=== PATIENT | female | born 1980 | race Caucasian/White ===

== ENCOUNTER 2021-12-31 15:16 | Observation (INO) | payer OTHER ==
[2021-12-31 16:07] LABS: ALT 13 U/L (4-34); AST 32 U/L (14-36); African American GFR (CKD) >90 (>60 ml/min/1.73 sqM); Albumin 4.5 g/dL (3.5-5.0); Alkaline Phosphatase 85 U/L (38-126); Anion Gap 13 mmol/L; Blood Urea Nitrogen 12 mg/dL (7-17); Calcium 9.2 mg/dL (8.4-10.2); Carbon Dioxide 20 mmol/L (22-30); Chloride 101 mmol/L (98-107); Glucose 105 mg/dL (74-99); Lipase 131 U/L (23-300); Magnesium 1.8 mg/dL (1.6-2.3); Non-African American GFR(CKD) >90 (>60 ml/min/1.73 sqM); Potassium 3.7 mmol/L (3.5-5.1); Sodium 134 mmol/L (137-145); Total Bilirubin 0.6 mg/dL (0.2-1.3); Total Protein 8.7 g/dL (6.3-8.2)
[2021-12-31 16:22] LABS: INR 0.9 (<1.2); Prothrombin Time 10.4 sec (9.0-12.0)
[2021-12-31 16:25] LABS: Anisocytosis Moderate; Basophils # (A) 0.1 k/uL (0-0.2); Basophils % (A) 1 %; Eosinophils # (A) 0.7 k/uL (0-0.7); Eosinophils % (A) 4 %; HCT 25.8 % (34.0-46.0); HGB 7.1 gm/dL (11.4-16.0); Hypochromasia Marked; Lymphocytes # (A) 1.8 k/uL (1.0-4.8); Lymphocytes % (A) 10 %; MCH 19.2 pg (25.0-35.0); MCHC 27.6 g/dL (31.0-37.0); MCV 69.7 fL (80.0-100.0); Mean Platelet Volume 8.4; Microcytosis Marked; Monocytes % (A) 5 %; Neutrophils # (A) 15.2 k/uL (1.3-7.7); Neutrophils % (A) 79 %; Platelet Count 214 k/uL (150-450); Poikilocytosis Slight; RDW 23.8 % (11.5-15.5); WBC 19.3 k/uL (3.8-10.6)
--- NOTE | 2021-12-31 17:39 | XR ---
EXAMINATION TYPE: XR chest 2V DATE OF EXAM: 12/31/2021 COMPARISON: NONE HISTORY: Chest pain and weakness TECHNIQUE: Frontal and lateral views of the chest are obtained. FINDINGS: There is no focal air space opacity, pleural effusion, or pneumothorax seen. The cardiac silhouette size is within normal limits. The osseous structures are intact. Mild degenerative sanchez es of the thoracic spine. Surgical clips overlie the left upper abdomen. IMPRESSION: No acute cardiopulmonary process.
[2021-12-31 17:42] LABS: Appearance,Urine Cloudy (Clear); Bilirubin,Urine Negative (Negative); Blood,Urine Negative (Negative); Color,Urine Yellow; Glucose,Urine (UA) Negative (Negative); Ketones,Urine Negative (Negative); Leukocyte Esterase,Urine Moderate (Negative); Mucus,Urine Few /hpf; Nitrite,Urine Negative (Negative); PH, Urine 6.5 (5.0-8.0); Protein,Urine Negative (Negative); RBC,Urine <1 /hpf (0-5); Specific Gravity,Urine 1.025 (1.001-1.035); Squamous Epithelial Cell,Urine 8 /hpf (0-4); Urobilinogen,Urine <2.0 mg/dL (<2.0); WBC,Urine 4 /hpf (0-5)
[2021-12-31] MEDS ORDERED: SODIUM CHLORIDE 0.9% 1,000 ML IV ONE (19:43)
[2021-12-31] MEDS ORDERED: NALOXONE 0.4 MG/ML 1 ML VIAL IV PRN (19:44)
--- NOTE | 2021-12-31 19:44 | ED ---
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 She was out shopping with her daughter when she had sudden onset of right-sided chest wall pain. We are short of breath and nauseated. The pain lasted approximately 10 minutes before spontaneously resolving. She denies history of cardiac disease. States that she has been more short of breath over the past week and has been extremely fatigued. Sleeps up to 20 hours per day. She admits to a history of anemia due to her gastric bypass. Previous to Covid she was receiving iron infusions. States that she has not received one in several years. She denies any black or bloody stools. No other alleviating, precipitating or modifying factors - Related Data Home Medications Medication Instructions Recorded Confirmed Albuterol Inhaler [Ventolin Hfa 2 puff INHALATION RT-QID PRN 12/31/21 12/31/21 Inhaler] Escitalopram [Lexapro] 10 mg PO HS 12/31/21 12/31/21 Famotidine [Pepcid] 20 mg PO BID 12/31/21 12/31/21 busPIRone HCL 15 mg PO DAILY PRN 12/31/21 12/31/21 busPIRone HCL 30 mg PO HS 12/31/21 12/31/21 Allergies Allergy/AdvReac Type Severity Reaction Status Date / Time amoxicillin Allergy Anaphylaxis Verified 12/31/21 19:13 Review of Systems ROS Statement: Those systems with pertinent positive or pertinent negative responses have been documented in the HPI. ROS Other: All systems not noted in ROS Statement are negative. Past Medical History Past Medical History: Blood Disorder, GERD/Reflux Additional Past Medical History / Comment(s): Anemia History of Any Multi-Drug Resistant Organisms: None Reported Past Surgical History: Bariatric Surgery Additional Past Surgical History / Comment(s): gastric bypass 2013 Past Psychological History: Anxiety, Depression Smoking Status: Current every day smoker Past Alcohol Use History: Occasional Past Drug Use History: Marijuana - Past Family History Mother Family Medical History: Unable to Obtain General Exam Limitations: no limitations General appearance: alert, in no apparent distress Head exam: Present: atraumatic, normocephalic, normal inspection Eye exam: Present: normal appearance, PERRL, EOMI. Absent: scleral icterus, conjunctival injection, periorbital swelling ENT exam: Present: normal exam, mucous membranes moist Neck exam: Present: normal inspection. Absent: tenderness, meningismus, lymphadenopathy Respiratory exam: Present: normal lung sounds bilaterally. Absent: respiratory distress, wheezes, rales, rhonchi, stridor Cardiovascular Exam: Present: regular rate, normal rhythm, normal heart sounds. Absent: systolic murmur, diastolic murmur, rubs, gallop, clicks GI/Abdominal exam: Present: soft, normal bowel sounds. Absent: distended, tenderness, guarding, rebound, rigid Extremities exam: Present: normal inspection, full ROM, normal capillary refill. Absent: tenderness, pedal edema, joint swelling, calf tenderness Back exam: Present: normal inspection Neurological exam: Present: alert, oriented X3, CN II-XII intact Psychiatric exam: Present: normal affect, normal mood Skin exam: Present: warm, dry, intact, normal color. 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 [place] interval 122. QRS 95. QTC of 409. No acute ST segment elevations or depressions Medical Decision Making - Medical Decision Making Upon arrival patient is placed into room 7. A thorough history and physical exam was performed. 12-lead EKG is obtained. Laboratory studies are conducted. Patient's hemoglobin is 7.1. White count 19.3. Troponin is negative. Chest x-ray demonstrates no acute process. Recommended admission in order to trend her troponins. Recommended hematology consult for her anemia and leukocytosis. Patient denies any source of infection at this time. Patient was on 2 recent courses of antibiotics for a urinary tract infection however denies any symptoms at this time. No fevers, chills or cough. No abdominal pain. Patient agreed to admission. Called and spoke with Bren from [facility]. Will hold off on the patient's blood transfusion at this time until she is able to be evaluated by hematology. Patient agreed to this and was transferred to floor in stable condition - Lab Data Result diagrams: 01/02/22 17:50 01/01/22 07:39 Lab Results 12/31/21 12/31/21 12/31/21 Range/Units 15:46 15:46 15:46 WBC 19.3 H (3.8-10.6) k/uL RBC 3.70 L (3.80-5.40) m/uL Hgb 7.1 L (11.4-16.0) gm/dL Hct 25.8 L (34.0-46.0) % MCV 69.7 L (80.0-100.0) fL MCH 19.2 L (25.0-35.0) pg MCHC 27.6 L (31.0-37.0) g/dL RDW 23.8 H (11.5-15.5) % Plt Count 214 (150-450) k/uL Plt Count Comment MPV 8.4 Immature Gran % (Auto) % Absolute Nucleated RBC (0.00-0.00) X 10*3/uL Neutrophils % 79 % Lymphocytes % 10 % Monocytes % 5 % Eosinophils % 4 % Basophils % 1 % Immature Gran # (0.00-0.04) X 10*3/uL Neutrophils # 15.2 H (1.3-7.7) k/uL Lymphocytes # 1.8 (1.0-4.8) k/uL Monocytes # 1.0 (0-1.0) k/uL Eosinophils # 0.7 (0-0.7) k/uL Basophils # 0.1 (0-0.2) k/uL NRBC/100 WBC Diff (0.0-0.0) /100 WBCS Pathologist Review Hypochromasia Marked Hypochromasia (manual) Poikilocytosis Slight Anisocytosis Moderate Microcytosis Marked Microcytosis (manual) PT 10.4 (9.0-12.0) sec INR 0.9 (<1.2) APTT 20.0 L (22.0-30.0) sec Sodium 134 L (137-145) mmol/L Potassium 3.7 (3.5-5.1) mmol/L Chloride 101 (98-107) mmol/L Carbon Dioxide 20 L (22-30) mmol/L Anion Gap 13 mmol/L BUN 12 (7-17) mg/dL Creatinine 0.65 (0.52-1.04) mg/dL Est GFR (CKD-EPI)AfAm >90 (>60 ml/min/1.73 sqM) Est GFR (CKD-EPI)NonAf >90 (>60 ml/min/1.73 sqM) BUN/Creatinine Ratio (12.00-20.00) Ratio Glucose 105 H (74-99) mg/dL Calcium 9.2 (8.4-10.2) mg/dL Magnesium 1.8 (1.6-2.3) mg/dL Iron (50-170) ug/dL TIBC (228-460) ug/dL % Saturation (12.00-45.00) Transferrin (204.0-354.0) mg/dL Total Bilirubin 0.6 (0.2-1.3) mg/dL AST 32 (14-36) U/L ALT 13 (4-34) U/L Alkaline Phosphatase 85 (38-126) U/L Troponin I (0.000-0.034) ng/mL NT-Pro-B Natriuret Pep pg/mL Total Protein 8.7 H (6.3-8.2) g/dL Albumin 4.5 (3.5-5.0) g/dL Lipase 131 (23-300) U/L Urine Color Urine Appearance (Clear) Urine pH (5.0-8.0) Ur Specific [place] (1.001-1.035) Urine Protein (Negative) Urine Glucose (UA) (Negative) Urine Ketones (Negative) Urine Blood (Negative) Urine Nitrite (Negative) Urine Bilirubin (Negative) Urine Urobilinogen (<2.0) mg/dL Ur Leukocyte Esterase (Negative) Urine RBC (0-5) /hpf Urine WBC (0-5) /hpf Ur Squamous Epith Cells (0-4) /hpf Urine Mucus (None) /hpf Blood Type Confirm 12/31/21 12/31/21 12/31/21 Range/Units 15:46 15:46 15:46 WBC (3.8-10.6) k/uL RBC (3.80-5.40) m/uL Hgb (11.4-16.0) gm/dL Hct (34.0-46.0) % MCV (80.0-100.0) fL MCH (25.0-35.0) pg MCHC (31.0-37.0) g/dL RDW (11.5-15.5) % Plt Count (150-450) k/uL Plt Count Comment MPV Immature Gran % (Auto) % Absolute Nucleated RBC (0.00-0.00) X 10*3/uL Neutrophils % % Lymphocytes % % Monocytes % % Eosinophils % % Basophils % % Immature Gran # (0.00-0.04) X 10*3/uL Neutrophils # (1.3-7.7) k/uL Lymphocytes # (1.0-4.8) k/uL Monocytes # (0-1.0) k/uL Eosinophils # (0-0.7) k/uL Basophils # (0-0.2) k/uL NRBC/100 WBC Diff (0.0-0.0) /100 WBCS Pathologist Review Hypochromasia Hypochromasia (manual) Poikilocytosis Anisocytosis Microcytosis Microcytosis (manual) PT (9.0-12.0) sec INR (<1.2) APTT (22.0-30.0) sec Sodium (137-145) mmol/L Potassium (3.5-5.1) mmol/L Chloride (98-107) mmol/L Carbon Dioxide (22-30) mmol/L Anion Gap mmol/L BUN (7-17) mg/dL Creatinine (0.52-1.04) mg/dL Est GFR (CKD-EPI)AfAm (>60 ml/min/1.73 sqM) Est GFR (CKD-EPI)NonAf (>60 ml/min/1.73 sqM) BUN/Creatinine Ratio (12.00-20.00) Ratio Glucose (74-99) mg/dL Calcium (8.4-10.2) mg/dL Magnesium (1.6-2.3) mg/dL Iron 12 L (50-170) ug/dL TIBC 680 H (228-460) ug/dL % Saturation 1.69 L (12.00-45.00) Transferrin 486.0 H (204.0-354.0) mg/dL Total Bilirubin (0.2-1.3) mg/dL AST (14-36) U/L ALT (4-34) U/L Alkaline Phosphatase (38-126) U/L Troponin I <0.012 (0.000-0.034) ng/mL NT-Pro-B Natriuret Pep 81 pg/mL Total Protein (6.3-8.2) g/dL Albumin (3.5-5.0) g/dL Lipase (23-300) U/L Urine Color Urine Appearance (Clear) Urine pH (5.0-8.0) Ur Specific [place] (1.001-1.035) Urine Protein (Negative) Urine Glucose (UA) (Negative) Urine Ketones (Negative) Urine Blood (Negative) Urine Nitrite (Negative) Urine Bilirubin (Negative) Urine Urobilinogen (<2.0) mg/dL Ur Leukocyte Esterase (Negative) Urine RBC (0-5) /hpf Urine WBC (0-5) /hpf Ur Squamous Epith Cells (0-4) /hpf Urine Mucus (None) /hpf Blood Type Confirm 12/31/21 12/31/21 12/31/21 Range/Units 15:46 17:30 21:28 WBC (3.8-10.6) k/uL RBC (3.80-5.40) m/uL Hgb (11.4-16.0) gm/dL Hct (34.0-46.0) % MCV (80.0-100.0) fL MCH (25.0-35.0) pg MCHC (31.0-37.0) g/dL RDW (11.5-15.5) % Plt Count (150-450) k/uL Plt Count Comment MPV Immature Gran % (Auto) % Absolute Nucleated RBC (0.00-0.00) X 10*3/uL Neutrophils % % Lymphocytes % % Monocytes % % Eosinophils % % Basophils % % Immature Gran # (0.00-0.04) X 10*3/uL Neutrophils # (1.3-7.7) k/uL Lymphocytes # (1.0-4.8) k/uL Monocytes # (0-1.0) k/uL Eosinophils # (0-0.7) k/uL Basophils # (0-0.2) k/uL NRBC/100 WBC Diff (0.0-0.0) /100 WBCS Pathologist Review Hypochromasia Hypochromasia (manual) Poikilocytosis Anisocytosis Microcytosis Microcytosis (manual) PT (9.0-12.0) sec INR (<1.2) APTT (22.0-30.0) sec Sodium (137-145) mmol/L Potassium (3.5-5.1) mmol/L Chloride (98-107) mmol/L Carbon Dioxide (22-30) mmol/L Anion Gap mmol/L BUN (7-17) mg/dL Creatinine (0.52-1.04) mg/dL Est GFR (CKD-EPI)AfAm (>60 ml/min/1.73 sqM) Est GFR (CKD-EPI)NonAf (>60 ml/min/1.73 sqM) BUN/Creatinine Ratio (12.00-20.00) Ratio Glucose (74-99) mg/dL Calcium (8.4-10.2) mg/dL Magnesium (1.6-2.3) mg/dL Iron (50-170) ug/dL TIBC (228-460) ug/dL % Saturation (12.00-45.00) Transferrin (204.0-354.0) mg/dL Total Bilirubin (0.2-1.3) mg/dL AST (14-36) U/L ALT (4-34) U/L Alkaline Phosphatase (38-126) U/L Troponin I <0.012 (0.000-0.034) ng/mL NT-Pro-B Natriuret Pep pg/mL Total Protein (6.3-8.2) g/dL Albumin (3.5-5.0) g/dL Lipase (23-300) U/L Urine Color Yellow Urine Appearance Cloudy H (Clear) Urine pH 6.5 (5.0-8.0) Ur Specific [place] 1.025 (1.001-1.035) Urine Protein Negative (Negative) Urine Glucose (UA) Negative (Negative) Urine Ketones Negative (Negative) Urine Blood Negative (Negative) Urine Nitrite Negative (Negative) Urine Bilirubin Negative (Negative) Urine Urobilinogen <2.0 (<2.0) mg/dL Ur Leukocyte Esterase Moderate H (Negative) Urine RBC <1 (0-5) /hpf Urine WBC 4 (0-5) /hpf Ur Squamous Epith Cells 8 H (0-4) /hpf Urine Mucus Few H (None) /hpf Blood Type Confirm A Positive 01/01/22 01/01/22 01/01/22 Range/Units 00:52 07:39 07:39 WBC 12.44 H (3.8-10.6) k/uL RBC 3.20 L (3.80-5.40) m/uL Hgb 5.9 L* (11.4-16.0) gm/dL Hct 22.6 L (34.0-46.0) % MCV 70.6 L (80.0-100.0) fL MCH 18.4 L (25.0-35.0) pg MCHC 26.1 L (31.0-37.0) g/dL RDW 25.7 H (11.5-15.5) % Plt Count 227 (150-450) k/uL Plt Count Comment Adequate MPV Immature Gran % (Auto) 0.6 % Absolute Nucleated RBC 0.03 H (0.00-0.00) X 10*3/uL Neutrophils % 66.8 % Lymphocytes % 13.3 % Monocytes % 10.5 % Eosinophils % 8.0 % Basophils % 0.8 % Immature Gran # 0.07 H (0.00-0.04) X 10*3/uL Neutrophils # 8.31 H (1.3-7.7) k/uL Lymphocytes # 1.66 (1.0-4.8) k/uL Monocytes # 1.30 H (0-1.0) k/uL Eosinophils # 1.00 H (0-0.7) k/uL Basophils # 0.10 (0-0.2) k/uL NRBC/100 WBC Diff 0.2 H (0.0-0.0) /100 WBCS Pathologist Review Hypochromasia Hypochromasia (manual) 2+ Poikilocytosis Anisocytosis Microcytosis Microcytosis (manual) 2+ PT (9.0-12.0) sec INR (<1.2) APTT (22.0-30.0) sec Sodium 138 (137-145) mmol/L Potassium 3.9 (3.5-5.1) mmol/L Chloride 107 (98-107) mmol/L Carbon Dioxide 21.9 (22-30) mmol/L Anion Gap 9.10 L mmol/L BUN 6.9 L (7-17) mg/dL Creatinine 0.6 (0.52-1.04) mg/dL Est GFR (CKD-EPI)AfAm 132.1 (>60 ml/min/1.73 sqM) Est GFR (CKD-EPI)NonAf 114.0 (>60 ml/min/1.73 sqM) BUN/Creatinine Ratio 11.50 L (12.00-20.00) Ratio Glucose 95 (74-99) mg/dL Calcium 8.3 L (8.4-10.2) mg/dL Magnesium (1.6-2.3) mg/dL Iron (50-170) ug/dL TIBC (228-460) ug/dL % Saturation (12.00-45.00) Transferrin (204.0-354.0) mg/dL Total Bilirubin (0.2-1.3) mg/dL AST (14-36) U/L ALT (4-34) U/L Alkaline Phosphatase (38-126) U/L Troponin I <0.012 (0.000-0.034) ng/mL NT-Pro-B Natriuret Pep pg/mL Total Protein (6.3-8.2) g/dL Albumin (3.5-5.0) g/dL Lipase (23-300) U/L Urine Color Urine Appearance (Clear) Urine pH (5.0-8.0) Ur Specific [place] (1.001-1.035) Urine Protein (Negative) Urine Glucose (UA) (Negative) Urine Ketones (Negative) Urine Blood (Negative) Urine Nitrite (Negative) Urine Bilirubin (Negative) Urine Urobilinogen (<2.0) mg/dL Ur Leukocyte Esterase (Negative) Urine RBC (0-5) /hpf Urine WBC (0-5) /hpf Ur Squamous Epith Cells (0-4) /hpf Urine Mucus (None) /hpf Blood Type Confirm 01/01/22 Range/Units 07:39 WBC (3.8-10.6) k/uL RBC (3.80-5.40) m/uL Hgb (11.4-16.0) gm/dL Hct (34.0-46.0) % MCV (80.0-100.0) fL MCH (25.0-35.0) pg MCHC (31.0-37.0) g/dL RDW (11.5-15.5) % Plt Count (150-450) k/uL Plt Count Comment MPV Immature Gran % (Auto) % Absolute Nucleated RBC (0.00-0.00) X 10*3/uL Neutrophils % % Lymphocytes % % Monocytes % % Eosinophils % % Basophils % % Immature Gran # (0.00-0.04) X 10*3/uL Neutrophils # (1.3-7.7) k/uL Lymphocytes # (1.0-4.8) k/uL Monocytes # (0-1.0) k/uL Eosinophils # (0-0.7) k/uL Basophils # (0-0.2) k/uL NRBC/100 WBC Diff (0.0-0.0) /100 WBCS Pathologist Review See comment Hypochromasia Hypochromasia (manual) Poikilocytosis Anisocytosis Microcytosis Microcytosis (manual) PT (9.0-12.0) sec INR (<1.2) APTT (22.0-30.0) sec Sodium (137-145) mmol/L Potassium (3.5-5.1) mmol/L Chloride (98-107) mmol/L Carbon Dioxide (22-30) mmol/L Anion Gap mmol/L BUN (7-17) mg/dL Creatinine (0.52-1.04) mg/dL Est GFR (CKD-EPI)AfAm (>60 ml/min/1.73 sqM) Est GFR (CKD-EPI)NonAf (>60 ml/min/1.73 sqM) BUN/Creatinine Ratio (12.00-20.00) Ratio Glucose (74-99) mg/dL Calcium (8.4-10.2) mg/dL Magnesium (1.6-2.3) mg/dL Iron (50-170) ug/dL TIBC (228-460) ug/dL % Saturation (12.00-45.00) Transferrin (204.0-354.0) mg/dL Total Bilirubin (0.2-1.3) mg/dL AST (14-36) U/L ALT (4-34) U/L Alkaline Phosphatase (38-126) U/L Troponin I (0.000-0.034) ng/mL NT-Pro-B Natriuret Pep pg/mL Total Protein (6.3-8.2) g/dL Albumin (3.5-5.0) g/dL Lipase (23-300) U/L Urine Color Urine Appearance (Clear) Urine pH (5.0-8.0) Ur Specific [place] (1.001-1.035) Urine Protein (Negative) Urine Glucose (UA) (Negative) Urine Ketones (Negative) Urine Blood (Negative) Urine Nitrite (Negative) Urine Bilirubin (Negative) Urine Urobilinogen (<2.0) mg/dL Ur Leukocyte Esterase (Negative) Urine RBC (0-5) /hpf Urine WBC (0-5) /hpf Ur Squamous Epith Cells (0-4) /hpf Urine Mucus (None) /hpf Blood Type Confirm Disposition Clinical Impression: Chest pain, Anemia, Exertional dyspnea, Leukocytosis Disposition: ADMITTED IP TO THIS [facility] Condition: Stable Is patient prescribed a controlled substance at d/c from ED?: No Time of Disposition: 19:44 Decision to Admit Reason: Admit from EC Decision Date: 12/31/21 Decision Time: 19:44
[2021-12-31] MEDS ORDERED: ALBUTEROL NEBULIZED 2.5 MG/3 ML INHALATION PRN (21:14)
[2021-12-31] MEDS: FAMOTIDINE 20 MG TAB PO SCH (21:52)
[2021-12-31] MEDS: ESCITALOPRAM 10 MG TAB PO SCH (21:52)
[2021-12-31] MEDS: busPIRone HCl 10 MG TAB PO SCH (21:52)
[2021-12-31] MEDS: ACETAMINOPHEN TAB 325 MG TAB PO PRN (21:52)
[2021-12-31] MEDS ORDERED: busPIRone HCl 5 MG TAB PO PRN (22:00)
[2021-12-31] MEDS: SODIUM CHLORIDE 0.9% 1,000 ML IV SCH (22:00)
[2021-12-31 22:54] LABS: % Iron Saturation 1.69 (12.00-45.00)
[2022-01-01] MEDS: SODIUM CHLORIDE 0.9% 1,000 ML IV SCH ×3 (03:50→19:57)
[2022-01-01] MEDS: FAMOTIDINE 20 MG TAB PO SCH ×2 (08:17→19:56)
[2022-01-01] MEDS: ACETAMINOPHEN TAB 325 MG TAB PO PRN ×2 (08:18→19:55)
--- NOTE | 2022-01-01 08:26 | P.HPIM ---
History of Present Illness H&P Date: 01/01/22 Chief Complaint: Chest pain. 41-year-old white female who is adopted and does not know her biologic family history who complained of significant chest pressure. Workup shows significant new anemia which I suspect his iron deficiency. The patient is a symptomatically morning. No overt chest pressure stated. No nausea or vomiting. Cardiac enzymes are nominal. Substernal pain was noted with no radiation. No diaphoresis was stated. Review of Systems Constitutional: Denies chills, Denies fever Eyes: denies blurred vision, denies pain Ears, nose, mouth and throat: Denies headache, Denies sore throat Cardiovascular: Reports chest pain, Denies shortness of breath Respiratory: Denies cough Gastrointestinal: Denies abdominal pain, Denies diarrhea, Denies nausea, Denies vomiting Genitourinary: Denies dysuria, Denies hematuria Past Medical History Past Medical History: Blood Disorder, GERD/Reflux Additional Past Medical History / Comment(s): Anemia History of Any Multi-Drug Resistant Organisms: None Reported Past Surgical History: Bariatric Surgery Additional Past Surgical History / Comment(s): gastric bypass 2014 Past Anesthesia/Blood Transfusion Reactions: No Reported Reaction Past Psychological History: Anxiety, Depression Smoking Status: Current every day smoker Past Alcohol Use History: Occasional Past Drug Use History: Marijuana Medications and Allergies Home Medications Medication Instructions Recorded Confirmed Type Albuterol Inhaler [Ventolin Hfa 2 puff INHALATION RT-QID PRN 12/31/21 12/31/21 History Inhaler] Escitalopram [Lexapro] 10 mg PO HS 12/31/21 12/31/21 History Famotidine [Pepcid] 20 mg PO BID 12/31/21 12/31/21 History busPIRone HCL 15 mg PO DAILY PRN 12/31/21 12/31/21 History busPIRone HCL 30 mg PO HS 12/31/21 12/31/21 History Allergies Allergy/AdvReac Type Severity Reaction Status Date / Time amoxicillin Allergy Anaphylaxis Verified 12/31/21 19:13 Physical Exam Vitals: Vital Signs Temp Pulse Pulse Pulse Resp BP BP 01/01/22 07:15 98.4 F 77 15 126/68 01/01/22 00:37 98.3 F 81 16 121/63 12/31/21 20:52 98.6 F 82 16 150/69 12/31/21 20:44 98.0 F 82 18 115/70 12/31/21 18:30 84 20 147/87 12/31/21 17:36 80 20 126/61 12/31/21 15:40 84 20 12/31/21 15:23 98.8 F 100 18 121/77 Pulse Ox 01/01/22 07:15 98 01/01/22 00:37 97 12/31/21 20:52 100 12/31/21 20:44 98 12/31/21 18:30 98 12/31/21 17:36 100 12/31/21 15:40 12/31/21 15:23 100 Intake and Output 12/31/21 01/01/22 01/01/22 22:59 06:59 14:59 Other: # Voids 1 1 Weight 68.039 kg - Constitutional General appearance: no acute distress - EENT Eyes: EOMI - Neck Neck: no lymphadenopathy - Respiratory Respiratory: bilateral: CTA - Cardiovascular Rhythm: regular Heart sounds: normal: S1, S2 Abnormal Heart Sounds: no S3 Gallop - Gastrointestinal General gastrointestinal: soft, no tenderness - Integumentary Integumentary: no cyanotic - Neurologic Neurologic: CNII-XII intact Results CBC & Chem 7: 12/31/21 15:46 12/31/21 15:46 Labs: Abnormal Lab Results - Last 24 Hours (Table) 12/31/21 12/31/21 12/31/21 Range/Units 15:46 15:46 15:46 WBC 19.3 H (3.8-10.6) k/uL RBC 3.70 L (3.80-5.40) m/uL Hgb 7.1 L (11.4-16.0) gm/dL Hct 25.8 L (34.0-46.0) % MCV 69.7 L (80.0-100.0) fL MCH 19.2 L (25.0-35.0) pg MCHC 27.6 L (31.0-37.0) g/dL RDW 23.8 H (11.5-15.5) % Neutrophils # 15.2 H (1.3-7.7) k/uL APTT 20.0 L (22.0-30.0) sec Sodium 134 L (137-145) mmol/L Carbon Dioxide 20 L (22-30) mmol/L Glucose 105 H (74-99) mg/dL Iron (50-170) ug/dL TIBC (228-460) ug/dL % Saturation (12.00-45.00) Transferrin (204.0-354.0) mg/dL Total Protein 8.7 H (6.3-8.2) g/dL Urine Appearance (Clear) Ur Leukocyte Esterase (Negative) Ur Squamous Epith Cells (0-4) /hpf Urine Mucus (None) /hpf 12/31/21 12/31/21 Range/Units 15:46 17:30 WBC (3.8-10.6) k/uL RBC (3.80-5.40) m/uL Hgb (11.4-16.0) gm/dL Hct (34.0-46.0) % MCV (80.0-100.0) fL MCH (25.0-35.0) pg MCHC (31.0-37.0) g/dL RDW (11.5-15.5) % Neutrophils # (1.3-7.7) k/uL APTT (22.0-30.0) sec Sodium (137-145) mmol/L Carbon Dioxide (22-30) mmol/L Glucose (74-99) mg/dL Iron 12 L (50-170) ug/dL TIBC 680 H (228-460) ug/dL % Saturation 1.69 L (12.00-45.00) Transferrin 486.0 H (204.0-354.0) mg/dL Total Protein (6.3-8.2) g/dL Urine Appearance Cloudy H (Clear) Ur Leukocyte Esterase Moderate H (Negative) Ur Squamous Epith Cells 8 H (0-4) /hpf Urine Mucus Few H (None) /hpf Assessment and Plan (1) Anemia Current Visit: Yes Status: Acute Code(s): D64.9 - ANEMIA, UNSPECIFIED SNOMED Code(s): 458361917 (2) Chest pain Current Visit: Yes Status: Acute Code(s): R07.9 - CHEST PAIN, UNSPECIFIED SNOMED Code(s): 69382710 (3) Exertional dyspnea Current Visit: Yes Status: Acute Code(s): R06.00 - DYSPNEA, UNSPECIFIED SNOMED Code(s): 32923781 Plan: Question need for pelvic ultrasound. Rule out myocardial infarction element. Appreciate hematology consult. IC signs of iron deficiency. She might benefit from infusion versus oral placement. Await consultations.
[2022-01-01] MEDS ORDERED: busPIRone HCl 5 MG TAB PO PRN (09:00)
[2022-01-01 10:52] LABS: African American GFR (CKD) 132.1 (60.0-200.0); Anion Gap 9.1 mmol/L (10.00-18.00); BUN/Creat Ratio 11.5 Ratio (12.00-20.00); Blood Urea Nitrogen 6.9 mg/dL (9.0-27.0); Calcium 8.3 mg/dL (8.7-10.3); Carbon Dioxide 21.9 mmol/L (20.0-27.5); Potassium 3.9 mmol/L (3.5-5.5)
--- NOTE | 2022-01-01 11:09 | P.CONS ---
History of Present Illness - Reason for Consult Consult date: 01/01/22 Acute on chronic anemia Requesting physician: Farnaz Arce - Chief Complaint Chest pain - History of Present Illness Mrs. Nelson is a pleasant 41-year-old female admitted with sudden onset chest pain, associated with nausea and shortness of breath, spontaneously res olved. No history of heart or lung disease. She has a history of iron deficiency, treated with parenteral iron, history of gastric bypass in 2013, treated for gastric ulcers. She has rare menstrual periods, about 3 times a year, qualifies them as light. She denies any other bleeding, no unintentional weight loss, sweats, acute changes in bowel or bladder habits. She is tired today, denies any current chest pain, shortness of breath, or nausea. Review of Systems 14 point review of systems is negative except as stated in HPI Past Medical History Past Medical History: Blood Disorder, GERD/Reflux Additional Past Medical History / Comment(s): Anemia History of Any Multi-Drug Resistant Organisms: None Reported Past Surgical History: Bariatric Surgery Additional Past Surgical History / Comment(s): gastric bypass 2013 Past Anesthesia/Blood Transfusion Reactions: No Reported Reaction Past Psychological History: Anxiety, Depression Smoking Status: Current every day smoker Past Alcohol Use History: Occasional Past Drug Use History: Marijuana - Past Family History Mother Family Medical History: Unable to Obtain Medications and Allergies Home Medications Medication Instructions Recorded Confirmed Type Albuterol Inhaler [Ventolin Hfa 2 puff INHALATION RT-QID PRN 12/31/21 12/31/21 History Inhaler] Escitalopram [Lexapro] 10 mg PO HS 12/31/21 12/31/21 History Famotidine [Pepcid] 20 mg PO BID 12/31/21 12/31/21 History busPIRone HCL 15 mg PO DAILY PRN 12/31/21 12/31/21 History busPIRone HCL 30 mg PO HS 12/31/21 12/31/21 History Allergies Allergy/AdvReac Type Severity Reaction Status Date / Time amoxicillin Allergy Anaphylaxis Verified 12/31/21 19:13 Physical Exam Vitals: Vital Signs Temp Pulse Pulse Pulse Resp BP BP 01/01/22 07:15 98.4 F 77 15 126/68 01/01/22 00:37 98.3 F 81 16 121/63 12/31/21 20:52 98.6 F 82 16 150/69 12/31/21 20:44 98.0 F 82 18 115/70 12/31/21 18:30 84 20 147/87 12/31/21 17:36 80 20 126/61 12/31/21 15:40 84 20 12/31/21 15:23 98.8 F 100 18 121/77 Pulse Ox 01/01/22 07:15 98 01/01/22 00:37 97 12/31/21 20:52 100 12/31/21 20:44 98 12/31/21 18:30 98 12/31/21 17:36 100 12/31/21 15:40 12/31/21 15:23 100 Intake and Output 12/31/21 01/01/22 01/01/22 22:59 06:59 14:59 Other: # Voids 1 1 Weight 68.039 kg - Constitutional General appearance: average body habitus, cooperative, no acute distress - EENT Eyes: anicteric sclerae, EOMI ENT: hearing grossly normal, normal oropharynx - Neck Neck: no lymphadenopathy, normal ROM - Respiratory Respiratory: bilateral: CTA - Cardiovascular Rhythm: regular Heart sounds: normal: S1, S2 Abnormal Heart Sounds: no systolic murmur, no diastolic murmur, no rub, no S3 Gallop, no S4 Gallop, no click, no other leg Peripheral Edema: bilateral: None - Gastrointestinal General gastrointestinal: no absent bowel sounds, no decreased bowel sounds, no distended, no hepatomegaly, no hyperactive bowel sounds, normal bowel sounds, no organomegaly, no rigid, no scaphoid, soft, no splenomegaly, no tenderness, no umbilical hernia, no ventral hernia - Integumentary Integumentary: normal turgor - Neurologic Neurologic: CNII-XII intact - Musculoskeletal Musculoskeletal: strength equal bilaterally - Psychiatric Psychiatric: A&O x's 3, appropriate affect, intact judgment & insight Results CBC & Chem 7: 12/31/21 15:46 01/01/22 07:39 Labs: Abnormal Lab Results - Last 24 Hours (Table) 12/31/21 12/31/21 12/31/21 Range/Units 15:46 15:46 15:46 WBC 19.3 H (3.8-10.6) k/uL RBC 3.70 L (3.80-5.40) m/uL Hgb 7.1 L (11.4-16.0) gm/dL Hct 25.8 L (34.0-46.0) % MCV 69.7 L (80.0-100.0) fL MCH 19.2 L (25.0-35.0) pg MCHC 27.6 L (31.0-37.0) g/dL RDW 23.8 H (11.5-15.5) % Neutrophils # 15.2 H (1.3-7.7) k/uL APTT 20.0 L (22.0-30.0) sec Sodium 134 L (137-145) mmol/L Carbon Dioxide 20 L (22-30) mmol/L Anion Gap (10.00-18.00) mmol/L BUN (9.0-27.0) mg/dL BUN/Creatinine Ratio (12.00-20.00) Ratio Glucose 105 H (74-99) mg/dL Calcium (8.7-10.3) mg/dL Iron (50-170) ug/dL TIBC (228-460) ug/dL % Saturation (12.00-45.00) Transferrin (204.0-354.0) mg/dL Total Protein 8.7 H (6.3-8.2) g/dL Urine Appearance (Clear) Ur Leukocyte Esterase (Negative) Ur Squamous Epith Cells (0-4) /hpf Urine Mucus (None) /hpf 12/31/21 12/31/21 01/01/22 Range/Units 15:46 17:30 07:39 WBC (3.8-10.6) k/uL RBC (3.80-5.40) m/uL Hgb (11.4-16.0) gm/dL Hct (34.0-46.0) % MCV (80.0-100.0) fL MCH (25.0-35.0) pg MCHC (31.0-37.0) g/dL RDW (11.5-15.5) % Neutrophils # (1.3-7.7) k/uL APTT (22.0-30.0) sec Sodium (137-145) mmol/L Carbon Dioxide (22-30) mmol/L Anion Gap 9.10 L (10.00-18.00) mmol/L BUN 6.9 L (9.0-27.0) mg/dL BUN/Creatinine Ratio 11.50 L (12.00-20.00) Ratio Glucose (74-99) mg/dL Calcium 8.3 L (8.7-10.3) mg/dL Iron 12 L (50-170) ug/dL TIBC 680 H (228-460) ug/dL % Saturation 1.69 L (12.00-45.00) Transferrin 486.0 H (204.0-354.0) mg/dL Total Protein (6.3-8.2) g/dL Urine Appearance Cloudy H (Clear) Ur Leukocyte Esterase Moderate H (Negative) Ur Squamous Epith Cells 8 H (0-4) /hpf Urine Mucus Few H (None) /hpf Chest x-ray: report reviewed Assessment and Plan (1) Microcytic hypochromic anemia Narrative/Plan: Additional labs have been ordered for complete evaluation of microcytic, hypochromic anemia. Patient states a history of iron deficiency about 5 years ago, treated with parenteral iron by her primary care. Patient denies ever seeing a Financial Analysis Manager. History of gastric bypass. This can certainly contribute to malabsorption, vitamin labs ordered. Patient also reports a history of gastric ulcers. There could be recurrence of the same. Pending ferritin. May need referral back to Investigative Analyst who performed her previous colonoscopy and EGD Current Visit: Yes Status: Acute Priority: High Code(s): D50.9 - IRON DEFICIENCY ANEMIA, UNSPECIFIED SNOMED Code(s): 55242777 (2) Leukocytosis Narrative/Plan: Patient has an elevated white count, elevated ANC. We'll have to request CBC from PCP to see if this is chronic-therefore possibly associated with smoking-or if this is of new or onset. Patient is currently under stress, experiencing severe chest pain recently which can also contribute. Additional workup will be ordered if persistent or progressive. Plan is to monitor for now. Current Visit: Yes Status: Chronic Priority: Medium Code(s): D72.829 - ELEVATED WHITE BLOOD CELL COUNT, UNSPECIFIED SNOMED Code(s): 525085856 Plan: Doctor attests: I performed a history and physical examination of this patient, developed impression and plan of care. Discussed with dictator. I agree with dictators note, documented as a scribe.
[2022-01-01 11:19] LABS: HCT 22.6 % (37.2-46.3); HGB 5.9 g/dL (12.0-15.0); MCH 18.4 pg (27.0-32.0); MCHC 26.1 g/dL (32.0-37.0); MCV 70.6 fL (80.0-97.0); NRBC Per 100 WBC 0.2 /100 WBCS (0.0-0.0); Platelet Count 227 X 10*3/uL (140-440); RDW 25.7 % (11.5-14.5); WBC 12.44 X 10*3/uL (4.50-10.00)
[2022-01-01 11:53] LABS: Basophils % (A) 0.8 %; Immature Grans, Automated 0.6 %; Lymphocytes # (A) 1.66 X 10*3/uL (0.90-5.00); Lymphocytes % (A) 13.3 %; Monocytes % (A) 10.5 %; Neutrophils # (A) 8.31 X 10*3/uL (1.80-7.70); Neutrophils % (A) 66.8 %
[2022-01-01 11:54] LABS: Hypochromasia (M) 2+; Microcytosis (M) 2+
--- NOTE | 2022-01-01 18:12 | P.GSCN ---
History of Present Illness Consult date: 01/01/22 Reason for Consult: Anemia History of present illness: Is a 41-year-old female who has complaints of weakness and fatigue. Patient was worked up emergency room. He will was 5.9. The patient denies any evidence of GI bleed. She has some minimal epigastric pain. She states she has a "acid stomach" Past Medical History Past Medical History: Blood Disorder, GERD/Reflux Additional Past Medical History / Comment(s): Anemia History of Any Multi-Drug Resistant Organisms: None Reported Past Surgical History: Bariatric Surgery Additional Past Surgical History / Comment(s): gastric bypass 2014 Past Anesthesia/Blood Transfusion Reactions: No Reported Reaction Past Psychological History: Anxiety, Depression Smoking Status: Current every day smoker Past Alcohol Use History: Occasional Past Drug Use History: Marijuana - Past Family History Mother Family Medical History: Unable to Obtain Medications and Allergies Home Medications Medication Instructions Recorded Confirmed Type Albuterol Inhaler [Ventolin Hfa 2 puff INHALATION RT-QID PRN 12/31/21 12/31/21 History Inhaler] Escitalopram [Lexapro] 10 mg PO HS 12/31/21 12/31/21 History Famotidine [Pepcid] 20 mg PO BID 12/31/21 12/31/21 History busPIRone HCL 15 mg PO DAILY PRN 12/31/21 12/31/21 History busPIRone HCL 30 mg PO HS 12/31/21 12/31/21 History Allergies Allergy/AdvReac Type Severity Reaction Status Date / Time amoxicillin Allergy Anaphylaxis Verified 12/31/21 19:13 Surgical - Exam Vital Signs Temp Pulse Resp BP Pulse Ox 98.8 F 100 18 121/77 100 12/31/21 15:23 12/31/21 15:23 12/31/21 15:23 12/31/21 15:23 12/31/21 15:23 - General well developed, well nourished, no distress - Eyes PERRL - ENT normal pinna - Neck no masses - Respiratory normal expansion - Cardiovascular Rhythm: regular - Abdomen Abdomen: soft, non tender Results - Labs 01/01/22 07:39 01/01/22 07:39 Abnormal Lab Results - Last 24 Hours (Table) 12/31/21 01/01/22 01/01/22 Range/Units 15:46 07:39 07:39 WBC 12.44 H (4.50-10.00) X 10*3/uL RBC 3.20 L (4.10-5.20) X 10*6/uL Hgb 5.9 L* (12.0-15.0) g/dL Hct 22.6 L (37.2-46.3) % MCV 70.6 L (80.0-97.0) fL MCH 18.4 L (27.0-32.0) pg MCHC 26.1 L (32.0-37.0) g/dL RDW 25.7 H (11.5-14.5) % Absolute Nucleated RBC 0.03 H (0.00-0.00) X 10*3/uL Immature Gran # 0.07 H (0.00-0.04) X 10*3/uL Neutrophils # 8.31 H (1.80-7.70) X 10*3/uL Monocytes # 1.30 H (0.20-1.00) X 10*3/uL Eosinophils # 1.00 H (0.04-0.35) X 10*3/uL NRBC/100 WBC Diff 0.2 H (0.0-0.0) /100 WBCS Anion Gap 9.10 L (10.00-18.00) mmol/L BUN 6.9 L (9.0-27.0) mg/dL BUN/Creatinine Ratio 11.50 L (12.00-20.00) Ratio Calcium 8.3 L (8.7-10.3) mg/dL Iron 12 L (50-170) ug/dL TIBC 680 H (228-460) ug/dL % Saturation 1.69 L (12.00-45.00) Transferrin 486.0 H (204.0-354.0) mg/dL Crossmatch 01/01/22 Range/Units 12:52 WBC (4.50-10.00) X 10*3/uL RBC (4.10-5.20) X 10*6/uL Hgb (12.0-15.0) g/dL Hct (37.2-46.3) % MCV (80.0-97.0) fL MCH (27.0-32.0) pg MCHC (32.0-37.0) g/dL RDW (11.5-14.5) % Absolute Nucleated RBC (0.00-0.00) X 10*3/uL Immature Gran # (0.00-0.04) X 10*3/uL Neutrophils # (1.80-7.70) X 10*3/uL Monocytes # (0.20-1.00) X 10*3/uL Eosinophils # (0.04-0.35) X 10*3/uL NRBC/100 WBC Diff (0.0-0.0) /100 WBCS Anion Gap (10.00-18.00) mmol/L BUN (9.0-27.0) mg/dL BUN/Creatinine Ratio (12.00-20.00) Ratio Calcium (8.7-10.3) mg/dL Iron (50-170) ug/dL TIBC (228-460) ug/dL % Saturation (12.00-45.00) Transferrin (204.0-354.0) mg/dL Crossmatch See Detail Diabetes panel 01/01/22 Range/Units 07:39 Sodium 138 (135-145) mmol/L Potassium 3.9 (3.5-5.5) mmol/L Chloride 107 (96-109) mmol/L Carbon Dioxide 21.9 (20.0-27.5) mmol/L BUN 6.9 L (9.0-27.0) mg/dL Creatinine 0.6 (0.6-1.5) mg/dL Glucose 95 (70-110) mg/dL Calcium 8.3 L (8.7-10.3) mg/dL Calcium panel 01/01/22 Range/Units 07:39 Calcium 8.3 L (8.7-10.3) mg/dL Pituitary panel 01/01/22 Range/Units 07:39 Sodium 138 (135-145) mmol/L Potassium 3.9 (3.5-5.5) mmol/L Chloride 107 (96-109) mmol/L Carbon Dioxide 21.9 (20.0-27.5) mmol/L BUN 6.9 L (9.0-27.0) mg/dL Creatinine 0.6 (0.6-1.5) mg/dL Glucose 95 (70-110) mg/dL Calcium 8.3 L (8.7-10.3) mg/dL Adrenal panel 01/01/22 Range/Units 07:39 Sodium 138 (135-145) mmol/L Potassium 3.9 (3.5-5.5) mmol/L Chloride 107 (96-109) mmol/L Carbon Dioxide 21.9 (20.0-27.5) mmol/L BUN 6.9 L (9.0-27.0) mg/dL Creatinine 0.6 (0.6-1.5) mg/dL Glucose 95 (70-110) mg/dL Calcium 8.3 L (8.7-10.3) mg/dL Assessment and Plan Assessment: Female. Patient will undergo upper and lower endoscopy on Saturday for workup.
[2022-01-01 18:43] LABS: Ferritin 5.1 ng/mL (10.0-291.0)
[2022-01-01] MEDS: busPIRone HCl 10 MG TAB PO SCH (19:56)
[2022-01-01] MEDS: ESCITALOPRAM 10 MG TAB PO SCH (19:56)
[2022-01-02] MEDS: SODIUM CHLORIDE 0.9% 1,000 ML IV SCH ×3 (04:39→17:27)
[2022-01-02] MEDS: FAMOTIDINE 20 MG TAB PO SCH ×2 (08:01→20:40)
--- NOTE | 2022-01-02 08:04 | P.PN ---
Subjective Progress Note Date: 01/02/22 Principal diagnosis: Anemia The patient is 5-year-old white female who is status post gastric bypass in 2014 who has significant anemia. No chest pain. EGD and colonoscopy are scheduled for the a.m. A.m. blood work is pending. Having some difficulty with type and cross Objective - Vital Signs Vital signs: Vital Signs Temp 98.6 F 01/02/22 06:55 Pulse 75 01/02/22 06:55 Resp 16 01/02/22 06:55 BP 112/67 01/02/22 06:55 Pulse Ox 100 01/02/22 06:55 Intake & Output 01/01/22 01/02/22 01/02/22 18:59 06:59 18:59 Other: # Voids 2 1 - Constitutional General appearance: Present: average body habitus - EENT Eyes: Absent: abnormal pupil - Neck Neck: Absent: lymphadenopathy - Respiratory Respiratory: bilateral: CTA - Cardiovascular Rhythm: regular Heart sounds: normal: S1, S2 Abnormal Heart Sounds: Absent: S3 Gallop - Gastrointestinal General gastrointestinal: Present: soft. Absent: tenderness - Integumentary Integumentary: Absent: cellulitis - Labs CBC & Chem 7: 01/01/22 07:39 01/01/22 07:39 Labs: Abnormal Lab Results - Last 24 Hours (Table) 01/01/22 01/01/22 01/01/22 Range/Units 07:39 07:39 12:52 WBC 12.44 H (4.50-10.00) X 10*3/uL RBC 3.20 L (4.10-5.20) X 10*6/uL Hgb 5.9 L* (12.0-15.0) g/dL Hct 22.6 L (37.2-46.3) % MCV 70.6 L (80.0-97.0) fL MCH 18.4 L (27.0-32.0) pg MCHC 26.1 L (32.0-37.0) g/dL RDW 25.7 H (11.5-14.5) % Absolute Nucleated RBC 0.03 H (0.00-0.00) X 10*3/uL Immature Gran # 0.07 H (0.00-0.04) X 10*3/uL Neutrophils # 8.31 H (1.80-7.70) X 10*3/uL Monocytes # 1.30 H (0.20-1.00) X 10*3/uL Eosinophils # 1.00 H (0.04-0.35) X 10*3/uL NRBC/100 WBC Diff 0.2 H (0.0-0.0) /100 WBCS Anion Gap 9.10 L (10.00-18.00) mmol/L BUN 6.9 L (9.0-27.0) mg/dL BUN/Creatinine Ratio 11.50 L (12.00-20.00) Ratio Calcium 8.3 L (8.7-10.3) mg/dL Ferritin 5.1 L (10.0-291.0) ng/mL Crossmatch 01/01/22 01/01/22 Range/Units 12:52 15:04 WBC (4.50-10.00) X 10*3/uL RBC (4.10-5.20) X 10*6/uL Hgb (12.0-15.0) g/dL Hct (37.2-46.3) % MCV (80.0-97.0) fL MCH (27.0-32.0) pg MCHC (32.0-37.0) g/dL RDW (11.5-14.5) % Absolute Nucleated RBC (0.00-0.00) X 10*3/uL Immature Gran # (0.00-0.04) X 10*3/uL Neutrophils # (1.80-7.70) X 10*3/uL Monocytes # (0.20-1.00) X 10*3/uL Eosinophils # (0.04-0.35) X 10*3/uL NRBC/100 WBC Diff (0.0-0.0) /100 WBCS Anion Gap (10.00-18.00) mmol/L BUN (9.0-27.0) mg/dL BUN/Creatinine Ratio (12.00-20.00) Ratio Calcium (8.7-10.3) mg/dL Ferritin (10.0-291.0) ng/mL Crossmatch See Detail See Detail Assessment and Plan (1) Anemia Current Visit: Yes Status: Acute Code(s): D64.9 - ANEMIA, UNSPECIFIED SNOMED Code(s): 152682391 (2) Chest pain Current Visit: Yes Status: Acute Code(s): R07.9 - CHEST PAIN, UNSPECIFIED SNOMED Code(s): 41247063 (3) Exertional dyspnea Current Visit: Yes Status: Acute Code(s): R06.00 - DYSPNEA, UNSPECIFIED SNOMED Code(s): 83624102 Plan: Question need for pelvic ultrasound. Rule out myocardial infarction element. Appreciate hematology consult. I see signs of iron deficiency. She might benefit from infusion versus oral placement. Appreciate multiple consultants. EGD and colonoscopy scheduled for a.m.
[2022-01-02 10:07] LABS: Anisocytosis Moderate; Basophils % (A) 0 %; Eosinophils # (A) 0.6 k/uL (0-0.7); Eosinophils % (A) 5 %; HCT 22.5 % (34.0-46.0); Hypochromasia Marked; Lymphocytes % (A) 16 %; MCH 19.2 pg (25.0-35.0); MCHC 26.5 g/dL (31.0-37.0); MCV 72.5 fL (80.0-100.0); Mean Platelet Volume 10.3; Microcytosis Marked; Monocytes # (A) 0.7 k/uL (0-1.0); Monocytes % (A) 6 %; Neutrophils # (A) 8.7 k/uL (1.3-7.7); Neutrophils % (A) 70 %; Platelet Count 280 k/uL (150-450); Poikilocytosis Slight; RDW 23.3 % (11.5-15.5); WBC 12.5 k/uL (3.8-10.6)
[2022-01-02] MEDS ORDERED: PEG 3350-NA SULF,BICARB,CL/KCL 4,000 ML BOTTLE PO ONE (12:00)
[2022-01-02] MEDS: ACETAMINOPHEN TAB 325 MG TAB PO PRN ×2 (12:15→20:40)
--- NOTE | 2022-01-02 12:49 | P.PN ---
Progress Note - Text Progress Note Date: 01/02/22 Patient is receiving blood transfusion today. She denies any abdominal pain. On exam vital signs are stable. Abdomen soft. Patient scheduled for upper and lower endoscopy tomorrow. She should have her vitamin levels checked for possible anemia due to malabsorption.
[2022-01-02] MEDS: SODIUM FERRIC GLUCONAT-SUCROSE 125 MG in SODIUM CHLORIDE 0.9% 100 ML IVPB SCH (15:39)
[2022-01-02 18:20] LABS: Anisocytosis Moderate; Basophils # (A) 0.1 k/uL (0-0.2); Basophils % (A) 0 %; Eosinophils # (A) 0.7 k/uL (0-0.7); Eosinophils % (A) 5 %; HCT 28.4 % (34.0-46.0); Hypochromasia Marked; Lymphocytes # (A) 2.6 k/uL (1.0-4.8); Lymphocytes % (A) 18 %; MCH 20.6 pg (25.0-35.0); MCHC 27.5 g/dL (31.0-37.0); MCV 74.8 fL (80.0-100.0); Mean Platelet Volume 10.3; Microcytosis Marked; Monocytes # (A) 0.9 k/uL (0-1.0); Monocytes % (A) 6 %; Neutrophils # (A) 9.9 k/uL (1.3-7.7); Neutrophils % (A) 68 %; Platelet Count 372 k/uL (150-450); Poikilocytosis Marked; RDW 23.4 % (11.5-15.5); WBC 14.7 k/uL (3.8-10.6)
[2022-01-02 18:53] LABS: HGB 7.8 gm/dL (11.4-16.0)
[2022-01-02] MEDS: busPIRone HCl 10 MG TAB PO SCH (20:41)
[2022-01-02] MEDS: ESCITALOPRAM 10 MG TAB PO SCH (20:41)
[2022-01-03] MEDS: SODIUM CHLORIDE 0.9% 1,000 ML IV SCH ×3 (00:45→17:02)
[2022-01-03] MEDS: ACETAMINOPHEN TAB 325 MG TAB PO PRN (03:33)
[2022-01-03 08:12] LABS: Methylmalonic Acid <0.10 umol/L (<0.40)
--- NOTE | 2022-01-03 08:49 | P.PN ---
Subjective Essentially awaiting endoscopy today. Blood counts have been relatively stable when I checked her chart in the office last year her hemoglobin when she for skin office was 7.9 Objective - Vital Signs Vital signs: Vital Signs Temp 97.3 F L 01/03/22 06:55 Pulse 73 01/03/22 06:55 Resp 16 01/03/22 06:55 BP 113/68 01/03/22 06:55 Pulse Ox 100 01/03/22 06:55 Intake & Output 01/02/22 01/03/22 01/03/22 18:59 06:59 18:59 Intake Total 532 Balance 532 Intake: Oral 222 Blood Product 310 Rc As-1 Unit 310 [id number] Other: # Voids 2 1 # Bowel Movements 2 - Labs CBC & Chem 7: 01/02/22 17:50 01/01/22 07:39 Labs: Abnormal Lab Results - Last 24 Hours (Table) 01/01/22 01/01/22 01/02/22 Range/Units 12:52 15:04 09:31 WBC 12.5 H (3.8-10.6) k/uL RBC 3.10 L (3.80-5.40) m/uL Hgb 6.0 L* (11.4-16.0) gm/dL Hct 22.5 L (34.0-46.0) % MCV 72.5 L (80.0-100.0) fL MCH 19.2 L (25.0-35.0) pg MCHC 26.5 L (31.0-37.0) g/dL RDW 23.3 H (11.5-15.5) % Neutrophils # 8.7 H (1.3-7.7) k/uL RBC Folate 1,780 H (280 - 791) ng/mL Crossmatch See Detail 01/02/22 Range/Units 17:50 WBC 14.7 H (3.8-10.6) k/uL RBC (3.80-5.40) m/uL Hgb 7.8 L D (11.4-16.0) gm/dL Hct 28.4 L (34.0-46.0) % MCV 74.8 L (80.0-100.0) fL MCH 20.6 L (25.0-35.0) pg MCHC 27.5 L (31.0-37.0) g/dL RDW 23.4 H (11.5-15.5) % Neutrophils # 9.9 H (1.3-7.7) k/uL RBC Folate (280 - 791) ng/mL Crossmatch Assessment and Plan (1) Anemia Current Visit: Yes Status: Acute Code(s): D64.9 - ANEMIA, UNSPECIFIED SNOMED Code(s): 441788580 (2) Chest pain Current Visit: Yes Status: Acute Code(s): R07.9 - CHEST PAIN, UNSPECIFIED SNOMED Code(s): 73352273 (3) Exertional dyspnea Current Visit: Yes Status: Acute Code(s): R06.00 - DYSPNEA, UNSPECIFIED SNOMED Code(s): 91004512 Plan: Await endoscopy. Anticipate discharge in next 24 hours
[2022-01-03] MEDS: SODIUM FERRIC GLUCONAT-SUCROSE 125 MG in SODIUM CHLORIDE 0.9% 100 ML IVPB SCH (08:58)
[2022-01-03] MEDS: FAMOTIDINE 20 MG TAB PO SCH ×2 (09:43→19:51)
[2022-01-03 11:57] LABS: Basophils # (A) 0.09 X 10*3/uL (0.00-0.10); Basophils % (A) 0.7 %; Eosinophils # (A) 0.84 X 10*3/uL (0.04-0.35); HCT 25.8 % (37.2-46.3); HGB 6.9 g/dL (12.0-15.0); Immature Grans, Automated 0.7 %; Lymphocytes # (A) 1.79 X 10*3/uL (0.90-5.00); Lymphocytes % (A) 14.8 %; MCH 19.7 pg (27.0-32.0); MCHC 26.7 g/dL (32.0-37.0); MCV 73.5 fL (80.0-97.0); Mean Platelet Volume 11.1 fL (9.5-12.2); Monocytes # (A) 1.33 X 10*3/uL (0.20-1.00); NRBC Per 100 WBC 0.2 /100 WBCS (0.0-0.0); Neutrophils # (A) 7.93 X 10*3/uL (1.80-7.70); Neutrophils % (A) 65.8 %; Platelet Count 365 X 10*3/uL (140-440); RBC 3.51 X 10*6/uL (4.10-5.20); WBC 12.06 X 10*3/uL (4.50-10.00)
--- NOTE | 2022-01-03 15:41 | P.PN ---
Subjective Progress Note Date: 01/03/22 Principal diagnosis: Chest pain, severe anemia In f/u today pt denies any physical c/o, she is being prepped for endoscopy. Denies any active bleeding Objective - Vital Signs Vital signs: Vital Signs Temp 99.0 F 01/03/22 13:20 Pulse 89 01/03/22 13:20 Resp 17 01/03/22 13:20 BP 126/74 01/03/22 13:20 Pulse Ox 94 L 01/03/22 13:20 Intake & Output 01/02/22 01/03/22 01/03/22 18:59 06:59 18:59 Intake Total 532 120 Balance 532 120 Intake: Oral 222 120 Blood Product 310 Rc As-1 Unit 310 [id number] Other: # Voids 2 1 # Bowel Movements 2 - Exam Pt has good color despite severe anemia - Constitutional General appearance: Present: average body habitus, cooperative, no acute distress - EENT Eyes: Present: anicteric sclerae, EOMI ENT: Present: hearing grossly normal - Respiratory Details: resp even and unlabored - Neurologic Neurologic: Present: CNII-XII intact (grossly) - Musculoskeletal Musculoskeletal: Present: strength equal bilaterally - Psychiatric Psychiatric: Present: A&O x's 3, appropriate affect, intact judgment & insight - Labs CBC & Chem 7: 01/03/22 06:28 01/01/22 07:39 Labs: Abnormal Lab Results - Last 24 Hours (Table) 01/02/22 01/03/22 Range/Units 17:50 06:28 WBC 14.7 H 12.06 H (3.8-10.6) k/uL RBC 3.51 L (4.10-5.20) X 10*6/uL Hgb 7.8 L D 6.9 L* (11.4-16.0) gm/dL Hct 28.4 L 25.8 L (34.0-46.0) % MCV 74.8 L 73.5 L (80.0-100.0) fL MCH 20.6 L 19.7 L (25.0-35.0) pg MCHC 27.5 L 26.7 L (31.0-37.0) g/dL RDW 23.4 H 26.0 H (11.5-15.5) % Absolute Nucleated RBC 0.03 H (0.00-0.00) X 10*3/uL Immature Gran # 0.08 H (0.00-0.04) X 10*3/uL Neutrophils # 9.9 H 7.93 H (1.3-7.7) k/uL Monocytes # 1.33 H (0.20-1.00) X 10*3/uL Eosinophils # 0.84 H (0.04-0.35) X 10*3/uL NRBC/100 WBC Diff 0.2 H (0.0-0.0) /100 WBCS Assessment and Plan (1) Microcytic hypochromic anemia Narrative/Plan: Additional labs have been ordered for complete evaluation of microcytic, hypochromic anemia. Pt is iron deficient, 3 doses of parenteral iron ordered. Endoscopy planned History of gastric bypass. This can certainly contribute to malabsorption, vitamin labs ordered, nothing abnormal. Patient also reports a history of gastric ulcers. There could be recurrence of the same. Endoscopy today. Current Visit: Yes Status: Acute Priority: High Code(s): D50.9 - IRON DEFICIENCY ANEMIA, UNSPECIFIED SNOMED Code(s): 06181750 (2) Leukocytosis Narrative/Plan: Patient has an elevated white count, elevated ANC. This is staying in the same range (12-14). May be related to smoking, stress and/or experiencing severe chest pain recently which can also contribute. Additional workup will be ordered if persistent or progressive. Plan is to monitor for now. Current Visit: Yes Status: Chronic Priority: Medium Code(s): D72.829 - ELEVATED WHITE BLOOD CELL COUNT, UNSPECIFIED SNOMED Code(s): 211476394
--- NOTE | 2022-01-03 17:13 | P.PN ---
Progress Note - Text Progress Note Date: 01/03/22 Patient is stable. Her abdomen soft nontender. Patient was scheduled for endoscopy today. However due to staffing issues in the endoscopy suite her procedure has been rescheduled for tomorrow.
[2022-01-03] MEDS ORDERED: LACTATED RINGERS 1,000 ML IV SCH (18:08)
[2022-01-03] MEDS ORDERED: LIDOCAINE 1% (10MG/ML) FOR IV START INTRADERMA PRN (18:08)
[2022-01-03] MEDS: ESCITALOPRAM 10 MG TAB PO SCH (19:50)
[2022-01-03] MEDS: busPIRone HCl 10 MG TAB PO SCH (19:50)
[2022-01-04] MEDS: ACETAMINOPHEN TAB 325 MG TAB PO PRN ×2 (02:15→14:15)
[2022-01-04] MEDS: SODIUM CHLORIDE 0.9% 1,000 ML IV SCH ×2 (02:21→07:49)
[2022-01-04 06:36] LABS: Anisocytosis Marked; HGB 8.2 gm/dL (11.4-16.0); Hypochromasia Marked; MCH 21.5 pg (25.0-35.0); MCHC 28.2 g/dL (31.0-37.0); MCV 76.1 fL (80.0-100.0); Mean Platelet Volume 10.1; Microcytosis Marked; Platelet Count 437 k/uL (150-450); Poikilocytosis Marked; RBC 3.81 m/uL (3.80-5.40); RDW 24.1 % (11.5-15.5); WBC 15.6 k/uL (3.8-10.6)
[2022-01-04 07:10] LABS: Eosinophils # (M) 0.16 k/uL (0-0.7); Monocytes # (M) 0.94 k/uL (0-1.0); Neutrophils # (M) 12.01 k/uL (1.3-7.7); Neutrophils % (M) 77 %; Nucleated Red Blood Cells 0 /100 WBC (0-0); Total Cells Counted 100
[2022-01-04 07:11] LABS: Anisocytosis (M) Present; Ovalocytes Present; Poikilocytosis (M) Present; Polychromasia Present; Target Cells Present
[2022-01-04] MEDS: FAMOTIDINE 20 MG TAB PO SCH (08:08)
[2022-01-04] MEDS ORDERED: PROPOFOL 10 MG/ML 20 ML VIAL IV ONE (09:35)
[2022-01-04] MEDS ORDERED: LIDOCAINE 1% INJ 10MG/ML (20 ML MDV) ONE (09:35)
[2022-01-04] MEDS ORDERED: IV FLUID CONTINUATION 500 ML IV ONE (09:47)
--- NOTE | 2022-01-04 10:06 | P.OP ---
Date of Procedure: 01/04/22 Preoperative Diagnosis: Anemia Postoperative Diagnosis: Normal EGD status post Emelyn-en-Y gastric bypass Normal colonoscopy Procedure(s) Performed: Colonoscopy, EGD Anesthesia: MAC Surgeon: Bert Chopra Pathology: none sent Condition: stable Disposition: PACU Description of Procedure: Patient's placed on the endoscopy table in the lateral position. She received IV sedation. The gastroscope placed oropharynx passed in the esophagus and stomach. Patient had a previous gastric bypass. The gastrojejunostomy was visualized. There is known to any marginal ulcer bleeding. The jejunum appeared patent. Scope was brought back. The gastric bypass pouch was slightly enlarged. The GE junction was at 40 cm the distal esophagus appeared normal. The proximal esophagus appeared normal. Scope was withdrawn. There is no evidence of GI bleed. Thereafter next digital rectal exam was performed. This revealed no abnormalities. The colonoscope was then placed patient anus and passed throughout the the colon. The ileocecal valve was not visualized secondary to tortuosity valve. There is a large amount of liquid stool in the right colon which limited view of the mucosa. There was no abnormalities seen in the right colon. Scope withdrawn remainder the transverse colon, descending colon and sigmoid colon appeared normal. Scope back the rectum and this appeared normal. Scope withdrawn for patient. There is no evidence of any GI bleed. His presumed patient may have had anemia due to malabsorption related to her gastric bypass.
[2022-01-04] MEDS: SODIUM FERRIC GLUCONAT-SUCROSE 125 MG in SODIUM CHLORIDE 0.9% 100 ML IVPB SCH (10:24)
[2022-01-04 14:03] VITALS: BP 122/71; PULSE 96; RESP 16
--- NOTE | 2022-01-04 14:05 | P.DS ---
Providers Date of admission: 01/01/22 12:12 Attending physician: Alexys Adams Consults: 12/31/21 19:46 Consult Physician Urgent Consulting Provider: Russell Srivastava Consult Reason/Comments: acute/chronic anemia Do you want consulting provider notified?: Yes 01/01/22 08:27 Consult Physician Routine Consulting Provider: Bert Chopra Consult Reason/Comments: anemia Do you want consulting provider notified?: Yes Primary care physician: Alexys Adams - Discharge Diagnosis(es) (1) Anemia Current Visit: Yes Status: Acute (2) Chest pain Current Visit: Yes Status: Acute (3) Exertional dyspnea Current Visit: Yes Status: Acute Hospital Course: This is discharge summary on a 41-year-old white female with history of gastric bypass with was originally admitted for significant chest pain. The patient ruled out for myocardial infarction was found to have significant anemia. After having 2 units of PRBC she had appropriate evaluation by oncology/hematology with surgery generative having EGD with colonoscopy which is benign. We do suspect that this is related to her previous gastric bypass with iron deficiency elements. I suspect she might need infusion. We will go ahead and start the process for this once she is discharged in stable condition. Patient Condition at Discharge: Stable Plan - Discharge Summary New Discharge Prescriptions: Continue Albuterol Inhaler [Ventolin Hfa Inhaler] 2 puff INHALATION RT-QID PRN PRN Reason: Shortness Of Breath busPIRone HCL 30 mg PO HS busPIRone HCL 15 mg PO DAILY PRN PRN Reason: Anxiety Escitalopram [Lexapro] 10 mg PO HS Famotidine [Pepcid] 20 mg PO BID Discharge Medication List Albuterol Inhaler [Ventolin Hfa Inhaler] 2 puff INHALATION RT-QID PRN 12/31/21 [History] Escitalopram [Lexapro] 10 mg PO HS 12/31/21 [History] Famotidine [Pepcid] 20 mg PO BID 12/31/21 [History] busPIRone HCL 15 mg PO DAILY PRN 12/31/21 [History] busPIRone HCL 30 mg PO HS 12/31/21 [History] Follow up Appointment(s)/Referral(s): Alexys Adams MD [Primary Care Provider] - 3 Days Discharge Disposition: HOME SELF-CARE
[2022-01-04 15:41] LABS: Appearance,Urine Clear (Clear); Bilirubin,Urine Negative (Negative); Blood,Urine Large (Negative); Color,Urine Light Yellow; Glucose,Urine (UA) Negative (Negative); Ketones,Urine Negative (Negative); Leukocyte Esterase,Urine Moderate (Negative); Mucus,Urine Rare /hpf; Nitrite,Urine Negative (Negative); PH, Urine 6.5 (5.0-8.0); Protein,Urine Negative (Negative); RBC,Urine 2 /hpf (0-5); Specific Gravity,Urine 1.005 (1.001-1.035); Squamous Epithelial Cell,Urine 3 /hpf (0-4); Urobilinogen,Urine <2.0 mg/dL (<2.0); WBC,Urine 31 /hpf (0-5)
--- NOTE | 2022-01-04 16:26 | P.PN ---
Subjective Progress Note Date: 01/04/22 Principal diagnosis: Iron def anemia Status post GI evaluation Objective - Vital Signs Vital signs: Vital Signs Temp 97.9 F 01/04/22 07:47 Pulse 74 01/04/22 08:00 Resp 18 01/04/22 08:00 BP 124/78 01/04/22 07:47 Pulse Ox 97 01/04/22 07:47 Intake & Output 01/03/22 01/04/22 01/04/22 18:59 06:59 18:59 Intake Total 240 0 Balance 240 0 Intake: Oral 240 Blood Product 0 0 Rc As-1 Unit 0 0 [id number] Other: Voiding Method Toilet # Voids 1 3 - Exam - Exam Pt has good color despite severe anemia - Constitutional General appearance: Present: average body habitus, cooperative, no acute distress - EENT Eyes: Present: anicteric sclerae, EOMI ENT: Present: hearing grossly normal - Respiratory Details: resp even and unlabored - Neurologic Neurologic: Present: CNII-XII intact (grossly) - Musculoskeletal Musculoskeletal: Present: strength equal bilaterally - Psychiatric Psychiatric: Present: A&O x's 3, appropriate affect, intact judgment & insigh - Labs CBC & Chem 7: 01/04/22 04:57 01/01/22 07:39 Labs: Abnormal Lab Results - Last 24 Hours (Table) 01/01/22 01/03/22 01/04/22 Range/Units 15:04 06:28 04:57 WBC 12.06 H 15.6 H (4.50-10.00) X 10*3/uL RBC 3.51 L (4.10-5.20) X 10*6/uL Hgb 6.9 L* 8.2 L (12.0-15.0) g/dL Hct 25.8 L 29.0 L (37.2-46.3) % MCV 73.5 L 76.1 L (80.0-97.0) fL MCH 19.7 L 21.5 L (27.0-32.0) pg MCHC 26.7 L 28.2 L (32.0-37.0) g/dL RDW 26.0 H 24.1 H (11.5-14.5) % Absolute Nucleated RBC 0.03 H (0.00-0.00) X 10*3/uL Immature Gran # 0.08 H (0.00-0.04) X 10*3/uL Neutrophils # 7.93 H (1.80-7.70) X 10*3/uL Neutrophils # (Manual) 12.01 H (1.3-7.7) k/uL Monocytes # 1.33 H (0.20-1.00) X 10*3/uL Eosinophils # 0.84 H (0.04-0.35) X 10*3/uL NRBC/100 WBC Diff 0.2 H (0.0-0.0) /100 WBCS Crossmatch See Detail Assessment and Plan Plan: Assessment and Plan (1) Microcytic hypochromic anemia Narrative/Plan: Additional labs have been ordered for complete evaluation of microcytic, hypochromic anemia. Pt is iron deficient, 3 doses of parenteral iron ordered. Endoscopy planned History of gastric bypass. This can certainly contribute to malabsorption, vitamin labs ordered, nothing abnormal. Patient also reports a history of gastric ulcers. There could be recurrence of the same. Endoscopy today. Will follow-up in office with Dr. Srivastava in 4 weeks Current Visit: Yes Status: Acute Priority: High Code(s): D50.9 - IRON DEFICIENCY ANEMIA, UNSPECIFIED SNOMED Code(s): 05211774 (2) Leukocytosis Narrative/Plan: Current Visit: Yes Status: Chronic Priority: Medium Code(s): D72.829 - ELEVATED WHITE BLOOD CELL COUNT, UNSPECIFIED SNOMED Code(s): 775539428
[2022-01-04 16:28] VITALS: TEMP 97.7
== END 2022-01-04 16:55 | disposition home or self-care (01) ==
LOC: EC 15:16 → 6NMEDSUR 19:44 → INTOOBSV 01-01 12:12 → OBSVTOIN 01-01 12:12 → UNDODISIN 01-04 16:55
PROVIDERS: ADMIT Family Medicine; ATTEND Family Medicine
DX: D50.9 Iron deficiency anemia, unspecified (principal); K90.9 Intestinal malabsorption, unspecified; D72.829 Elevated white blood cell count, unspecified; F17.210 Nicotine dependence, cigarettes, uncomplicated; R07.2 Precordial pain; R06.09 Other forms of dyspnea; K21.9 Gastro-esophageal reflux disease without esophagitis; F32.A Depression, unspecified; F41.9 Anxiety disorder, unspecified; Z79.899 Other long term (current) drug therapy; Z88.0 Allergy status to penicillin; Z98.84 Bariatric surgery status; Z71.6 Tobacco abuse counseling; Z87.11 Personal history of peptic ulcer disease; Z87.440 Personal history of urinary (tract) infections
CPT/HCPCS: 43235; 45378; 99285; 96361 ×5; 96365; 96366 ×2; 36415; 93005; 86900; 86901; 83921; 82747; 86902; 83880; 80053; 80048; 82607; 82728; 83540; 83550; 83690; 83735; 84484 ×2; 85025 ×5; 85610; 85730; 86850; 86920; 86870; 86880; 81001 ×2; 81025; 84702; 87086; 71046; G0378 ×5; P9016 ×2; J2001; J2916 ×3; J2704

== ENCOUNTER 2023-02-07 08:06 | Day surgery (SDC) | payer OTHER ==
[~2023-02-07 08:06] MED LIST: LACTATED RINGERS 1,000 ML IV SCH
[2023-02-07 08:38] VITALS: TEMP 97.2
[2023-02-07] MEDS ORDERED: PROPOFOL 10 MG/ML 20 ML VIAL IV ONE (09:10)
--- NOTE | 2023-02-07 09:13 | P.GSHP ---
History of Present Illness H&P Date: 02/07/23 Chief Complaint: GI bleed This a 42-year-old female with history of GI bleed. Patient presents today for colonoscopy. Patient's had a melanotic stool. Past Medical History Past Medical History: Blood Disorder, GERD/Reflux, Thyroid Disorder Additional Past Medical History / Comment(s): Anemia elevated tsh being monitored History of Any Multi-Drug Resistant Organisms: None Reported Past Surgical History: Bariatric Surgery, Breast Surgery, Cholecystectomy, Tonsillectomy Additional Past Surgical History / Comment(s): gastric bypass 2014 panniculectomy, breast reduction Past Anesthesia/Blood Transfusion Reactions: No Reported Reaction Additional Past Anesthesia/Blood Transfusion Reaction / Comment(s): no reaction to blood trasfusions x2 Smoking Status: Current every day smoker - Past Family History Mother Family Medical History: Unable to Obtain Medications and Allergies Home Medications Medication Instructions Recorded Confirmed Type Escitalopram [Lexapro] 20 mg PO HS 12/31/21 02/07/23 History busPIRone HCL 15 mg PO DAILY PRN 12/31/21 02/07/23 History busPIRone HCL 30 mg PO HS 12/31/21 02/07/23 History Ondansetron Odt [Zofran Odt] 4 mg PO Q8HR PRN #10 tab 01/28/23 02/07/23 Rx Omeprazole [PriLOSEC] 20 mg PO DAILY 02/05/23 02/07/23 History Allergies Allergy/AdvReac Type Severity Reaction Status Date / Time amoxicillin Allergy Anaphylaxis Verified 02/07/23 08:38 Surgical - Exam Vital Signs Temp Pulse Resp BP Pulse Ox 97.2 F L 84 16 118/55 99 02/07/23 08:37 02/07/23 08:37 02/07/23 08:37 02/07/23 08:37 02/07/23 08:37 - General well developed, well nourished, no distress - Eyes PERRL - ENT normal pinna - Neck no masses - Respiratory normal expansion - Cardiovascular Rhythm: regular - Abdomen Abdomen: soft, non tender Assessment and Plan Assessment: History of mental axilla GI bleed. We'll perform colonoscopy.
[2023-02-07 09:35] VITALS: RESP 18
[2023-02-07 10:04] VITALS: BP 112/67; PULSE 70
--- NOTE | 2023-02-07 10:54 | P.OP ---
Date of Procedure: 02/07/23 Description of Procedure: Date of Procedure: 02/07/23 Preoperative Diagnosis: GI bleed Postoperative Diagnosis: Mild diverticulosis Procedure(s) Performed: Colonoscopy Anesthesia: MAC Surgeon: Bert Chopra Pathology: none sent Condition: stable Disposition: PACU Description of Procedure: The patient's placed on the endoscopy table in the lateral position. She received IV sedation. Digital rectal exam was performed. This revealed no abnormalities. The flexible colonoscope was then placed patient anus and passed throughout the entire colon. The ileocecal valve was visualized. The colonoscope was then withdrawn. The ascending colon, transverse colon and descending colon were examined. There is mild diverticular changes in the descending colon. The; a few scattered diverticula. The scope was brought back the rectum and this appeared normal. Scope withdrawn for patient. There was no evidence of GI bleed. His presumed patient may have had bleeding from diverticular disease. Additional CC's: Alexys Adams
== END 2023-02-07 10:13 | disposition home or self-care (01) ==
LOC: ORWHC2ENDO 08:06
PROVIDERS: ATTEND Surgery
DX: K57.30 Diverticulosis of large intestine without perforation or abscess without bleeding (principal); E07.9 Disorder of thyroid, unspecified; K21.9 Gastro-esophageal reflux disease without esophagitis; Z98.84 Bariatric surgery status; Z90.49 Acquired absence of other specified parts of digestive tract; F17.200 Nicotine dependence, unspecified, uncomplicated; Z79.899 Other long term (current) drug therapy; Z79.890 Hormone replacement therapy
CPT/HCPCS: 81025; 45378; J2704

== ENCOUNTER 2023-08-16 06:47 | Day surgery (SDC) | payer BC, OTHER ==
[2023-08-13 11:54] VITALS: BMI 20.7
[~2023-08-16 06:47] MED LIST changes: +ACETAMINOPHEN TAB 500 MG TAB PO PRN; +DEXAMETHASONE SOD PHOSPHATE 4 MG/ML 1 ML VIAL IV ONE; +HEPARIN SODIUM,PORCINE/PF 5,000 UNIT/0.5 ML SYRINGE SQ PRN; +HYDROmorphone 0.5 MG/0.5 ML SYRINGE IVP PRN; +LIDOCAINE 1% (10MG/ML) FOR IV START INTRADERMA PRN; +MIDAZOLAM 2 MG/2 ML VIAL IV PRN; +ONDANSETRON 4 MG/2 ML VIAL IVP ONE; +Pre Op ABX Message 1 EACH MISC MISCELLANE ONE
[2023-08-16 07:25] VITALS: TEMP 97.8
[2023-08-16] MEDS ORDERED: ACETAMINOPHEN TAB 500 MG TAB ONE (07:25)
[2023-08-16] MEDS ORDERED: fentaNYL (PF) 50 MCG/ML 2 ML AMP ONE (07:49)
[2023-08-16] MEDS ORDERED: PROPOFOL 10 MG/ML 20 ML VIAL IV ONE (07:49)
[2023-08-16] MEDS ORDERED: MIDAZOLAM 2 MG/2 ML VIAL ONE (07:49)
[2023-08-16] MEDS ORDERED: KETAMINE HCL IN 0.9 % NACL 50 MG/5 ML SYRINGE ONE (07:49)
[2023-08-16] MEDS ORDERED: SODIUM CHLORIDE 0.9% 50 ML with ceFAZolin 1,000 MG IV ONE ×2 (08:03)
[2023-08-16] MEDS ORDERED: LIDOCAINE 2%-EPI 1:100,000 20 ML VIAL SQ ONE (08:03)
[2023-08-16 09:10] VITALS: BP 98/49; PULSE 77; RESP 18
--- NOTE | 2023-08-16 11:41 | P.OP ---
Date of Procedure: 08/16/23 Preoperative Diagnosis: Sebaceous cyst right posterior scalp Postoperative Diagnosis: Patient's cyst right posterior scalp Procedure(s) Performed: Excision of sebaceous cyst right posterior scalp 5 cm Anesthesia: MAC Surgeon: Bert Chopra Estimated Blood Loss (ml): 3 Pathology: other (Sebaceous cyst) Condition: stable Disposition: PACU Description of Procedure: The patient's placed on the operative table in the prone position her she received IV sedation. Her posterior scalp was prepped and draped in sterile fashion. Patient's hair been shaved in the preoperative hold area. The areas and a size 1% local Xylocaine. Using a 15 blade the skin was incised. Then using blunt dissection with cautery the sebaceous cyst was dissected free. His pathology. The skin was then closed interrupted 3-0 Monocryl suture. Dermabond was applied. Patient top she will she was sent to recovery room in stable condition.
== END 2023-08-16 09:11 | disposition home or self-care (01) ==
LOC: OR 06:47
PROVIDERS: ATTEND Surgery
DX: L72.11 Pilar cyst (principal); L72.3 Sebaceous cyst; E78.5 Hyperlipidemia, unspecified; J45.909 Unspecified asthma, uncomplicated; F12.90 Cannabis use, unspecified, uncomplicated; F17.210 Nicotine dependence, cigarettes, uncomplicated; K21.9 Gastro-esophageal reflux disease without esophagitis; K25.9 Gastric ulcer, unspecified as acute or chronic, without hemorrhage or perforation; Z98.890 Other specified postprocedural states; Z88.0 Allergy status to penicillin
CPT/HCPCS: 11426; 88304; J2250; J1100; J2405; J0690; J3010; J2704; J1644

== ENCOUNTER 2023-09-06 17:59 | Observation (INO) | payer BC ==
[2023-09-06] MEDS ORDERED: MORPHINE SULFATE 4 MG/ML SYRINGE IVP STA (18:52)
[2023-09-06] MEDS ORDERED: SODIUM CHLORIDE 0.9% 1,000 ML IV STA (18:52)
[2023-09-06] MEDS ORDERED: ONDANSETRON 4 MG/2 ML VIAL IVP STA (18:52)
--- NOTE | 2023-09-06 18:53 | ED ---
Abdominal Pain HPI - General Chief Complaint: Abdominal Pain Stated Complaint: abd pain Time Seen by Provider: 09/06/23 18:05 Source: patient Mode of arrival: ambulatory Limitations: no limitations - History of Present Illness Initial Comments: 43-year-old female with past mental history of Emelyn-en-Y presents to the emergency department reporting to epigastric and left upper abdominal pain with associated nausea and vomiting. States it's been going on for the past couple of days and she has not been able to hold down any food or drink. She has had episodes like this happen to her before in the past. States that she did have a hiatal hernia which was repaired. Also states that she has been treated for an ulcer. She denies hematemesis. No black or bloody stools. Denies any fevers. No urinary complaints. Denies any bowel or bladder function. No concern for . Patient is status post cholecystectomy. No other alleviating, prec ipitating or modifying factors - Related Data Home Medications Medication Instructions Recorded Confirmed busPIRone HCL 15 mg PO TID PRN 12/31/21 09/06/23 Varenicline [Chantix Continuing 1 mg PO BID 08/13/23 09/06/23 Pack] Acetaminophen Tab [Tylenol Tab] 1,000 mg PO Q6H PRN 09/06/23 09/06/23 Escitalopram [Lexapro] 20 mg PO HS 09/06/23 09/06/23 Famotidine [Pepcid] 20 mg PO DAILY PRN 09/06/23 09/06/23 diphenhydrAMINE HCL [Benadryl] 50 mg PO ONCE PRN 09/06/23 09/06/23 Allergies Allergy/AdvReac Type Severity Reaction Status Date / Time amoxicillin Allergy Anaphylaxis Verified 08/16/23 07:05 Review of Systems ROS Statement: Those systems with pertinent positive or pertinent negative responses have been documented in the HPI. ROS Other: All systems not noted in ROS Statement are negative. Past Medical History Past Medical History: Blood Disorder, GERD/Reflux Additional Past Medical History / Comment(s): Anemia History of Any Multi-Drug Resistant Organisms: None Reported Past Surgical History: Bariatric Surgery, Hernia Repair Additional Past Surgical History / Comment(s): gastric bypass 2014 Past Anesthesia/Blood Transfusion Reactions: No Reported Reaction Past Psychological History: Anxiety, Depression Smoking Status: Current every day smoker Past Alcohol Use History: None Reported Past Drug Use History: Marijuana - Past Family History Mother Family Medical History: Unable to Obtain General Exam Limitations: no limitations General appearance: alert, in no apparent distress Head exam: Present: atraumatic, normocephalic, normal inspection Eye exam: Present: normal appearance, PERRL, EOMI. Absent: scleral icterus, conjunctival injection, periorbital swelling ENT exam: Present: normal exam, mucous membranes moist Neck exam: Present: normal inspection. Absent: tenderness, meningismus, lymphadenopathy Respiratory exam: Present: normal lung sounds bilaterally. Absent: respiratory distress, wheezes, rales, rhonchi, stridor Cardiovascular Exam: Present: regular rate, normal rhythm, normal heart sounds. Absent: systolic murmur, diastolic murmur, rubs, gallop, clicks GI/Abdominal exam: Present: soft, tenderness (epigastric), normal bowel sounds. Absent: distended, guarding, rebound, rigid Extremities exam: Present: normal inspection, full ROM, normal capillary refill. Absent: tenderness, pedal edema, joint swelling, calf tenderness Back exam: Present: normal inspection Neurological exam: Present: alert, oriented X3, CN II-XII intact Psychiatric exam: Present: normal affect, normal mood Skin exam: Present: warm, dry, intact, normal color. Absent: rash Course Vital Signs 09/06/23 09/06/23 18:00 22:42 Temperature 97.7 F Pulse Rate 60 75 Respiratory 16 19 Rate Blood Pressure 132/71 111/67 O2 Sat by Pulse 99 98 Oximetry Medical Decision Making - Medical Decision Making Was pt. sent in by a medical professional or institution (Dr. PA, STORE ASSOCIATE, urgent care, hospital, or assisted...) When possible be specific @ -No Did you speak to anyone other than the patient for history (EMS, parent, family, police, friend...)? What history was obtained from this source @ -No Did you review nursing and triage notes (agree or disagree)? Why? @ -I reviewed and agree with nursing and triage notes Were old charts reviewed (outside hosp., previous admission, EMS record, old EKG, old radiological studies, urgent care reports/EKG's, assisted records)? Report findings @ -No old charts were reviewed Differential Diagnosis (chest pain, altered mental status, abdominal pain women, abdominal pain men, vaginal bleeding, weakness, fever, dyspnea, syncope, headache, dizziness, GI bleed, back pain, seizure, CVA, palpatations, mental health, musculoskeletal)? @ -Differential Abdominal Pain Women: Appendicitis, Cholecystitis, diverticulosis, ischemic bowel, pancreatitis, hepatitis, UTI, gastroenteritis, AAA, incarcerated hernia, bowel obstruction, constipation, inflammatory bowel, hepatitis, peptic ulcer disease, splenic infar ction, perforated viscus, vulvitis, ovarian torsion, PID, kidney stone, placenta abruption, this is not meant to be an all-inclusive list EKG interpreted by me (3pts min.). @ -Not done X-rays interpreted by me (1pt min.). @ -None done CT interpreted by me (1pt min.). @ -Yes and demonstrates ileus U/S interpreted by me (1pt. min.). @ -None done What testing was considered but not performed or refused? (CT, X-rays, U/S, labs)? Why? @ -None What meds were considered but not given or refused? Why? @ -None Did you discuss the management of the patient with other professionals (professionals i.e. , PA, STORE ASSOCIATE, lab, RT, psych nurse, social media marketing specialist, family lawyer, teacher, correctional officer captain, caseworker protective services)? Give summary @ -dr stack who accepts patient for admission Was smoking cessation discussed for >3mins.? @ -No Was critical care preformed (if so, how long)? @ -No Were there social determinants of health that impacted care today? How? (Homele ssness, low income, unemployed, alcoholism, drug addiction, transportation, low edu. Level, literacy, decrease access to med. care, usp, rehab)? @ -No Was there de-escalation of care discussed even if they declined (Discuss DNR or withdrawal of care, Hospice)? DNR status @ -No What co-morbidities impacted this encounter? (DM, HTN, Smoking, COPD, CAD, Cancer, CVA, ARF, Chemo, Hep., AIDS, mental health diagnosis, sleep apnea, morbid obesity)? @ -History of Emelyn-en-Y Was patient admitted / discharged? Hospital course, mention meds given and route, prescriptions, significant lab abnormalities, going to OR and other pertinent info. @ -Upon arrival patient was placed in room 18. Thorough history and physical exam was performed. IV was established. Patient administered IV fluids, nausea medications and pain control. Laboratory studies are conducted. Patient markedly dehydrated. CT is obtained which demonstrates ileus. Patient reevaluated and states she feels improved. Discussed the diagnosis, differential and treatment options. Patient will be admitted to the Dr. Stack for continued hydration and antiemetics. Surgery will be placed on consult. Patient agreeable to the plan and is awaiting a bed on the floor in stable condition Undiagnosed new problem with uncertain prognosis? @ -No Drug Therapy requiring intensive monitoring for toxicity (Heparin, Nitro, Insulin, Cardizem)? @ -No Were any procedures done? @ -No Diagnosis/symptom? @ -Acute nausea and vomiting, acute dehydration, acute hypokalemia, ketonuria, acute ileus, history of Emelyn-en-Y Acute, or Chronic, or Acute on Chronic? @ -Acute Uncomplicated (without systemic symptoms) or Complicated (systemic symptoms)? @ -Complicated Side effects of treatment? @ -No Exacerbation, Progression, or Severe Exacerbation? @ -No Poses a threat to life or bodily function? How? (Chest pain, [place], [place], pneumonia, PE, COPD, DKA, ARF, appy, cholecystitis, CVA, Diverticulitis, Homicidal, Suicidal, threat to staff... and all critical care pts) @ -No - Lab Data Result diagrams: 09/06/23 18:54 09/06/23 18:54 Lab Results 09/06/23 09/06/23 09/06/23 Range/Units 18:54 18:54 18:54 WBC 19.0 H (3.8-10.6) k/uL RBC 4.24 (3.80-5.40) m/uL Hgb 13.3 (11.4-16.0) gm/dL Hct 39.1 (34.0-46.0) % MCV 92.3 (80.0-100.0) fL MCH 31.3 (25.0-35.0) pg MCHC 33.9 (31.0-37.0) g/dL RDW 14.0 (11.5-15.5) % Plt Count 295 (150-450) k/uL MPV 9.5 Neutrophils % 84 % Lymphocytes % 9 % Monocytes % 6 % Eosinophils % 0 % Basophils % 1 % Neutrophils # 15.9 H (1.3-7.7) k/uL Lymphocytes # 1.6 (1.0-4.8) k/uL Monocytes # 1.1 H (0-1.0) k/uL Eosinophils # 0.0 (0-0.7) k/uL Basophils # 0.1 (0-0.2) k/uL Sodium (137-145) mmol/L Potassium (3.5-5.1) mmol/L Chloride (98-107) mmol/L Carbon Dioxide (22-30) mmol/L Anion Gap mmol/L BUN (7-17) mg/dL Creatinine (0.52-1.04) mg/dL Est GFR (CKD-EPI)AfAm (>60 ml/min/1.73 sqM) Est GFR (CKD-EPI)NonAf (>60 ml/min/1.73 sqM) Glucose (74-99) mg/dL Plasma Lactic Acid Chme[place] (0.7-2.0) mmol/L Calcium (8.4-10.2) mg/dL Total Bilirubin (0.2-1.3) mg/dL AST (14-36) U/L ALT (4-34) U/L Alkaline Phosphatase (38-126) U/L Total Protein (6.3-8.2) g/dL Albumin (3.5-5.0) g/dL Lipase (23-300) U/L Urine Color Yellow Urine Appearance Clear (Clear) Urine pH 6.0 (5.0-8.0) Ur Specific [place] 1.030 (1.001-1.035) Urine Protein Trace H (Negative) Urine Glucose (UA) Negative (Negative) Urine Ketones 3+ (Negative) Urine Blood Negative (Negative) Urine Nitrite Negative (Negative) Urine Bilirubin Negative (Negative) Urine Urobilinogen <2.0 (<2.0) mg/dL Ur Leukocyte Esterase Negative (Negative) Urine HCG, Qual Not Detected (Not Detectd) 09/06/23 09/06/23 Range/Units 18:54 18:54 WBC (3.8-10.6) k/uL RBC (3.80-5.40) m/uL Hgb (11.4-16.0) gm/dL Hct (34.0-46.0) % MCV (80.0-100.0) fL MCH (25.0-35.0) pg MCHC (31.0-37.0) g/dL RDW (11.5-15.5) % Plt Count (150-450) k/uL MPV Neutrophils % % Lymphocytes % % Monocytes % % Eosinophils % % Basophils % % Neutrophils # (1.3-7.7) k/uL Lymphocytes # (1.0-4.8) k/uL Monocytes # (0-1.0) k/uL Eosinophils # (0-0.7) k/uL Basophils # (0-0.2) k/uL Sodium 135 L (137-145) mmol/L Potassium 3.2 L (3.5-5.1) mmol/L Chloride 103 (98-107) mmol/L Carbon Dioxide 20 L (22-30) mmol/L Anion Gap 12 mmol/L BUN 7 (7-17) mg/dL Creatinine 0.40 L (0.52-1.04) mg/dL Est GFR (CKD-EPI)AfAm >90 (>60 ml/min/1.73 sqM) Est GFR (CKD-EPI)NonAf >90 (>60 ml/min/1.73 sqM) Glucose 115 H (74-99) mg/dL Plasma Lactic Acid [place] 1.4 (0.7-2.0) mmol/L Calcium 9.7 (8.4-10.2) mg/dL Total Bilirubin 0.5 (0.2-1.3) mg/dL AST 34 (14-36) U/L ALT 20 (4-34) U/L Alkaline Phosphatase 102 (38-126) U/L Total Protein 7.5 (6.3-8.2) g/dL Albumin 4.3 (3.5-5.0) g/dL Lipase 49 (23-300) U/L Urine Color Urine Appearance (Clear) Urine pH (5.0-8.0) Ur Specific [place] (1.001-1.035) Urine Protein (Negative) Urine Glucose (UA) (Negative) Urine Ketones (Negative) Urine Blood (Negative) Urine Nitrite (Negative) Urine Bilirubin (Negative) Urine Urobilinogen (<2.0) mg/dL Ur Leukocyte Esterase (Negative) Urine HCG, Qual (Not Detectd) Disposition Clinical Impression: Gastric bypass status for obesity, Ileus, Nausea and vomiting, Ketonuria, Leukocytosis Disposition: ADMITTED IP TO THIS HOSP Condition: Stable Is patient prescribed a controlled substance at d/c from ED?: No Time of Disposition: 22:11 Decision to Admit Reason: Admit from EC Decision Date: 09/06/23 Decision Time: 22:11
[2023-09-06 19:14] LABS: Basophils # (A) 0.1 k/uL (0-0.2); Basophils % (A) 1 %; Eosinophils % (A) 0 %; HCT 39.1 % (34.0-46.0); HGB 13.3 gm/dL (11.4-16.0); Lymphocytes # (A) 1.6 k/uL (1.0-4.8); Lymphocytes % (A) 9 %; MCH 31.3 pg (25.0-35.0); MCHC 33.9 g/dL (31.0-37.0); MCV 92.3 fL (80.0-100.0); Mean Platelet Volume 9.5; Monocytes # (A) 1.1 k/uL (0-1.0); Monocytes % (A) 6 %; Neutrophils # (A) 15.9 k/uL (1.3-7.7); Neutrophils % (A) 84 %; Platelet Count 295 k/uL (150-450); RBC 4.24 m/uL (3.80-5.40)
[2023-09-06 19:27] LABS: ALT 20 U/L (4-34); AST 34 U/L (14-36); African American GFR (CKD) >90 (>60 ml/min/1.73 sqM); Albumin 4.3 g/dL (3.5-5.0); Alkaline Phosphatase 102 U/L (38-126); Anion Gap 12 mmol/L; Blood Urea Nitrogen 7 mg/dL (7-17); Calcium 9.7 mg/dL (8.4-10.2); Carbon Dioxide 20 mmol/L (22-30); Chloride 103 mmol/L (98-107); Glucose 115 mg/dL (74-99); Lipase 49 U/L (23-300); Non-African American GFR(CKD) >90 (>60 ml/min/1.73 sqM); Potassium 3.2 mmol/L (3.5-5.1); Sodium 135 mmol/L (137-145); Total Bilirubin 0.5 mg/dL (0.2-1.3); Total Protein 7.5 g/dL (6.3-8.2)
[2023-09-06 19:37] LABS: Appearance,Urine Clear (Clear); Bilirubin,Urine Negative (Negative); Color,Urine Yellow; Glucose,Urine (UA) Negative (Negative); Ketones,Urine 3+ (Negative); Protein,Urine Trace (Negative)
[2023-09-06 19:38] LABS: Blood,Urine Negative (Negative); Leukocyte Esterase,Urine Negative (Negative); Nitrite,Urine Negative (Negative); Urobilinogen,Urine <2.0 mg/dL (<2.0)
--- NOTE | 2023-09-06 20:01 | CT ---
EXAMINATION TYPE: CT abdomen pelvis w con CT DLP: 556.3 mGycm, Automated exposure control for dose reduction was used. DATE OF EXAM: 09/06/2023 7:35 PM COMPARISON: None. CLINICAL INDICATION:Female, 43 years old with history of epigastric pain, hx gastric bypass; Epigastr ic and LUQ pain. Hx of ulcer with surgical removal in February. Hx of gastric bypass. TECHNIQUE: Axial CT of the abdomen and pelvis. Sagittal and coronal reformats were created on a [employer] workstation. Contrast used:100 ml mL of Isovue 300 with IV Contrast, (none if empty) Oral contrast used: without Oral Contrast (none if empty) FINDINGS: LOWER CHEST: Unremarkable ABDOMEN LIVER: Vaguely marginated hypodensity in the posterior right hepatic lobe measures approximately 3.9 x 3.4 cm, shows peripheral puddling of contrast on early images and the lesion fills in on delays; fe atures strongly suggest an hemangioma. Portal veins are enhancing. GALLBLADDER AND BILE DUCTS: Status post cholecystectomy. Mild prominence of the intrahepatic and extr a hepatic biliary tree with tapering of the CBD towards the ampulla. PANCREAS: Unremarkable. SPLEEN: Unremarkable. ADRENAL GLANDS: Unremarkable. KIDNEYS AND URETERS: Kidneys enhance symmetrically. There is no evidence of hydronephrosis. PELVIS BLADDER: Incompletely distended but grossly unremarkable. REPRODUCTIVE: Not well assessed by CT. Uterus is present with mild central uterine hypoattenuation li jenny related to phase of menstruation. Probable follicular changes of the ovaries. Surgical clip on t he left suggestive of tubal ligation clip. Similar structure on the right lies posterior adjacent to the colon, most likely dislodged. ABDOMEN & PELVIS STOMACH AND BOWEL: Postoperative changes in the stomach and small bowel consistent with gastric bypas s. No obstruction identified. Multiple bowel segments are gaseous and mildly distended. Appendix is n ot readily identified. Scattered radiodensities throughout the bowel likely result of some sort of in gested material. PERITONEUM/RETROPERITONEUM: No evidence of pneumoperitoneum or free fluid. VASCULATURE: Mild atherosclerotic calcifications are present throughout the abdominal aorta and its b ranches. No evidence of aortic aneurysm. MUSCULOSKELETAL: Mild diffuse degenerative changes. No acute bony abnormality. LYMPH NODES: No gross evidence for lymphadenopathy. SOFT TISSUE/ABDOMINAL WALL: Unremarkable IMPRESSION: 1. Nonspecific bowel pattern, most compatible with ileus. 2. Status post gastric bypass. 3. Status post cholecystectomy. Mild prominence of the biliary tree may be incident to this, however if concern for occult obstructive process correlation with LFTs and possible MRCP may be considered. 4. Right hepatic lobe lesion with features strongly suggestive of benign hemangioma. If clinically w arranted, further evaluation/confirmation may be obtained with nonemergent outpatient liver protocol MRI. 5. Likely dislodged tubal ligation clip on the right.
[2023-09-06] MEDS ORDERED: NALOXONE 0.4 MG/ML 1 ML VIAL IV PRN (22:11)
[2023-09-06] MEDS: SODIUM CHLORIDE 0.9% 1,000 ML IV SCH (22:40)
[2023-09-06] MEDS: MORPHINE SULFATE 4 MG/ML SYRINGE IV PRN (22:41)
[2023-09-07] MEDS ORDERED: FAMOTIDINE 20 MG TAB PO PRN (00:09)
[2023-09-07] MEDS ORDERED: busPIRone HCl 5 MG TAB PO PRN (00:09)
[2023-09-07] MEDS: SODIUM CHLORIDE 0.9% 1,000 ML IV SCH ×4 (05:16→21:04)
[2023-09-07 05:41] LABS: Basophils % (A) 0 %; Eosinophils # (A) 0.1 k/uL (0-0.7); Eosinophils % (A) 1 %; HCT 37.7 % (34.0-46.0); HGB 12.3 gm/dL (11.4-16.0); Lymphocytes # (A) 3.1 k/uL (1.0-4.8); Lymphocytes % (A) 30 %; MCH 30.9 pg (25.0-35.0); MCHC 32.6 g/dL (31.0-37.0); MCV 94.7 fL (80.0-100.0); Mean Platelet Volume 9.7; Monocytes # (A) 0.7 k/uL (0-1.0); Monocytes % (A) 7 %; Neutrophils % (A) 58 %; Platelet Count 243 k/uL (150-450); RBC 3.98 m/uL (3.80-5.40); RDW 14.2 % (11.5-15.5); WBC 10.2 k/uL (3.8-10.6)
[2023-09-07 05:44] LABS: African American GFR (CKD) >90 (>60 ml/min/1.73 sqM); Anion Gap 10 mmol/L; Blood Urea Nitrogen 6 mg/dL (7-17); Calcium 8.7 mg/dL (8.4-10.2); Carbon Dioxide 22 mmol/L (22-30); Chloride 107 mmol/L (98-107); Glucose 89 mg/dL (74-99); Non-African American GFR(CKD) >90 (>60 ml/min/1.73 sqM); Potassium 3.3 mmol/L (3.5-5.1); Sodium 139 mmol/L (137-145)
[2023-09-07] MEDS: ONDANSETRON 4 MG/2 ML VIAL IVP PRN ×2 (06:18→14:24)
--- NOTE | 2023-09-07 11:40 | P.GSCN ---
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 No F/C. No SOB or CP. Admits to flatus and diarrhea. No melena or hematochezia. No hematemesis. No prior episodes such as this. No recent travel or sick contacts. Upon presentation to [facility] as CT A/p was obtained showing evidence of i ntestinal ileus. Review of Systems ROS negative except for as stated in HPI Past Medical History Past Medical History: Blood Disorder, GERD/Reflux Additional Past Medical History / Comment(s): Anemia History of Any Multi-Drug Resistant Organisms: None Reported Past Surgical History: Bariatric Surgery, Hernia Repair Additional Past Surgical History / Comment(s): gastric bypass 2014 Past Anesthesia/Blood Transfusion Reactions: No Reported Reaction Past Psychological History: Anxiety, Depression Smoking Status: Current every day smoker Past Alcohol Use History: None Reported Past Drug Use History: Marijuana - Past Family History Mother Family Medical History: Unable to Obtain Medications and Allergies Home Medications Medication Instructions Recorded Confirmed Type busPIRone HCL 15 mg PO TID PRN 12/31/21 09/06/23 History Varenicline [Chantix Continuing 1 mg PO BID 08/13/23 09/06/23 History Pack] Acetaminophen Tab [Tylenol Tab] 1,000 mg PO Q6H PRN 09/06/23 09/06/23 History Escitalopram [Lexapro] 20 mg PO HS 09/06/23 09/06/23 History Famotidine [Pepcid] 20 mg PO DAILY PRN 09/06/23 09/06/23 History diphenhydrAMINE HCL [Benadryl] 50 mg PO ONCE PRN 09/06/23 09/06/23 History Allergies Allergy/AdvReac Type Severity Reaction Status Date / Time amoxicillin Allergy Anaphylaxis Verified 08/16/23 07:05 Surgical - Exam Vital Signs Temp Pulse Resp BP Pulse Ox 97.7 F 60 16 132/71 99 09/06/23 18:00 09/06/23 18:00 09/06/23 18:00 09/06/23 18:00 09/06/23 18:00 Gen: AxO, NAD Pulm: non-labored respirations Abd: soft, non-tender, minimally distended, no guarding/rebound/rigidity Extrem: no edema seen Results - Labs 09/07/23 05:00 09/07/23 05:00 Abnormal Lab Results - Last 24 Hours (Table) 09/06/23 09/06/23 09/06/23 Range/Units 18:54 18:54 18:54 WBC 19.0 H (3.8-10.6) k/uL Neutrophils # 15.9 H (1.3-7.7) k/uL Monocytes # 1.1 H (0-1.0) k/uL Sodium 135 L (137-145) mmol/L Potassium 3.2 L (3.5-5.1) mmol/L Carbon Dioxide 20 L (22-30) mmol/L BUN (7-17) mg/dL Creatinine 0.40 L (0.52-1.04) mg/dL Glucose 115 H (74-99) mg/dL Urine Protein Trace H (Negative) 09/07/23 Range/Units 05:00 WBC (3.8-10.6) k/uL Neutrophils # (1.3-7.7) k/uL Monocytes # (0-1.0) k/uL Sodium (137-145) mmol/L Potassium 3.3 L (3.5-5.1) mmol/L Carbon Dioxide (22-30) mmol/L BUN 6 L (7-17) mg/dL Creatinine 0.45 L (0.52-1.04) mg/dL Glucose (74-99) mg/dL Urine Protein (Negative) Diabetes panel 09/06/23 09/07/23 Range/Units 18:54 05:00 Sodium 135 L 139 (137-145) mmol/L Potassium 3.2 L 3.3 L (3.5-5.1) mmol/L Chloride 103 107 (98-107) mmol/L Carbon Dioxide 20 L 22 (22-30) mmol/L BUN 7 6 L (7-17) mg/dL Creatinine 0.40 L 0.45 L (0.52-1.04) mg/dL Glucose 115 H 89 (74-99) mg/dL Calcium 9.7 8.7 (8.4-10.2) mg/dL AST 34 (14-36) U/L ALT 20 (4-34) U/L Alkaline Phosphatase 102 (38-126) U/L Total Protein 7.5 (6.3-8.2) g/dL Albumin 4.3 (3.5-5.0) g/dL Calcium panel 09/06/23 09/07/23 Range/Units 18:54 05:00 Calcium 9.7 8.7 (8.4-10.2) mg/dL Albumin 4.3 (3.5-5.0) g/dL Pituitary panel 09/06/23 09/07/23 Range/Units 18:54 05:00 Sodium 135 L 139 (137-145) mmol/L Potassium 3.2 L 3.3 L (3.5-5.1) mmol/L Chloride 103 107 (98-107) mmol/L Carbon Dioxide 20 L 22 (22-30) mmol/L BUN 7 6 L (7-17) mg/dL Creatinine 0.40 L 0.45 L (0.52-1.04) mg/dL Glucose 115 H 89 (74-99) mg/dL Calcium 9.7 8.7 (8.4-10.2) mg/dL Adrenal panel 09/06/23 09/07/23 Range/Units 18:54 05:00 Sodium 135 L 139 (137-145) mmol/L Potassium 3.2 L 3.3 L (3.5-5.1) mmol/L Chloride 103 107 (98-107) mmol/L Carbon Dioxide 20 L 22 (22-30) mmol/L BUN 7 6 L (7-17) mg/dL Creatinine 0.40 L 0.45 L (0.52-1.04) mg/dL Glucose 115 H 89 (74-99) mg/dL Calcium 9.7 8.7 (8.4-10.2) mg/dL Total Bilirubin 0.5 (0.2-1.3) mg/dL AST 34 (14-36) U/L ALT 20 (4-34) U/L Alkaline Phosphatase 102 (38-126) U/L Total Protein 7.5 (6.3-8.2) g/dL Albumin 4.3 (3.5-5.0) g/dL Assessment and Plan Assessment: Patient is a 43 year old female with a PMH of RYGB who presents with N/V and abdominal pain and CT evidence of ileus. Now passing gas. Plan: -NPO -IVF hydration -PRN pain and nasuea control -Replete Lytes PRN -DVT/GI PPx -No acute surgical intervention; will continue to follow Niall De Leon MD General Surgery
[2023-09-07] MEDS: MORPHINE SULFATE 4 MG/ML SYRINGE IV PRN (17:20)
--- NOTE | 2023-09-07 20:35 | P.HPIM ---
History of Present Illness H&P Date: 09/07/23 Chief Complaint: Abdominal pain 43-year-old female with past mental history of Emelyn-en-Y presents to the emergency department reporting to epigastric and left upper abdominal pain with associated nausea and vomiting. States it's been going on for the past couple of days and she has not been able to hold down any food or drink. She has had episodes like this happen to her before in the past. States that she did have a hiatal hernia which was repaired. Also states that she has been treated for an ulcer. She denies hematemesis. No black or bloody stools. Denies any fevers. No urinary complaints. Denies any bowel or bladder function. No concern for . Patient is status post cholecystectomy. No other alleviating, precipitating or modifying factors Blood work completed in ED reveals a WBC of 19, hemoglobin of 13.3 and platelet count of 295, sodium 135, potassium 3.2, BUN/creatinine of 7/0.4, blood glucose of 115, lactic acid level of 1.4 CT of the abdomen completed in ED to feels abdominal ileus Patient is being admitted for dehydration, electrolyte imbalance and acute ileus Review of Systems REVIEW OF SYSTEMS: CONSTITUTIONAL: No fever, no malaise, no fatigue. HEENT: No recent visual problems or hearing problems. Denied any sore throat. CARDIOVASCULAR: No chest pain, orthopnea, PND, no palpitations, no syncope. PULMONARY: No shortness of breath, no cough, no hemoptysis. GASTROINTESTINAL: No diarrhea, no nausea, no vomiting, no abdominal pain. NEUROLOGICAL: No headaches, no weakness, no numbness. HEMATOLOGICAL: Denies any bleeding or petechiae. GENITOURINARY: Denies any burning micturition, frequency, or urgency. MUSCULOSKELETAL/RHEUMATOLOGICAL: Denies any joint pain, swelling, or any muscle pain. ENDOCRINE: Denies any polyuria or polydipsia. The rest of the 14-point review of systems is negative. Past Medical History Past Medical History: Blood Disorder, GERD/Reflux Additional Past Medical History / Comment(s): Anemia History of Any Multi-Drug Resistant Organisms: None Reported Past Surgical History: Bariatric Surgery, Hernia Repair Additional Past Surgical History / Comment(s): gastric bypass 2013 Past Anesthesia/Blood Transfusion Reactions: No Reported Reaction Past Psychological History: Anxiety, Depression Smoking Status: Current every day smoker Past Alcohol Use History: None Reported Past Drug Use History: Marijuana - Past Family History Mother Family Medical History: Unable to Obtain Medications and Allergies Home Medications Medication Instructions Recorded Confirmed Type busPIRone HCL 15 mg PO TID PRN 12/31/21 09/06/23 History Varenicline [Chantix Continuing 1 mg PO BID 08/13/23 09/06/23 History Pack] Acetaminophen Tab [Tylenol Tab] 1,000 mg PO Q6H PRN 09/06/23 09/06/23 History Escitalopram [Lexapro] 20 mg PO HS 09/06/23 09/06/23 History Famotidine [Pepcid] 20 mg PO DAILY PRN 09/06/23 09/06/23 History diphenhydrAMINE HCL [Benadryl] 50 mg PO ONCE PRN 09/06/23 09/06/23 History Allergies Allergy/AdvReac Type Severity Reaction Status Date / Time amoxicillin Allergy Anaphylaxis Verified 08/16/23 07:05 Physical Exam Vitals: Vital Signs Temp Pulse Pulse Resp BP BP Pulse Ox 09/07/23 18:26 98.3 F 65 15 105/56 98 09/07/23 17:18 73 18 118/71 98 09/07/23 14:11 97.9 F 67 18 113/70 100 09/07/23 09:00 67 18 109/67 97 09/07/23 07:00 67 18 109/67 97 09/07/23 06:15 56 L 17 123/82 96 09/07/23 05:15 65 18 97 09/07/23 03:26 74 09/07/23 01:47 75 17 121/64 97 09/07/23 00:56 73 19 118/73 97 09/06/23 22:42 75 19 111/67 98 Intake and Output 09/07/23 09/07/23 09/07/23 06:59 14:59 22:59 Other: Weight 56.699 kg General appearance: alert, in no apparent distress Head exam: Present: atraumatic, normocephalic, normal inspection Eye exam: Present: normal appearance, PERRL, EOMI. Absent: scleral icterus, conjunctival injection, periorbital swelling ENT exam: Present: normal exam, mucous membranes moist Neck exam: Present: normal inspection. Absent: tenderness, meningismus, lymphadenopathy Respiratory exam: Present: normal lung sounds bilaterally. Absent: respiratory distress, wheezes, rales, rhonchi, stridor Cardiovascular Exam: Present: regular rate, normal rhythm, normal heart sounds. Absent: systolic murmur, diastolic murmur, rubs, gallop, clicks GI/Abdominal exam: Present: soft, tenderness (epigastric), normal bowel sounds. Absent: distended, guarding, rebound, rigid Extremities exam: Present: normal inspection, full ROM, normal capillary refill. Absent: tenderness, pedal edema, joint swelling, calf tenderness Neurological exam: Present: alert, oriented X3, CN II-XII intact Skin exam: Present: warm, dry, intact, normal color. Absent: rash Results CBC & Chem 7: 09/07/23 05:00 09/07/23 05:00 Labs: Abnormal Lab Results - Last 24 Hours (Table) 09/07/23 Range/Units 05:00 Potassium 3.3 L (3.5-5.1) mmol/L BUN 6 L (7-17) mg/dL Creatinine 0.45 L (0.52-1.04) mg/dL Thrombosis Risk Factor Assmnt - Choose All That Apply Each Factor Represents 1 point: Age 41-60 years Thrombosis Risk Factor Assessment Total Risk Factor Score: 1 Thrombosis Risk Factor Assessment Level: Low Risk Assessment and Plan Assessment: 1. Intractable nausea/vomiting/abdominal pain -- Patient has history of gastric bypass surgery for obesity - CT of the abdomen reveals ileus -We will make patient nothing by mouth; IV fluid hydration with normal saline; IV Zofran 4 nausea and vomiting - Consult surgery for further recommendations 2. Leukocytosis; WBC of 19.0; possibly reactive; no clear source of infection - We will monitor CBC, CRP and pro-calcitonin; consult ID if white blood count remains elevated 3. Anxiety/depression; patient takes BuSpar 50 mg 3 times a day; Lexapro 20 mg daily 4. GERD/gastritis; Pepcid 20 mg daily DVT prophylaxis; SCDs CODE STATUS; full code
[2023-09-07] MEDS ORDERED: ESCITALOPRAM 20 MG TAB PO SCH (21:00)
[2023-09-08] MEDS: SODIUM CHLORIDE 0.9% 1,000 ML IV SCH (04:41)
[2023-09-08 09:00] VITALS: BP 119/72; PULSE 67; RESP 14; TEMP 98.1
[2023-09-08 09:30] LABS: Blood Urea Nitrogen 6.6 mg/dL (9.0-27.0); C Reactive Protein <0.30 mg/dL (0.00-0.80); Calcium 8.7 mg/dL (8.7-10.3); Carbon Dioxide 23.5 mmol/L (21.6-31.8); Chloride 108 mmol/L (96-109); Glucose 90 mg/dL (70-110); Potassium 3.8 mmol/L (3.5-5.5); Sodium 140 mmol/L (135-145)
[2023-09-08 09:36] LABS: Basophils # (A) 0.07 X 10*3/uL (0.00-0.10); Basophils % (A) 0.9 %; Eosinophils # (A) 0.22 X 10*3/uL (0.04-0.35); Eosinophils % (A) 2.9 %; HCT 36.9 % (37.2-46.3); HGB 11.8 g/dL (12.0-15.0); Lymphocytes # (A) 2.55 X 10*3/uL (0.90-5.00); Lymphocytes % (A) 33.3 %; MCH 30.6 pg (27.0-32.0); MCV 95.8 FL (80.0-97.0); Monocytes # (A) 0.71 X 10*3/uL (0.20-1.00); Monocytes % (A) 9.3 %; NRBC Per 100 WBC 0 X 10*3/uL (0.00-0.01); Neutrophils # (A) 4.07 X 10*3/uL (1.80-7.70); Neutrophils % (A) 53.2 %; Platelet Count 236 X 10*3/uL (140-440); RBC 3.85 X 10*6/uL (4.10-5.20); RDW 14.6 % (11.5-14.5); WBC 7.65 X 10*3/uL (4.50-10.00)
--- NOTE | 2023-09-08 12:15 | P.PN ---
Progress Note - Text Progress Note Date: 09/08/23 Patient feels better today. She states her abdominal pain is improved. On exam vital signs appear stable. Abdomen soft. Resolving gastroenteritis/ileus. Patient is stable for discharge from surgical standpoint she can follow-up in the office next week.
== END 2023-09-08 13:25 | disposition home or self-care (01) ==
LOC: EC 17:59 → 6NMEDSUR 22:11
PROVIDERS: ADMIT Internal Medicine; ATTEND Internal Medicine
DX: K56.7 Ileus, unspecified (principal); E86.0 Dehydration; E87.6 Hypokalemia; D72.829 Elevated white blood cell count, unspecified; K52.9 Noninfective gastroenteritis and colitis, unspecified; E87.8 Other disorders of electrolyte and fluid balance, not elsewhere classified; K21.9 Gastro-esophageal reflux disease without esophagitis; D64.9 Anemia, unspecified; F32.A Depression, unspecified; F17.200 Nicotine dependence, unspecified, uncomplicated; F41.9 Anxiety disorder, unspecified; Z79.899 Other long term (current) drug therapy; Z88.0 Allergy status to penicillin; Z98.84 Bariatric surgery status; Z98.890 Other specified postprocedural states; Z87.19 Personal history of other diseases of the digestive system; Z87.11 Personal history of peptic ulcer disease; Z90.49 Acquired absence of other specified parts of digestive tract
CPT/HCPCS: 96361; 96376 ×2; 96374; 96375; 99285; 36415; 80053; 80048 ×2; 83605; 83690; 85025 ×3; 86140; 81003; 81025; 84145; 74177; G0378 ×3; J2270 ×2; J2405 ×2; Q9967

== ENCOUNTER → 2023-09-25 | Outpatient (CLI) | payer BC | END | disposition home or self-care (01) | LOC: LABWHC1 13:19 | PROVIDERS: ATTEND Surgery | DX: K52.9 Noninfective gastroenteritis and colitis, unspecified (principal) | CPT/HCPCS: 87324 ==

== ENCOUNTER 2023-10-03 07:42 | Day surgery (SDC) | payer BC ==
[2023-09-26 11:02] VITALS: BMI 20.2
[2023-10-03] MEDS ORDERED: LACTATED RINGERS 1,000 ML IV SCH (07:45)
[2023-10-03 08:40] VITALS: TEMP 98.2
[2023-10-03] MEDS ORDERED: PROPOFOL 10 MG/ML 20 ML VIAL IV ONE (08:58)
--- NOTE | 2023-10-03 09:15 | P.OP ---
Date of Procedure: 10/03/23 Preoperative Diagnosis: Diarrhea Postoperative Diagnosis: Normal colonoscopy Procedure(s) Performed: colonoscopy Description of Procedure: The patient's placed on the endoscopy table in the lateral position. She received IV sedation. Digital rectal exam was performed. This revealed no abnormalities. The flexible colonoscope was then placed patient anus passed throughout the entire colon. The ileocecal valve was visually is. The cecum, ascending and transverse colon appeared normal. The descending and sigmoid colon appeared normal. Scope was brought back the rectum and this appeared normal. Due to the patient's symptoms of diarrhea a random rectal biopsies performed. Scope was withdrawn for patient.
[2023-10-03 09:28] VITALS: PULSE 65; RESP 16
[2023-10-03 09:51] VITALS: BP 90/54
== END 2023-10-03 09:52 | disposition home or self-care (01) ==
LOC: ORWHC2ENDO 07:42
PROVIDERS: ATTEND Surgery
DX: R19.7 Diarrhea, unspecified (principal); F41.9 Anxiety disorder, unspecified; F32.A Depression, unspecified; F17.210 Nicotine dependence, cigarettes, uncomplicated; F42.9 Obsessive-compulsive disorder, unspecified; F12.90 Cannabis use, unspecified, uncomplicated; M19.90 Unspecified osteoarthritis, unspecified site; J45.909 Unspecified asthma, uncomplicated; Z79.899 Other long term (current) drug therapy; Z88.0 Allergy status to penicillin; Z98.84 Bariatric surgery status; Z98.890 Other specified postprocedural states
CPT/HCPCS: 81025; 88305; 45380; J2704

== ENCOUNTER → 2023-10-14 | Outpatient (CLI) | payer BC ==
[2023-10-14 19:51] LABS: Basophils % (A) 0.8 %; Eosinophils % (A) 4.2 %; HCT 40.1 % (37.2-46.3); HGB 12.7 g/dL (12.0-15.0); Lymphocytes # (A) 2.57 X 10*3/uL (0.90-5.00); Lymphocytes % (A) 21.5 %; MCHC 31.7 g/dL (32.0-37.0); MCV 94.6 FL (80.0-97.0); Mean Platelet Volume 11.6 FL (9.5-12.2); Monocytes % (A) 9.2 %; NRBC Per 100 WBC 0 X 10*3/uL (0.00-0.01); Neutrophils # (A) 7.63 X 10*3/uL (1.80-7.70); Neutrophils % (A) 63.9 %; Platelet Count 251 X 10*3/uL (140-440); RBC 4.24 X 10*6/uL (4.10-5.20); RDW 15.2 % (11.5-14.5); WBC 11.95 X 10*3/uL (4.50-10.00)
== END | disposition home or self-care (01) ==
LOC: LABPRL 15:43
PROVIDERS: ATTEND Surgery
DX: K95.89 Other complications of other bariatric procedure (principal); R10.84 Generalized abdominal pain; R13.10 Dysphagia, unspecified; R11.2 Nausea with vomiting, unspecified; Z98.84 Bariatric surgery status
CPT/HCPCS: 80051; 83735; 85025

== ENCOUNTER 2023-11-26 02:22 | Emergency (ER) | payer BC ==
[2023-11-26 02:33] VITALS: TEMP 98.2
[2023-11-26 03:10] LABS: Basophils % (A) 0 %; Eosinophils # (A) 0.1 k/uL (0-0.7); Eosinophils % (A) 0 %; HCT 40.4 % (34.0-46.0); HGB 13.2 gm/dL (11.4-16.0); Lymphocytes # (A) 2.2 k/uL (1.0-4.8); Lymphocytes % (A) 17 %; MCH 29.8 pg (25.0-35.0); MCHC 32.6 g/dL (31.0-37.0); MCV 91.6 fL (80.0-100.0); Mean Platelet Volume 8.9; Monocytes # (A) 0.8 k/uL (0-1.0); Monocytes % (A) 7 %; Neutrophils # (A) 9.1 k/uL (1.3-7.7); Neutrophils % (A) 73 %; Platelet Count 302 k/uL (150-450); RBC 4.41 m/uL (3.80-5.40); RDW 15.1 % (11.5-15.5); WBC 12.5 k/uL (3.8-10.6)
[2023-11-26] MEDS: ONDANSETRON 4 MG/2 ML VIAL IVP STA (03:16)
[2023-11-26] MEDS: SODIUM CHLORIDE 0.9% 1,000 ML IV ONE (03:16)
[2023-11-26] MEDS: KETOROLAC 15 MG/ML 1 ML VIAL IVP STA (03:16)
[2023-11-26 03:20] LABS: ALT 17 U/L (4-34); AST 27 U/L (14-36); African American GFR (CKD) >90 (>60 ml/min/1.73 sqM); Albumin 4.2 g/dL (3.5-5.0); Alkaline Phosphatase 109 U/L (38-126); Anion Gap 9 mmol/L; Blood Urea Nitrogen 9 mg/dL (7-17); Calcium 9.5 mg/dL (8.4-10.2); Carbon Dioxide 23 mmol/L (22-30); Chloride 103 mmol/L (98-107); Glucose 112 mg/dL (74-99); Lipase 86 U/L (23-300); Non-African American GFR(CKD) >90 (>60 ml/min/1.73 sqM); Potassium 3.8 mmol/L (3.5-5.1); Sodium 135 mmol/L (137-145); Total Bilirubin 0.5 mg/dL (0.2-1.3); Total Protein 7.6 g/dL (6.3-8.2)
--- NOTE | 2023-11-26 03:36 | ED ---
General Adult HPI - General Chief complaint: Abdominal Pain Stated complaint: Nausea, vomiting, pain Time Seen by Provider: 11/26/23 03:07 Source: patient, RN notes reviewed, old records reviewed Mode of arrival: ambulatory Limitations: no limitations - History of Present Illness Initial comments: 43-year-old female history of gastric bypass presenting for evaluation of abdominal pain nausea vomiting. Patient states she did additionally have left-sided flank pain but this pain has no become more periumbilical. She said multiple episodes of vomiting. She has previous history of cholecystectomy. - Related Data Home Medications Medication Instructions Recorded Confirmed busPIRone HCL 15 mg PO TID PRN 12/31/21 10/03/23 Varenicline [Chantix Continuing 1 mg PO BID 08/13/23 10/03/23 Pack] Acetaminophen Tab [Tylenol] 1,000 mg PO Q6H PRN 09/06/23 10/03/23 Escitalopram [Lexapro] 20 mg PO HS 09/06/23 10/03/23 Famotidine [Pepcid] 20 mg PO DAILY PRN 09/06/23 10/03/23 diphenhydrAMINE HCL [Benadryl] 50 mg PO ONCE PRN 09/06/23 10/03/23 Ondansetron [Zofran] 4 mg PO Q8HR PRN 09/26/23 10/03/23 hydrOXYzine HCL 25 mg PO Q6HR PRN 10/03/23 10/03/23 Allergies Allergy/AdvReac Type Severity Reaction Status Date / Time amoxicillin Allergy Anaphylaxis Verified 11/26/23 02:28 Review of Systems ROS Statement: Those systems with pertinent positive or pertinent negative responses have been documented in the HPI. ROS Other: All systems not noted in ROS Statement are negative. Past Medical History Past Medical History: Blood Disorder, GERD/Reflux Additional Past Medical History / Comment(s): Anemia History of Any Multi-Drug Resistant Organisms: None Reported Past Surgical History: Bariatric Surgery, Hernia Repair Additional Past Surgical History / Comment(s): gastric bypass 2013. ulcer repair 09/2023 Past Anesthesia/Blood Transfusion Reactions: No Reported Reaction Past Psychological History: Anxiety, Depression Smoking Status: Current some day smoker, Light tobacco smoker - Past Family History Mother Family Medical History: Unable to Obtain General Exam Limitations: no limitations General appearance: alert, in no apparent distress Head exam: Present: atraumatic, normocephalic Eye exam: Present: normal appearance, PERRL ENT exam: Present: mucous membranes dry Neck exam: Present: normal inspection. Absent: tenderness, meningismus Respiratory exam: Absent: respiratory distress Cardiovascular Exam: Present: regular rate, normal rhythm GI/Abdominal exam: Present: soft, tenderness. Absent: distended Extremities exam: Present: normal inspection, normal capillary refill. Absent: pedal edema Neurological exam: Present: alert, oriented X3, CN II-XII intact. Absent: motor sensory deficit Psychiatric exam: Present: anxious Skin exam: Present: warm, dry, intact. Absent: cyanosis, diaphoretic Course Vital Signs 11/26/23 02:24 Temperature 98.2 F Pulse Rate 64 Respiratory 20 Rate Blood Pressure 127/70 O2 Sat by Pulse 100 Oximetry Medical Decision Making - Medical Decision Making Was pt. sent in by a medical professional or institution (, PA, PHOTO GRAPHICS LIBRARIAN, urgent care, hospital, or long-term...) When possible be specific @ -No Did you speak to anyone other than the patient for history (EMS, parent, family, police, friend...)? What history was obtained from this source @ -No Did you review nursing and triage notes (agree or disagree)? Why? @ -I reviewed and agree with nursing and triage notes Were old charts reviewed (outside hosp., previous admission, EMS record, old EKG, old radiological studies, urgent care reports/EKG's, long-term records)? Report findings @ -No old charts were reviewed Differential Diagnosis (chest pain, altered mental status, abdominal pain women, abdominal pain men, vaginal bleeding, weakness, fever, dyspnea, syncope, headache, dizziness, GI bleed, back pain, seizure, CVA, palpatations, mental health, musculoskeletal)? @ -Differential Abdominal Pain Women: Appendicitis, Cholecystitis, diverticulosis, ischemic bowel, pancreatitis, hepatitis, UTI, gastroenteritis, AAA, incarcerated hernia, bowel obstruction, constipation, inflammatory bowel, hepatitis, peptic ulcer disease, splenic infarction, perforated viscus, vulvitis, ovarian torsion, PID, kidney stone, placenta abruption, this is not meant to be an all-inclusive list EKG interpreted by me (3pts min.). @ -As above X-rays interpreted by me (1pt min.). @ -None done CT interpreted by me (1pt min.). @CT negative for acute cardiopulmonary finding U/S interpreted by me (1pt. min.). @ -None done What testing was considered but not performed or refused? (CT, X-rays, U/S, labs)? Why? @ -None What meds were considered but not given or refused? Why? @ -None Did you discuss the management of the patient with other professionals (professionals i.e. DrDell, PA, PHOTO GRAPHICS LIBRARIAN, lab, RT, psych nurse, social work program coordinator, tube buffer, teacher, youth liaison officer, onsite case manager)? Give summary @ -No Was smoking cessation discussed for >3mins.? @ -No Was critical care preformed (if so, how long)? @ -No Were there social determinants of health that impacted care today? How? (Homelessness, low income, unemployed, alcoholism, drug addiction, transportation, low edu. Level, literacy, decrease access to med. care, fci, rehab)? @ -No Was there de-escalation of care discussed even if they declined (Discuss DNR or withdrawal of care, Hospice)? DNR status @ -No What co-morbidities impacted this encounter? (DM, HTN, Smoking, COPD, CAD, Cancer, CVA, ARF, Chemo, Hep., AIDS, mental health diagnosis, sleep apnea, morbid obesity)? @ -[History of Emelyn-en-Y bypass, cholecystectomy Was patient admitted / discharged? Hospital course, mention meds given and route, prescriptions, significant lab abnormalities, going to OR and other pertinent info. @ -43-year-old female with abdominal pain, nausea vomiting. Patient has normal CBC, normal CMP, normal urinalysis, negative urine test. CT is negative for acute process. After symptomatic treatment the patient is feeling much better, no further vomiting. Stable for discharge with outpatient referral. Undiagnosed new problem with uncertain prognosis? @ -[No Drug Therapy requiring intensive monitoring for toxicity (Heparin, Nitro, Insulin, Cardizem)? @ -No Were any procedures done? @ -No Diagnosis/symptom? @ -Abdominal pain Acute, or Chronic, or Acute on Chronic? @ -[Acute on chronic Uncomplicated (without systemic symptoms) or Complicated (systemic symptoms)? @ -Default Side effects of treatment? @ -No Exacerbation, Progression, or Severe Exacerbation? @ -No Poses a threat to life or bodily function? How? (Chest pain, [place], [place], pneumonia, PE, COPD, DKA, ARF, appy, cholecystitis, CVA, Diverticulitis, Homicidal, Suicidal, threat to staff... and all critical care pts) @ -[Low risk at this time - Lab Data Result diagrams: 11/26/23 02:54 11/26/23 02:54 Lab Results 11/26/23 11/26/23 11/26/23 Range/Units 02:54 02:54 03:19 WBC 12.5 H (3.8-10.6) k/uL RBC 4.41 (3.80-5.40) m/uL Hgb 13.2 (11.4-16.0) gm/dL Hct 40.4 (34.0-46.0) % MCV 91.6 (80.0-100.0) fL MCH 29.8 (25.0-35.0) pg MCHC 32.6 (31.0-37.0) g/dL RDW 15.1 (11.5-15.5) % Plt Count 302 (150-450) k/uL MPV 8.9 Neutrophils % 73 % Lymphocytes % 17 % Monocytes % 7 % Eosinophils % 0 % Basophils % 0 % Neutrophils # 9.1 H (1.3-7.7) k/uL Lymphocytes # 2.2 (1.0-4.8) k/uL Monocytes # 0.8 (0-1.0) k/uL Eosinophils # 0.1 (0-0.7) k/uL Basophils # 0.0 (0-0.2) k/uL Sodium 135 L (137-145) mmol/L Potassium 3.8 (3.5-5.1) mmol/L Chloride 103 (98-107) mmol/L Carbon Dioxide 23 (22-30) mmol/L Anion Gap 9 mmol/L BUN 9 (7-17) mg/dL Creatinine 0.41 L (0.52-1.04) mg/dL Est GFR (CKD-EPI)AfAm >90 (>60 ml/min/1.73 sqM) Est GFR (CKD-EPI)NonAf >90 (>60 ml/min/1.73 sqM) Glucose 112 H (74-99) mg/dL Calcium 9.5 (8.4-10.2) mg/dL Total Bilirubin 0.5 (0.2-1.3) mg/dL AST 27 (14-36) U/L ALT 17 (4-34) U/L Alkaline Phosphatase 109 (38-126) U/L Total Protein 7.6 (6.3-8.2) g/dL Albumin 4.2 (3.5-5.0) g/dL Lipase 86 (23-300) U/L Urine Color Yellow Urine Appearance Cloudy H (Clear) Urine pH 6.5 (5.0-8.0) Ur Specific [place] 1.047 H (1.001-1.035) Urine Protein 1+ H (Negative) Urine Glucose (UA) Negative (Negative) Urine Ketones Trace H (Negative) Urine Blood Negative (Negative) Urine Nitrite Negative (Negative) Urine Bilirubin Negative (Negative) Urine Urobilinogen <2.0 (<2.0) mg/dL Ur Leukocyte Esterase Negative (Negative) Urine RBC 1 (0-5) /hpf Urine WBC 4 (0-5) /hpf Ur Squamous Epith Cells 14 H (0-4) /hpf Calcium Oxalate Crystal Few H (None) /hpf Urine Bacteria Rare H (None) /hpf Urine Mucus Many H (None) /hpf Urine HCG, Qual (Not Detectd) Urine Opiates Screen (NotDetected) Ur Oxycodone Screen (NotDetected) Urine Methadone Screen (NotDetected) Ur Barbiturates Screen (NotDetected) U Tricyclic Antidepress (NotDetected) Ur Phencyclidine Scrn (NotDetected) Ur Amphetamines Screen (NotDetected) U Methamphetamines Scrn (NotDetected) U Benzodiazepines Scrn (NotDetected) Urine Cocaine Screen (NotDetected) U Marijuana (THC) Screen (NotDetected) 11/26/23 11/26/23 Range/Units 03:19 03:30 WBC (3.8-10.6) k/uL RBC (3.80-5.40) m/uL Hgb (11.4-16.0) gm/dL Hct (34.0-46.0) % MCV (80.0-100.0) fL MCH (25.0-35.0) pg MCHC (31.0-37.0) g/dL RDW (11.5-15.5) % Plt Count (150-450) k/uL MPV Neutrophils % % Lymphocytes % % Monocytes % % Eosinophils % % Basophils % % Neutrophils # (1.3-7.7) k/uL Lymphocytes # (1.0-4.8) k/uL Monocytes # (0-1.0) k/uL Eosinophils # (0-0.7) k/uL Basophils # (0-0.2) k/uL Sodium (137-145) mmol/L Potassium (3.5-5.1) mmol/L Chloride (98-107) mmol/L Carbon Dioxide (22-30) mmol/L Anion Gap mmol/L BUN (7-17) mg/dL Creatinine (0.52-1.04) mg/dL Est GFR (CKD-EPI)AfAm (>60 ml/min/1.73 sqM) Est GFR (CKD-EPI)NonAf (>60 ml/min/1.73 sqM) Glucose (74-99) mg/dL Calcium (8.4-10.2) mg/dL Total Bilirubin (0.2-1.3) mg/dL AST (14-36) U/L ALT (4-34) U/L Alkaline Phosphatase (38-126) U/L Total Protein (6.3-8.2) g/dL Albumin (3.5-5.0) g/dL Lipase (23-300) U/L Urine Color Urine Appearance (Clear) Urine pH (5.0-8.0) Ur Specific [place] (1.001-1.035) Urine Protein (Negative) Urine Glucose (UA) (Negative) Urine Ketones (Negative) Urine Blood (Negative) Urine Nitrite (Negative) Urine Bilirubin (Negative) Urine Urobilinogen (<2.0) mg/dL Ur Leukocyte Esterase (Negative) Urine RBC (0-5) /hpf Urine WBC (0-5) /hpf Ur Squamous Epith Cells (0-4) /hpf Calcium Oxalate Crystal (None) /hpf Urine Bacteria (None) /hpf Urine Mucus (None) /hpf Urine HCG, Qual Not Detected (Not Detectd) Urine Opiates Screen Not Detected (NotDetected) Ur Oxycodone Screen Not Detected (NotDetected) Urine Methadone Screen Not Detected (NotDetected) Ur Barbiturates Screen Not Detected (NotDetected) U Tricyclic Antidepress Not Detected (NotDetected) Ur Phencyclidine Scrn Not Detected (NotDetected) Ur Amphetamines Screen Not Detected (NotDetected) U Methamphetamines Scrn Not Detected (NotDetected) U Benzodiazepines Scrn Not Detected (NotDetected) Urine Cocaine Screen Not Detected (NotDetected) U Marijuana (THC) Screen Detected H (NotDetected) Disposition Clinical Impression: Nausea and vomiting, Abdominal pain Disposition: HOME SELF-CARE Condition: Fair Instructions (If sedation given, give patient instructions): Abdominal Pain (ED) Is patient prescribed a controlled substance at d/c from ED?: No Referrals: Alexys Adams MD [Primary Care Provider] - 1-2 days Renuka Lopez MD [STAFF PHYSICIAN] - 1-2 days Time of Disposition: 05:05
[2023-11-26 03:59] LABS: Appearance,Urine Cloudy (Clear); Bacteria,Urine Rare /hpf; Bilirubin,Urine Negative (Negative); Blood,Urine Negative (Negative); Calcium Oxalate Crystals,Urine Few /hpf; Color,Urine Yellow; Glucose,Urine (UA) Negative (Negative); Ketones,Urine Trace (Negative); Leukocyte Esterase,Urine Negative (Negative); Mucus,Urine Many /hpf; Nitrite,Urine Negative (Negative); PH, Urine 6.5 (5.0-8.0); Protein,Urine 1+ (Negative); RBC,Urine 1 /hpf (0-5); Squamous Epithelial Cell,Urine 14 /hpf (0-4); Urobilinogen,Urine <2.0 mg/dL (<2.0); WBC,Urine 4 /hpf (0-5)
[2023-11-26 04:10] LABS: Specific Gravity,Urine 1.047 (1.001-1.035)
[2023-11-26] MEDS: FAMOTIDINE 20 MG/2 ML VIAL IV STA (04:11)
[2023-11-26] MEDS: HYDROmorphone 0.5 MG/0.5 ML SYRINGE IVP STA (04:12)
--- NOTE | 2023-11-26 04:22 | CT ---
EXAMINATION TYPE: CT abdomen pelvis w con DATE OF EXAM: 11/26/2023 HISTORY: pt reports left sided flank/ abd pain, + N/V x 2 days hx of hernia surgery, bariatric surger y, ulcer repair CT DLP: 543.7mGycm Automated Exposure Control for Dose Reduction was Utilized. CONTRAST: CT scan of the abdomen and pelvis is performed with IV Contrast, patient injected with 100 mL of Isov ue 300. COMPARISON: Prior CT September 06, 2023 FINDINGS: LUNG BASES: Vague Heterogeneous lesion in the posterior right hepatic dome near 3.0 cm in size is red emonstrated. Cholecystectomy clips are redemonstrated. LIVER/GB: No significant abnormality is appreciated. PANCREAS: No significant abnormality is seen. SPLEEN: No significant abnormality is seen. ADRENALS: No significant abnormality is seen. KIDNEYS: No significant abnormality is seen. BOWEL: Suboptimal evaluation of bowel without enteric contrast and patient having little internal fat . Surgical changes in the epigastric region from gastric bypass procedure are redemonstrated no abnor mal small or large bowel dilatation. Fluid in the right colon again seen. UTERUS/ADNEXA: Anteverted uterus projecting to right of midline is redemonstrated. There are 2 surgic al clips in the pelvis again seen. Small amount of free fluid in the pelvis on current study. LYMPH NODES: No greater than 1cm abdominal or pelvic lymph nodes are appreciated. OSSEOUS STRUCTURES: No significant abnormality is seen. OTHER: No significant additional abnormality is seen. IMPRESSION: No bowel obstruction. No significant new or acute finding from the most recent prior CT t o account for patient's symptoms.
[2023-11-26 04:37] LABS: Amphetamine Screen,Urine Not Detected (NotDetected); Barbiturate Screen,Urine Not Detected (NotDetected); Benzodiazepines Screen,Urine Not Detected (NotDetected); Cocaine Screen,Urine Not Detected (NotDetected); Methadone Screen, Urine Not Detected (NotDetected); Opiate Screen,Urine Not Detected (NotDetected); Oxycodone Screen, Urine Not Detected (NotDetected); Phencyclidine Screen,Urine Not Detected (NotDetected); Tricyclic Antidepressant,Urine Not Detected (NotDetected); Urn Cannabinoid Scrn Detected (NotDetected)
[2023-11-26 06:28] VITALS: BP 123/72; PULSE 65; RESP 18
== END 2023-11-26 05:34 | disposition home or self-care (01) ==
LOC: EC 02:22
DX: R10.9 Unspecified abdominal pain (principal); R11.2 Nausea with vomiting, unspecified; K21.9 Gastro-esophageal reflux disease without esophagitis; F32.A Depression, unspecified; F41.9 Anxiety disorder, unspecified; F17.200 Nicotine dependence, unspecified, uncomplicated; Z79.899 Other long term (current) drug therapy; Z88.0 Allergy status to penicillin; Z90.49 Acquired absence of other specified parts of digestive tract; Z98.84 Bariatric surgery status
CPT/HCPCS: 36415; 80053; 83690; 85025; 81001; 81025; 80306; 74177; 99284; 96374; 96375 ×3; 96361; J2405; J3490; J1885; J1170; Q9967

== ENCOUNTER 2023-12-21 18:40 | Observation (INO) | payer BC ==
--- NOTE | 2023-12-21 19:11 | ED ---
Abdominal Pain HPI - General Chief Complaint: Abdominal Pain Stated Complaint: abd pain NVD Time Seen by Provider: 12/21/23 18:49 Source: patient Mode of arrival: ambulatory Limitations: no limitations - History of Present Illness MD Complaint: abdominal pain Onset/Timin -: hour(s) Location: periumbilical, epigastric Migration to: no migration Severity: moderate Quality: cramping, sharp Consistency: colicky Improves With: nothing Worsens With: nothing Associated Symptoms: nausea, vomiting - Related Data LMP (females 10-50): last week Patient : No Home Medications Medication Instructions Recorded Confirmed busPIRone HCL 15 mg PO TID PRN 12/31/21 10/03/23 Varenicline [Chantix Continuing 1 mg PO BID 08/13/23 10/03/23 Pack] Acetaminophen Tab [Tylenol] 1,000 mg PO Q6H PRN 09/06/23 10/03/23 Escitalopram [Lexapro] 20 mg PO HS 09/06/23 10/03/23 Famotidine [Pepcid] 20 mg PO DAILY PRN 09/06/23 10/03/23 diphenhydrAMINE HCL [Benadryl] 50 mg PO ONCE PRN 09/06/23 10/03/23 Ondansetron [Zofran] 4 mg PO Q8HR PRN 09/26/23 10/03/23 hydrOXYzine HCL 25 mg PO Q6HR PRN 10/03/23 10/03/23 Allergies Allergy/AdvReac Type Severity Reaction Status Date / Time amoxicillin Allergy Anaphylaxis Verified 11/26/23 02:28 Review of Systems ROS Statement: Those systems with pertinent positive or pertinent negative responses have been documented in the HPI. ROS Other: All systems not noted in ROS Statement are negative. Constitutional: Denies: fever, chills Respiratory: Denies: cough, dyspnea Cardiovascular: Denies: chest pain, palpitations Gastrointestinal: Reports: abdominal pain, nausea, vomiting. Denies: diarrhea, constipation, hematemesis, melena, hematochezia Genitourinary: Denies: dysuria, hematuria, discharge, abnormal menses Musculoskeletal: Denies: back pain Skin: Denies: rash Neurological: Denies: headache, weakness, numbness Past Medical History Past Medical History: Blood Disorder, GERD/Reflux Additional Past Medical History / Comment(s): Anemia, ibs History of Any Multi-Drug Resistant Organisms: None Reported Past Surgical History: Bariatric Surgery, Hernia Repair Additional Past Surgical History / Comment(s): gastric bypass 2014. ulcer repai r 09/2023 Past Anesthesia/Blood Transfusion Reactions: No Reported Reaction Past Psychological History: Anxiety, Depression Smoking Status: Current some day smoker, Light tobacco smoker - Past Family History Mother Family Medical History: Unable to Obtain General Exam Limitations: no limitations General appearance: alert, in no apparent distress Head exam: Present: atraumatic, normocephalic Eye exam: Present: normal appearance. Absent: scleral icterus, conjunctival injection Neck exam: Present: normal inspection Respiratory exam: Present: normal lung sounds bilaterally. Absent: respiratory distress, wheezes, rales, rhonchi, stridor Cardiovascular Exam: Present: regular rate, normal rhythm, normal heart sounds. Absent: systolic murmur, diastolic murmur, rubs, gallop GI/Abdominal exam: Present: soft, tenderness, guarding, diminished bowel sounds. Absent: distended, rebound, rigid, mass, pulsatile mass, hernia Extremities exam: Present: normal inspection, normal capillary refill. Absent: pedal edema, calf tenderness Back exam: Present: normal inspection. Absent: CVA tenderness (R), CVA tenderness (L) Neurological exam: Present: alert Skin exam: Present: warm, dry, intact, normal color. Absent: rash Course Vital Signs 12/21/23 12/21/23 12/21/23 18:42 22:00 23:01 Temperature 97.8 F 98.8 F Pulse Rate 61 84 65 Respiratory 16 16 18 Rate Blood Pressure 116/54 125/70 126/78 O2 Sat by Pulse 99 98 97 Oximetry Medical Decision Making - Medical Decision Making This patient is a 43-year-old woman here to have evaluation of abdominal pain. She does continue to have pain despite multiple rounds of analgesics and IV fluid. The workup did show elevated lactic acid on arrival but suspect this is due to element of dehydration as following fluids it has corrected. The patient does continue to have pain and will have admission for intractable abdominal pain with surgical consult. - Lab Data Result diagrams: 12/21/23 19:10 12/21/23 19:10 Lab Results 12/21/23 12/21/23 12/21/23 Range/Units 19:10 19:10 19:10 WBC 14.4 H (3.8-10.6) k/uL RBC 4.18 (3.80-5.40) m/uL Hgb 12.5 (11.4-16.0) gm/dL Hct 39.3 (34.0-46.0) % MCV 93.9 (80.0-100.0) fL MCH 29.8 (25.0-35.0) pg MCHC 31.7 (31.0-37.0) g/dL RDW 15.5 (11.5-15.5) % Plt Count 348 (150-450) k/uL MPV 9.0 Neutrophils % 85 % Lymphocytes % 11 % Monocytes % 2 % Eosinophils % 0 % Basophils % 0 % Neutrophils # 12.2 H (1.3-7.7) k/uL Lymphocytes # 1.6 (1.0-4.8) k/uL Monocytes # 0.3 (0-1.0) k/uL Eosinophils # 0.1 (0-0.7) k/uL Basophils # 0.0 (0-0.2) k/uL Hypochromasia Slight Sodium (137-145) mmol/L Potassium (3.5-5.1) mmol/L Chloride (98-107) mmol/L Carbon Dioxide (22-30) mmol/L Anion Gap mmol/L BUN (7-17) mg/dL Creatinine (0.52-1.04) mg/dL Est GFR (CKD-EPI)AfAm (>60 ml/min/1.73 sqM) Est GFR (CKD-EPI)NonAf (>60 ml/min/1.73 sqM) Glucose (74-99) mg/dL Lactic Ac Sepsis Rflx Plasma Lactic Acid Chema (0.7-2.0) mmol/L Calcium (8.4-10.2) mg/dL Total Bilirubin (0.2-1.3) mg/dL AST (14-36) U/L ALT (4-34) U/L Alkaline Phosphatase (38-126) U/L Total Protein (6.3-8.2) g/dL Albumin (3.5-5.0) g/dL Amylase (30-110) U/L Lipase (23-300) U/L Urine Color Yellow Urine Appearance Cloudy H (Clear) Urine pH 6.5 (5.0-8.0) Ur Specific [place] >1.050 H (1.001-1.035) Urine Protein 1+ H (Negative) Urine Glucose (UA) Negative (Negative) Urine Ketones 1+ H (Negative) Urine Blood Small H (Negative) Urine Nitrite Negative (Negative) Urine Bilirubin Negative (Negative) Urine Urobilinogen 2.0 (<2.0) mg/dL Ur Leukocyte Esterase Negative (Negative) Urine RBC 3 (0-5) /hpf Urine WBC 14 H (0-5) /hpf Ur Squamous Epith Cells 15 H (0-4) /hpf Amorphous Sediment Rare H (None) /hpf Urine Bacteria Occasional H (None) /hpf Hyaline Casts 3 H (0-2) /lpf Urine Mucus Many H (None) /hpf Urine HCG, Qual Not Detected (Not Detectd) 12/21/23 12/21/23 12/21/23 Range/Units 19:10 19:31 19:55 WBC (3.8-10.6) k/uL RBC (3.80-5.40) m/uL Hgb (11.4-16.0) gm/dL Hct (34.0-46.0) % MCV (80.0-100.0) fL MCH (25.0-35.0) pg MCHC (31.0-37.0) g/dL RDW (11.5-15.5) % Plt Count (150-450) k/uL MPV Neutrophils % % Lymphocytes % % Monocytes % % Eosinophils % % Basophils % % Neutrophils # (1.3-7.7) k/uL Lymphocytes # (1.0-4.8) k/uL Monocytes # (0-1.0) k/uL Eosinophils # (0-0.7) k/uL Basophils # (0-0.2) k/uL Hypochromasia Sodium 135 L (137-145) mmol/L Potassium 3.5 (3.5-5.1) mmol/L Chloride 103 (98-107) mmol/L Carbon Dioxide 18 L (22-30) mmol/L Anion Gap 14 mmol/L BUN 7 (7-17) mg/dL Creatinine 0.37 L (0.52-1.04) mg/dL Est GFR (CKD-EPI)AfAm >90 (>60 ml/min/1.73 sqM) Est GFR (CKD-EPI)NonAf >90 (>60 ml/min/1.73 sqM) Glucose 128 H (74-99) mg/dL Lactic Ac Sepsis Rflx Y Plasma Lactic Acid Chema 3.7 H* (0.7-2.0) mmol/L Calcium 9.6 (8.4-10.2) mg/dL Total Bilirubin 0.4 (0.2-1.3) mg/dL AST 38 H (14-36) U/L ALT 32 (4-34) U/L Alkaline Phosphatase 137 H (38-126) U/L Total Protein 7.7 (6.3-8.2) g/dL Albumin 4.3 (3.5-5.0) g/dL Amylase 45 (30-110) U/L Lipase 88 (23-300) U/L Urine Color Urine Appearance (Clear) Urine pH (5.0-8.0) Ur Specific [place] (1.001-1.035) Urine Protein (Negative) Urine Glucose (UA) (Negative) Urine Ketones (Negative) Urine Blood (Negative) Urine Nitrite (Negative) Urine Bilirubin (Negative) Urine Urobilinogen (<2.0) mg/dL Ur Leukocyte Esterase (Negative) Urine RBC (0-5) /hpf Urine WBC (0-5) /hpf Ur Squamous Epith Cells (0-4) /hpf Amorphous Sediment (None) /hpf Urine Bacteria (None) /hpf Hyaline Casts (0-2) /lpf Urine Mucus (None) /hpf Urine HCG, Qual (Not Detectd) 12/21/23 Range/Units 22:47 WBC (3.8-10.6) k/uL RBC (3.80-5.40) m/uL Hgb (11.4-16.0) gm/dL Hct (34.0-46.0) % MCV (80.0-100.0) fL MCH (25.0-35.0) pg MCHC (31.0-37.0) g/dL RDW (11.5-15.5) % Plt Count (150-450) k/uL MPV Neutrophils % % Lymphocytes % % Monocytes % % Eosinophils % % Basophils % % Neutrophils # (1.3-7.7) k/uL Lymphocytes # (1.0-4.8) k/uL Monocytes # (0-1.0) k/uL Eosinophils # (0-0.7) k/uL Basophils # (0-0.2) k/uL Hypochromasia Sodium (137-145) mmol/L Potassium (3.5-5.1) mmol/L Chloride (98-107) mmol/L Carbon Dioxide (22-30) mmol/L Anion Gap mmol/L BUN (7-17) mg/dL Creatinine (0.52-1.04) mg/dL Est GFR (CKD-EPI)AfAm (>60 ml/min/1.73 sqM) Est GFR (CKD-EPI)NonAf (>60 ml/min/1.73 sqM) Glucose (74-99) mg/dL Lactic Ac Sepsis Rflx Plasma Lactic Acid Chema 1.2 (0.7-2.0) mmol/L Calcium (8.4-10.2) mg/dL Total Bilirubin (0.2-1.3) mg/dL AST (14-36) U/L ALT (4-34) U/L Alkaline Phosphatase (38-126) U/L Total Protein (6.3-8.2) g/dL Albumin (3.5-5.0) g/dL Amylase (30-110) U/L Lipase (23-300) U/L Urine Color Urine Appearance (Clear) Urine pH (5.0-8.0) Ur Specific [place] (1.001-1.035) Urine Protein (Negative) Urine Glucose (UA) (Negative) Urine Ketones (Negative) Urine Blood (Negative) Urine Nitrite (Negative) Urine Bilirubin (Negative) Urine Urobilinogen (<2.0) mg/dL Ur Leukocyte Esterase (Negative) Urine RBC (0-5) /hpf Urine WBC (0-5) /hpf Ur Squamous Epith Cells (0-4) /hpf Amorphous Sediment (None) /hpf Urine Bacteria (None) /hpf Hyaline Casts (0-2) /lpf Urine Mucus (None) /hpf Urine HCG, Qual (Not Detectd) Disposition Clinical Impression: Abdominal pain Disposition: ADMITTED IP TO THIS HOSP Condition: Good Instructions (If sedation given, give patient instructions): Abdominal Pain (ED) Is patient prescribed a controlled substance at d/c from ED?: No Referrals: Alexys Adams MD [Primary Care Provider] - 1-2 days
[2023-12-21] MEDS: ONDANSETRON 4 MG/2 ML VIAL IVP STA (19:15)
[2023-12-21] MEDS: MORPHINE SULFATE 4 MG/ML SYRINGE IV STA ×2 (19:16→22:57)
[2023-12-21] MEDS: SODIUM CHLORIDE 0.9% 1,000 ML IV ONE ×2 (19:17→23:14)
[2023-12-21 19:20] LABS: Basophils % (A) 0 %; Eosinophils # (A) 0.1 k/uL (0-0.7); Eosinophils % (A) 0 %; HCT 39.3 % (34.0-46.0); HGB 12.5 gm/dL (11.4-16.0); Hypochromasia Slight; Lymphocytes # (A) 1.6 k/uL (1.0-4.8); Lymphocytes % (A) 11 %; MCH 29.8 pg (25.0-35.0); MCHC 31.7 g/dL (31.0-37.0); MCV 93.9 fL (80.0-100.0); Monocytes # (A) 0.3 k/uL (0-1.0); Monocytes % (A) 2 %; Neutrophils # (A) 12.2 k/uL (1.3-7.7); Neutrophils % (A) 85 %; Platelet Count 348 k/uL (150-450); RBC 4.18 m/uL (3.80-5.40); RDW 15.5 % (11.5-15.5); WBC 14.4 k/uL (3.8-10.6)
[2023-12-21 19:33] LABS: AST 38 U/L (14-36); African American GFR (CKD) >90 (>60 ml/min/1.73 sqM); Albumin 4.3 g/dL (3.5-5.0); Alkaline Phosphatase 137 U/L (38-126); Amylase 45 U/L (30-110); Anion Gap 14 mmol/L; Blood Urea Nitrogen 7 mg/dL (7-17); Calcium 9.6 mg/dL (8.4-10.2); Carbon Dioxide 18 mmol/L (22-30); Chloride 103 mmol/L (98-107); Glucose 128 mg/dL (74-99); Lipase 88 U/L (23-300); Non-African American GFR(CKD) >90 (>60 ml/min/1.73 sqM); Potassium 3.5 mmol/L (3.5-5.1); Sodium 135 mmol/L (137-145); Total Bilirubin 0.4 mg/dL (0.2-1.3); Total Protein 7.7 g/dL (6.3-8.2)
[2023-12-21 19:40] LABS: ALT 32 U/L (4-34)
[2023-12-21 20:18] LABS: Amorphous Sediment,Urine Rare /hpf; Appearance,Urine Cloudy (Clear); Bacteria,Urine Occasional /hpf; Bilirubin,Urine Negative (Negative); Blood,Urine Small (Negative); Color,Urine Yellow; Glucose,Urine (UA) Negative (Negative); Hyaline Casts,Urine 3 /lpf (0-2); Ketones,Urine 1+ (Negative); Leukocyte Esterase,Urine Negative (Negative); Mucus,Urine Many /hpf; Nitrite,Urine Negative (Negative); PH, Urine 6.5 (5.0-8.0); Protein,Urine 1+ (Negative); RBC,Urine 3 /hpf (0-5); Squamous Epithelial Cell,Urine 15 /hpf (0-4); WBC,Urine 14 /hpf (0-5)
[2023-12-21 20:20] LABS: Specific Gravity,Urine >1.050 (1.001-1.035)
[2023-12-21] MEDS: SODIUM CHLORIDE 0.9% 1,000 ML IV STA (20:41)
--- NOTE | 2023-12-21 21:35 | CT ---
EXAMINATION TYPE: CT abdomen pelvis w con CT DLP: 576.8 mGycm, Automated exposure control for dose reduction was used. DATE OF EXAM: 12/21/2023 9:25 PM COMPARISON: CT abdomen pelvis most recent from 11/26/2023 CLINICAL INDICATION:Female, 43 years old with history of abdominal pain; Umbilical abdominal pain. Hx of IBS. TECHNIQUE: Axial CT of the abdomen and pelvis. Sagittal and coronal reformats were created on a [employer] workstation. Contrast used:100 mL of Isovue 300 with IV Contrast, (none if empty) Oral contrast used: without Oral Contrast (none if empty) FINDINGS: LOWER CHEST: Unremarkable ABDOMEN LIVER: Unremarkable GALLBLADDER AND BILE DUCTS: Gallbladder surgically absent. No evidence of biliary duct dilation PANCREAS: Unremarkable. SPLEEN: Unremarkable. ADRENAL GLANDS: Unremarkable. KIDNEYS AND URETERS: No evidence of hydronephrosis or renal calculus. The ureters are unremarkable. PELVIS BLADDER: Incompletely distended but grossly unremarkable. REPRODUCTIVE: Unremarkable. ABDOMEN & PELVIS STOMACH AND BOWEL: Postsurgical changes from prior gastric bypass are appreciated. Lack of intraperit licona fat does limit full evaluation, however the appendix is not definitively visualized in right lo wer quadrant. No evidence of bowel obstruction. PERITONEUM/RETROPERITONEUM: Trace simple fluid is noted within the pelvis, likely physiologic. Postsu rgical clips are noted within the pelvis. VASCULATURE: No evidence of aortic aneurysm. MUSCULOSKELETAL: No acute osseous abnormalities LYMPH NODES: No gross evidence for lymphadenopathy. SOFT TISSUE/ABDOMINAL WALL: Mild soft tissue anasarca. IMPRESSION: 1. No acute intra-abdominal process. 2. Mild superficial soft tissue anasarca. 3. Stable postsurgical changes.
[2023-12-22] MEDS ORDERED: NALOXONE 0.4 MG/ML 1 ML VIAL IV PRN (00:03)
[2023-12-22] MEDS: SODIUM CHLORIDE 0.9% 1,000 ML IV SCH (02:02)
[2023-12-22] MEDS: MORPHINE SULFATE 4 MG/ML SYRINGE IV PRN (07:45)
[2023-12-22] MEDS: PANTOPRAZOLE 40 MG/10 ML VIAL IVP SCH (13:34)
--- NOTE | 2023-12-22 14:30 | P.GSCN ---
History of Present Illness Consult date: 12/22/23 History of present illness: Patient has pre-existing history of gastric bypass at outside facility in [place]. She is a chronic tobacco user and has chronic multiple ulcers and abdominal pain. She reports still smoking at least 4 cigarettes/day. She reports epigastric abdominal pain and left upper quadrant abdominal pain. Last recent surgery to her recollection is September, 2 months ago at [facility] with Dr. Farah. Patient reports chronic diarrhea. CT scan unremarkable. With history of gastric bypass and history of gastric ulcers with pain, recommend upper endoscopy. May need additional diagnostic studies including small bowel follow-through and or diagnostic laparoscopy for abdominal pain. Strict tobacco cessation also advised. Presence of abdominal plasty on exam. No peritonitis. Patient also reports dysphagia with solid foods and h istory of strictures. Recommend upper endoscopy with balloon dilation Past Medical History Past Medical History: Blood Disorder, GERD/Reflux Additional Past Medical History / Comment(s): Anemia, ibs History of Any Multi-Drug Resistant Organisms: None Reported Past Surgical History: Bariatric Surgery, Hernia Repair Additional Past Surgical History / Comment(s): gastric bypass 2013. ulcer repair 09/2023 Past Anesthesia/Blood Transfusion Reactions: No Reported Reaction Past Psychological History: Anxiety, Depression Smoking Status: Current some day smoker, Light tobacco smoker Past Alcohol Use History: None Reported Past Drug Use History: Marijuana - Past Family History Mother Family Medical History: Unable to Obtain Medications and Allergies Home Medications Medication Instructions Recorded Confirmed Type busPIRone HCL 15 mg PO TID PRN 12/31/21 12/22/23 History Acetaminophen Tab [Tylenol] 1,000 mg PO Q6H PRN 09/06/23 12/22/23 History Escitalopram [Lexapro] 20 mg PO HS 09/06/23 12/22/23 History Famotidine [Pepcid] 20 mg PO DAILY PRN 09/06/23 12/22/23 History Hyoscyamine Sulfate [Levsin] 0.125 mg PO TID PRN 12/22/23 12/22/23 History Ondansetron Odt [Zofran Odt] 4 mg PO TID PRN 12/22/23 12/22/23 History hydrOXYzine HCL [Atarax] 20 mg PO HS 12/22/23 12/22/23 History Allergies Allergy/AdvReac Type Severity Reaction Status Date / Time amoxicillin Allergy Anaphylaxis Verified 12/22/23 13:18 Surgical - Exam Vital Signs Temp Pulse Resp BP Pulse Ox 97.8 F 61 16 116/54 99 12/21/23 18:42 12/21/23 18:42 12/21/23 18:42 12/21/23 18:42 12/21/23 18:42 Results - Labs 12/21/23 19:10 12/21/23 19:10 Abnormal Lab Results - Last 24 Hours (Table) 12/21/23 12/21/23 12/21/23 Range/Units 19:10 19:10 19:10 WBC 14.4 H (3.8-10.6) k/uL Neutrophils # 12.2 H (1.3-7.7) k/uL Sodium 135 L (137-145) mmol/L Carbon Dioxide 18 L (22-30) mmol/L Creatinine 0.37 L (0.52-1.04) mg/dL Glucose 128 H (74-99) mg/dL Plasma Lactic Acid Chema (0.7-2.0) mmol/L AST 38 H (14-36) U/L Alkaline Phosphatase 137 H (38-126) U/L Urine Appearance Cloudy H (Clear) Ur Specific [place] >1.050 H (1.001-1.035) Urine Protein 1+ H (Negative) Urine Ketones 1+ H (Negative) Urine Blood Small H (Negative) Urine WBC 14 H (0-5) /hpf Ur Squamous Epith Cells 15 H (0-4) /hpf Amorphous Sediment Rare H (None) /hpf Urine Bacteria Occasional H (None) /hpf Hyaline Casts 3 H (0-2) /lpf Urine Mucus Many H (None) /hpf 12/21/23 Range/Units 19:31 WBC (3.8-10.6) k/uL Neutrophils # (1.3-7.7) k/uL Sodium (137-145) mmol/L Carbon Dioxide (22-30) mmol/L Creatinine (0.52-1.04) mg/dL Glucose (74-99) mg/dL Plasma Lactic Acid Chema 3.7 H* (0.7-2.0) mmol/L AST (14-36) U/L Alkaline Phosphatase (38-126) U/L Urine Appearance (Clear) Ur Specific [place] (1.001-1.035) Urine Protein (Negative) Urine Ketones (Negative) Urine Blood (Negative) Urine WBC (0-5) /hpf Ur Squamous Epith Cells (0-4) /hpf Amorphous Sediment (None) /hpf Urine Bacteria (None) /hpf Hyaline Casts (0-2) /lpf Urine Mucus (None) /hpf Diabetes panel 12/21/23 Range/Units 19:10 Sodium 135 L (137-145) mmol/L Potassium 3.5 (3.5-5.1) mmol/L Chloride 103 (98-107) mmol/L Carbon Dioxide 18 L (22-30) mmol/L BUN 7 (7-17) mg/dL Creatinine 0.37 L (0.52-1.04) mg/dL Glucose 128 H (74-99) mg/dL Calcium 9.6 (8.4-10.2) mg/dL AST 38 H (14-36) U/L ALT 32 (4-34) U/L Alkaline Phosphatase 137 H (38-126) U/L Total Protein 7.7 (6.3-8.2) g/dL Albumin 4.3 (3.5-5.0) g/dL Calcium panel 12/21/23 Range/Units 19:10 Calcium 9.6 (8.4-10.2) mg/dL Albumin 4.3 (3.5-5.0) g/dL Pituitary panel 12/21/23 Range/Units 19:10 Sodium 135 L (137-145) mmol/L Potassium 3.5 (3.5-5.1) mmol/L Chloride 103 (98-107) mmol/L Carbon Dioxide 18 L (22-30) mmol/L BUN 7 (7-17) mg/dL Creatinine 0.37 L (0.52-1.04) mg/dL Glucose 128 H (74-99) mg/dL Calcium 9.6 (8.4-10.2) mg/dL Adrenal panel 12/21/23 Range/Units 19:10 Sodium 135 L (137-145) mmol/L Potassium 3.5 (3.5-5.1) mmol/L Chloride 103 (98-107) mmol/L Carbon Dioxide 18 L (22-30) mmol/L BUN 7 (7-17) mg/dL Creatinine 0.37 L (0.52-1.04) mg/dL Glucose 128 H (74-99) mg/dL Calcium 9.6 (8.4-10.2) mg/dL Total Bilirubin 0.4 (0.2-1.3) mg/dL AST 38 H (14-36) U/L ALT 32 (4-34) U/L Alkaline Phosphatase 137 H (38-126) U/L Total Protein 7.7 (6.3-8.2) g/dL Albumin 4.3 (3.5-5.0) g/dL
--- NOTE | 2023-12-22 16:39 | HP ---
HISTORY AND PHYSICAL CHIEF COMPLAINT: Abdominal pain. HISTORY OF PRESENT ILLNESS: 43-year-old woman with a past medical history of multiple medical problems including GERD, bariatric surgery, gastric bypass, being followed by Dr. Adams in the outpatient setting, had apparently colonoscopy in September by Dr. Chopra. The patient complains of abdominal pain, which she stated in the upper abdomen, epigastrium and right side, and the patient was admitted for further evaluation and treatment. The CT scan did not show any acute abnormality, but however, the patient reports that the patient was diagnosed to have possibly anastomotic ulcer as an outpatient couple of months ago. There is no history of any fever, rigors, chills. PAST MEDICAL HISTORY: Reviewed include hernia repair, bariatric surgery. Rest of the history and rest of the chart is also reviewed. MEDICATIONS: Home medications are not confirmed. Hydroxyzine. Dose and rest of medications noted. ALLERGIES: Amoxicillin. FAMILY HISTORY: No history of heart disease or strokes in the family. SOCIAL HISTORY: History of smoking REVIEW OF SYSTEMS: Fourteen-point review of systems negative except as mentioned earlier. PHYSICAL EXAMINATION: VITAL SIGNS: Pulse 67, blood pressure 118/60, respirations 18. CHEST: No rhonchi. No crackles. ABDOMEN: Soft, mild diffuse tenderness in the upper abdomen. No guarding. No rigidity. LEGS: No edema. No swelling. SKIN: No ulcer, rash, bleeding. JOINTS: No active deforming arthropathy. LABORATORY DATA: WBC 14.4 and lactic acid 3.7. The patient dehydrated on admission. ASSESSMENT: 1. Severe abdominal pain, rule out. 2. Peptic ulcer disease. 3. Dehydration and elevated lactic acid, present on admission. 4. Increased WBC. 5. History of bariatric surgery. 6. History of colonoscopy. 7. History of gastroesophageal reflux disease. 8. Multiple medical issues. RECOMMENDATIONS AND DISCUSSION: This 43-year-old woman presented with multiple complex medical issues, we will monitor the patient symptomatically. Otherwise, I would recommend Surgery consultation. IV fluids. The patient might require an endoscopy, EGD. We will continue to monitor. Guarded prognosis. Further recommendations to follow. See orders for details. MMODL / IJN: [id number] / MTDD
[2023-12-22] MEDS: ESCITALOPRAM 20 MG TAB PO SCH (20:52)
[2023-12-22] MEDS: ONDANSETRON 4 MG/2 ML VIAL IVP PRN (20:52)
[2023-12-23] MEDS: ACETAMINOPHEN TAB 325 MG TAB PO PRN (03:08)
[2023-12-23 08:31] LABS: Basophils # (A) 0.06 X 10*3/uL (0.00-0.10); Basophils % (A) 0.9 %; Eosinophils # (A) 0.14 X 10*3/uL (0.04-0.35); HCT 33.1 % (37.2-46.3); HGB 10.5 g/dL (12.0-15.0); Lymphocytes # (A) 3.05 X 10*3/uL (0.90-5.00); Lymphocytes % (A) 44.7 %; MCH 28.7 pg (27.0-32.0); MCHC 31.7 g/dL (32.0-37.0); MCV 90.4 FL (80.0-97.0); Mean Platelet Volume 11.3 FL (9.5-12.2); Monocytes # (A) 0.68 X 10*3/uL (0.20-1.00); NRBC Per 100 WBC 0 X 10*3/uL (0.00-0.01); Neutrophils # (A) 2.89 X 10*3/uL (1.80-7.70); Neutrophils % (A) 42.3 %; Platelet Count 256 X 10*3/uL (140-440); RBC 3.66 X 10*6/uL (4.10-5.20); RDW 16.3 % (11.5-14.5); WBC 6.83 X 10*3/uL (4.50-10.00)
[2023-12-23] MEDS ORDERED: PROPOFOL 10 MG/ML 20 ML VIAL IV ONE (08:36)
[2023-12-23] MEDS ORDERED: LIDOCAINE 1% INJ 10MG/ML (20 ML MDV) ONE (08:36)
[2023-12-23] MEDS: IV FLUID CONTINUATION 900 ML IV ONE (08:36)
[2023-12-23 08:43] LABS: Calcium 8.7 mg/dL (8.7-10.3); Carbon Dioxide 26.5 mmol/L (21.6-31.8); Chloride 108 mmol/L (96-109); Glucose 88 mg/dL (70-110); Potassium 4.2 mmol/L (3.5-5.5); Sodium 141 mmol/L (135-145)
--- NOTE | 2023-12-23 08:52 | P.PCN ---
Date of Procedure: 12/23/23 Description of Procedure: PREOPERATIVE DIAGNOSIS: Dysphagia. Epigastric abdominal pain POSTOPERATIVE DIAGNOSIS: Dysphagia. Gastrojejunal stricture without chronic ulcer without perforation OPERATION: Esophagogastrojejunoscopy with balloon dilatation from 15 to 20 mm. SURGEON: Renuka Lopez MD ANESTHESIA: MAC. INDICATIONS: The patient is a 43-year-old female who presents with a history of dysphagia. Benefits and risks of the procedure were described. Informed consent was obtained. DESCRIPTION: The patient was brought into the endoscopy suite and laid in the left lateral decubitus position. After a timeout was confirmed, the procedure was initiated. An Olympus gastroscope was passed along the posterior oropharynx down to the distal esophagus where the squamocolumnar junction was unremarkable. The gastric pouch was entered. A gastrojejunal stricture of 15 mm was found as the adult gastroscope was 9.5 mm in size. A [employer] balloon dilator was placed through the scope. Final insufflation up to 20 mm was performed with a total of 2 minutes. The scope was advanced up to 60 cm from the incisors into the Emelyn limb. The mucosa of the gastrojejunal anastomosis was intact. No chronic gastrojejunal marginal ulcer was encountered. No full-thickness injury was encountered. The GI tract was desufflated. The patient tolerated the procedure well. FINDINGS: Squamocolumnar junction unremarkable at 40 cm. Stricture of approximately 15 mm encountered. No chronic gastrojejunal ulceration encountered. Successful balloon dilatation to 20 mm. RECOMMENDATIONS: Upper endoscopy as needed.
--- NOTE | 2023-12-23 09:15 | P.PN ---
Subjective Progress Note Date: 12/23/23 Principal diagnosis: Abdominal pain This is a 43-year-old female with a past medical history of bariatric surgery who presented to the emergency department with complaints of abdominal pain. Patient reports pain is located in the upper abdomen on the right side. Patient also with recent complaints of some dysphagia history of strictures. Patient was seen and evaluated by Dr. Lopez who was performing an EGD this morning with possible dilation. Objective - Vital Signs Vital signs: Vital Signs Temp 98.2 F 12/23/23 07:00 Pulse 61 12/23/23 07:00 Resp 16 12/23/23 07:00 BP 111/71 12/23/23 07:00 Pulse Ox 99 12/23/23 07:00 FiO2 Intake & Output 12/22/23 12/23/23 12/23/23 18:59 06:59 18:59 Intake Total 600 100 Output Total 1 Balance 600 -1 100 Weight 54.431 kg Intake: IV 100 Intake, IV Titration 600 Amount Sodium Chloride 0.9% 1, 600 000 ml @ 75 mls/hr IV . [id number] JONATHAN Rx#:[id number] Output: Urine 1 Other: # Voids 1 - Constitutional General appearance: Present: cooperative, no acute distress - EENT Eyes: Present: PERRLA - Neck Neck: Present: normal ROM. Absent: lymphadenopathy, rigidity - Respiratory Respiratory: bilateral: CTA - Cardiovascular Rhythm: regular Heart sounds: normal: S1, S2 - Gastrointestinal General gastrointestinal: Present: soft, tenderness - Integumentary Integumentary: Present: normal, normal turgor - Psychiatric Psychiatric: Present: A&O x's 3, appropriate affect, intact judgment & insight - Labs CBC & Chem 7: 12/23/23 05:38 12/23/23 05:38 Labs: Abnormal Lab Results - Last 24 Hours (Table) 12/23/23 12/23/23 Range/Units 05:38 05:38 RBC 3.66 L (4.10-5.20) X 10*6/uL Hgb 10.5 L (12.0-15.0) g/dL Hct 33.1 L (37.2-46.3) % MCHC 31.7 L (32.0-37.0) g/dL RDW 16.3 H (11.5-14.5) % BUN 4.0 L (9.0-27.0) mg/dL Creatinine 0.5 L (0.6-1.5) mg/dL BUN/Creatinine Ratio 8.00 L (12.00-20.00) Ratio Assessment and Plan (1) History of esophageal stricture Current Visit: Yes Status: Acute Code(s): Z87.19 - PERSONAL HISTORY OF OTHER DISEASES OF THE DIGESTIVE SYSTEM SNOMED Code(s): 83387240460210029 (2) Dysphagia Current Visit: Yes Status: Acute Code(s): R13.10 - DYSPHAGIA, UNSPECIFIED SNOMED Code(s): 85329983 (3) Abdominal pain Current Visit: Yes Status: Acute Code(s): R10.9 - UNSPECIFIED ABDOMINAL PAIN SNOMED Code(s): 87532615 (4) Gastric bypass status for obesity Current Visit: No Status: Acute Code(s): Z98.84 - BARIATRIC SURGERY STATUS SNOMED Code(s): 976013690 Plan: Await recommendations from surgery Patient seen and evaluated by nurse practitioner, physician in agreement with plan
[2023-12-23] MEDS: PROCHLORPERAZINE INJ 10 MG/2 ML VIAL IVP PRN (10:24)
[2023-12-23 20:05] VITALS: RESP 16
--- NOTE | 2023-12-24 08:37 | P.DS ---
Providers Date of admission: 12/22/23 00:03 Attending physician: Alexys Adams Consults: 12/22/23 00:03 Consult Physician Routine Consulting Provider: Renuka Lopez Consult Reason/Comments: intractable abdominal pain Do you want consulting provider notified?: Yes Primary care physician: Alexys Adams - Discharge Diagnosis(es) (1) History of esophageal stricture Current Visit: Yes Status: Acute (2) Dysphagia Current Visit: Yes Status: Acute (3) Abdominal pain Current Visit: Yes Status: Acute (4) Gastric bypass status for obesity Current Visit: No Status: Acute Hospital Course: This is a 43-year-old female with a past medical history of bariatric surgery who presented to the emergency department with complaints of abdominal pain. Patient also with complaints of some recent dysphagia. Yesterday she underwent an EGD with balloon dilation with Dr. Lopez. There was no chronic gastrojejunal ulceration encountered and successful balloon dilation of a stricture to 20 mm. She has been tolerating diet. She reports she is feeling much better. She reports Protonix and Compazine have been helping her tr emendously. Patient may be discharged today when cleared by general surgery. Patient seen and evaluated by nurse practitioner, physician in agreement with plan Patient Condition at Discharge: Good Plan - Discharge Summary Discharge Rx Participant: No New Discharge Prescriptions: New Pantoprazole Sodium [Protonix] 40 mg PO DAILY #30 tab Prochlorperazine [Compazine] 10 mg PO Q8H #90 tab Continue busPIRone HCL 15 mg PO TID PRN PRN Reason: Anxiety Famotidine [Pepcid] 20 mg PO DAILY PRN PRN Reason: Heartburn Acetaminophen Tab [Tylenol] 1,000 mg PO Q6H PRN PRN Reason: Pain Escitalopram [Lexapro] 20 mg PO HS Ondansetron Odt [Zofran ODT] 4 mg PO TID PRN PRN Reason: Nausea hydrOXYzine HCL [Atarax] 20 mg PO HS Hyoscyamine Sulfate [Levsin] 0.125 mg PO TID PRN PRN Reason: Diarrhea/cramps Discharge Medication List busPIRone HCL 15 mg PO TID PRN 12/31/21 [History] Acetaminophen Tab [Tylenol] 1,000 mg PO Q6H PRN 09/06/23 [History] Escitalopram [Lexapro] 20 mg PO HS 09/06/23 [History] Famotidine [Pepcid] 20 mg PO DAILY PRN 09/06/23 [History] Hyoscyamine Sulfate [Levsin] 0.125 mg PO TID PRN 12/22/23 [History] Ondansetron Odt [Zofran ODT] 4 mg PO TID PRN 12/22/23 [History] hydrOXYzine HCL [Atarax] 20 mg PO HS 12/22/23 [History] Pantoprazole Sodium [Protonix] 40 mg PO DAILY #30 tab 12/24/23 [Rx] Prochlorperazine [Compazine] 10 mg PO Q8H #90 tab 12/24/23 [Rx] Follow up Appointment(s)/Referral(s): Alexys Adams MD [Primary Care Provider] - 1 Week Patient Instructions/Handouts: Abdominal Pain (ED) Discharge Disposition: HOME SELF-CARE
[2023-12-24 08:44] VITALS: BP 117/77; PULSE 69; TEMP 98.1
--- NOTE | 2023-12-24 15:43 | P.PN ---
Subjective Progress Note Date: 12/24/23 CHIEF COMPLAINT: Dysphagia HISTORY OF PRESENT ILLNESS: Patient status post EGD with dilation for gastroes ophageal stricture with chronic ulcer without perforation. Patient is tolerating regular diet. Denies any difficulty swallowing. Denies any pain. She feels ready for discharge. PHYSICAL EXAM: VITAL SIGNS: Reviewed. GENERAL: Well-developed in no acute distress. HEENT: No sclera icterus. Extraocular movements grossly intact. Moist buccal mucosa. Head is atraumatic, normocephalic. ABDOMEN: Soft. Nondistended. Nontender. NEUROLOGIC: Alert and oriented. Cranial nerves II through XII grossly intact. ASSESSMENT: Dysphagia. Gastrojejunal stricture without chronic ulcer without perforation PLAN: -Patient tolerating regular diet. She can be discharged from surgical standpoint. Physician Rehab Office Coordinator note has been reviewed by physician. Signing provider agrees with the documented findings, assessment, and plan of care. Objective - Vital Signs Vital signs: Vital Signs Temp 98.1 F 12/24/23 07:00 Pulse 69 12/24/23 07:00 Resp 16 12/24/23 07:00 BP 117/77 12/24/23 07:00 Pulse Ox 98 12/24/23 07:00 FiO2 Intake & Output 12/23/23 12/24/23 12/24/23 18:59 06:59 18:59 Intake Total 218 Balance 218 Intake: IV 100 Oral 118 Other: # Voids 1 1 - Labs CBC & Chem 7: 12/23/23 05:38 12/23/23 05:38
== END 2023-12-24 11:38 | disposition home or self-care (01) ==
LOC: EC 18:40 → 6NMEDSUR 12-22 00:03
PROVIDERS: ADMIT Family Medicine; ATTEND Family Medicine
DX: R13.10 Dysphagia, unspecified (principal); K91.89 Other postprocedural complications and disorders of digestive system; K52.9 Noninfective gastroenteritis and colitis, unspecified; K21.9 Gastro-esophageal reflux disease without esophagitis; E86.0 Dehydration; D72.829 Elevated white blood cell count, unspecified; R79.89 Other specified abnormal findings of blood chemistry; F32.A Depression, unspecified; F41.9 Anxiety disorder, unspecified; F17.200 Nicotine dependence, unspecified, uncomplicated; Z87.11 Personal history of peptic ulcer disease; Z98.84 Bariatric surgery status; Z79.899 Other long term (current) drug therapy; Z88.0 Allergy status to penicillin
CPT/HCPCS: 96376 ×4; 96361 ×4; 96375 ×3; 96374; 99285; 36415; 80053; 80048; 82150; 83605; 83690; 85025 ×2; 81001; 81025; 74177; 43249; G0378 ×3; J2270 ×4; J0780 ×2; J2405 ×3; J2001; J2704; C9113 ×3; Q9967; C1726

== ENCOUNTER 2024-04-26 16:19 | Inpatient (IN) | payer BC ==
--- NOTE | 2024-04-26 18:37 | ED ---
General Adult HPI - General Chief complaint: Abdominal Pain Stated complaint: NVD, Abd pain Time Seen by Provider: 04/26/24 18:20 Source: patient, RN notes reviewed Mode of arrival: ambulatory Limitations: no limitations - History of Present Illness Initial comments: 43-year-old female presents to the emergency department for evaluation of left lower abdominal pain. Symptoms started on Saturday. She reports a history of similar pain but reports that this pain is in a different location and more severe. She admits to nausea and vomiting. Last bowel movement was on Saturday. Denies fever but admits to chills. Prior abdominal surgeries include gastric bypass. - Related Data Home Medications Medication Instructions Recorded Confirmed busPIRone HCL 15 mg PO TID PRN 12/31/21 12/22/23 Acetaminophen Tab [Tylenol] 1,000 mg PO Q6H PRN 09/06/23 12/22/23 Escitalopram [Lexapro] 20 mg PO HS 09/06/23 12/22/23 Famotidine [Pepcid] 20 mg PO DAILY PRN 09/06/23 12/22/23 Hyoscyamine Sulfate [Levsin] 0.125 mg PO TID PRN 12/22/23 12/22/23 Ondansetron Odt [Zofran ODT] 4 mg PO TID PRN 12/22/23 12/22/23 hydrOXYzine HCL [Atarax] 20 mg PO HS 12/22/23 12/22/23 Previous Rx's Medication Instructions Recorded Pantoprazole Sodium [Protonix] 40 mg PO DAILY #30 tab 12/24/23 Prochlorperazine [Compazine] 10 mg PO Q8H #90 tab 12/24/23 Allergies Allergy/AdvReac Type Severity Reaction Status Date / Time amoxicillin Allergy Anaphylaxis Verified 04/26/24 16:32 Review of Systems ROS Statement: Those systems with pertinent positive or pertinent negative responses have been documented in the HPI. ROS Other: All systems not noted in ROS Statement are negative. Past Medical History Past Medical History: Blood Disorder, GERD/Reflux Additional Past Medical History / Comment(s): Anemia, ibs History of Any Multi-Drug Resistant Organisms: None Reported Past Surgical History: Bariatric Surgery, Hernia Repair Additional Past Surgical History / Comment(s): gastric bypass 2013. ulcer repair 09/2023 Past Anesthesia/Blood Transfusion Reactions: No Reported Reaction Past Psychological History: Anxiety, Depression Smoking Status: Current every day smoker, Light tobacco smoker Past Alcohol Use History: None Reported Past Drug Use History: Marijuana - Past Family History Mother Family Medical History: Unable to Obtain General Exam Limitations: no limitations General appearance: alert, in no apparent distress Head exam: Present: atraumatic, normocephalic, normal inspection Eye exam: Present: normal appearance, PERRL, EOMI. Absent: scleral icterus, conjunctival injection, periorbital swelling ENT exam: Present: normal exam, mucous membranes moist Neck exam: Present: normal inspection. Absent: tenderness, meningismus, lymphadenopathy Respiratory exam: Present: normal lung sounds bilaterally. Absent: respiratory distress, wheezes, rales, rhonchi, stridor Cardiovascular Exam: Present: regular rate, normal rhythm, normal heart sounds. Absent: systolic murmur, diastolic murmur, rubs, gallop, clicks GI/Abdominal exam: Present: soft, tenderness (left lower abdomen), normal bowel sounds. Absent: distended, guarding, rebound, rigid Extremities exam: Present: normal inspection, full ROM, normal capillary refill. Absent: tenderness, pedal edema, joint swelling, calf tenderness Neurological exam: Present: alert, oriented X3 Psychiatric exam: Present: normal affect, normal mood Skin exam: Present: warm, dry, intact, normal color. Absent: rash Course Vital Signs 04/26/24 04/26/24 04/26/24 16:30 20:26 22:39 Temperature 98.8 F Pulse Rate 70 80 71 Respiratory 18 18 18 Rate Blood Pressure 131/67 110/60 104/60 O2 Sat by Pulse 100 100 98 Oximetry Medical Decision Making - Medical Decision Making Was pt. sent in by a medical professional or institution (, PA, AUTO BODY TECHNICIAN, urgent care, hospital, or [facility]...) When possible be specific @ -No Did you speak to anyone other than the patient for history (EMS, parent, family, police, friend...)? What history was obtained from this source @ -No Did you review nursing and triage notes (agree or disagree)? Why? @ -I reviewed and agree with nursing and triage notes Were old charts reviewed (outside hosp., previous admission, EMS record, old EKG, old radiological studies, urgent care reports/EKG's, [facility] records)? Report findings @ -No old charts were reviewed Differential Diagnosis (chest pain, altered mental status, abdominal pain women, abdominal pain men, vaginal bleeding, weakness, fever, dyspnea, syncope, he adache, dizziness, GI bleed, back pain, seizure, CVA, palpatations, mental health, musculoskeletal)? @ -Differential Abdominal Pain Women: Appendicitis, Cholecystitis, diverticulosis, ischemic bowel, pancreatitis, hepatitis, UTI, gastroenteritis, AAA, incarcerated hernia, bowel obstruction, constipation, inflammatory bowel, hepatitis, peptic ulcer disease, splenic infarction, perforated viscus, vulvitis, ovarian torsion, PID, kidney stone, placenta abruption, this is not meant to be an all-inclusive list EKG interpreted by me (3pts min.). @ -None X-rays interpreted by me (1pt min.). @ -None done CT interpreted by me (1pt min.). @ -CT abd pelvis shows abnormally fluid distended bowel loops in the left lower abdomen representing enteritis, ileus, or early obstruction U/S interpreted by me (1pt. min.). @ -None done What testing was considered but not performed or refused? (CT, X-rays, U/S, labs)? Why? @ -None What meds were considered but not given or refused? Why? @ -None Did you discuss the management of the patient with other professionals (professionals i.e. , PA, AUTO BODY TECHNICIAN, lab, RT, psych nurse, social worker aide, funeral service apprentice, teacher, business enterprise officer, supportive employment case manager)? Give summary @ -Case discussed with Dr. Lopez recommend admission to internal medicine Case discussed with Marjorie Gutierrez with [facility] who is covering for Dr. Adams, accepting of the admission Was smoking cessation discussed for >3mins.? @ -No Was critical care preformed (if so, how long)? @ -No Were there social determinants of health that impacted care today? How? (Homelessness, low income, unemployed, alcoholism, drug addiction, transportation, low edu. Level, literacy, decrease access to med. care, long-term, rehab)? @ -No Was there de-escalation of care discussed even if they declined (Discuss DNR or withdrawal of care, Hospice)? DNR status @ -No What co-morbidities impacted this encounter? (DM, HTN, Smoking, COPD, CAD, Cancer, CVA, ARF, Chemo, Hep., AIDS, mental health diagnosis, sleep apnea, morbid obesity)? @ -None Was patient admitted / discharged? Hospital course, mention meds given and route, prescriptions, significant lab abnormalities, going to OR and other pertinent info. @ -Admitted. Patient presented to the emergency department for evaluation of left lower quadrant abdominal pain with nausea and vomiting x 2 days. Laboratory studies obtained significant for mild leukocytosis of 12.1, lactic acidosis of 3.0. UA shows no evidence of infectious process. CT abdomen pelvis obtained revealing abnormally fluid distended bowel loops in the left lower abdomen representing enteritis, ileus, or early obstruction. This was discussed with Dr. Lopez who reviewed the films and recommended admission to internal medicine. Case was discussed with Marjorie Gutierrez with [facility] she was accepting of the admission. Case discussed with Dr. Arce Undiagnosed new problem with uncertain prognosis? @ -No Drug Therapy requiring intensive monitoring for toxicity (Heparin, Nitro, Insulin, Cardizem)? @ -No Were any procedures done? @ -No Diagnosis/symptom? @ -Ileus Acute, or Chronic, or Acute on Chronic? @ -Acute Uncomplicated (without systemic symptoms) or Complicated (systemic symptoms)? @ -Uncomplicated Side effects of treatment? @ -No Exacerbation, Progression, or Severe Exacerbation? @ -No Poses a threat to life or bodily function? How? (Chest pain, [place], [place], pneumonia, PE, COPD, DKA, ARF, appy, cholecystitis, CVA, Diverticulitis, Homicidal, Suicidal, threat to staff... and all critical care pts) @ -No - Lab Data Result diagrams: 04/26/24 17:54 04/26/24 17:54 Lab Results 04/26/24 04/26/24 04/26/24 Range/Units 17:54 17:54 17:54 WBC 12.1 H (3.8-10.6) k/uL RBC 4.70 (3.80-5.40) m/uL Hgb 13.2 (11.4-16.0) gm/dL Hct 42.4 (34.0-46.0) % MCV 90.1 (80.0-100.0) fL MCH 28.1 (25.0-35.0) pg MCHC 31.1 (31.0-37.0) g/dL RDW 16.1 H (11.5-15.5) % Plt Count 238 (150-450) k/uL MPV 9.5 Neutrophils % 81 % Lymphocytes % 12 % Monocytes % 5 % Eosinophils % 0 % Basophils % 0 % Neutrophils # 9.7 H (1.3-7.7) k/uL Lymphocytes # 1.5 (1.0-4.8) k/uL Monocytes # 0.7 (0-1.0) k/uL Eosinophils # 0.0 (0-0.7) k/uL Basophils # 0.0 (0-0.2) k/uL Hypochromasia Slight Anisocytosis Slight Sodium 136 L (137-145) mmol/L Potassium 3.8 (3.5-5.1) mmol/L Chloride 103 (98-107) mmol/L Carbon Dioxide 19 L (22-30) mmol/L Anion Gap 14 mmol/L BUN 10 (7-17) mg/dL Creatinine 0.40 L (0.52-1.04) mg/dL Est GFR (CKD-EPI)AfAm >90 (>60 ml/min/1.73 sqM) Est GFR (CKD-EPI)NonAf >90 (>60 ml/min/1.73 sqM) Glucose 109 H (74-99) mg/dL Lactic Ac Sepsis Rflx Plasma Lactic Acid Chema 3.0 H* (0.7-2.0) mmol/L Calcium 10.0 (8.4-10.2) mg/dL Total Bilirubin 0.6 (0.2-1.3) mg/dL AST 31 (14-36) U/L ALT 16 (4-34) U/L Alkaline Phosphatase 105 (38-126) U/L Total Protein 8.7 H (6.3-8.2) g/dL Albumin 5.0 (3.5-5.0) g/dL Lipase 73 (23-300) U/L Urine Color Urine Appearance (Clear) Urine pH (5.0-8.0) Ur Specific Fertile (1.001-1.035) Urine Protein (Negative) Urine Glucose (UA) (Negative) Urine Ketones (Negative) Urine Blood (Negative) Urine Nitrite (Negative) Urine Bilirubin (Negative) Urine Urobilinogen (<2.0) mg/dL Ur Leukocyte Esterase (Negative) Urine RBC (0-5) /hpf Urine WBC (0-5) /hpf Ur Squamous Epith Cells (0-4) /hpf Urine Mucus (None) /hpf Urine HCG, Qual (Not Detectd) 04/26/24 04/26/24 04/26/24 Range/Units 19:08 19:08 19:34 WBC (3.8-10.6) k/uL RBC (3.80-5.40) m/uL Hgb (11.4-16.0) gm/dL Hct (34.0-46.0) % MCV (80.0-100.0) fL MCH (25.0-35.0) pg MCHC (31.0-37.0) g/dL RDW (11.5-15.5) % Plt Count (150-450) k/uL MPV Neutrophils % % Lymphocytes % % Monocytes % % Eosinophils % % Basophils % % Neutrophils # (1.3-7.7) k/uL Lymphocytes # (1.0-4.8) k/uL Monocytes # (0-1.0) k/uL Eosinophils # (0-0.7) k/uL Basophils # (0-0.2) k/uL Hypochromasia Anisocytosis Sodium (137-145) mmol/L Potassium (3.5-5.1) mmol/L Chloride (98-107) mmol/L Carbon Dioxide (22-30) mmol/L Anion Gap mmol/L BUN (7-17) mg/dL Creatinine (0.52-1.04) mg/dL Est GFR (CKD-EPI)AfAm (>60 ml/min/1.73 sqM) Est GFR (CKD-EPI)NonAf (>60 ml/min/1.73 sqM) Glucose (74-99) mg/dL Lactic Ac Sepsis Rflx Y Plasma Lactic Acid Chema (0.7-2.0) mmol/L Calcium (8.4-10.2) mg/dL Total Bilirubin (0.2-1.3) mg/dL AST (14-36) U/L ALT (4-34) U/L Alkaline Phosphatase (38-126) U/L Total Protein (6.3-8.2) g/dL Albumin (3.5-5.0) g/dL Lipase (23-300) U/L Urine Color Yellow Urine Appearance Cloudy H (Clear) Urine pH 6.5 (5.0-8.0) Ur Specific Fertile 1.044 H (1.001-1.035) Urine Protein 1+ H (Negative) Urine Glucose (UA) Negative (Negative) Urine Ketones Trace H (Negative) Urine Blood Negative (Negative) Urine Nitrite Negative (Negative) Urine Bilirubin Negative (Negative) Urine Urobilinogen <2.0 (<2.0) mg/dL Ur Leukocyte Esterase Negative (Negative) Urine RBC 3 (0-5) /hpf Urine WBC 1 (0-5) /hpf Ur Squamous Epith Cells 5 H (0-4) /hpf Urine Mucus Few H (None) /hpf Urine HCG, Qual Not Detected (Not Detectd) 04/26/24 Range/Units 20:55 WBC (3.8-10.6) k/uL RBC (3.80-5.40) m/uL Hgb (11.4-16.0) gm/dL Hct (34.0-46.0) % MCV (80.0-100.0) fL MCH (25.0-35.0) pg MCHC (31.0-37.0) g/dL RDW (11.5-15.5) % Plt Count (150-450) k/uL MPV Neutrophils % % Lymphocytes % % Monocytes % % Eosinophils % % Basophils % % Neutrophils # (1.3-7.7) k/uL Lymphocytes # (1.0-4.8) k/uL Monocytes # (0-1.0) k/uL Eosinophils # (0-0.7) k/uL Basophils # (0-0.2) k/uL Hypochromasia Anisocytosis Sodium (137-145) mmol/L Potassium (3.5-5.1) mmol/L Chloride (98-107) mmol/L Carbon Dioxide (22-30) mmol/L Anion Gap mmol/L BUN (7-17) mg/dL Creatinine (0.52-1.04) mg/dL Est GFR (CKD-EPI)AfAm (>60 ml/min/1.73 sqM) Est GFR (CKD-EPI)NonAf (>60 ml/min/1.73 sqM) Glucose (74-99) mg/dL Lactic Ac Sepsis Rflx Plasma Lactic Acid Chema 0.7 (0.7-2.0) mmol/L Calcium (8.4-10.2) mg/dL Total Bilirubin (0.2-1.3) mg/dL AST (14-36) U/L ALT (4-34) U/L Alkaline Phosphatase (38-126) U/L Total Protein (6.3-8.2) g/dL Albumin (3.5-5.0) g/dL Lipase (23-300) U/L Urine Color Urine Appearance (Clear) Urine pH (5.0-8.0) Ur Specific Fertile (1.001-1.035) Urine Protein (Negative) Urine Glucose (UA) (Negative) Urine Ketones (Negative) Urine Blood (Negative) Urine Nitrite (Negative) Urine Bilirubin (Negative) Urine Urobilinogen (<2.0) mg/dL Ur Leukocyte Esterase (Negative) Urine RBC (0-5) /hpf Urine WBC (0-5) /hpf Ur Squamous Epith Cells (0-4) /hpf Urine Mucus (None) /hpf Urine HCG, Qual (Not Detectd) Disposition Clinical Impression: Abdominal pain, Ileus Disposition: ADMITTED IP TO THIS HOSP Condition: Stable Is patient prescribed a controlled substance at d/c from ED?: No Referrals: Alexys Adams MD [Primary Care Provider] - 1-2 days
[2024-04-26] MEDS: diphenhydrAMINE 50 MG/ML 1 ML VIAL IVP STA (18:53)
[2024-04-26] MEDS: KETOROLAC 15 MG/ML 1 ML VIAL IVP STA (18:55)
[2024-04-26] MEDS: METOCLOPRAMIDE 5 MG/ML 2 ML VIAL IVP STA (18:56)
[2024-04-26] MEDS: SODIUM CHLORIDE 0.9% 1,000 ML IV ONE ×2 (18:57→21:27)
[2024-04-26 19:30] LABS: ALT 16 U/L (4-34); AST 31 U/L (14-36); African American GFR (CKD) >90 (>60 ml/min/1.73 sqM); Alkaline Phosphatase 105 U/L (38-126); Anion Gap 14 mmol/L; Blood Urea Nitrogen 10 mg/dL (7-17); Carbon Dioxide 19 mmol/L (22-30); Chloride 103 mmol/L (98-107); Glucose 109 mg/dL (74-99); Lipase 73 U/L (23-300); Non-African American GFR(CKD) >90 (>60 ml/min/1.73 sqM); Potassium 3.8 mmol/L (3.5-5.1); Sodium 136 mmol/L (137-145); Total Bilirubin 0.6 mg/dL (0.2-1.3); Total Protein 8.7 g/dL (6.3-8.2)
[2024-04-26 19:31] LABS: Appearance,Urine Cloudy (Clear); Bilirubin,Urine Negative (Negative); Blood,Urine Negative (Negative); Color,Urine Yellow; Glucose,Urine (UA) Negative (Negative); Ketones,Urine Trace (Negative); Leukocyte Esterase,Urine Negative (Negative); Mucus,Urine Few /hpf; Nitrite,Urine Negative (Negative); PH, Urine 6.5 (5.0-8.0); Protein,Urine 1+ (Negative); RBC,Urine 3 /hpf (0-5); Specific Gravity,Urine 1.044 (1.001-1.035); Squamous Epithelial Cell,Urine 5 /hpf (0-4); Urobilinogen,Urine <2.0 mg/dL (<2.0); WBC,Urine 1 /hpf (0-5)
[2024-04-26 19:36] LABS: Anisocytosis Slight; Basophils % (A) 0 %; Eosinophils % (A) 0 %; HCT 42.4 % (34.0-46.0); HGB 13.2 gm/dL (11.4-16.0); Hypochromasia Slight; Lymphocytes # (A) 1.5 k/uL (1.0-4.8); Lymphocytes % (A) 12 %; MCH 28.1 pg (25.0-35.0); MCHC 31.1 g/dL (31.0-37.0); MCV 90.1 fL (80.0-100.0); Mean Platelet Volume 9.5; Monocytes # (A) 0.7 k/uL (0-1.0); Monocytes % (A) 5 %; Neutrophils # (A) 9.7 k/uL (1.3-7.7); Neutrophils % (A) 81 %; Platelet Count 238 k/uL (150-450); RDW 16.1 % (11.5-15.5); WBC 12.1 k/uL (3.8-10.6)
--- NOTE | 2024-04-26 20:28 | CT ---
EXAMINATION TYPE: CT abdomen pelvis w con CT DLP: 542.9 mGycm, Automated exposure control for dose reduction was used. DATE OF EXAM: 04/26/2024 7:49 PM COMPARISON: 12/21/2019 CT abdomen pelvis CLINICAL INDICATION:Female, 43 years old with history of left; LLQ abdominal pain x 2 days TECHNIQUE: Axial CT abdomen pelvis w con;Sagittal and coronal reformats were created on a separate w orkstation. Contrast used:100ml mL of Isovue 300 with IV Contrast, (none if empty) Oral contrast used: without Oral Contrast (none if empty) FINDINGS: LOWER CHEST: Unremarkable ABDOMEN LIVER: Unremarkable GALLBLADDER AND BILE DUCTS: Unremarkable. PANCREAS: Unremarkable. SPLEEN: Unremarkable. ADRENAL GLANDS: Unremarkable. KIDNEYS AND URETERS: No evidence of hydronephrosis or renal calculus. The ureters are unremarkable. PELVIS BLADDER: Unremarkable REPRODUCTIVE: Unremarkable. ABDOMEN & PELVIS STOMACH AND BOWEL: Previous bariatric surgery. Surgical clips are near the stomach. Bowel loops in the left lower quadrant appear abnormally fluid distended which may indicate enteritis, ileus or humaira y obstruction. Correlate clinically. No evidence of bowel obstruction. PERITONEUM/RETROPERITONEUM: No evidence of pneumoperitoneum or free fluid. VASCULATURE: No evidence of aortic aneurysm. MUSCULOSKELETAL: No acute osseous abnormalities LYMPH NODES: No gross evidence for lymphadenopathy. SOFT TISSUE/ABDOMINAL WALL: Unremarkable IMPRESSION: 1. Bowel loops in the left lower quadrant appear abnormally fluid distended which may indicate enter itis, ileus or early obstruction. Correlate clinically. 2. Previous bariatric surgery.
[2024-04-26] MEDS: MORPHINE SULFATE 4 MG/ML SYRINGE IVP STA (20:39)
[2024-04-26] MEDS ORDERED: NALOXONE 0.4 MG/ML 1 ML VIAL IV PRN (23:14)
[2024-04-26] MEDS ORDERED: IBUPROFEN 400 MG TAB PO PRN (23:14)
[2024-04-26] MEDS ORDERED: ACETAMINOPHEN TAB 325 MG TAB PO PRN (23:14)
[2024-04-26] MEDS: SODIUM CHLORIDE 0.9% 1,000 ML IV SCH (23:20)
[2024-04-26] MEDS: KETOROLAC 15 MG/ML 1 ML VIAL IVP PRN (23:28)
[2024-04-27] MEDS: ONDANSETRON 4 MG/2 ML VIAL IVP PRN (01:38)
[2024-04-27] MEDS: MORPHINE SULFATE 4 MG/ML SYRINGE IV PRN (01:41)
--- NOTE | 2024-04-27 08:25 | P.HPIM ---
History of Present Illness H&P Date: 04/27/24 This is a 43-year-old female who presented to the emergency department with complaints of left lower abdominal pain. Patient reports her symptoms started on Saturday and has had similar reports of this pain in the past. Her last bowel movement was on Saturday. She does have a prior history of gastric bypass. She reports she is not passing gas. She denies any fever or chills. CT of the abdomen shows ileus, early obstruction. Surgeon is on consult. Patient is seen lying in bed this morning resting comfortably. She is alert and oriented and vitals are stable. Further medical history as noted below. Review of Systems Constitutional: Denies chills, Denies fever Cardiovascular: Denies chest pain, Denies dyspnea on exertion Respiratory: Denies cough, Denies dyspnea Gastrointestinal: Reports abdominal pain Musculoskeletal: Denies arm numbness/tingling, Denies leg numbness/tingling Neurological: Denies headaches, Denies weakness Past Medical History Past Medical History: Blood Disorder, GERD/Reflux Additional Past Medical History / Comment(s): Anemia, ibs History of Any Multi-Drug Resistant Organisms: None Reported Past Surgical History: Bariatric Surgery, Hernia Repair Additional Past Surgical History / Comment(s): gastric bypass 2013. ulcer repair 09/2023 Past Anesthesia/Blood Transfusion Reactions: No Reported Reaction Past Psychological History: Anxiety, Depression Smoking Status: Current every day smoker, Light tobacco smoker Past Alcohol Use History: None Reported Past Drug Use History: Marijuana - Past Family History Mother Family Medical History: Unable to Obtain Medications and Allergies Home Medications Medication Instructions Recorded Confirmed Type busPIRone HCL 15 mg PO TID PRN 12/31/21 12/22/23 History Acetaminophen Tab [Tylenol] 1,000 mg PO Q6H PRN 09/06/23 12/22/23 History Escitalopram [Lexapro] 20 mg PO HS 09/06/23 12/22/23 History Famotidine [Pepcid] 20 mg PO DAILY PRN 09/06/23 12/22/23 History Hyoscyamine Sulfate [Levsin] 0.125 mg PO TID PRN 12/22/23 12/22/23 History Ondansetron Odt [Zofran ODT] 4 mg PO TID PRN 12/22/23 12/22/23 History hydrOXYzine HCL [Atarax] 20 mg PO HS 12/22/23 12/22/23 History Pantoprazole Sodium [Protonix] 40 mg PO DAILY #30 tab 12/24/23 Rx Prochlorperazine [Compazine] 10 mg PO Q8H #90 tab 12/24/23 Rx Allergies Allergy/AdvReac Type Severity Reaction Status Date / Time amoxicillin Allergy Anaphylaxis Verified 04/26/24 16:32 Physical Exam Vitals: Vital Signs Temp Pulse Resp BP Pulse Ox 04/27/24 06:37 58 L 18 122/71 99 04/27/24 01:45 66 18 118/66 98 04/26/24 22:39 71 18 104/60 98 04/26/24 20:26 80 18 110/60 100 04/26/24 16:30 98.8 F 70 18 131/67 100 Intake and Output 04/26/24 04/27/24 04/27/24 22:59 06:59 14:59 Other: Weight 53.977 kg - Constitutional General appearance: cooperative, no acute distress - EENT Eyes: PERRLA - Neck Neck: no lymphadenopathy, normal ROM, no rigidity - Respiratory Respiratory: bilateral: CTA - Cardiovascular Rhythm: regular Heart sounds: normal: S1, S2 - Gastrointestinal General gastrointestinal: decreased bowel sounds, soft - Integumentary Integumentary: normal, normal turgor - Psychiatric Psychiatric: A&O x's 3, appropriate affect, intact judgment & insight Results CBC & Chem 7: 04/26/24 17:54 04/26/24 17:54 Labs: Abnormal Lab Results - Last 24 Hours (Table) 04/26/24 04/26/24 04/26/24 Range/Units 17:54 17:54 17:54 WBC 12.1 H (3.8-10.6) k/uL RDW 16.1 H (11.5-15.5) % Neutrophils # 9.7 H (1.3-7.7) k/uL Sodium 136 L (137-145) mmol/L Carbon Dioxide 19 L (22-30) mmol/L Creatinine 0.40 L (0.52-1.04) mg/dL Glucose 109 H (74-99) mg/dL Plasma Lactic Acid [place] 3.0 H* (0.7-2.0) mmol/L Total Protein 8.7 H (6.3-8.2) g/dL Urine Appearance (Clear) Ur Specific [place] (1.001-1.035) Urine Protein (Negative) Urine Ketones (Negative) Ur Squamous Epith Cells (0-4) /hpf Urine Mucus (None) /hpf 04/26/24 Range/Units 19:08 WBC (3.8-10.6) k/uL RDW (11.5-15.5) % Neutrophils # (1.3-7.7) k/uL Sodium (137-145) mmol/L Carbon Dioxide (22-30) mmol/L Creatinine (0.52-1.04) mg/dL Glucose (74-99) mg/dL Plasma Lactic Acid [place] (0.7-2.0) mmol/L Total Protein (6.3-8.2) g/dL Urine Appearance Cloudy H (Clear) Ur Specific [place] 1.044 H (1.001-1.035) Urine Protein 1+ H (Negative) Urine Ketones Trace H (Negative) Ur Squamous Epith Cells 5 H (0-4) /hpf Urine Mucus Few H (None) /hpf Assessment and Plan (1) Abdominal pain Current Visit: Yes Status: Acute Code(s): R10.9 - UNSPECIFIED ABDOMINAL PAIN SNOMED Code(s): 94621474 (2) Ileus Current Visit: Yes Status: Acute Code(s): K56.7 - ILEUS, UNSPECIFIED SNOMED Code(s): 694148365 (3) GERD (gastroesophageal reflux disease) Current Visit: Yes Status: Acute Code(s): K21.9 - GASTRO-ESOPHAGEAL REFLUX DISEASE WITHOUT ESOPHAGITIS SNOMED Code(s): 838950868 (4) History of gastric bypass Current Visit: Yes Status: Acute Code(s): Z98.84 - BARIATRIC SURGERY STATUS SNOMED Code(s): 177010849 Plan: Await recommendations from surgeon. Check CBC and CMP in the morning. Home medications not confirmed yet, will wait on confirmation before restarting home meds. Patient seen and evaluated by nurse practitioner, physician in agreement with plan
--- NOTE | 2024-04-27 11:58 | P.GSCN ---
History of Present Illness Consult date: 04/27/24 History of present illness: CHIEF COMPLAINT: Abdominal pain HISTORY OF PRESENT ILLNESS: This is a 43-year-old presenting with left lower quadrant abdominal pain for the past 3 days. Patient reports that the pain had worsened on Saturday. She reports she has had pain in the left lower quadrant intermittently over the last year but starting Saturday became worse and Constant. She describes the pain as achy rating it 10 out of 10. She reports a tightness in the left lower quadrant. She did have a small bowel movement on Saturday but since then has had no bowel movement or flatus. She felt nauseous and did have vomiting prior to coming in. At this time she was able to tolerate a small amount of clear liquids with no vomiting or nausea. CT scan abdomen and pelvis had reported ileus versus early bowel obstruction. Patient denies any prior history of bowel obstruction. She does have past surgical history of Emelyn-en-Y gastric bypass about 10 years ago completed in [place]. And about 1 year ago in [place] by Dr. Farah she had a gastric ulcer repair and hiatal hernia repair. Patient denies any cardiac history. Denies being on any blood thinners. She does report a recent diagnosis of IBS. PAST MEDICAL HISTORY: See list. PAST SURGICAL HISTORY: See list. MEDICATIONS: See list. ALLERGIES: See list. SOCIAL HISTORY: No illicit drug use. REVIEW OF SYSTEMS: CONSTITUTIONAL: Denies fever or chills. HEENT: Denies blurred vision, vision changes, or eye pain. Denies hemoptysis ENDOCRINE: Denies heat or cold intolerance. CARDIOVASCULAR: Denies chest pain or pressure. RESPIRATORY: No shortness of breath. GASTROINTESTINAL: Denies abdominal pain. Denies nausea or vomiting. NEURO: Denies history of seizures. PSYCH: No depression or suicidal ideation HEMATOLOGIC: Denies bleeding disorders. LYMPHATIC: The patient denies any lumps and bumps around the neck. GENITOURINARY: Denies any blood in urine or increased urinary frequency. MUSCULOSKELETAL: Denies myalgias. Denies joint swelling. Denies decreased range of motion beyond patients baseline. SKIN: Denies pruitis. Denies rash. PHYSICAL EXAM: VITAL SIGNS: Reviewed GENERAL: Well-developed in no acute distress. HEENT: No sclera icterus. Extraocular movements grossly intact. Moist buccal mucosa. Head is atraumatic, normocephalic. Hears conversational speech. No nasal dr ainage. NECK: Supple without lymphadenopathy. CHEST: Non-labored respirations and equal bilateral excursions. CARDIOVASCULAR: Palpable 2+ radial pulses. ABDOMEN: Soft. Nondistended. Tenderness palpation left lower quadrant MUSCULOSKELETAL: No clubbing or cyanosis. NEUROLOGIC: No focal or lateralizing signs. Cranial nerves II through XII grossly intact. PSYCH: Appropriate affect. Alert and oriented to person, place and time. SKIN: Well perfused. Good skin turgor. LABORATORY DATA: WBC 12.1 Hgb 13.2 platelets 238 Sodium 136 potassium 3.8 creatinine 0.40 Lactic acid 3.0 down to 0.7 IMAGING: CT scan abdomen pelvis reports of bowel loops in the left lower quadrant appear abnormally fluid distended which may indicate enteritis, ileus or early obstruction. ASSESSMENT: 1. Left lower quadrant abdominal pain. CAT scan findings of ileus versus early obstruction 2. Prior history of Emelyn-en-Y gastric bypass 3. Elevated lactic acid level PLAN: -Continue clear liquid diet. Recommend no straws or carbonated beverages -Continue IV fluids -Encourage patient to increase activity level -Continue supportive care -Repeat labs in a.m. -Further recommendations forthcoming per surgeon Physician Last Pattern [employer] note has been reviewed by physician. Signing provider agrees with the documented findings, assessment, and plan of care. Past Medical History Past Medical History: Blood Disorder, GERD/Reflux Additional Past Medical History / Comment(s): Anemia, ibs History of Any Multi-Drug Resistant Organisms: None Reported Past Surgical History: Bariatric Surgery, Hernia Repair Additional Past Surgical History / Comment(s): gastric bypass 2013. ulcer repair 09/2023 Past Anesthesia/Blood Transfusion Reactions: No Reported Reaction Past Psychological History: Anxiety, Depression Smoking Status: Current every day smoker, Light tobacco smoker Past Alcohol Use History: None Reported Past Drug Use History: Marijuana - Past Family History Mother Family Medical History: Unable to Obtain Medications and Allergies Home Medications Medication Instructions Recorded Confirmed Type busPIRone HCL 15 mg PO TID 12/31/21 04/27/24 History Acetaminophen Tab [Tylenol] 1,000 mg PO Q6H PRN 09/06/23 04/27/24 History Escitalopram [Lexapro] 20 mg PO HS 09/06/23 04/27/24 History Famotidine [Pepcid] 20 mg PO DAILY 09/06/23 04/27/24 History Ondansetron Odt [Zofran ODT] 4 mg PO BID PRN 12/22/23 04/27/24 History hydrOXYzine HCL [Atarax] 10 - 20 mg PO Q8H PRN 12/22/23 04/27/24 History Pantoprazole Sodium [Protonix] 40 mg PO DAILY #30 tab 12/24/23 04/27/24 Rx Hyoscyamine Sulfate [Levsin-Sl] 0.125 mg PO Q4H PRN 04/27/24 04/27/24 History Promethazine [Phenergan] 25 mg PO Q6H PRN 04/27/24 04/27/24 History Allergies Allergy/AdvReac Type Severity Reaction Status Date / Time amoxicillin Allergy Anaphylaxis Verified 04/27/24 08:37 Surgical - Exam Vital Signs Temp Pulse Resp BP Pulse Ox 98.8 F 70 18 131/67 100 04/26/24 16:30 04/26/24 16:30 04/26/24 16:30 04/26/24 16:30 04/26/24 16:30 Results - Labs 04/26/24 17:54 04/26/24 17:54 Abnormal Lab Results - Last 24 Hours (Table) 04/26/24 04/26/24 04/26/24 Range/Units 17:54 17:54 17:54 WBC 12.1 H (3.8-10.6) k/uL RDW 16.1 H (11.5-15.5) % Neutrophils # 9.7 H (1.3-7.7) k/uL Sodium 136 L (137-145) mmol/L Carbon Dioxide 19 L (22-30) mmol/L Creatinine 0.40 L (0.52-1.04) mg/dL Glucose 109 H (74-99) mg/dL Plasma Lactic Acid Chema 3.0 H* (0.7-2.0) mmol/L Total Protein 8.7 H (6.3-8.2) g/dL Urine Appearance (Clear) Ur Specific [place] (1.001-1.035) Urine Protein (Negative) Urine Ketones (Negative) Ur Squamous Epith Cells (0-4) /hpf Urine Mucus (None) /hpf 04/26/24 Range/Units 19:08 WBC (3.8-10.6) k/uL RDW (11.5-15.5) % Neutrophils # (1.3-7.7) k/uL Sodium (137-145) mmol/L Carbon Dioxide (22-30) mmol/L Creatinine (0.52-1.04) mg/dL Glucose (74-99) mg/dL Plasma Lactic Acid [place] (0.7-2.0) mmol/L Total Protein (6.3-8.2) g/dL Urine Appearance Cloudy H (Clear) Ur Specific [place] 1.044 H (1.001-1.035) Urine Protein 1+ H (Negative) Urine Ketones Trace H (Negative) Ur Squamous Epith Cells 5 H (0-4) /hpf Urine Mucus Few H (None) /hpf Diabetes panel 04/26/24 Range/Units 17:54 Sodium 136 L (137-145) mmol/L Potassium 3.8 (3.5-5.1) mmol/L Chloride 103 (98-107) mmol/L Carbon Dioxide 19 L (22-30) mmol/L BUN 10 (7-17) mg/dL Creatinine 0.40 L (0.52-1.04) mg/dL Glucose 109 H (74-99) mg/dL Calcium 10.0 (8.4-10.2) mg/dL AST 31 (14-36) U/L ALT 16 (4-34) U/L Alkaline Phosphatase 105 (38-126) U/L Total Protein 8.7 H (6.3-8.2) g/dL Albumin 5.0 (3.5-5.0) g/dL Calcium panel 04/26/24 Range/Units 17:54 Calcium 10.0 (8.4-10.2) mg/dL Albumin 5.0 (3.5-5.0) g/dL Pituitary panel 04/26/24 Range/Units 17:54 Sodium 136 L (137-145) mmol/L Potassium 3.8 (3.5-5.1) mmol/L Chloride 103 (98-107) mmol/L Carbon Dioxide 19 L (22-30) mmol/L BUN 10 (7-17) mg/dL Creatinine 0.40 L (0.52-1.04) mg/dL Glucose 109 H (74-99) mg/dL Calcium 10.0 (8.4-10.2) mg/dL Adrenal panel 04/26/24 Range/Units 17:54 Sodium 136 L (137-145) mmol/L Potassium 3.8 (3.5-5.1) mmol/L Chloride 103 (98-107) mmol/L Carbon Dioxide 19 L (22-30) mmol/L BUN 10 (7-17) mg/dL Creatinine 0.40 L (0.52-1.04) mg/dL Glucose 109 H (74-99) mg/dL Calcium 10.0 (8.4-10.2) mg/dL Total Bilirubin 0.6 (0.2-1.3) mg/dL AST 31 (14-36) U/L ALT 16 (4-34) U/L Alkaline Phosphatase 105 (38-126) U/L Total Protein 8.7 H (6.3-8.2) g/dL Albumin 5.0 (3.5-5.0) g/dL
[2024-04-27] MEDS: SODIUM CHLORIDE 0.9% 1,000 ML IV ONE ×2 (20:47→21:23)
[2024-04-27] MEDS ORDERED: KETAMINE HCL IN 0.9 % NACL 50 MG/5 ML SYRINGE ONE (20:47)
[2024-04-27] MEDS ORDERED: PROPOFOL 10 MG/ML 20 ML VIAL IV ONE (20:47)
[2024-04-27] MEDS ORDERED: ROCURONIUM 10 MG/ML (5 ML VIAL) IV ONE (20:47)
[2024-04-27] MEDS ORDERED: MIDAZOLAM 2 MG/2 ML VIAL ONE (20:47)
[2024-04-27] MEDS ORDERED: ONDANSETRON 4 MG/2 ML VIAL ONE (20:47)
[2024-04-27] MEDS ORDERED: NEOSTIGMINE 1 MG/ML 10 ML VIAL ONE (20:47)
[2024-04-27] MEDS ORDERED: DEXAMETHASONE SOD PHOSPHATE 4 MG/ML 1 ML VIAL ONE (20:47)
[2024-04-27] MEDS ORDERED: fentaNYL (PF) 50 MCG/ML 2 ML AMP ONE (20:47)
[2024-04-27] MEDS ORDERED: LIDOCAINE 1% INJ 10MG/ML (20 ML MDV) ONE (20:47)
[2024-04-27] MEDS ORDERED: SUCCINYLCHOLINE CHLORIDE 200 MG/10 ML VIAL IV ONE (20:47)
[2024-04-27] MEDS ORDERED: GLYCOPYRROLATE 0.2 MG/ML 2 ML VIAL ONE (20:47)
[2024-04-27] MEDS: SODIUM CHLORIDE 0.9% 100 ML with ceFAZolin 2,000 MG IV ONE (21:09)
[2024-04-27] MEDS: LIDOCAINE 1%-EPI 1:100,000 20 ML VIAL SQ ONE (21:12)
[2024-04-27] MEDS ORDERED: HYDROmorphone 1 MG/ML 1 ML SYRINGE IVP PRN (22:29)
[2024-04-27] MEDS ORDERED: diphenhydrAMINE 50 MG/ML 1 ML VIAL IVP PRN (22:32)
--- NOTE | 2024-04-27 22:41 | P.OP ---
Date of Procedure: 04/27/24 Description of Procedure: SURGEON: FLOR CORTEZ MD PREOPERATIVE DIAGNOSES: 1. Left upper quadrant abdominal pain, intractable abdominal pain 2. Left lower quadrant abdominal pain, intractable abdominal pain 3. Abnormal CT scan for bowel obstruction 4. History of gastric bypass 5. Intractable nausea and vomiting 6. Gastroesophageal reflux disease 7. Generalized anxiety disorder 8. Generalized depressive disorder 9. Tobacco abuse disorder 10. Chronic iron deficiency anemia 11. History of perforated gastrojejunal ulcer POSTOPERATIVE DIAGNOSES: 1. Left upper quadrant abdominal pain due to intra-abdominal adhesions 2. Left lower quadrant abdominal pain due to pelvic adhesions 3. Internal hernia with intermittent bowel obstruction 4. History of gastric bypass 5. Intractable nausea and vomiting 6. Gastroesophageal reflux disease 7. Generalized anxiety disorder 8. Generalized depressive disorder 9. Tobacco abuse disorder 10. Chronic iron deficiency anemia 11. History of perforated gastrojejunal ulcer OPERATION: 1. Robotic-assisted da Phoebe Xi laparoscopic with lysis of adhesions 2. Robotic-assisted da Phoebe Xi laparoscopic reduction and closure of internal hernia ESTIMATED BLOOD LOSS: 10 mL. SPECIMENS REMOVED: None. COMPLICATIONS: None. OPERATIVE FINDINGS: 1. Intermittent small bowel obstruction due to internal hernia, jejunojejunostomy 2. Petersons defect completely scarred 3. Multiple grade omental defects with internal hernia, divided 4. No hepatomegaly or fatty liver disease with a sharp liver edge 5. Left pelvic adhesions sigmoid colon to abdominal wall lysed 6. No abdominal wall hernia 7. Appendix within normal limits 8. Moderate retroperitoneal retraction left upper quadrant and jejunojejunostomy due to adhesions, lysed 9. Antecolic antigastric Emelyn-en-Y gastric bypass 10. Emelyn limb 80 cm 11. Biliopancreatic limb 30 cm with torsion INDICATIONS: The patient is a 43-year-old female who presents with left upper quadrant and left lower quadrant abdominal pain with a normal CT scan for bowel obstruction. Surgical intervention with diagnostic laparoscopy, lysis of adhesions were described. Informed consent was obtained. Robotic assisted laparoscopic approach was described. Benefits and risks of the procedure including but not limited to bleeding, infection, injury to the small bowel was described. Informed consent was obtained. DESCRIPTION OF PROCEDURE: Patient was brought to the operating room, placed in supine position. After general induction, the abdomen had been prepped and draped in standard sterile fashion. The robotic da Phoebe XI system was primed. After a timeout protocol was performed, the patient had been prepped and draped in standard sterile fashion. The robot was docked along the right lateral abdomen. The patient was repositioned in with right side up. Please note prior to docking of the robot; however, a 5 mm 0 degrees laparoscopic trocar entry was performed along the left upper quadrant. The abdomen was insufflated to 15 mmHg pressure which she tolerated well. Diagnostic laparoscopy was performed. Next, three 8 mm robotic ports were placed along the right lateral abdominal wall. The camera 8-mm port was maintained along mid-lateral abdomen. Please note that the ports were placed at least 10 to 15 cm away from the target anatomy. Instruments including graspers and vessel sealer were interchanged by the financial assistant. I had sat at the console. No bilateral inguinal hernia was identified. The small bowel from the emelyn limb to distal ileum was inspected. The small bowel was investigated from the terminal ileum to the ligament of Treitz with finding of internal hernia involving the jejunojejunostomy including great omental defects lysed. Petersons defect was completely scarred. Jejunojejunostomy mesenteric defect demonstrated open internal hernia. Abnormal adhesions to the jejunojejunostomy was identified retracting towards the left upper quadrant retroperitoneum at the location of pain and divided using vessel sealer. The terminal ileum and cecum was unremarkable. The appendix was unremarkable. No incisional hernias were identified. The Emelyn limb, biliopancreatic limbs were measured. The robot was undocked. All pneumoperitoneum instruments were evacuated from the abdominal cavity. The incisions were reapproximated using 4-0 Monocryl in an interrupted subcuticular fashion. Please note along the trocar sites, local anesthetic was placed as a field block prior to insertion of all instruments. Dermabond was applied to the skin. At the end of the procedure needle, sponge, and instrument count had been verified correct by the surgical assistant certified. The patient was transferred to postanesthesia care unit in stable condition.
[2024-04-27] MEDS: droPERidol 5 MG/2 ML VIAL IVP ONE (22:51)
[2024-04-27] MEDS: SODIUM CHLORIDE 0.9% 1,000 ML IV SCH (22:57)
[2024-04-27] MEDS: IV FLUID CONTINUATION 1,000 ML IV ONE (22:57)
[2024-04-28] MEDS: SCOPOLAMINE 1 MG/72 HR PATCH TRANSDERM ONE (00:05)
[2024-04-28] MEDS: METOCLOPRAMIDE 5 MG/ML 2 ML VIAL IVP SCH (00:06)
[2024-04-28] MEDS: ACETAMINOPHEN IV (For NPO) 1,000 MG in EMPTY BAG 1 BAG IVPB SCH (01:20)
[2024-04-28] MEDS: ONDANSETRON 4 MG/2 ML VIAL IVP SCH (02:49)
[2024-04-28] MEDS: KETOROLAC 15 MG/ML 1 ML VIAL IVP SCH (02:53)
[2024-04-28 07:14] LABS: Anisocytosis Slight; Basophils % (A) 0 %; Eosinophils % (A) 0 %; HCT 32.1 % (34.0-46.0); Hypochromasia Marked; Lymphocytes # (A) 1.3 k/uL (1.0-4.8); Lymphocytes % (A) 13 %; MCH 28.7 pg (25.0-35.0); MCHC 31.1 g/dL (31.0-37.0); MCV 92.1 fL (80.0-100.0); Mean Platelet Volume 9.1; Monocytes # (A) 0.4 k/uL (0-1.0); Monocytes % (A) 4 %; Neutrophils # (A) 8.2 k/uL (1.3-7.7); Neutrophils % (A) 82 %; Platelet Count 208 k/uL (150-450); RBC 3.49 m/uL (3.80-5.40); RDW 16.1 % (11.5-15.5); WBC 10.1 k/uL (3.8-10.6)
[2024-04-28 07:18] VITALS: BP 115/71; RESP 18
[2024-04-28 08:22] LABS: ALT 10 U/L (4-34); AST 20 U/L (14-36); African American GFR (CKD) >90 (>60 ml/min/1.73 sqM); Alkaline Phosphatase 80 U/L (38-126); Anion Gap 5 mmol/L; Blood Urea Nitrogen 7 mg/dL (7-17); Calcium 8.3 mg/dL (8.4-10.2); Carbon Dioxide 21 mmol/L (22-30); Chloride 110 mmol/L (98-107); Glucose 95 mg/dL (74-99); Magnesium 1.7 mg/dL (1.6-2.3); Non-African American GFR(CKD) >90 (>60 ml/min/1.73 sqM); Phosphorus 4.7 mg/dL (2.5-4.5); Potassium 3.7 mmol/L (3.5-5.1); Sodium 136 mmol/L (137-145); Total Bilirubin 0.2 mg/dL (0.2-1.3); Total Protein 5.5 g/dL (6.3-8.2)
--- NOTE | 2024-04-28 08:22 | P.DS ---
Providers Date of admission: 04/26/24 23:57 Attending physician: Alexys Adams Consults: 04/27/24 09:00 Consult Physician Routine Consulting Provider: Renuka Lopez Consult Reason/Comments: ileus vs bowel obstruction Do you want consulting provider notified?: Already Contacted Primary care physician: Alexys Adams - Discharge Diagnosis(es) (1) Abdominal pain Current Visit: Yes Status: Acute (2) Ileus Current Visit: Yes Status: Acute (3) GERD (gastroesophageal reflux disease) Current Visit: Yes Status: Acute (4) History of gastric bypass Current Visit: Yes Status: Acute Hospital Course: This is a 43-year-old female who presented to the emergency department with complaints of left lower abdominal pain. Patient reports similar symptoms in the past. She does have a prior history of gastric bypass. CT of the abdomen on admission showed ileus, early obstruction. Patient was taken to the operating room with Dr. Lopez yesterday who performed lysis of adhesions, was also found to have an internal hernia. Patient reports she is feeling much better. She does report she has passed gas this morning. She is tolerating her clear liquid diet. She may be discharged home when cleared by surgeon. Defer to surgery for discharge pain medication. Patient seen and evaluated by nurse practitioner, physician in agreement with plan. Patient Condition at Discharge: Stable Plan - Discharge Summary New Discharge Prescriptions: Continue busPIRone HCL 15 mg PO TID Famotidine [Pepcid] 20 mg PO DAILY Acetaminophen Tab [Tylenol] 1,000 mg PO Q6H PRN PRN Reason: Pain Escitalopram [Lexapro] 20 mg PO HS Ondansetron Odt [Zofran ODT] 4 mg PO BID PRN PRN Reason: Nausea Pantoprazole Sodium [Protonix] 40 mg PO DAILY #30 tab Promethazine [Phenergan] 25 mg PO Q6H PRN PRN Reason: Nausea hydrOXYzine HCL [Atarax] 10 - 20 mg PO Q8H PRN PRN Reason: Anxiety Hyoscyamine Sulfate [Levsin-Sl] 0.125 mg PO Q4H PRN PRN Reason: Diarrhea/cramps Discharge Medication List busPIRone HCL 15 mg PO TID 12/31/21 [History] Acetaminophen Tab [Tylenol] 1,000 mg PO Q6H PRN 09/06/23 [History] Escitalopram [Lexapro] 20 mg PO HS 09/06/23 [History] Famotidine [Pepcid] 20 mg PO DAILY 09/06/23 [History] Ondansetron Odt [Zofran ODT] 4 mg PO BID PRN 12/22/23 [History] hydrOXYzine HCL [Atarax] 10 - 20 mg PO Q8H PRN 12/22/23 [History] Pantoprazole Sodium [Protonix] 40 mg PO DAILY #30 tab 12/24/23 [Rx] Hyoscyamine Sulfate [Levsin-Sl] 0.125 mg PO Q4H PRN 04/27/24 [History] Promethazine [Phenergan] 25 mg PO Q6H PRN 04/27/24 [History] Follow up Appointment(s)/Referral(s): Alexys Adams MD [Primary Care Provider] - 1 Week Discharge Disposition: HOME SELF-CARE
[2024-04-28] MEDS: ALBUTEROL NEBULIZED 2.5 MG/3 ML INHALATION SCH (08:51)
[2024-04-28] MEDS: PANTOPRAZOLE 40 MG/10 ML VIAL IV SCH (09:17)
[2024-04-28] MEDS: SIMETHICONE 40 MG/0.6 ML DROPS 2,000 MG/30 ML BOTTLE PO SCH (09:17)
[2024-04-28 09:57] VITALS: PULSE 56; TEMP 98.1
--- NOTE | 2024-04-28 12:30 | P.PN ---
Subjective Progress Note Date: 04/28/24 CHIEF COMPLAINT: abdominal pain HISTORY OF PRESENT ILLNESS: Patient postop day# 1 status post lysis of adhesions and reduction and closure of internal hernia. Patient reports improvement in her pain. She is having flatus. Tolerated the liquids. Denies any nausea or vomiting. Afebrile. Has been up and ambulating. WBC 10.1 Hgb 10.0 platelets 208 PHYSICAL EXAM: VITAL SIGNS: Reviewed GENERAL: Well-developed in no acute distress. HEENT: No sclera icterus. Extraocular movements grossly intact. Moist buccal mucosa. Head is atraumatic, normocephalic. Hears conversational speech. No nasal drain age. NECK: Supple without lymphadenopathy. CHEST: Non-labored respirations and equal bilateral excursions. CARDIOVASCULAR: Palpable 2+ radial pulses. ABDOMEN: Soft. Nondistended. Incision sites clean dry and intact MUSCULOSKELETAL: No clubbing or cyanosis. NEUROLOGIC: No focal or lateralizing signs. Cranial nerves II through XII grossly intact. PSYCH: Appropriate affect. Alert and oriented to person, place and time. SKIN: Well perfused. Good skin turgor. ASSESSMENT: 1. Left upper quadrant abdominal pain due to intra-abdominal adhesions 2. Left lower quadrant abdominal pain due to pelvic adhesions 3. Internal hernia with intermittent bowel obstruction 4. History of gastric bypass 5. Intractable nausea and vomiting 6. Gastroesophageal reflux disease 7. Generalized anxiety disorder 8. Generalized depressive disorder 9. Tobacco abuse disorder 10. Chronic iron deficiency anemia 11. History of perforated gastrojejunal ulcer PLAN: -Advance diet to low fiber. Patient can be discharge from surgical standpoint if tolerating diet. -Recommend follow-up in bariatric center next week Physician Pourer [employer] note has been reviewed by physician. Signing provider agrees with the documented findings, assessment, and plan of care. Objective - Vital Signs Vital signs: Vital Signs Temp 98.1 F 04/28/24 09:54 Pulse 56 L 04/28/24 09:54 Resp 18 04/28/24 09:54 BP 115/71 04/28/24 07:17 Pulse Ox 97 04/28/24 08:53 FiO2 Intake & Output 04/27/24 04/28/24 04/28/24 18:59 06:59 18:59 Intake Total 1600 Output Total 10 Balance 1590 Weight 53.977 kg Intake: IV 1600 Output: Estimated Blood Loss 10 Other: Voiding Method Toilet Toilet # Voids 1 - Labs CBC & Chem 7: 04/28/24 06:07 04/28/24 06:07 Labs: Abnormal Lab Results - Last 24 Hours (Table) 04/28/24 04/28/24 Range/Units 06:07 06:07 RBC 3.49 L (3.80-5.40) m/uL Hgb 10.0 L D (11.4-16.0) gm/dL Hct 32.1 L (34.0-46.0) % RDW 16.1 H (11.5-15.5) % Neutrophils # 8.2 H (1.3-7.7) k/uL Sodium 136 L (137-145) mmol/L Chloride 110 H (98-107) mmol/L Carbon Dioxide 21 L (22-30) mmol/L Creatinine 0.42 L (0.52-1.04) mg/dL Calcium 8.3 L (8.4-10.2) mg/dL Phosphorus 4.7 H (2.5-4.5) mg/dL Total Protein 5.5 L (6.3-8.2) g/dL Albumin 3.0 L (3.5-5.0) g/dL
== END 2024-04-28 13:45 | disposition home or self-care (01) | DRG 336 ==
LOC: EC 16:19 → 4SSUR 23:57 → OBSVTOIN 23:58 → 1SOBS 04-27 16:56
PROVIDERS: ADMIT Family Medicine; ATTEND Family Medicine
PROC: 8E0W4CZ Robotic Assisted Procedure of Trunk Region, Percutaneous Endoscopic Approach (ICD-10-PCS; 2024-04-27)
PROC: 0DNU4ZZ Release Omentum, Percutaneous Endoscopic Approach (ICD-10-PCS; principal; 2024-04-27 14:00)
DX: K46.0 Unspecified abdominal hernia with obstruction, without gangrene (principal); K56.7 Ileus, unspecified; D50.9 Iron deficiency anemia, unspecified; F17.200 Nicotine dependence, unspecified, uncomplicated; F41.1 Generalized anxiety disorder; F32.A Depression, unspecified; K21.9 Gastro-esophageal reflux disease without esophagitis; K58.9 Irritable bowel syndrome, unspecified; K66.0 Peritoneal adhesions (postprocedural) (postinfection); Z79.899 Other long term (current) drug therapy; Z98.84 Bariatric surgery status; Z88.0 Allergy status to penicillin
CPT/HCPCS: 36415; 74177; 80053; 81001; 81025; 83605; 83690; 83735; 84100; 85025; 94640; 94760; 96361; 96374; 96375; 96376; 99285

== ENCOUNTER 2024-06-08 15:05 | Observation (INO) | payer BC ==
--- NOTE | 2024-06-08 17:06 | ED ---
Abdominal Pain HPI - General Chief Complaint: Abdominal Pain Stated Complaint: Vomiting Time Seen by Provider: 06/08/24 17:05 Source: patient, RN notes reviewed Mode of arrival: ambulatory Limitations: no limitations - History of Present Illness Initial Comments: 43-year-old female presented to ER with a chief complaint of abdominal pain. Patient also was endorsing nausea, vomiting and diaphoresis. Patient underwent gastric bypass surgery in 2013 by a surgeon in [facility]. She is currently following up with Dr. Lopez. She states since Saturday she has been endorsing a left-sided abdominal pain seeing it feels like a "rock in my belly". She has taken Tylenol and zofran without relief. She reports a history of bowel obstructions and states this feel similar. She denies any fevers, chest pain, shortness of breath, urinary complaints, diarrhea, constipation or peripheral edema. - Related Data Home Medications Medication Instructions Recorded Confirmed busPIRone HCL 15 mg PO DAILY 12/31/21 06/08/24 Acetaminophen Tab [Tylenol] 1,000 mg PO Q6H PRN 09/06/23 06/08/24 Escitalopram [Lexapro] 20 mg PO HS 09/06/23 06/08/24 Ondansetron Odt [Zofran ODT] 4 mg PO BID PRN 12/22/23 06/08/24 busPIRone HCL [Buspirone HCl] 30 mg PO HS 06/08/24 06/08/24 Previous Rx's Medication Instructions Recorded Pantoprazole Sodium [Protonix] 40 mg PO DAILY #30 tab 12/24/23 Allergies Allergy/AdvReac Type Severity Reaction Status Date / Time amoxicillin Allergy Anaphylaxis Verified 06/08/24 19:00 Review of Systems ROS Statement: Those systems with pertinent positive or pertinent negative responses have been documented in the HPI. ROS Other: All systems not noted in ROS Statement are negative. Past Medical History Past Medical History: Blood Disorder, GERD/Reflux Additional Past Medical History / Comment(s): Anemia, ibs History of Any Multi-Drug Resistant Organisms: None Reported Past Surgical History: Bariatric Surgery, Hernia Repair Additional Past Surgical History / Comment(s): gastric bypass 2013. ulcer repair 09/2023 Past Anesthesia/Blood Transfusion Reactions: No Reported Reaction Past Psychological History: Anxiety, Depression Smoking Status: Current every day smoker, Light tobacco smoker Past Alcohol Use History: None Reported Past Drug Use History: Marijuana - Past Family History Mother Family Medical History: Unable to Obtain General Exam - General Exam Comments Initial Comments: Visual Physical Exam Vital signs reviewed General: Well-appearing, nontoxic, no acute distress. Head: Normocephalic, atraumatic Eyes: PERRLA, EOMI ENT: Airway patent Chest: Nonlabored breathing Skin: No visual rash, normal skin tone Neuro: Alert and oriented 3 Musculoskeletal: No gross abnormalities Limitations: no limitations General appearance: alert, in no apparent distress Respiratory exam: Present: normal lung sounds bilaterally. Absent: respiratory distress, wheezes, rales, rhonchi, stridor Cardiovascular Exam: Present: regular rate, normal rhythm, normal heart sounds. Absent: systolic murmur, diastolic murmur, rubs, gallop, clicks GI/Abdominal exam: Present: soft, tenderness (LUQ), normal bowel sounds Extremities exam: Present: normal inspection, full ROM, normal capillary refill. Absent: tenderness, pedal edema, joint swelling, calf tenderness Neurological exam: Present: alert, oriented X3, CN II-XII intact Skin exam: Present: warm, dry, intact, normal color. Absent: rash Course Vital Signs 06/08/24 15:06 Temperature 98.0 F Pulse Rate 75 Respiratory 16 Rate Blood Pressure 112/58 O2 Sat by Pulse 100 Oximetry - Reevaluation(s) Reevaluation #1: 06/08/24 18:[address] Lopez for admission. Medical Decision Making - Medical Decision Making I performed the quick note portion of this chart. Electronically signed by Darnell Maher PA-C Was pt. sent in by a medical professional or institution ([facility], [employer], urgent care, hospital, or correction...) When possible be specific @ -No Did you speak to anyone other than the patient for history (EMS, parent, family, police, friend...)? What history was obtained from this source @ -No Did you review nursing and triage notes (agree or disagree)? Why? @ -I reviewed and agree with nursing and triage notes Were old charts reviewed (outside hosp., previous admission, EMS record, old EKG, old radiological studies, urgent care reports/EKG's, correction records)? Report findings @ -No old charts were reviewed Differential Diagnosis (chest pain, altered mental status, abdominal pain women, abdominal pain men, vaginal bleeding, weakness, fever, dyspnea, syncope, headache, dizziness, GI bleed, back pain, seizure, CVA, palpatations, mental health, musculoskeletal)? @ -Differential Abdominal Pain Women:Appendicitis, Cholecystitis, diverticulosis, ischemic bowel, pancreatitis, hepatitis, UTI, gastroenteritis, AAA, incarcerated hernia, bowel obstruction, constipation, inflammatory bowel, hepatitis, peptic ulcer disease, splenic infarction, perforated viscus, vulvitis, ovarian torsion, PID, kidney stone, placenta abruption, this is not meant to be an all-inclusive list EKG interpreted by me (3pts min.). @ -None done X-rays interpreted by me (1pt min.). @ -KUB showing nonspecific abdomen. Couple of air-fluid levels within the right lower quadrant pelvis no obstructive identified. CT interpreted by me (1pt min.). @ -CT abdomen pelvis with oral contrast showing nonobstructing 0.3 cm left ureterovesical junction stone. Nonspecific dilated loops of bowel with fluid. U/S interpreted by me (1pt. min.). @ -None done What testing was considered but not performed or refused? (CT, X-rays, U/S, labs)? Why? @ -None What meds were considered but not given or refused? Why? @ -None Did you discuss the management of the patient with other professionals (professionals i.e. , PA, DIGITAL RETOUCHER, lab, RT, psych nurse, social staff worker, criminal lawyer, teacher, campus safety officer, case sealer)? Give summary @ -Case discussed with Dr. Lopez who advises on admission. Was smoking cessation discussed for >3mins.? @ -No Was critical care preformed (if so, how long)? @ -No Were there social determinants of health that impacted care today? How? (Homelessness, low income, unemployed, alcoholism, drug addiction, transportation, low edu. Level, literacy, decrease access to med. care, [facility], rehab)? @ -No Was there de-escalation of care discussed even if they declined (Discuss DNR or withdrawal of care, Hospice)? DNR status @ -No What co-morbidities impacted this encounter? (DM, HTN, Smoking, COPD, CAD, C ancer, CVA, ARF, Chemo, Hep., AIDS, mental health diagnosis, sleep apnea, morbid obesity)? @ -History of gastric bypass Was patient admitted / discharged? Hospital course, mention meds given and rout e, prescriptions, significant lab abnormalities, going to OR and other pertinent info. @ -Admitted. 43-year-old female presented to ER with chief complaint nausea vomiting and abdominal pain. History and physical exam completed. Vitals upon arrival stable. Laboratory studies obtained showing a mild leukocytosis of 15.2 with a left shift. Hyponatremia 135, potassium 4.2, chloride 102, bicarb 23. Lactic acid 3.6. Laboratory studies likely due to nausea and vomiting. Urinalysis showing trace ketones likely due to dehydration. KUB showing nonspecific abdomen. Couple of air-fluid levels within the right lower quadrant pelvis. CT abdomen pelvis showing no definitive obstruction, nonspecific dilated loops of bowel with fluid. Case discussed with Dr. Lopez advised on admission for further evaluation. Twice daily protonix ordered. Patient received IV fluids, Dilaudid and Zofran for symptom control. Patient agreeable for admission. Patient admitted in stable condition for further evaluation and treatment. Case discussed with ED attending, Dr. Noble. Undiagnosed new problem with uncertain prognosis? @ -No Drug Therapy requiring intensive monitoring for toxicity (Heparin, Nitro, Insulin, Cardizem)? @ -No Were any procedures done? @ -No Diagnosis/symptom? @ -Abdominal pain/leukocytosis/nausea/vomiting/hyperlactemia Acute, or Chronic, or Acute on Chronic? @ -Acute Uncomplicated (without systemic symptoms) or Complicated (systemic symptoms)? @ -Complicated Side effects of treatment? @ -No Exacerbation, Progression, or Severe Exacerbation? @ -No Poses a threat to life or bodily function? How? (Chest pain, [place], [place], pneumonia, PE, COPD, DKA, ARF, appy, cholecystitis, CVA, Diverticulitis, Homicidal, Suicidal, threat to staff... and all critical care pts) @ -Possibly - Lab Data Result diagrams: 06/08/24 17:05 06/08/24 17:05 Lab Results 06/08/24 06/08/24 06/08/24 Range/Units 17:05 17:05 17:05 WBC 15.2 H (3.8-10.6) k/uL RBC 4.32 (3.80-5.40) m/uL Hgb 12.3 (11.4-16.0) gm/dL Hct 38.3 (34.0-46.0) % MCV 88.8 (80.0-100.0) fL MCH 28.6 (25.0-35.0) pg MCHC 32.2 (31.0-37.0) g/dL RDW 16.5 H (11.5-15.5) % Plt Count 396 (150-450) k/uL MPV 8.4 Neutrophils % 80 % Lymphocytes % 12 % Monocytes % 5 % Eosinophils % 1 % Basophils % 0 % Neutrophils # 12.1 H (1.3-7.7) k/uL Lymphocytes # 1.9 (1.0-4.8) k/uL Monocytes # 0.8 (0-1.0) k/uL Eosinophils # 0.2 (0-0.7) k/uL Basophils # 0.0 (0-0.2) k/uL Hypochromasia Moderate Anisocytosis Slight Sodium 135 L (137-145) mmol/L Potassium 4.2 (3.5-5.1) mmol/L Chloride 102 (98-107) mmol/L Carbon Dioxide 23 (22-30) mmol/L Anion Gap 10 mmol/L BUN 10 (7-17) mg/dL Creatinine 0.49 L (0.52-1.04) mg/dL Est GFR (CKD-EPI)AfAm >90 (>60 ml/min/1.73 sqM) Est GFR (CKD-EPI)NonAf >90 (>60 ml/min/1.73 sqM) Glucose 106 H (74-99) mg/dL Plasma Lactic Acid Chema (0.7-2.0) mmol/L Calcium 9.6 (8.4-10.2) mg/dL Total Bilirubin 0.4 (0.2-1.3) mg/dL AST 23 (14-36) U/L ALT 15 (4-34) U/L Alkaline Phosphatase 115 (38-126) U/L Total Protein 7.6 (6.3-8.2) g/dL Albumin 4.3 (3.5-5.0) g/dL Amylase 44 (30-110) U/L Lipase 103 (23-300) U/L Urine Color Yellow Urine Appearance Clear (Clear) Urine pH 8.0 (5.0-8.0) Ur Specific [place]vel Switch 1.031 (1.001-1.035) Urine Protein Negative (Negative) Urine Glucose (UA) Negative (Negative) Urine Ketones Trace H (Negative) Urine Blood Negative (Negative) Urine Nitrite Negative (Negative) Urine Bilirubin Negative (Negative) Urine Urobilinogen <2.0 (<2.0) mg/dL Ur Leukocyte Esterase Negative (Negative) 06/08/24 Range/Units 17:05 WBC (3.8-10.6) k/uL RBC (3.80-5.40) m/uL Hgb (11.4-16.0) gm/dL Hct (34.0-46.0) % MCV (80.0-100.0) fL MCH (25.0-35.0) pg MCHC (31.0-37.0) g/dL RDW (11.5-15.5) % Plt Count (150-450) k/uL MPV Neutrophils % % Lymphocytes % % Monocytes % % Eosinophils % % Basophils % % Neutrophils # (1.3-7.7) k/uL Lymphocytes # (1.0-4.8) k/uL Monocytes # (0-1.0) k/uL Eosinophils # (0-0.7) k/uL Basophils # (0-0.2) k/uL Hypochromasia Anisocytosis Sodium (137-145) mmol/L Potassium (3.5-5.1) mmol/L Chloride (98-107) mmol/L Carbon Dioxide (22-30) mmol/L Anion Gap mmol/L BUN (7-17) mg/dL Creatinine (0.52-1.04) mg/dL Est GFR (CKD-EPI)AfAm (>60 ml/min/1.73 sqM) Est GFR (CKD-EPI)NonAf (>60 ml/min/1.73 sqM) Glucose (74-99) mg/dL Plasma Lactic Acid Chema 3.6 H* (0.7-2.0) mmol/L Calcium (8.4-10.2) mg/dL Total Bilirubin (0.2-1.3) mg/dL AST (14-36) U/L ALT (4-34) U/L Alkaline Phosphatase (38-126) U/L Total Protein (6.3-8.2) g/dL Albumin (3.5-5.0) g/dL Amylase (30-110) U/L Lipase (23-300) U/L Urine Color Urine Appearance (Clear) Urine pH (5.0-8.0) Ur Specific [place] Switch (1.001-1.035) Urine Protein (Negative) Urine Glucose (UA) (Negative) Urine Ketones (Negative) Urine Blood (Negative) Urine Nitrite (Negative) Urine Bilirubin (Negative) Urine Urobilinogen (<2.0) mg/dL Ur Leukocyte Esterase (Negative) - Radiology Data Radiology results: report reviewed, image reviewed Disposition Clinical Impression: Abdominal pain, Nausea and vomiting, Leukocytosis, History of gastric bypass, Hyperlactatemia Disposition: ADMITTED IP TO THIS [facility] Condition: Stable Time of Disposition: 18:41
[2024-06-08 17:24] LABS: Anisocytosis Slight; Basophils % (A) 0 %; Eosinophils # (A) 0.2 k/uL (0-0.7); Eosinophils % (A) 1 %; HCT 38.3 % (34.0-46.0); HGB 12.3 gm/dL (11.4-16.0); Hypochromasia Moderate; Lymphocytes # (A) 1.9 k/uL (1.0-4.8); Lymphocytes % (A) 12 %; MCH 28.6 pg (25.0-35.0); MCHC 32.2 g/dL (31.0-37.0); MCV 88.8 fL (80.0-100.0); Mean Platelet Volume 8.4; Monocytes # (A) 0.8 k/uL (0-1.0); Monocytes % (A) 5 %; Neutrophils # (A) 12.1 k/uL (1.3-7.7); Neutrophils % (A) 80 %; Platelet Count 396 k/uL (150-450); RBC 4.32 m/uL (3.80-5.40); RDW 16.5 % (11.5-15.5); WBC 15.2 k/uL (3.8-10.6)
[2024-06-08] MEDS: HYDROmorphone 1 MG/ML 1 ML SYRINGE IVP STA (17:25)
[2024-06-08] MEDS: SODIUM CHLORIDE 0.9% 1,000 ML IV STA (17:25)
[2024-06-08] MEDS: ONDANSETRON 4 MG/2 ML VIAL IVP STA (17:25)
[2024-06-08 17:32] LABS: ALT 15 U/L (4-34); AST 23 U/L (14-36); African American GFR (CKD) >90 (>60 ml/min/1.73 sqM); Albumin 4.3 g/dL (3.5-5.0); Alkaline Phosphatase 115 U/L (38-126); Amylase 44 U/L (30-110); Anion Gap 10 mmol/L; Blood Urea Nitrogen 10 mg/dL (7-17); Calcium 9.6 mg/dL (8.4-10.2); Carbon Dioxide 23 mmol/L (22-30); Chloride 102 mmol/L (98-107); Glucose 106 mg/dL (74-99); Lipase 103 U/L (23-300); Non-African American GFR(CKD) >90 (>60 ml/min/1.73 sqM); Potassium 4.2 mmol/L (3.5-5.1); Sodium 135 mmol/L (137-145); Total Bilirubin 0.4 mg/dL (0.2-1.3); Total Protein 7.6 g/dL (6.3-8.2)
[2024-06-08] MEDS ORDERED: IOPAMIDOL CONTRAST (ORAL USE) VIAL PO PRN (17:44)
--- NOTE | 2024-06-08 17:44 | XR ---
EXAMINATION TYPE: XR KUB DATE OF EXAM: 06/08/2024 COMPARISON: 01/28/2023 INDICATION: Abdomen pain TECHNIQUE: Single view abdomen upright view FINDINGS: Nonspecific bowel gas pattern with air within the left abdomen. Postsurgical changes are within the u pper and lower left abdomen and there are surgical clips present. No free air is evident. There may b e an air-fluid level within the right lower quadrant. Psoas margins are normal. No organomegaly is present. IMPRESSION: 1. Nonspecific abdomen. Couple of air-fluid levels are within the right lower quadrant pelvis. No obs truction identified. Postsurgical changes within left mid abdomen.
[2024-06-08] MEDS ORDERED: NALOXONE 0.4 MG/ML 1 ML VIAL IV PRN (17:49)
[2024-06-08] MEDS: SODIUM CHLORIDE 0.9% 1,000 ML IV SCH (17:57)
[2024-06-08] MEDS: ONDANSETRON 4 MG/2 ML VIAL IVP PRN (18:21)
--- NOTE | 2024-06-08 18:24 | CT ---
EXAMINATION TYPE: CT abdomen pelvis w con DATE OF EXAM: 06/08/2024 COMPARISON: 04/26/2024 INDICATION: abdominal pain, nausea, vomiting DLP: 495.7 mGycm, Automated exposure control for dose reduction was used. CONTRAST: 100 cc mL of Isovue 300. Study performed without Oral Contrast TECHNIQUE: Axial images were obtained from above the diaphragm to the pubic rami in the axial plane a t 5 mm thick sections. Reconstructed images are reviewed on the computer in the coronal plane. FINDINGS: Limited CT sections are obtained the lung bases. The lung bases are clear. CT ABDOMEN: Left upper quadrant surgical changes are evident. This may be prior gastric sleeve surger y. Correlate with the surgical history. Liver: Normal Spleen: Normal Pancreas: Normal Adrenal glands: The adrenal glands are normal. Gallbladder: Surgically absent Kidneys: No masses are evident. No hydronephrosis is present. No suspicious renal cysts Delayed im ages were obtained through the kidneys, which remain unremarkable. No hydronephrosis or hydroureter e vident. There is a 0.3 cm calcification in the expected region of the left ureterovesical junction. N o obstruction however is evident, similar as comparison. Phlebolith should also be considered. Aorta: Minimal vascular calcifications near the aortic bifurcation. Inferior vena cava: Normal. CT PELVIS: Loops of bowel within the abdomen and pelvis are normal. This study is without oral contrast limi ting bowel evaluation. Scattered loops of bowel are present which are nonspecific. Appendix: The appendix is visualized and is normal. No inflammatory changes are evident. Urinary bladder: Normal. Genitourinary structures: Uterus appears normal. Adnexa are normal. Osseous structures: No suspicious lytic or sclerotic lesions. IMPRESSION: 1. Nonobstructing 0.3 cm left ureterovesical junction stone. This may be a phlebolith also present o n the prior study. 2. Nonspecific dilated loops of bowel with fluid.
[2024-06-08 18:31] LABS: Appearance,Urine Clear (Clear); Bilirubin,Urine Negative (Negative); Blood,Urine Negative (Negative); Color,Urine Yellow; Glucose,Urine (UA) Negative (Negative); Ketones,Urine Trace (Negative); Leukocyte Esterase,Urine Negative (Negative); Nitrite,Urine Negative (Negative); Protein,Urine Negative (Negative); Specific Gravity,Urine 1.031 (1.001-1.035); Urobilinogen,Urine <2.0 mg/dL (<2.0)
[2024-06-08] MEDS: HYDROmorphone 1 MG/ML 1 ML SYRINGE IVP PRN (19:01)
[2024-06-08] MEDS: PANTOPRAZOLE 40 MG/10 ML VIAL IVP SCH (20:31)
[2024-06-09] MEDS: HYDROcodone/APAP 5-325MG 1 EACH TAB PO PRN (00:24)
--- NOTE | 2024-06-09 08:26 | P.GSHP ---
History of Present Illness H&P Date: 06/08/24 Patient presents with epigastric abdominal pain. She has known pre-existing history of multiple gastric ulcers particularly gastrojejunal ulcer with a gastric bypass. Of the abdomen pelvis independent review demonstrates no free air or bowel obstruction. This is my independent interpretation. Patient explicitly warned to stop smoking due to high risk of recurrent ulcers. Patient has pre-existing history of lysis of adhesions. Patient admits that she is continues to smoke despite admonitions. Recommend admission, n.p.o. status, upper endoscopy. Protonix 40 mg twice daily described. Past Medical History Past Medical History: Blood Disorder, GERD/Reflux Additional Past Medical History / Comment(s): Anemia History of Any Multi-Drug Resistant Organisms: None Reported Past Surgical History: Bariatric Surgery, Cholecystectomy, Hernia Repair Additional Past Surgical History / Comment(s): gastric bypass 2013. ulcer repair 09/2023 Past Anesthesia/Blood Transfusion Reactions: No Reported Reaction Past Psychological History: Anxiety, Depression Smoking Status: Former smoker, Light tobacco smoker Past Alcohol Use History: None Reported Past Drug Use History: Marijuana - Past Family History Mother Family Medical History: Unable to Obtain Medications and Allergies Home Medications Medication Instructions Recorded Confirmed Type busPIRone HCL 15 mg PO DAILY 12/31/21 06/08/24 History Acetaminophen Tab [Tylenol] 1,000 mg PO Q6H PRN 09/06/23 06/08/24 History Escitalopram [Lexapro] 20 mg PO HS 09/06/23 06/08/24 History Ondansetron Odt [Zofran ODT] 4 mg PO BID PRN 12/22/23 06/08/24 History Pantoprazole Sodium [Protonix] 40 mg PO DAILY #30 tab 12/24/23 06/08/24 Rx busPIRone HCL [Buspirone HCl] 30 mg PO HS 06/08/24 06/08/24 History Allergies Allergy/AdvReac Type Severity Reaction Status Date / Time amoxicillin Allergy Anaphylaxis Verified 06/08/24 19:00 Surgical - Exam Vital Signs Temp Pulse Resp BP Pulse Ox 98.0 F 75 16 112/58 100 06/08/24 15:06 06/08/24 15:06 06/08/24 15:06 06/08/24 15:06 06/08/24 15:06 Results - Labs 06/08/24 17:05 06/08/24 17:05 Abnormal Lab Results - Last 24 Hours (Table) 06/08/24 06/08/24 06/08/24 Range/Units 17:05 17:05 17:05 WBC 15.2 H (3.8-10.6) k/uL RDW 16.5 H (11.5-15.5) % Neutrophils # 12.1 H (1.3-7.7) k/uL Sodium 135 L (137-145) mmol/L Creatinine 0.49 L (0.52-1.04) mg/dL Glucose 106 H (74-99) mg/dL Plasma Lactic Acid Chema (0.7-2.0) mmol/L Urine Ketones Trace H (Negative) 06/08/24 06/08/24 Range/Units 17:05 19:49 WBC (3.8-10.6) k/uL RDW (11.5-15.5) % Neutrophils # (1.3-7.7) k/uL Sodium (137-145) mmol/L Creatinine (0.52-1.04) mg/dL Glucose (74-99) mg/dL Plasma Lactic Acid Chema 3.6 H* 0.6 L (0.7-2.0) mmol/L Urine Ketones (Negative) Diabetes panel 06/08/24 Range/Units 17:05 Sodium 135 L (137-145) mmol/L Potassium 4.2 (3.5-5.1) mmol/L Chloride 102 (98-107) mmol/L Carbon Dioxide 23 (22-30) mmol/L BUN 10 (7-17) mg/dL Creatinine 0.49 L (0.52-1.04) mg/dL Glucose 106 H (74-99) mg/dL Calcium 9.6 (8.4-10.2) mg/dL AST 23 (14-36) U/L ALT 15 (4-34) U/L Alkaline Phosphatase 115 (38-126) U/L Total Protein 7.6 (6.3-8.2) g/dL Albumin 4.3 (3.5-5.0) g/dL Calcium panel 06/08/24 Range/Units 17:05 Calcium 9.6 (8.4-10.2) mg/dL Albumin 4.3 (3.5-5.0) g/dL Pituitary panel 06/08/24 Range/Units 17:05 Sodium 135 L (137-145) mmol/L Potassium 4.2 (3.5-5.1) mmol/L Chloride 102 (98-107) mmol/L Carbon Dioxide 23 (22-30) mmol/L BUN 10 (7-17) mg/dL Creatinine 0.49 L (0.52-1.04) mg/dL Glucose 106 H (74-99) mg/dL Calcium 9.6 (8.4-10.2) mg/dL Adrenal panel 06/08/24 Range/Units 17:05 Sodium 135 L (137-145) mmol/L Potassium 4.2 (3.5-5.1) mmol/L Chloride 102 (98-107) mmol/L Carbon Dioxide 23 (22-30) mmol/L BUN 10 (7-17) mg/dL Creatinine 0.49 L (0.52-1.04) mg/dL Glucose 106 H (74-99) mg/dL Calcium 9.6 (8.4-10.2) mg/dL Total Bilirubin 0.4 (0.2-1.3) mg/dL AST 23 (14-36) U/L ALT 15 (4-34) U/L Alkaline Phosphatase 115 (38-126) U/L Total Protein 7.6 (6.3-8.2) g/dL Albumin 4.3 (3.5-5.0) g/dL
--- NOTE | 2024-06-09 12:33 | P.PN ---
Subjective Progress Note Date: 06/09/24 CHIEF COMPLAINT: Epigastric pain HISTORY OF PRESENT ILLNESS: Patient continues to have epigastric abdominal pain. She was having nausea and episodes of vomiting at home. She reports some dysphagia. Especially with yogurts. Patient reports the nausea is better today on the clear liquid diet. Patient reports she stopped smoking about a week ago. Patient has had EGD with dilation in the past. Afebrile. Lactic acid 3.6 down to 0.6. WBC 15 yesterday PHYSICAL EXAM: VITAL SIGNS: Reviewed GENERAL: Well-developed in no acute distress. HEENT: No sclera icterus. Extraocular movements grossly intact. Moist buccal mucosa. Head is atraumatic, normocephalic. Hears conversational speech. No nasal drainage. NECK: Supple without lymphadenopathy. CHEST: Non-labored respirations and equal bilateral excursions. CARDIOVASCULAR: Palpable 2+ radial pulses. ABDOMEN: Soft. Nondistended. Epigastric tenderness with palpation MUSCULOSKELETAL: No clubbing or cyanosis. NEUROLOGIC: No focal or lateralizing signs. Cranial nerves II through XII grossly intact. PSYCH: Appropriate affect. Alert and oriented to person, place and time. SKIN: Well perfused. Good skin turgor. ASSESSMENT: 1. Epigastric abdominal pain 2. History of gastric ulcers 3. History of gastric bypass 4. History of nicotine dependence 5. History of lysis of adhesions PLAN: -Patient scheduled for EGD tomorrow, 06/10/[address] Lopez -N.p.o. after midnight -Clear liquid diet today -Continue IV Protonix twice a day -Educated patient on smoking cessation -Continue pain management Physician Assistant Professor Of Nursing note has been reviewed by physician. Signing provider agrees with the documented findings, assessment, and plan of care. Objective - Vital Signs Vital signs: Vital Signs Temp 98.5 F 06/09/24 07:00 Pulse 63 06/09/24 07:00 Resp 16 06/09/24 07:00 BP 96/59 06/09/24 07:00 Pulse Ox 100 06/09/24 07:00 FiO2 Intake & Output 06/08/24 06/09/24 06/09/24 18:59 06:59 18:59 Weight 49.895 kg 49.895 kg - Labs CBC & Chem 7: 06/08/24 17:05 06/08/24 17:05 Labs: Abnormal Lab Results - Last 24 Hours (Table) 06/08/24 06/08/24 06/08/24 Range/Units 17:05 17:05 17:05 WBC 15.2 H (3.8-10.6) k/uL RDW 16.5 H (11.5-15.5) % Neutrophils # 12.1 H (1.3-7.7) k/uL Sodium 135 L (137-145) mmol/L Creatinine 0.49 L (0.52-1.04) mg/dL Glucose 106 H (74-99) mg/dL Plasma Lactic Acid Chema (0.7-2.0) mmol/L Urine Ketones Trace H (Negative) 06/08/24 06/08/24 Range/Units 17:05 19:49 WBC (3.8-10.6) k/uL RDW (11.5-15.5) % Neutrophils # (1.3-7.7) k/uL Sodium (137-145) mmol/L Creatinine (0.52-1.04) mg/dL Glucose (74-99) mg/dL Plasma Lactic Acid Chema 3.6 H* 0.6 L (0.7-2.0) mmol/L Urine Ketones (Negative)
[2024-06-09 12:47] VITALS: BMI 18.8
[2024-06-09] MEDS: ESCITALOPRAM 20 MG TAB PO SCH (21:28)
[2024-06-09] MEDS: PANTOPRAZOLE 40 MG/10 ML VIAL IVP SCH (21:29)
[2024-06-10 04:26] LABS: Anisocytosis Slight; Basophils % (A) 1 %; Eosinophils # (A) 0.2 k/uL (0-0.7); Eosinophils % (A) 3 %; HCT 32.3 % (34.0-46.0); HGB 10.1 gm/dL (11.4-16.0); Hypochromasia Marked; Lymphocytes # (A) 2.9 k/uL (1.0-4.8); Lymphocytes % (A) 44 %; MCH 28.9 pg (25.0-35.0); MCHC 31.3 g/dL (31.0-37.0); MCV 92.3 fL (80.0-100.0); Mean Platelet Volume 8.1; Monocytes # (A) 0.5 k/uL (0-1.0); Monocytes % (A) 7 %; Neutrophils # (A) 2.7 k/uL (1.3-7.7); Neutrophils % (A) 41 %; Platelet Count 279 k/uL (150-450); RDW 16.4 % (11.5-15.5); WBC 6.5 k/uL (3.8-10.6)
[2024-06-10 04:42] LABS: African American GFR (CKD) >90 (>60 ml/min/1.73 sqM); Anion Gap 1 mmol/L; Blood Urea Nitrogen 4 mg/dL (7-17); Calcium 8.7 mg/dL (8.4-10.2); Carbon Dioxide 27 mmol/L (22-30); Chloride 107 mmol/L (98-107); Glucose 83 mg/dL (74-99); Non-African American GFR(CKD) >90 (>60 ml/min/1.73 sqM); Potassium 4.3 mmol/L (3.5-5.1); Sodium 135 mmol/L (137-145)
[2024-06-10] MEDS: busPIRone HCl 5 MG TAB PO SCH (08:29)
[2024-06-10] MEDS: SODIUM CHLORIDE 0.9% 1,000 ML IV ONE ×2 (11:25→11:45)
[2024-06-10] MEDS ORDERED: PROPOFOL 10 MG/ML 20 ML VIAL IV ONE (11:28)
--- NOTE | 2024-06-10 11:51 | P.PCN ---
Date of Procedure: 06/10/24 Description of Procedure: PREOPERATIVE DIAGNOSES: 1. Gastric ulcers 2. Epigastric abdominal pain 3. History of gastric 4. Tobacco abuse disorder POSTOPERATIVE DIAGNOSES: 1. Acute gastritis without bleeding PROCEDURE PERFORMED: Esophagogastrojejunoscopy with biopsy stomach SURGEON: Renuka Lopez MD ANESTHESIA: MAC. INDICATIONS: The patient is a 43-year-old female who presents with gastric ulcers including severe epigastric abdominal pain. Patient has personal history of recurrent ulcers with smoking. Upper endoscopy was offered for further evaluation and management. DESCRIPTION: Patient was brought to the endoscopy suite and laid in the left lateral decubitus position. After adequate IV sedation, a bite block was placed. An Olympus gastroscope was passed along the posterior oropharynx down to the distal esophagus where the squamocolumnar junction was found at approximately 40 cm from the incisors. The anastomosis was found at 43 cm, consistent with approximately 3 cm gastric pouch. The scope was advanced 60 cm from the incisors. No acute gastrojejunal ulcerations were encountered. Foreign body including clip was found. The GI tract was desufflated. The patient tolerated the procedure well. FINDINGS: 1. No acute gastrojejunal ulceration. 2. Clip found along the anastomosis. 3. Acute gastritis without bleeding PLAN: 1. Recommend upper endoscopy as needed. 2. May start diet. 3. Continue omeprazole 40 mg daily 4. Strict tobacco cessation described
--- NOTE | 2024-06-10 15:05 | P.DS ---
Providers Date of admission: 06/08/24 17:46 Expected date of discharge: 06/10/24 Attending physician: Renuka Lopez Primary care physician: Alexys Adams Hospital Course: Discharge diagnosis 1. Acute gastritis without bleeding Hospital course This is a 43-year-old female who presented to the hospital with complaints of epigastric abdominal pain and a known history of gastric ulcers. Patient has history of smoking. Quit smoking about a week ago. Patient had EGD completed today revealing evidence of gastritis without any bleeding. Her pain has improved. She has tolerated diet. She will continue on her PPI. She has been educated to refrain from smoking. Patient is ambulating. Afebrile. She is stable for discharge. Physician Molding Engineer note has been reviewed by physician. Signing provider agrees with the documented findings, assessment, and plan of care. Patient Condition at Discharge: Stable Plan - Discharge Summary Discharge Rx Participant: No New Discharge Prescriptions: Continue busPIRone HCL 15 mg PO DAILY Acetaminophen Tab [Tylenol] 1,000 mg PO Q6H PRN PRN Reason: Pain Escitalopram [Lexapro] 20 mg PO HS Ondansetron Odt [Zofran ODT] 4 mg PO BID PRN PRN Reason: Nausea Pantoprazole Sodium [Protonix] 40 mg PO DAILY #30 tab busPIRone HCL 30 mg PO HS Discharge Medication List busPIRone HCL 15 mg PO DAILY 12/31/21 [History] Acetaminophen Tab [Tylenol] 1,000 mg PO Q6H PRN 09/06/23 [History] Escitalopram [Lexapro] 20 mg PO HS 09/06/23 [History] Ondansetron Odt [Zofran ODT] 4 mg PO BID PRN 12/22/23 [History] Pantoprazole Sodium [Protonix] 40 mg PO DAILY #30 tab 12/24/23 [Rx] busPIRone HCL 30 mg PO HS 06/08/24 [History] Follow up Appointment(s)/Referral(s): None,Stated [REFERRING] - 1-2 days Bariatric [place], [place] [NON-STAFF] - 06/17/24 Activity/Diet/Wound Care/Special Instructions: No Smoking Discharge Disposition: HOME SELF-CARE
[2024-06-10 15:21] VITALS: BP 104/64; PULSE 73; RESP 18; TEMP 98.2
== END 2024-06-10 16:08 | disposition home or self-care (01) ==
LOC: EC 15:05 → 6NMEDSUR 17:46
PROVIDERS: ADMIT Surgery Plastic and Reconstructive Surgery; ATTEND Surgery Plastic and Reconstructive Surgery
DX: K29.00 Acute gastritis without bleeding (principal); E87.1 Hypo-osmolality and hyponatremia; D72.829 Elevated white blood cell count, unspecified; R74.02 Elevation of levels of lactic acid dehydrogenase [LDH]; R13.10 Dysphagia, unspecified; F17.200 Nicotine dependence, unspecified, uncomplicated; Z79.899 Other long term (current) drug therapy; Z88.0 Allergy status to penicillin; Z98.84 Bariatric surgery status; Z87.11 Personal history of peptic ulcer disease
CPT/HCPCS: 36415; 43239; 74018; 74177; 80048; 80053; 81003; 82150; 83605; 83690; 84703; 85025; 88305; 96361; 96374; 96375; 96376; 99284

== ENCOUNTER → 2024-06-18 | Outpatient (CLI) | payer BC ==
[2024-06-18 10:51] LABS: INR 0.9 (<1.2); Partial Thromboplastin Time 22.5 sec (22.0-30.0); Prothrombin Time 9.9 sec (10.0-12.5)
[2024-06-18 15:25] LABS: % Iron Saturation 2.73 (12.00-45.00); Chol/HDL Ratio 4.48 Ratio; Ferritin 6.6 ng/mL (10.0-291.0); Iron 13 UG/DL (50-170); LDL Cholesterol,Calculated 153.3 mg/dL (0.0-131.0); Phosphorus 3.2 mg/dL (2.4-5.1); Total Iron Binding Capacity 477 UG/DL (228-460)
[2024-06-18 18:39] LABS: Prealbumin 22.9 mg/dL (18.0-42.0)
[2024-06-19 10:48] LABS: Zinc, Serum 97 ug/dL (60-130)
[2024-06-22 09:45] LABS: Vitamin A 54 ug/dL (38-106)
[2024-06-22 13:28] LABS: Vit B1(Thiamine) 60 ug/L (38-122)
[2024-06-26 10:38] LABS: Selenium 80 mcg/L (63-160)
== END | disposition home or self-care (01) ==
LOC: LABWHC1 09:56
PROVIDERS: ATTEND Surgery Plastic and Reconstructive Surgery
DX: E66.01 Morbid (severe) obesity due to excess calories
CPT/HCPCS: 36415; 80061; 82306; 82525; 82607; 82728; 82746; 83036; 83540; 83550; 83735; 83970; 84100; 84134; 84255; 84425; 84443; 84590; 84630; 85610; 85730

== ENCOUNTER 2024-07-06 07:53 | Observation (INO) | payer BC ==
[2024-07-06] MEDS: HYDROmorphone 1 MG/ML 1 ML SYRINGE IVP STA ×2 (08:23→10:20)
[2024-07-06] MEDS: ONDANSETRON 4 MG/2 ML VIAL IVP STA (08:23)
--- NOTE | 2024-07-06 08:23 | ED ---
Abdominal Pain HPI - General Chief Complaint: GI Bleed Stated Complaint: NVD Time Seen by Provider: 07/06/24 08:02 Source: patient, RN notes reviewed Mode of arrival: ambulatory Limitations: no limitations - History of Present Illness Initial Comments: This is a 43-year-old female who presents to the emergency department for abdominal pain, nausea, and rectal bleeding. States that yesterday she started to develop pain in the right lower quadrant. She has associated nausea and vomiting, which she attributes to the pain. States that she then started to develop rectal bleeding. States that anytime she feels like she needs to have a bowel movement she only produces blood. States that this is bright red. Denies any history of rectal bleeding. Not taking any blood thinners. She had previously been following with Dr. Lopez for pain in the left lower quadrant, but states that this feels different. MD Complaint: abdominal pain - Related Data Home Medications Medication Instructions Recorded Confirmed busPIRone HCL 15 mg PO DAILY 12/31/21 07/06/24 Acetaminophen Tab [Tylenol] 1,000 mg PO Q6H PRN 09/06/23 07/06/24 Escitalopram [Lexapro] 20 mg PO HS 09/06/23 07/06/24 Ondansetron Odt [Zofran ODT] 4 mg PO BID PRN 12/22/23 07/06/24 busPIRone HCL 30 mg PO HS 06/08/24 07/06/24 Pantoprazole Sodium [Protonix] 40 mg PO BID 06/17/24 07/06/24 Ergocalciferol [Vitamin D2 (1250 1,250 mcg PO TU 06/29/24 07/06/24 Mcg = 07756 Iu)] Allergies Allergy/AdvReac Type Severity Reaction Status Date / Time amoxicillin Allergy Anaphylaxis Verified 07/06/24 12:22 Review of Systems ROS Statement: Those systems with pertinent positive or pertinent negative responses have been documented in the HPI. ROS Other: All systems not noted in ROS Statement are negative. Past Medical History Past Medical History: Blood Disorder, GERD/Reflux Additional Past Medical History / Comment(s): Anemia History of Any Multi-Drug Resistant Organisms: None Reported Past Surgical History: Bariatric Surgery, Cholecystectomy, Hernia Repair Additional Past Surgical History / Comment(s): gastric bypass 2013. ulcer repair 09/2023. EGD 06/10 Past Anesthesia/Blood Transfusion Reactions: No Reported Reaction Past Psychological History: Anxiety, Depression Smoking Status: Former smoker, Light tobacco smoker Past Alcohol Use History: None Reported Past Drug Use History: Marijuana - Past Family History Mother Family Medical History: Unable to Obtain General Exam Limitations: no limitations General appearance: alert, in no apparent distress Head exam: Present: atraumatic, normocephalic, normal inspection Respiratory exam: Present: normal lung sounds bilaterally. Absent: respiratory distress, wheezes, rales, rhonchi, stridor Cardiovascular Exam: Present: regular rate, normal rhythm, normal heart sounds. Absent: systolic murmur, diastolic murmur, rubs, gallop, clicks GI/Abdominal exam: Present: soft, tenderness (RLQ), normal bowel sounds. Absent: distended Neurological exam: Present: alert, oriented X3, CN II-XII intact Psychiatric exam: Present: normal affect, normal mood Skin exam: Present: warm, dry, intact, normal color. Absent: rash Course Vital Signs 07/06/24 07:58 Temperature 98 F Pulse Rate 99 Respiratory 20 Rate Blood Pressure 107/69 O2 Sat by Pulse 99 Oximetry Medical Decision Making - Medical Decision Making This is a 43 year old female who presents to the emergency department for a bdominal pain and rectal bleeding. Was pt. sent in by a medical professional or institution? @ -No Did you speak to anyone other than the patient for history? @ -No Did you review nursing and triage notes? @ -Yes, and I agree, it is accurate with regards to the patient's symptoms. Were old charts reviewed? @ -No Differential Diagnosis? @ -Differential Abdominal Pain Women: Appendicitis, Cholecystitis, diverticulosis, ischemic bowel, pancreatitis, hepatitis, UTI, gastroenteritis, AAA, incarcerated hernia, bowel obstruction, constipation, inflammatory bowel, hepatitis, peptic ulcer disease, splenic infarction, perforated viscus, vulvitis, ovarian torsion, PID, kidney stone, placenta abruption, this is not meant to be an all-inclusive list EKG interpreted by me (3pts min.)? @ -Not obtained X-rays interpreted by me (1pt min.)? @ -Not obtained CT interpreted by me (1pt min.)? @ -CT scan of the abdomen and pelvis obtained. My interpretation identifies no dilation of the large or small bowel loops. U/S interpreted by me (1pt. min.)? @ -Not obtained What testing was considered but not performed? (CT, X-rays, U/S, labs)? Why? @ -None What meds were considered but not given? Why? @ -None Did you discuss the management of the patient with other professionals? @ -Yes, Dr. Adams, who accepts the patient for admission. Did you reconcile home meds? @ -Yes Was smoking cessation discussed for >3mins.? @ -No Was critical care preformed (if so, how long)? @ -No Were there social determinants of health that impacted care today? How? (Homelessness, low income, unemployed, alcoholism, drug addiction, transportation, low edu. Level, literacy, decrease access to med. care, detention, rehab)? @ -No Was there de-escalation of care discussed even if they declined? (Discuss DNR or withdrawal of care, Hospice)? @ -No What co-morbidities impacted this encounter? (DM, HTN, Smoking, COPD, CAD, Cancer, CVA, Hep., AIDS, mental health diagnosis, sleep apnea, morbid obesity)? @ -None Was patient admitted / discharged? @ -Admitted. Lab work demonstrates leukocytosis with a white blood cell count of 14.9 and lactic acid of 2.6. Lab work was otherwise unremarkable. Urinalysis negative for signs of infection. CT scan of the abdomen and pelvis reveals no acute process. Patient continued to have intractable pain despite several pain medications. The cause of her pain is not clear at this point. States that she is worried about going home and having to come right back due to being unable to control her symptoms. Patient subsequently admitted to medicine for intractable abdominal pain. Dr. Lopez consulted for further care, who she has been following with for her abdominal pain. Case discussed with ED attending Dr. Lux. Undiagnosed new problem with uncertain prognosis? @ -None Drug Therapy requiring intensive monitoring for toxicity (Heparin, Nitro, Insulin, Cardizem)? @ -None Were any procedures done? @ -None Diagnosis/symptom? @ -Intractable abdominal pain Acute, or Chronic, or Acute on Chronic? @ -Acute Uncomplicated (without systemic symptoms) or Complicated (systemic symptoms)? @ -Uncomplicated Side effects of treatment? @ -None Exacerbation, Progression, or Severe Exacerbation] @ -Not applicable Poses a threat to life or bodily function? @ -Yes, the pain is limiting her ability to function - Lab Data Result diagrams: 07/06/24 08:34 07/06/24 08:34 Lab Results 07/06/24 07/06/24 07/06/24 Range/Units 08:34 08:34 08:34 WBC 14.9 H (3.8-10.6) k/uL RBC 4.10 (3.80-5.40) m/uL Hgb 11.4 (11.4-16.0) gm/dL Hct 36.4 (34.0-46.0) % MCV 88.8 (80.0-100.0) fL MCH 27.8 (25.0-35.0) pg MCHC 31.3 (31.0-37.0) g/dL RDW 17.6 H (11.5-15.5) % Plt Count 361 (150-450) k/uL MPV 8.7 Neutrophils % 82 % Lymphocytes % 11 % Monocytes % 6 % Eosinophils % 0 % Basophils % 0 % Neutrophils # 12.2 H (1.3-7.7) k/uL Lymphocytes # 1.6 (1.0-4.8) k/uL Monocytes # 0.8 (0-1.0) k/uL Eosinophils # 0.0 (0-0.7) k/uL Basophils # 0.0 (0-0.2) k/uL Hypochromasia Moderate Anisocytosis Slight PT 10.7 (10.0-12.5) sec INR 1.0 (<1.2) APTT 22.1 (22.0-30.0) sec Sodium 135 L (137-145) mmol/L Potassium 3.6 (3.5-5.1) mmol/L Chloride 101 (98-107) mmol/L Carbon Dioxide 23 (22-30) mmol/L Anion Gap 11 mmol/L BUN 7 (7-17) mg/dL Creatinine 0.41 L (0.52-1.04) mg/dL Est GFR (CKD-EPI)AfAm >90 (>60 ml/min/1.73 sqM) Est GFR (CKD-EPI)NonAf >90 (>60 ml/min/1.73 sqM) Glucose 109 H (74-99) mg/dL Lactic Ac Sepsis Rflx Plasma Lactic Acid Chema (0.7-2.0) mmol/L Calcium 9.5 (8.4-10.2) mg/dL Magnesium 1.8 (1.6-2.3) mg/dL Total Bilirubin 0.3 (0.2-1.3) mg/dL AST 24 (14-36) U/L ALT 20 (4-34) U/L Alkaline Phosphatase 99 (38-126) U/L Total Protein 7.3 (6.3-8.2) g/dL Albumin 4.1 (3.5-5.0) g/dL Amylase 35 (30-110) U/L Lipase 60 (23-300) U/L Urine Color Urine Appearance (Clear) Urine pH (5.0-8.0) Ur Specific Reseda (1.001-1.035) Urine Protein (Negative) Urine Glucose (UA) (Negative) Urine Ketones (Negative) Urine Blood (Negative) Urine Nitrite (Negative) Urine Bilirubin (Negative) Urine Urobilinogen (<2.0) mg/dL Ur Leukocyte Esterase (Negative) Urine HCG, Qual (Not Detectd) 07/06/24 07/06/24 07/06/24 Range/Units 08:34 08:46 08:46 WBC (3.8-10.6) k/uL RBC (3.80-5.40) m/uL Hgb (11.4-16.0) gm/dL Hct (34.0-46.0) % MCV (80.0-100.0) fL MCH (25.0-35.0) pg MCHC (31.0-37.0) g/dL RDW (11.5-15.5) % Plt Count (150-450) k/uL MPV Neutrophils % % Lymphocytes % % Monocytes % % Eosinophils % % Basophils % % Neutrophils # (1.3-7.7) k/uL Lymphocytes # (1.0-4.8) k/uL Monocytes # (0-1.0) k/uL Eosinophils # (0-0.7) k/uL Basophils # (0-0.2) k/uL Hypochromasia Anisocytosis PT (10.0-12.5) sec INR (<1.2) APTT (22.0-30.0) sec Sodium (137-145) mmol/L Potassium (3.5-5.1) mmol/L Chloride (98-107) mmol/L Carbon Dioxide (22-30) mmol/L Anion Gap mmol/L BUN (7-17) mg/dL Creatinine (0.52-1.04) mg/dL Est GFR (CKD-EPI)AfAm (>60 ml/min/1.73 sqM) Est GFR (CKD-EPI)NonAf (>60 ml/min/1.73 sqM) Glucose (74-99) mg/dL Lactic Ac Sepsis Rflx Plasma Lactic Acid Chema 2.6 H* (0.7-2.0) mmol/L Calcium (8.4-10.2) mg/dL Magnesium (1.6-2.3) mg/dL Total Bilirubin (0.2-1.3) mg/dL AST (14-36) U/L ALT (4-34) U/L Alkaline Phosphatase (38-126) U/L Total Protein (6.3-8.2) g/dL Albumin (3.5-5.0) g/dL Amylase (30-110) U/L Lipase (23-300) U/L Urine Color Yellow Urine Appearance Clear (Clear) Urine pH 6.5 (5.0-8.0) Ur Specific [place] 1.030 (1.001-1.035) Urine Protein Trace H (Negative) Urine Glucose (UA) Negative (Negative) Urine Ketones Negative (Negative) Urine Blood Negative (Negative) Urine Nitrite Negative (Negative) Urine Bilirubin Negative (Negative) Urine Urobilinogen <2.0 (<2.0) mg/dL Ur Leukocyte Esterase Negative (Negative) Urine HCG, Qual Not Detected (Not Detectd) 07/06/24 07/06/24 Range/Units 09:45 12:25 WBC (3.8-10.6) k/uL RBC (3.80-5.40) m/uL Hgb (11.4-16.0) gm/dL Hct (34.0-46.0) % MCV (80.0-100.0) fL MCH (25.0-35.0) pg MCHC (31.0-37.0) g/dL RDW (11.5-15.5) % Plt Count (150-450) k/uL MPV Neutrophils % % Lymphocytes % % Monocytes % % Eosinophils % % Basophils % % Neutrophils # (1.3-7.7) k/uL Lymphocytes # (1.0-4.8) k/uL Monocytes # (0-1.0) k/uL Eosinophils # (0-0.7) k/uL Basophils # (0-0.2) k/uL Hypochromasia Anisocytosis PT (10.0-12.5) sec INR (<1.2) APTT (22.0-30.0) sec Sodium (137-145) mmol/L Potassium (3.5-5.1) mmol/L Chloride (98-107) mmol/L Carbon Dioxide (22-30) mmol/L Anion Gap mmol/L BUN (7-17) mg/dL Creatinine (0.52-1.04) mg/dL Est GFR (CKD-EPI)AfAm (>60 ml/min/1.73 sqM) Est GFR (CKD-EPI)NonAf (>60 ml/min/1.73 sqM) Glucose (74-99) mg/dL Lactic Ac Sepsis Rflx Y Plasma Lactic Acid Chema 1.1 (0.7-2.0) mmol/L Calcium (8.4-10.2) mg/dL Magnesium (1.6-2.3) mg/dL Total Bilirubin (0.2-1.3) mg/dL AST (14-36) U/L ALT (4-34) U/L Alkaline Phosphatase (38-126) U/L Total Protein (6.3-8.2) g/dL Albumin (3.5-5.0) g/dL Amylase (30-110) U/L Lipase (23-300) U/L Urine Color Urine Appearance (Clear) Urine pH (5.0-8.0) Ur Specific [place]eda (1.001-1.035) Urine Protein (Negative) Urine Glucose (UA) (Negative) Urine Ketones (Negative) Urine Blood (Negative) Urine Nitrite (Negative) Urine Bilirubin (Negative) Urine Urobilinogen (<2.0) mg/dL Ur Leukocyte Esterase (Negative) Urine HCG, Qual (Not Detectd) - Radiology Data Radiology results: report reviewed, image reviewed Disposition Clinical Impression: Intractable abdominal pain, Nausea and vomiting Disposition: ADMITTED IP TO THIS HOSP
[2024-07-06] MEDS: SODIUM CHLORIDE 0.9% 1,000 ML IV STA (08:24)
[2024-07-06 08:50] LABS: Partial Thromboplastin Time 22.1 sec (22.0-30.0); Prothrombin Time 10.7 sec (10.0-12.5)
[2024-07-06 08:54] LABS: AST 24 U/L (14-36); African American GFR (CKD) >90 (>60 ml/min/1.73 sqM); Albumin 4.1 g/dL (3.5-5.0); Alkaline Phosphatase 99 U/L (38-126); Amylase 35 U/L (30-110); Anion Gap 11 mmol/L; Blood Urea Nitrogen 7 mg/dL (7-17); Calcium 9.5 mg/dL (8.4-10.2); Carbon Dioxide 23 mmol/L (22-30); Chloride 101 mmol/L (98-107); Glucose 109 mg/dL (74-99); Lipase 60 U/L (23-300); Magnesium 1.8 mg/dL (1.6-2.3); Non-African American GFR(CKD) >90 (>60 ml/min/1.73 sqM); Potassium 3.6 mmol/L (3.5-5.1); Sodium 135 mmol/L (137-145); Total Bilirubin 0.3 mg/dL (0.2-1.3); Total Protein 7.3 g/dL (6.3-8.2)
[2024-07-06 09:06] LABS: Appearance,Urine Clear (Clear); Bilirubin,Urine Negative (Negative); Blood,Urine Negative (Negative); Color,Urine Yellow; Glucose,Urine (UA) Negative (Negative); Ketones,Urine Negative (Negative); Leukocyte Esterase,Urine Negative (Negative); Nitrite,Urine Negative (Negative); PH, Urine 6.5 (5.0-8.0); Protein,Urine Trace (Negative); Urobilinogen,Urine <2.0 mg/dL (<2.0)
[2024-07-06 09:07] LABS: ALT 20 U/L (4-34)
[2024-07-06 09:09] LABS: Anisocytosis Slight; Basophils % (A) 0 %; Eosinophils % (A) 0 %; HCT 36.4 % (34.0-46.0); HGB 11.4 gm/dL (11.4-16.0); Hypochromasia Moderate; Lymphocytes # (A) 1.6 k/uL (1.0-4.8); Lymphocytes % (A) 11 %; MCH 27.8 pg (25.0-35.0); MCHC 31.3 g/dL (31.0-37.0); MCV 88.8 fL (80.0-100.0); Mean Platelet Volume 8.7; Monocytes # (A) 0.8 k/uL (0-1.0); Monocytes % (A) 6 %; Neutrophils # (A) 12.2 k/uL (1.3-7.7); Neutrophils % (A) 82 %; Platelet Count 361 k/uL (150-450); RDW 17.6 % (11.5-15.5); WBC 14.9 k/uL (3.8-10.6)
--- NOTE | 2024-07-06 10:03 | CT ---
EXAMINATION TYPE: CT abdomen pelvis w con DATE OF EXAM: 07/06/2024 COMPARISON: 06/08/2024 HISTORY: RLQ pain, rectal bleeding CT DLP: 547 mGycm CONTRAST: CT scan of the abdomen and pelvis is performed without Oral Contrast and with IV Contrast, patient in jected with 80ml mL of Isovue 300. FINDINGS: LUNG BASES-: No visible nodule. No infiltrate. LIVER/GB: The gallbladder surgically absent. No space occupying hepatic lesion. Biliary tree is of normal caliber. PANCREAS: No inflammation. No distinct mass. SPLEEN: No splenic enlargement. No lesion seen. ADRENALS: No nodule. No thickening. KIDNEYS/BLADDER: No hydronephrosis. No nephrolithiasis. No distinct renal mass. Urinary bladder g rossly unremarkable. BOWEL: Nonvisualization of the appendix. Normal bowel caliber. No inflammation. Gastrointestinal po stoperative changes. GENITAL ORGANS: No gross abnormality. LYMPH NODES: No greater than 1cm abdominal or pelvic lymph nodes are appreciated. AORTA: No significant abnormality. OSSEOUS STRUCTURES: No significant abnormality is seen. OTHER: Small pelvic ascites. IMPRESSION: 1. No acute process seen. [facility] Priti Jurado, , 07/06/2024 10:00 AM
[2024-07-06] MEDS: DICYCLOMINE 10 MG/ML 2 ML AMP IM STA (11:34)
[2024-07-06] MEDS ORDERED: NALOXONE 0.4 MG/ML 1 ML VIAL IV PRN (12:09)
[2024-07-06] MEDS: PANTOPRAZOLE 40 MG TABLET PO SCH (14:05)
[2024-07-06] MEDS: SODIUM CHLORIDE 0.9% 1,000 ML IV SCH (14:06)
[2024-07-06] MEDS: HYDROmorphone 0.5 MG/0.5 ML SYRINGE IVP PRN (14:38)
[2024-07-06] MEDS: ACETAMINOPHEN TAB 500 MG TAB PO PRN (17:31)
[2024-07-06] MEDS: ONDANSETRON 4 MG/2 ML VIAL IVP PRN (18:49)
[2024-07-06] MEDS: ESCITALOPRAM 20 MG TAB PO SCH (20:54)
[2024-07-06] MEDS: busPIRone HCl 10 MG TAB PO SCH (20:54)
[2024-07-06] MEDS: HYDROmorphone 1 MG/ML 1 ML SYRINGE IVP PRN (23:07)
--- NOTE | 2024-07-07 08:39 | P.HPIM ---
History of Present Illness H&P Date: 07/07/24 This is a 43-year-old female who presented to the emergency department with complaints of abdominal pain, nausea, and rectal bleeding. On Saturday patient developed pain in the right lower quadrant. Prior to Saturday all last week she had diarrhea each day she reports. Patient is already following with Dr. Lopez related to pain in the left lower quadrant, and is reportedly scheduled for an outpatient colonoscopy in 2 weeks. She does have a history of gastric bypass. Patient seen this morning laying in bed, she is still complaining of abdominal pain and tenderness. Review of Systems Constitutional: Denies chills, Denies fever Cardiovascular: Denies chest pain, Denies dyspnea on exertion Respiratory: Denies cough, Denies dyspnea Gastrointestinal: Reports abdominal pain, Reports nausea, Reports vomiting Musculoskeletal: Denies arm numbness/tingling, Denies leg numbness/tingling Neurological: Denies headaches, Denies weakness Past Medical History Past Medical History: Blood Disorder, GERD/Reflux Additional Past Medical History / Comment(s): Anemia History of Any Multi-Drug Resistant Organisms: None Reported Past Surgical History: Bariatric Surgery, Cholecystectomy, Hernia Repair Additional Past Surgical History / Comment(s): gastric bypass 2013. ulcer repair 09/2023. EGD 06/10 Past Anesthesia/Blood Transfusion Reactions: No Reported Reaction Past Psychological History: Anxiety, Depression Smoking Status: Former smoker, Light tobacco smoker Past Alcohol Use History: None Reported Past Drug Use History: Marijuana - Past Family History Mother Family Medical History: Unable to Obtain Medications and Allergies Home Medications Medication Instructions Recorded Confirmed Type busPIRone HCL 15 mg PO DAILY 12/31/21 07/06/24 History Acetaminophen Tab [Tylenol] 1,000 mg PO Q6H PRN 09/06/23 07/06/24 History Escitalopram [Lexapro] 20 mg PO HS 09/06/23 07/06/24 History Ondansetron Odt [Zofran ODT] 4 mg PO BID PRN 12/22/23 07/06/24 History busPIRone HCL 30 mg PO HS 06/08/24 07/06/24 History Pantoprazole Sodium [Protonix] 40 mg PO BID 06/17/24 07/06/24 History Ergocalciferol [Vitamin D2 (1250 1,250 mcg PO TU 06/29/24 07/06/24 History Mcg = 34575 Iu)] Allergies Allergy/AdvReac Type Severity Reaction Status Date / Time amoxicillin Allergy Anaphylaxis Verified 07/06/24 12:22 Physical Exam Vitals: Vital Signs Temp Pulse Resp BP Pulse Ox 07/07/24 08:00 98.2 F 65 17 114/61 97 07/07/24 02:00 98.9 F 70 15 108/67 98 07/06/24 20:00 98.9 F 78 17 115/72 98 07/06/24 15:00 98.5 F 70 17 97/55 99 Intake and Output 07/06/24 07/07/24 07/07/24 22:59 06:59 14:59 Intake Total 600 Balance 600 Intake: Intake, IV Titration 600 Amount Sodium Chloride 0.9% 1, 600 000 ml @ 75 mls/hr IV . [id number] [facility] Rx#:[id number] Other: # Voids 2 - Constitutional General appearance: cooperative, no acute distress - EENT Eyes: no PERRLA - Neck Neck: no lymphadenopathy, normal ROM, no rigidity - Respiratory Respiratory: bilateral: CTA - Cardiovascular Rhythm: regular Heart sounds: normal: S1, S2 - Gastrointestinal General gastrointestinal: soft, tenderness Localized gastrointestinal: tender: RLQ, LLQ - Integumentary Integumentary: normal, normal turgor - Psychiatric Psychiatric: A&O x's 3, appropriate affect, intact judgment & insight Results CBC & Chem 7: 07/06/24 08:34 07/06/24 08:34 Labs: Abnormal Lab Results - Last 24 Hours (Table) 07/06/24 07/06/24 07/06/24 Range/Units 08:34 08:34 08:34 WBC 14.9 H (3.8-10.6) k/uL RDW 17.6 H (11.5-15.5) % Neutrophils # 12.2 H (1.3-7.7) k/uL Sodium 135 L (137-145) mmol/L Creatinine 0.41 L (0.52-1.04) mg/dL Glucose 109 H (74-99) mg/dL Plasma Lactic Acid Chema 2.6 H* (0.7-2.0) mmol/L Urine Protein (Negative) 07/06/24 Range/Units 08:46 WBC (3.8-10.6) k/uL RDW (11.5-15.5) % Neutrophils # (1.3-7.7) k/uL Sodium (137-145) mmol/L Creatinine (0.52-1.04) mg/dL Glucose (74-99) mg/dL Plasma Lactic Acid Chema (0.7-2.0) mmol/L Urine Protein Trace H (Negative) Thrombosis Risk Factor Assmnt - Choose All That Apply Any of the Below Risk Factors Present?: No Other Risk Factors: No Other congenital or acquired thrombophilia - If yes, enter type in comment: No Thrombosis Risk Factor Assessment Level: Very Low Risk Assessment and Plan (1) Intractable abdominal pain Current Visit: Yes Status: Acute Code(s): R10.9 - UNSPECIFIED ABDOMINAL PAIN SNOMED Code(s): 06661734 (2) Nausea and vomiting Current Visit: Yes Status: Acute Code(s): R11.2 - NAUSEA WITH VOMITING, UNSPECIFIED SNOMED Code(s): 58282071 (3) GERD (gastroesophageal reflux disease) Current Visit: No Status: Acute Code(s): K21.9 - GASTRO-ESOPHAGEAL REFLUX DISEASE WITHOUT ESOPHAGITIS SNOMED Code(s): 964516433 (4) History of gastric bypass Current Visit: No Status: Acute Code(s): Z98.84 - BARIATRIC SURGERY STATUS SNOMED Code(s): 067449621 Plan: Continue home medications. Surgeon has been consulted, await their recommendations. Check CBC and CMP in the morning. Patient seen and evaluated by nurse practitioner, physician in agreement with plan
[2024-07-07] MEDS: busPIRone HCl 5 MG TAB PO SCH (08:48)
[2024-07-07] MEDS: ERGOCALCIFEROL 1,250 MCG (50,000 IU) CAPSULE PO SCH (08:54)
[2024-07-07] MEDS ORDERED: PANTOPRAZOLE 40 MG/10 ML VIAL IV SCH (09:00)
--- NOTE | 2024-07-07 15:20 | P.GSCN ---
History of Present Illness Consult date: 07/07/24 History of present illness: CHIEF COMPLAINT: Abdominal pain HISTORY OF PRESENT ILLNESS: This is a 43-year-old female who presented to the hospital with complaints of right lower quadrant and left lower quadrant abdominal pain with nausea and rectal bleeding. Patient reports last week she had multiple frequent episodes of diarrhea. The diarrhea has now resolved. And now she is passing blood from the rectum. Patient had recent EGD on 06/10/[address] Lopez that had reported acute gastritis without bleeding. Patient's past surgical history includes a Emelyn-en-Y gastric bypass, gastric ulcer repair, hiatal hernia repair, lysis of adhesions and reduction and closure of internal hernia in March 2024. Patient was due to have a colonoscopy in [address] Lopez. PAST MEDICAL HISTORY: See list. PAST SURGICAL HISTORY: See list. MEDICATIONS: See list. ALLERGIES: See list. SOCIAL HISTORY: No illicit drug use. REVIEW OF SYSTEMS: CONSTITUTIONAL: Denies fever or chills. HEENT: Denies blurred vision, vision changes, or eye pain. Denies hemoptysis ENDOCRINE: Denies heat or cold intolerance. CARDIOVASCULAR: Denies chest pain or pressure. RESPIRATORY: No shortness of breath. GASTROINTESTINAL: Please refer to HPI otherwise unremarkable. NEURO: Denies history of seizures. PSYCH: No depression or suicidal ideation HEMATOLOGIC: Denies bleeding disorders. LYMPHATIC: The patient denies any lumps and bumps around the neck. GENITOURINARY: Denies any blood in urine or increased urinary frequency. MUSCULOSKELETAL: Denies myalgias. Denies joint swelling. Denies decreased range of motion beyond patients baseline. SKIN: Denies pruitis. Denies rash. PHYSICAL EXAM: VITAL SIGNS: Reviewed GENERAL: Well-developed in no acute distress. HEENT: No sclera icterus. Extraocular movements grossly intact. Moist buccal mucosa. Head is atraumatic, normocephalic. Hears conversational speech. No nasal drainage. NECK: Supple without lymphadenopathy. CHEST: Non-labored respirations and equal bilateral excursions. CARDIOVASCULAR: Palpable 2+ radial pulses. ABDOMEN: Soft. Nondistended. Tenderness to palpation in the right lower quadrant and left lower quadrant of the abdomen. No guarding or rebound tenderness noted. MUSCULOSKELETAL: No clubbing or cyanosis. NEUROLOGIC: No focal or lateralizing signs. Cranial nerves II through XII grossly intact. PSYCH: Appropriate affect. Alert and oriented to person, place and time. SKIN: Well perfused. Good skin turgor. LABORATORY DATA: WBC is 14.9 Hgb 11.4 platelets 361 Sodium 135 potassium 3.6 creatinine 0.41 Lactic acid elevated at 2.6 down to 1.1 Magnesium 1.8 LFTs normal Lipase 60 Urinalysis negative for infection IMAGING: CT scan abdomen pelvis reports no acute process seen ASSESSMENT: 1. Acute GI bleed with bright red blood per rectum 2. Right lower quadrant and left lower quadrant abdominal pain 3. Elevated lactic acid level improved with IV fluids 3. Leukocytosis 4. History of Emelyn-en-Y gastric bypass 5. History of lysis of adhesions and reduction and closure of internal hernia in March 2024 PLAN: -Patient scheduled for colonoscopy tomorrow with Dr. Lopez -Start clear liquid diet -N.p.o. after midnight -GoLytely bowel prep with lactulose ordered -Continue IV fluids -Continue supportive care Physician International Editorial Producer note has been reviewed by physician. Signing provider agrees with the documented findings, assessment, and plan of care. Past Medical History Past Medical History: Blood Disorder, GERD/Reflux Additional Past Medical History / Comment(s): Anemia History of Any Multi-Drug Resistant Organisms: None Reported Past Surgical History: Bariatric Surgery, Cholecystectomy, Hernia Repair Additional Past Surgical History / Comment(s): gastric bypass 2013. ulcer repair 09/2023. EGD 06/10 Past Anesthesia/Blood Transfusion Reactions: No Reported Reaction Past Psychological History: Anxiety, Depression Smoking Status: Former smoker, Light tobacco smoker Past Alcohol Use History: None Reported Past Drug Use History: Marijuana - Past Family History Mother Family Medical History: Unable to Obtain Medications and Allergies Home Medications Medication Instructions Recorded Confirmed Type busPIRone HCL 15 mg PO DAILY 12/31/21 07/06/24 History Acetaminophen Tab [Tylenol] 1,000 mg PO Q6H PRN 09/06/23 07/06/24 History Escitalopram [Lexapro] 20 mg PO HS 09/06/23 07/06/24 History Ondansetron Odt [Zofran ODT] 4 mg PO BID PRN 12/22/23 07/06/24 History busPIRone HCL 30 mg PO HS 06/08/24 07/06/24 History Pantoprazole Sodium [Protonix] 40 mg PO BID 06/17/24 07/06/24 History Ergocalciferol [Vitamin D2 (1250 1,250 mcg PO TU 06/29/24 07/06/24 History Mcg = 01108 Iu)] Allergies Allergy/AdvReac Type Severity Reaction Status Date / Time amoxicillin Allergy Anaphylaxis Verified 07/06/24 12:22 Surgical - Exam Vital Signs Temp Pulse Resp BP Pulse Ox 98 F 99 20 107/69 99 07/06/24 07:58 07/06/24 07:58 07/06/24 07:58 07/06/24 07:58 07/06/24 07:58 Results - Labs 07/06/24 08:34 07/06/24 08:34
[2024-07-07] MEDS: LACTULOSE 20 GM/30 ML CUP PO ONE (15:30)
[2024-07-07] MEDS: PEG 3350 (236 GM/BTL) + LYTES 4,000 ML BOTTLE PO ONE (15:30)
--- NOTE | 2024-07-08 08:44 | P.PN ---
Subjective Progress Note Date: 07/08/24 Principal diagnosis: Acute GI bleed with chronic abdominal pain 43-year-old white female with history of off-site Emelyn-en-Y bypass with recurrent abdominal pain. The patient has acute GI bleed and is now scheduled for colonoscopy this morning. She feels proved and a little more comfortable. Is to be tolerating clear liquid yesterday Objective - Vital Signs Vital signs: Vital Signs Temp 98 F 07/08/24 07:54 Pulse 60 07/08/24 07:54 Resp 16 07/08/24 07:54 BP 120/75 07/08/24 07:54 Pulse Ox 97 07/08/24 07:54 FiO2 Intake & Output 07/07/24 07/08/24 07/08/24 18:59 06:59 18:59 Intake Total 900 Balance 900 Intake: Intake, IV Titration 900 Amount Sodium Chloride 0.9% 1, 900 000 ml @ 75 mls/hr IV . [id number] JONATHAN Rx#:[id number] Other: Voiding Method Toilet # Voids 2 3 - Constitutional General appearance: Present: thin - EENT Eyes: Absent: abnormal pupil - Neck Neck: Absent: lymphadenopathy - Respiratory Respiratory: bilateral: diminished - Cardiovascular Rhythm: regular Heart sounds: normal: S1, S2 Abnormal Heart Sounds: Absent: S3 Gallop - Gastrointestinal General gastrointestinal: Present: soft, tenderness - Integumentary Integumentary: Absent: cellulitis - Labs CBC & Chem 7: 07/06/24 08:34 07/06/24 08:34 Assessment and Plan (1) Abdominal pain Current Visit: No Status: Acute Code(s): R10.9 - UNSPECIFIED ABDOMINAL PAIN SNOMED Code(s): 94078105 (2) GERD (gastroesophageal reflux disease) Current Visit: No Status: Acute Code(s): K21.9 - GASTRO-ESOPHAGEAL REFLUX DISEASE WITHOUT ESOPHAGITIS SNOMED Code(s): 127024953 (3) History of gastric bypass Current Visit: No Status: Acute Code(s): Z98.84 - BARIATRIC SURGERY STATUS SNOMED Code(s): 752554888 Plan: Appreciate surgical input. Await colonoscopy. See orders otherwise.
[2024-07-08 10:45] LABS: HCT 32.9 % (37.2-46.3); HGB 10.2 g/dL (12.0-15.0); MCH 27.8 pg (27.0-32.0); MCV 89.6 FL (80.0-97.0); RBC 3.67 X 10*6/uL (4.10-5.20); RDW 18.5 % (11.5-14.5); WBC 7.08 X 10*3/uL (4.50-10.00)
[2024-07-08 10:46] LABS: Mean Platelet Volume 11.1 FL (9.5-12.2); NRBC Per 100 WBC 0 X 10*3/uL (0.00-0.01); Platelet Count 330 X 10*3/uL (140-440)
[2024-07-08 11:39] LABS: ALT 10 U/L (8-44); AST 13 U/L (13-35); Albumin 3.4 g/dL (3.8-4.9); Albumin/Globulin Ratio 1.42 Ratio (1.60-3.17); Alkaline Phosphatase 95 U/L (41-126); BUN/Creat Ratio <7.00 Ratio (12.00-20.00); Blood Urea Nitrogen <3.5 mg/dL (9.0-27.0); Calcium 8.4 mg/dL (8.7-10.3); Carbon Dioxide 27.2 mmol/L (21.6-31.8); Chloride 105 mmol/L (96-109); Globulin 2.4 g/dL (1.6-3.3); Glucose 84 mg/dL (70-110); Potassium 3.8 mmol/L (3.5-5.5); Sodium 140 mmol/L (135-145); Total Bilirubin <0.2 mg/dL (0.3-1.2); Total Protein 5.8 g/dL (6.2-8.2)
[2024-07-08] MEDS: LACTATED RINGERS 1,000 ML IV ONE (13:43)
[2024-07-08] MEDS ORDERED: LIDOCAINE 1% INJ 10MG/ML (20 ML MDV) ONE (13:44)
[2024-07-08] MEDS ORDERED: PROPOFOL 10 MG/ML 20 ML VIAL IV ONE (13:44)
--- NOTE | 2024-07-08 14:15 | P.PCN ---
Date of Procedure: 07/08/24 Description of Procedure: PREOPERATIVE DIAGNOSIS: Gastrointestinal bleeding with hematochezia POSTOPERATIVE DIAGNOSIS: Sigmoid diverticulosis OPERATION: Colonoscopy to the cecum, ileocecal valve and appendiceal orifice SURGEON: Renuka Lopez MD. ANESTHESIA: MAC. INDICATIONS: The patient is a 43-year-old female who presents with gastrointestinal bleeding and hematochezia. Benefits and risks were described and informed consent was obtained. DESCRIPTION OF PROCEDURE: The patient had undergone attempted Golytely prep 4 L. The patient had been brought into the operating room and laid in the left lateral decubitus position. After adequate intravenous sedation, the rectum was examined with 2% lidocaine jelly. Rectal tone within normal limits. An Olympus colonoscope was gently advanced to the cecum with clear visualization of the ileocecal valve including appendiceal orifice. The prep was good. Moderate with redundancy sigmoid diverticulosis was encountered without active bleeding. No active colonic bleeding was found. No intraluminal masses were identified within the colon. No colonic polyps were found. No evidence of focal colitis was found. Retroflexion of the scope demonstrated grade 1 internal hemorrhoids with recent inflammation. The colon was desufflated. The patient had tolerated the procedure well. Withdrawal time was over 6 minutes. FINDINGS: Aronchick preparation quality scale 2 (1-5) Internal hemorrhoids, grade 1 No external hemorrhoids, prolapse. No thrombosed hemorrhoid identified. No arteriovenous malformations. No adenomatous polyps. No focal colitis. Sigmoid diverticulosis with pandiverticulosis, highly redundant colon RECOMMENDATIONS: 1. Diet as tolerated 2. Recommend 25-30 g of fiber for sigmoid diverticulosis 3. Repeat colonoscopy screening age, 46, 4 years 2026
[2024-07-08] MEDS: ACETAMINOPHEN TAB 325 MG TAB PO PRN (22:15)
[2024-07-09 07:44] VITALS: RESP 16
[2024-07-09] MEDS: ONDANSETRON ODT 4 MG TAB PO PRN (08:06)
--- NOTE | 2024-07-09 08:45 | P.DS ---
Providers Date of admission: 07/06/24 12:49 Attending physician: Alexys Adams Consults: 07/06/24 12:09 Consult Physician Urgent Consulting Provider: Renuka Lopez Consult Reason/Comments: Intractable abdominal pain Do you want consulting provider notified?: Yes Primary care physician: Alexys Adams - Discharge Diagnosis(es) (1) Intractable abdominal pain Current Visit: Yes Status: Acute (2) Nausea and vomiting Current Visit: Yes Status: Acute (3) GERD (gastroesophageal reflux disease) Current Visit: No Status: Acute (4) History of gastric bypass Current Visit: No Status: Acute (5) Sigmoid diverticulosis Current Visit: Yes Status: Acute Hospital Course: This is a 43-year-old female who presented to the emergency department with complaints of abdominal pain, nausea, and rectal bleeding. On Saturday patient developed pain in the right lower quadrant. Prior to Saturday all last week she had diarrhea each day she reports. She does have a history of gastric bypass. Yesterday patient underwent a colonoscopy with Dr. Lopez which showed sigmoid diverticulosis. Patient reports she is feeling better today. Her vitals are stable. Patient may be discharged home today if cleared by surgeon. She already has an outpatient follow-up with Dr. Bahena later this month. Patient seen and evaluated by nurse practitioner, physician in agreement with plan. Patient Condition at Discharge: Fair Plan - Discharge Summary Discharge Rx Participant: Yes New Discharge Prescriptions: New Pantoprazole [Protonix] 40 mg PO DAILY #90 tab Continue busPIRone HCL 15 mg PO DAILY Acetaminophen Tab [Tylenol] 1,000 mg PO Q6H PRN PRN Reason: Pain Escitalopram [Lexapro] 20 mg PO HS Ondansetron Odt [Zofran ODT] 4 mg PO BID PRN PRN Reason: Nausea busPIRone HCL 30 mg PO HS Ergocalciferol [Vitamin D2 (1250 Mcg = 32610 Iu)] 1,250 mcg PO TU Discontinued Pantoprazole Sodium [Protonix] 40 mg PO BID Discharge Medication List busPIRone HCL 15 mg PO DAILY 12/31/21 [History] Acetaminophen Tab [Tylenol] 1,000 mg PO Q6H PRN 09/06/23 [History] Escitalopram [Lexapro] 20 mg PO HS 09/06/23 [History] Ondansetron Odt [Zofran ODT] 4 mg PO BID PRN 12/22/23 [History] busPIRone HCL 30 mg PO HS 06/08/24 [History] Ergocalciferol [Vitamin D2 (1250 Mcg = 87441 Iu)] 1,250 mcg PO TU 06/29/24 [History] Pantoprazole [Protonix] 40 mg PO DAILY #90 tab 07/09/24 [Rx] Follow up Appointment(s)/Referral(s): Alexys Adams MD [Primary Care Provider] [facility] [place] [facility] - 07/15/24 Patient Instructions/Handouts: Diverticulosis (ED), Diverticulosis Diet (GEN) Discharge Disposition: HOME SELF-CARE
--- NOTE | 2024-07-09 11:40 | P.PN ---
Subjective Progress Note Date: 07/09/24 CHIEF COMPLAINT: GI bleed HISTORY OF PRESENT ILLNESS: Patient is status post colonoscopy with results rep orting sigmoid diverticulosis with pandiverticulosis and highly redundant colon. Patient did have vomiting yesterday with a regular diet. Diet was changed to low fiber with no seeds no nuts. Past patient now tolerating diet. Her pain is controlled. She feels ready for discharge. She is afebrile. She has been up and ambulating. WBC is 7.08 hemoglobin stable at 10.2 PHYSICAL EXAM: VITAL SIGNS: Reviewed. GENERAL: Well-developed in no acute distress. HEENT: No sclera icterus. Extraocular movements grossly intact. Moist buccal mucosa. Head is atraumatic, normocephalic. ABDOMEN: Soft. Nondistended. NEUROLOGIC: Alert and oriented. Cranial nerves II through XII grossly intact. ASSESSMENT: 1. Acute GI bleed status post colonoscopy with evidence of sigmoid diverticulosis and pandiverticulosis 2. Highly redundant colon noted on colonoscopy 3. History of Emelyn-en-Y gastric bypass PLAN: -Patient is stable for discharge from surgical standpoint -Recommend 25-30 g of fiber for sigmoid diverticulosis -Repeat colonoscopy screening age, 46, 4 years 2026 -Continue low fiber diet with no seeds or nuts Physician Fire Alarm Mechanic note has been reviewed by physician. Signing provider agrees with the documented findings, assessment, and plan of care. Objective - Vital Signs Vital signs: Vital Signs Temp 98.1 F 07/09/24 07:43 Pulse 62 07/09/24 07:43 Resp 16 07/09/24 07:43 BP 112/64 07/09/24 07:43 Pulse Ox 100 07/09/24 07:43 FiO2 Intake & Output 07/08/24 07/09/24 07/09/24 18:59 06:59 18:59 Intake Total 300 Balance 300 Intake: IV 300 Other: Voiding Method Toilet # Voids 0 - Labs CBC & Chem 7: 07/08/24 05:31 07/08/24 05:31 Labs: Abnormal Lab Results - Last 24 Hours (Table) 07/08/24 07/08/24 Range/Units 05:31 05:31 RBC 3.67 L (4.10-5.20) X 10*6/uL Hgb 10.2 L (12.0-15.0) g/dL Hct 32.9 L (37.2-46.3) % MCHC 31.0 L (32.0-37.0) g/dL RDW 18.5 H (11.5-14.5) % BUN <3.5 L (9.0-27.0) mg/dL Creatinine 0.5 L (0.6-1.5) mg/dL BUN/Creatinine Ratio <7.00 L (12.00-20.00) Ratio Calcium 8.4 L (8.7-10.3) mg/dL Total Bilirubin <0.2 L (0.3-1.2) mg/dL Total Protein 5.8 L (6.2-8.2) g/dL Albumin 3.4 L (3.8-4.9) g/dL Albumin/Globulin Ratio 1.42 L (1.60-3.17) Ratio
[2024-07-09 13:46] VITALS: BP 111/68; PULSE 66; TEMP 98.8
== END 2024-07-09 15:31 | disposition home or self-care (01) ==
LOC: EC 07:53 → 1SOBS 12:49 → 4SSUR 07-07 17:51
PROVIDERS: ADMIT Family Medicine; ATTEND Family Medicine
DX: K92.1 Melena (principal); K57.30 Diverticulosis of large intestine without perforation or abscess without bleeding; K64.0 First degree hemorrhoids; K21.9 Gastro-esophageal reflux disease without esophagitis; D72.829 Elevated white blood cell count, unspecified; G89.29 Other chronic pain; E87.20 Acidosis, unspecified; F32.A Depression, unspecified; F41.9 Anxiety disorder, unspecified; Z88.0 Allergy status to penicillin; Z79.899 Other long term (current) drug therapy; Z98.84 Bariatric surgery status; Z87.891 Personal history of nicotine dependence
CPT/HCPCS: 96376 ×5; 96372; 96374; 96375; 99285; 36415; 80053 ×2; 82150; 83605; 83690; 83735; 85025; 85027; 85610; 85730; 81003; 81025; 74177; 45378; G0378 ×4; J0500; J2405 ×3; J2003; J1171 ×7; J2704; Q9967

== ENCOUNTER → 2024-07-15 | Outpatient (CLI) | payer BC ==
[2024-07-15 16:42] VITALS: BP 115/73; PULSE 75; RESP 16; TEMP 98; BMI 19.4
--- NOTE | 2024-07-15 16:48 | P.BASOAP ---
Subjective Progress Note Date: 07/15/24 No more bleeding. Sigmoid diverticulosis with pain, LLQ. Sigmoid colectomy. Okay with follow up with Dr Bahena. Objective - Vital Signs Vital signs: Vital Signs Temp 98.0 F 07/15/24 16:34 Pulse 75 07/15/24 16:34 Resp 16 07/15/24 16:34 BP 115/73 07/15/24 16:34 Pulse Ox FiO2 Intake & Output 07/14/24 07/15/24 07/15/24 18:59 06:59 18:59 Weight 53.07 kg Assessment/Plan Plan: Date: 07/15/24 Initial Weight: Initial BMI: Current Weight: 53.07 kg Current BMI: 19.4 Type of Surgery: Total Volume in Band: Previous Volume: Volume Removed: Volume Added: Band Size:
== END ==
LOC: BARWHC3 15:29
PROVIDERS: ATTEND Surgery Plastic and Reconstructive Surgery
DX: E66.01 Morbid (severe) obesity due to excess calories (principal); R10.32 Left lower quadrant pain; K57.90 Diverticulosis of intestine, part unspecified, without perforation or abscess without bleeding; Z98.890 Other specified postprocedural states; Z88.0 Allergy status to penicillin; Z68.1 Body mass index [BMI] 19.9 or less, adult
CPT/HCPCS: 99211

== ENCOUNTER → 2024-07-29 | Outpatient (CLI) | payer BC ==
[2024-07-29 16:01] VITALS: BP 107/63; PULSE 76; RESP 16; TEMP 97.7; BMI 19.7
--- NOTE | 2024-07-29 16:30 | P.BASOAP ---
Subjective Progress Note Date: 07/29/24 She was started on bentyl per Dr Bahnea and she reports it did not help her. She reports chronic diarrhea. She is getting 40 grams. She is drinking protein shakes. She has nausea and pain. She cannot drink water. She is still smoking. Needs urine nicotine. Smoking relieves her anxiety. CMP. No hospital. No follow up with Dr Adams. JALEESA in 3 weeks. Vitamins checked. Needs labs in 3 weeks. Objective - Vital Signs Vital signs: Vital Signs Temp 97.7 F 07/29/24 15:51 Pulse 76 07/29/24 15:51 Resp 16 07/29/24 15:51 BP 107/63 07/29/24 15:51 Pulse Ox FiO2 Intake & Output 07/28/24 07/29/24 07/29/24 18:59 06:59 18:59 Weight 52.163 kg Assessment/Plan Plan: Date: 07/29/24 Initial Weight: Initial BMI: Current Weight: 52.163 kg Current BMI: 19.7 Type of Surgery: Total Volume in Band: Previous Volume: Volume Removed: Volume Added: Band Size:
== END ==
LOC: BARWHC3 14:40
PROVIDERS: ATTEND Surgery Plastic and Reconstructive Surgery
DX: E66.01 Morbid (severe) obesity due to excess calories (principal); K52.9 Noninfective gastroenteritis and colitis, unspecified; R11.0 Nausea; R52 Pain, unspecified; F17.210 Nicotine dependence, cigarettes, uncomplicated; Z68.1 Body mass index [BMI] 19.9 or less, adult; Z88.0 Allergy status to penicillin
CPT/HCPCS: 99211

== ENCOUNTER 2024-08-02 12:27 | Emergency (ER) | payer BC ==
[2024-08-02 13:06] LABS: Anisocytosis Moderate; Basophils % (A) 0 %; Eosinophils # (A) 0.1 k/uL (0-0.7); Eosinophils % (A) 1 %; HCT 41.6 % (34.0-46.0); Hypochromasia Slight; Lymphocytes # (A) 1.3 k/uL (1.0-4.8); Lymphocytes % (A) 8 %; MCHC 31.2 g/dL (31.0-37.0); MCV 92.9 fL (80.0-100.0); Macrocytosis Slight; Mean Platelet Volume 8.3; Monocytes # (A) 0.6 k/uL (0-1.0); Monocytes % (A) 4 %; Neutrophils # (A) 13.8 k/uL (1.3-7.7); Neutrophils % (A) 86 %; Platelet Count 368 k/uL (150-450); RBC 4.48 m/uL (3.80-5.40); RDW 20.1 % (11.5-15.5)
--- NOTE | 2024-08-02 13:22 | ED ---
General Adult HPI - General Chief complaint: Abdominal Pain Stated complaint: Abd pain,vomiting Time Seen by Provider: 08/02/24 12:36 Source: patient Mode of arrival: ambulatory Limitations: no limitations - History of Present Illness Initial comments: Dictation was produced using [employer] dictation software. please excuse any grammatical, word or spelling errors. Chief Complaint: 43-year-old female presents to the emergency department for abdominal pain History of Present Illness: Patient is a 43-year-old female presents emergency department for acute on chronic abdominal pain. Patient has a history of chronic abdominal pain. She is allegedly scheduled to get colectomy procedure for what she describes as a kink in her bowel. Denies any fever, chills or night sweats. States that it feels like her usual abdominal symptom pain. Denies any vomiting. States there is some streaks of blood in her emesis and stool The ROS documented in this emergency department record has been reviewed and confirmed by me. Those systems with pertinent positive or negative responses have been documented in the HPI. All other systems are other negative and/or noncontributory. - Related Data Home Medications Medication Instructions Recorded Confirmed busPIRone HCL 15 mg PO DAILY 12/31/21 07/29/24 Acetaminophen Tab [Tylenol] 1,000 mg PO Q6H PRN 09/06/23 07/29/24 Escitalopram [Lexapro] 20 mg PO HS 09/06/23 07/29/24 Ondansetron Odt [Zofran ODT] 4 mg PO BID PRN 12/22/23 07/29/24 busPIRone HCL 30 mg PO HS 06/08/24 07/29/24 Ergocalciferol [Vitamin D2 (1250 1,250 mcg PO TU 06/29/24 07/29/24 Mcg = 86942 Iu)] Previous Rx's Medication Instructions Recorded Pantoprazole [Protonix] 40 mg PO DAILY #90 tab 07/09/24 Allergies Allergy/AdvReac Type Severity Reaction Status Date / Time amoxicillin Allergy Anaphylaxis Verified 08/02/24 12:34 Review of Systems ROS Statement: Those systems with pertinent positive or pertinent negative responses have been documented in the HPI. ROS Other: All systems not noted in ROS Statement are negative. Past Medical History Past Medical History: Blood Disorder, GERD/Reflux Additional Past Medical History / Comment(s): Anemia History of Any Multi-Drug Resistant Organisms: None Reported Past Surgical History: Bariatric Surgery, Cholecystectomy, Hernia Repair Additional Past Surgical History / Comment(s): gastric bypass 2013. ulcer repair 09/2023. EGD 06/10 Past Anesthesia/Blood Transfusion Reactions: No Reported Reaction Past Psychological History: Anxiety, Depression Smoking Status: Former smoker Past Alcohol Use History: None Reported Past Drug Use History: Marijuana - Past Family History Mother Family Medical History: Unable to Obtain General Exam - General Exam Comments Initial Comments: PHYSICAL EXAM: General Impression: Alert and oriented x3, not in acute distress HEENT: Normocephalic atraumatic, extra-ocular movements intact, pupils equal and reactive to light bilaterally, mucous membranes moist. Cardiovascular: Heart regular rate and rhythm Chest: Able to complete full sentences, no retractions, no tachypnea Abdomen: abdomen soft, non-tender, non-distended, no organomegaly Musculoskeletal: Pulses present and equal in all extremities, no peripheral edema Motor: no focal deficits noted Neurological: CN II-XII grossly intact, no focal motor or sensory deficits noted Skin: Intact with no visualized rashes Psych: Normal affect and mood Limitations: no limitations Course Vital Signs 08/02/24 08/02/24 12:33 13:38 Temperature 98.5 F 97.6 F Pulse Rate 81 76 Respiratory 16 20 Rate Blood Pressure 116/67 134/72 O2 Sat by Pulse 100 100 Oximetry Medical Decision Making - Medical Decision Making Was pt. sent in by a medical professional or institution (PALOMO Fontenot, WEB CONTENT EXECUTIVE, urgent care, hospital, or detention...) When possible be specific @ -No Did you speak to anyone other than the patient for history (EMS, parent, family, police, friend...)? What history was obtained from this source @ -No Did you review nursing and triage notes (agree or disagree)? Why? @ -I reviewed and agree with nursing and triage notes Were old charts reviewed (outside hosp., previous admission, EMS record, old EKG, old radiological studies, urgent care reports/EKG's, detention records)? Report findings @ -Previous labs were reviewed showing that patient frequently has leukocytosis Differential Diagnosis (chest pain, altered mental status, abdominal pain women, abdominal pain men, vaginal bleeding, musculoskeletal, weakness, fever, dyspnea, syncope, headache, dizziness, GI bleed, back pain, seizure, CVA, palpatations, mental health)? @ -Differential Abdominal Pain Women: Appendicitis, Cholecystitis, diverticulosis, ischemic bowel, pancreatitis, hepa titis, UTI, gastroenteritis, AAA, incarcerated hernia, bowel obstruction, constipation, inflammatory bowel, hepatitis, peptic ulcer disease, splenic infarction, perforated viscus, vulvitis, ovarian torsion, PID, kidney stone, placenta abruption, this is not meant to be an all-inclusive list EKG interpreted by me (3pts min.). @ -None done X-rays interpreted by me (1pt min.). @ -None done CT interpreted by me (1pt min.). @ -None done U/S interpreted by me (1pt. min.). @ -None done What testing was considered but not performed or refused? (CT, X-rays, U/S, labs)? Why? @ -None What meds were considered but not given or refused? Why? @ -None Was smoking cessation discussed for >3mins.? @ -No Were there social determinants of health that impacted care today? How? (Homelessness, low income, unemployed, alcoholism, drug addiction, transportation, low edu. Level, literacy, decrease access to med. care, halfway, rehab)? @ -No Was there de-escalation of care discussed even if they declined (Discuss DNR or withdrawal of care, Hospice)? DNR status @ -No What co-morbidities impacted this encounter? (DM, HTN, Smoking, COPD, CAD, Cancer, CVA, ARF, Chemo, Hep., AIDS, mental health diagnosis, sleep apnea, morbid obesity)? @ -None Was patient admitted / discharged? Hospital course, mention meds given and route, prescriptions, significant lab abnormalities, going to OR and other pertinent info. @ -43-year-old well-appearing female with chronic abdominal pain presents to the ER for abdominal pain. Vital signs are stable. Patient's abdomen is soft. Laboratory evaluation obtained. Leukocytosis 16.0. Patient has history of leukocytosis. Rest of labs negative. Patient given analgesics with improvement of symptoms. Patient told to follow-up with her primary care doctor and surge on for further care. Did you discuss the management of the patient with other professionals (patience butt ichuy Fontenot, PA, WEB CONTENT EXECUTIVE, lab, RT, psych nurse, sexual assault social worker, safety teacher, teacher, chief financial officer, corrections caseworker)? Give summary @ -No Was critical care preformed (if so, how long)? @ -No Undiagnosed new problem with uncertain prognosis? @ -No Drug Therapy requiring intensive monitoring for toxicity (Heparin, Nitro, Insulin, Cardizem)? @ -No Were any procedures done? @ -No Diagnosis/symptom? Acute, or Chronic, or Acute on Chronic? Uncomplicated (without systemic symptoms) or Complicated (systemic symptoms)? @ -Chronic abdominal pain Side effects of treatment? @ -No Exacerbation, Progression, or Severe Exacerbation? @ -No Poses a threat to life or bodily function? How? (Chest pain, [place], [place], pneumonia, PE, COPD, DKA, ARF, appy, cholecystitis, CVA, Diverticulitis, Homicidal, Suicidal, threat to staff... and all critical care pts) @ -No - Lab Data Result diagrams: 08/02/24 12:57 08/02/24 12:57 Lab Results 08/02/24 08/02/24 Range/Units 12:57 12:57 WBC 16.0 H (3.8-10.6) k/uL RBC 4.48 (3.80-5.40) m/uL Hgb 13.0 (11.4-16.0) gm/dL Hct 41.6 (34.0-46.0) % MCV 92.9 (80.0-100.0) fL MCH 29.0 (25.0-35.0) pg MCHC 31.2 (31.0-37.0) g/dL RDW 20.1 H (11.5-15.5) % Plt Count 368 (150-450) k/uL MPV 8.3 Neutrophils % 86 % Lymphocytes % 8 % Monocytes % 4 % Eosinophils % 1 % Basophils % 0 % Neutrophils # 13.8 H (1.3-7.7) k/uL Lymphocytes # 1.3 (1.0-4.8) k/uL Monocytes # 0.6 (0-1.0) k/uL Eosinophils # 0.1 (0-0.7) k/uL Basophils # 0.0 (0-0.2) k/uL Hypochromasia Slight Anisocytosis Moderate Macrocytosis Slight Sodium 135 L (137-145) mmol/L Potassium 4.0 (3.5-5.1) mmol/L Chloride 101 (98-107) mmol/L Carbon Dioxide 23 (22-30) mmol/L Anion Gap 11 mmol/L BUN 8 (7-17) mg/dL Creatinine 0.46 L (0.52-1.04) mg/dL Est GFR (CKD-EPI)AfAm >90 (>60 ml/min/1.73 sqM) Est GFR (CKD-EPI)NonAf >90 (>60 ml/min/1.73 sqM) Glucose 121 H (74-99) mg/dL Calcium 9.6 (8.4-10.2) mg/dL Total Bilirubin 0.3 (0.2-1.3) mg/dL AST 28 (14-36) U/L ALT 22 (4-34) U/L Alkaline Phosphatase 83 (38-126) U/L Total Protein 7.7 (6.3-8.2) g/dL Albumin 4.4 (3.5-5.0) g/dL Disposition Clinical Impression: Abdominal pain Disposition: HOME SELF-CARE Condition: Good Instructions (If sedation given, give patient instructions): Abdominal Pain (ED) Is patient prescribed a controlled substance at d/c from ED?: No Referrals: Alexys Adams MD [Primary Care Provider] - 1-2 days Time of Disposition: 14:42
[2024-08-02 13:23] LABS: AST 28 U/L (14-36); African American GFR (CKD) >90 (>60 ml/min/1.73 sqM); Albumin 4.4 g/dL (3.5-5.0); Alkaline Phosphatase 83 U/L (38-126); Anion Gap 11 mmol/L; Blood Urea Nitrogen 8 mg/dL (7-17); Calcium 9.6 mg/dL (8.4-10.2); Carbon Dioxide 23 mmol/L (22-30); Chloride 101 mmol/L (98-107); Glucose 121 mg/dL (74-99); Non-African American GFR(CKD) >90 (>60 ml/min/1.73 sqM); Sodium 135 mmol/L (137-145); Total Bilirubin 0.3 mg/dL (0.2-1.3); Total Protein 7.7 g/dL (6.3-8.2)
[2024-08-02 13:32] LABS: ALT 22 U/L (4-34)
[2024-08-02] MEDS: ONDANSETRON 4 MG/2 ML VIAL IVP STA (13:32)
[2024-08-02] MEDS: HYDROmorphone 1 MG/ML 1 ML SYRINGE IVP STA ×2 (13:33→14:56)
[2024-08-02 15:11] VITALS: BP 130/69; PULSE 72; RESP 17; TEMP 97.9
== END 2024-08-02 15:04 | disposition home or self-care (01) ==
LOC: EC 12:27
DX: G89.29 Other chronic pain (principal); R10.9 Unspecified abdominal pain; Z88.0 Allergy status to penicillin; Z87.891 Personal history of nicotine dependence
CPT/HCPCS: 36415; 80053; 85025; 99284; 96374; 96375; 96376; J2405; J1171; 96361

== ENCOUNTER → 2024-08-19 | Outpatient (CLI) | payer BC ==
[2024-08-19 14:37] VITALS: BP 103/71; PULSE 83; RESP 16; TEMP 98.3; BMI 18.9
--- NOTE | 2024-08-19 22:08 | P.PN ---
Progress Note - Text Progress Note Date: 08/19/24 Nurse visit only
== END ==
LOC: BARWHC3 14:02
PROVIDERS: ATTEND Surgery Plastic and Reconstructive Surgery
DX: E66.01 Morbid (severe) obesity due to excess calories (principal); Z88.0 Allergy status to penicillin; Z68.1 Body mass index [BMI] 19.9 or less, adult
CPT/HCPCS: 99211

== ENCOUNTER 2024-08-20 09:43 | Observation (INO) | payer BC ==
--- NOTE | 2024-08-20 10:47 | ED ---
Abdominal Pain HPI - General Chief Complaint: Abdominal Pain Stated Complaint: abd pain Time Seen by Provider: 08/20/24 10:01 Source: patient, RN notes reviewed Mode of arrival: ambulatory Limitations: no limitations - History of Present Illness Initial Comments: This is a 44-year-old female presenting to the emergency department chief complaint of abdominal pain that has been worsening over the past few weeks. Patient was attempted to visit with general surgeon, Dr. Lopez, yesterday who completed her Emelyn-en-Y procedure but she was unable to afford her copay and instead reported to the ER for further evaluation.. Patient has been experiencing left lower quadrant abdominal pain with severe nausea, vomiting, diarrhea. endorses chills with no fevers. Denies hematemesis, hematochezia, melena. Denies urinary complaints. - Related Data Home Medications Medication Instructions Recorded Confirmed busPIRone HCL 15 mg PO DAILY 12/31/21 08/20/24 Escitalopram [Lexapro] 30 mg PO HS 09/06/23 08/20/24 Ondansetron Odt [Zofran ODT] 4 mg PO TID PRN 12/22/23 08/20/24 busPIRone HCL 30 mg PO HS 06/08/24 08/20/24 Ergocalciferol [Vitamin D2 (1250 1,250 mcg PO TU 06/29/24 08/20/24 Mcg = 38912 Iu)] Hyoscyamine Sulfate [Levsin] 0.125 mg PO QAM 08/19/24 08/20/24 Prochlorperazine [Compazine] 5 mg PO Q4H PRN 08/19/24 08/20/24 Dextrose Chew [Glucose Chew Tab] 4 - 16 gm PO DIRECTED PRN 08/20/24 08/20/24 Dicyclomine [Bentyl] 10 mg PO BID 08/20/24 08/20/24 Dicyclomine [Bentyl] 10 mg PO DAILY PRN 08/20/24 08/20/24 Docusate [Colace] 100 mg PO DAILY 08/20/24 08/20/24 Omeprazole Magnesium [PriLOSEC OTC] 20 mg PO DAILY 08/20/24 08/20/24 diphenhydrAMINE HCL [Benadryl] 25 mg PO HS 08/20/24 08/20/24 polyethylene glycoL 3350 [Miralax] 17 gm PO DAILY PRN 08/20/24 08/20/24 Allergies Allergy/AdvReac Type Severity Reaction Status Date / Time amoxicillin Allergy Anaphylaxis Verified 08/20/24 14:57 Review of Systems ROS Statement: Those systems with pertinent positive or pertinent negative responses have been documented in the HPI. ROS Other: All systems not noted in ROS Statement are negative. Past Medical History Past Medical History: Blood Disorder, GERD/Reflux Additional Past Medical History / Comment(s): Anemia History of Any Multi-Drug Resistant Organisms: None Reported Past Surgical History: Bariatric Surgery, Cholecystectomy, Hernia Repair Additional Past Surgical History / Comment(s): gastric bypass 2013. ulcer repair 09/2023. EGD 06/10 Past Anesthesia/Blood Transfusion Reactions: No Reported Reaction Past Psychological History: Anxiety, Depression Smoking Status: Former smoker, Vaper Past Alcohol Use History: None Reported Past Drug Use History: Marijuana - Past Family History Mother Family Medical History: Unable to Obtain General Exam - General Exam Comments Initial Comments: Visual Physical Exam Vital signs reviewed General: Well-appearing, nontoxic, no acute distress. Head: Normocephalic, atraumatic Eyes: PERRLA, EOMI ENT: Airway patent Chest: Nonlabored breathing Skin: No visual rash, normal skin tone Neuro: Alert and oriented 3 Musculoskeletal: No gross abnormalities Limitations: no limitations General appearance: alert, in no apparent distress Eye exam: Present: normal appearance, PERRL, EOMI. Absent: scleral icterus, conjunctival injection, periorbital swelling Neck exam: Present: normal inspection. Absent: tenderness, meningismus, lymphadenopathy Respiratory exam: Present: normal lung sounds bilaterally. Absent: respiratory distress, wheezes, rales, rhonchi, stridor Cardiovascular Exam: Present: regular rate, normal rhythm, normal heart sounds. Absent: systolic murmur, diastolic murmur, rubs, gallop, clicks GI/Abdominal exam: Present: soft, tenderness (Left lower quadrant), normal bowel sounds. Absent: distended, guarding, rebound, rigid Extremities exam: Present: normal inspection, full ROM, normal capillary refill. Absent: tenderness, pedal edema, joint swelling, calf tenderness Back exam: Present: normal inspection Skin exam: Present: warm, dry, intact, normal color. Absent: rash Course Vital Signs 1108/20/24 08/20/24 10:05 13:57 16:43 Temperature 98.2 F Pulse Rate 68 80 82 Respiratory 12 18 16 Rate Blood Pressure 133/76 121/76 112/66 O2 Sat by Pulse 100 100 100 Oximetry Medical Decision Making - Medical Decision Making Was pt. sent in by a medical professional or institution (PALOMO Fontenot, ORIENTATION AND MOBILITY INSTRUCTOR, urgent care, hospital, or jail...) When possible be specific @ -No Did you speak to anyone other than the patient for history (EMS, parent, family, police, friend...)? What history was obtained from this source @ -No Did you review nursing and triage notes (agree or disagree)? Why? @ -I reviewed and agree with nursing and triage notes Were old charts reviewed (outside hosp., previous admission, EMS record, old EKG, old radiological studies, urgent care reports/EKG's, jail records)? Report findings @ -No old charts were reviewed Differential Diagnosis (chest pain, altered mental status, abdominal pain women, abdominal pain men, vaginal bleeding, weakness, fever, dyspnea, syncope, headache, dizziness, GI bleed, back pain, seizure, CVA, palpatations, mental health, musculoskeletal)? @ -Differential Abdominal Pain Women: Appendicitis, Cholecystitis, diverticulosis, ischemic bowel, pancreatitis, hepatitis, UTI, gastroenteritis, AAA, incarcerated hernia, bowel obstruction, constipation, inflammatory bowel, hepatitis, peptic ulcer disease, splenic infarction, perforated viscus, vulvitis, ovarian torsion, PID, kidney stone, placenta abruption, this is not meant to be an all-inclusive list EKG interpreted by me (3pts min.). @ -None X-rays interpreted by me (1pt min.). @ -None done CT interpreted by me (1pt min.). @ -CT of the abdomen pelvis with IV contrast reveals postsurgical changes in the stomach and small bowel with a small amount of fluid within the cul-de-sac is a previously U/S interpreted by me (1pt. min.). @ -None done What testing was considered but not performed or refused? (CT, X-rays, U/S, labs)? Why? @ -None What meds were considered but not given or refused? Why? @ -None Did you discuss the management of the patient with other professionals (professionals i.e. Dr., PA, ORIENTATION AND MOBILITY INSTRUCTOR, lab, RT, psych nurse, social research assistant, heavy duty diesel mechanic, teacher, electronic warfare officer, social work case manager)? Give summary @ -Poke with general surgeon in regard to admission who accepts with general medicine and for admission. Spoke with patient's primary care provider who is excepted admission. Was smoking cessation discussed for >3mins.? @ -No Was critical care preformed (if so, how long)? @ -No Were there social determinants of health that impacted care today? How? (Homelessness, low income, unemployed, alcoholism, drug addiction, transportation, low edu. Level, literacy, decrease access to med. care, alf, rehab)? @ -No Was there de-escalation of care discussed even if they declined (Discuss DNR or withdrawal of care, Hospice)? DNR status @ -No What co-morbidities impacted this encounter? (DM, HTN, Smoking, COPD, CAD, Cancer, CVA, ARF, Chemo, Hep., AIDS, mental health diagnosis, sleep apnea, mo rbid obesity)? @ -None Was patient admitted / discharged? Hospital course, mention meds given and [place], prescriptions, significant lab abnormalities, going to OR and other pertinent info. @ -Bated. 44-year-old female with abdominal pain, nausea, vomiting diarrhea. On evaluation patient noted to have left lower quadrant tenderness palpation. Vital signs are stable. Patient is noted to be mildly diaphoretic on examination. She is provided with pain medication and antiemetics. Labs remarkable for a elevated lactic acid at 3.1. CBC unremarkable. CT scan unremarkable for acute process. Spoke with general surgeon and internal medicine who agreed for admission with continued pain management for intractable abdominal pain nausea and vomiting. Case discussed with Dr. Wills Undiagnosed new problem with uncertain prognosis? @ -No Drug Therapy requiring intensive monitoring for toxicity (Heparin, Nitro, Insulin, Cardizem)? @ -No Were any procedures done? @ -No Diagnosis/symptom? @ -Abdominal pain, nausea and vomiting Acute, or Chronic, or Acute on Chronic? @ -Acute Uncomplicated (without systemic symptoms) or Complicated (systemic symptoms)? @ -Complicated Side effects of treatment? @ -No Exacerbation, Progression, or Severe Exacerbation? @ -No Poses a threat to life or bodily function? How? (Chest pain, [place], [place], pneumonia, PE, COPD, DKA, ARF, appy, cholecystitis, CVA, Diverticulitis, Homicidal, Suicidal, threat to staff... and all critical care pts) @ -No - Lab Data Result diagrams: 08/20/24 11:50 08/20/24 11:50 Lab Results 08/20/24 08/20/24 08/20/24 Range/Units 11:50 11:50 11:50 WBC 10.2 (3.8-10.6) k/uL RBC 4.38 (3.80-5.40) m/uL Hgb 13.3 (11.4-16.0) gm/dL Hct 41.1 (34.0-46.0) % MCV 93.8 (80.0-100.0) fL MCH 30.4 (25.0-35.0) pg MCHC 32.4 (31.0-37.0) g/dL RDW 19.4 H (11.5-15.5) % Plt Count 263 (150-450) k/uL MPV 8.8 Neutrophils % 84 % Lymphocytes % 11 % Monocytes % 2 % Eosinophils % 1 % Basophils % 0 % Neutrophils # 8.6 H (1.3-7.7) k/uL Lymphocytes # 1.2 (1.0-4.8) k/uL Monocytes # 0.2 (0-1.0) k/uL Eosinophils # 0.1 (0-0.7) k/uL Basophils # 0.0 (0-0.2) k/uL Anisocytosis Slight Sodium 139 (137-145) mmol/L Potassium 3.6 (3.5-5.1) mmol/L Chloride 108 H (98-107) mmol/L Carbon Dioxide 22 (22-30) mmol/L Anion Gap 9 mmol/L BUN 9 (7-17) mg/dL Creatinine 0.46 L (0.52-1.04) mg/dL Est GFR (CKD-EPI)AfAm >90 (>60 ml/min/1.73 sqM) Est GFR (CKD-EPI)NonAf >90 (>60 ml/min/1.73 sqM) Glucose 123 H (74-99) mg/dL Lactic Ac Sepsis Rflx Plasma Lactic Acid Chema 3.1 H* (0.7-2.0) mmol/L Calcium 9.0 (8.4-10.2) mg/dL Total Bilirubin 0.4 (0.2-1.3) mg/dL AST 19 (14-36) U/L ALT 13 (4-34) U/L Alkaline Phosphatase 109 (38-126) U/L Total Protein 7.0 (6.3-8.2) g/dL Albumin 3.9 (3.5-5.0) g/dL Amylase 36 (30-110) U/L Lipase 64 (23-300) U/L 08/20/24 08/20/24 Range/Units 12:58 15:25 WBC (3.8-10.6) k/uL RBC (3.80-5.40) m/uL Hgb (11.4-16.0) gm/dL Hct (34.0-46.0) % MCV (80.0-100.0) fL MCH (25.0-35.0) pg MCHC (31.0-37.0) g/dL RDW (11.5-15.5) % Plt Count (150-450) k/uL MPV Neutrophils % % Lymphocytes % % Monocytes % % Eosinophils % % Basophils % % Neutrophils # (1.3-7.7) k/uL Lymphocytes # (1.0-4.8) k/uL Monocytes # (0-1.0) k/uL Eosinophils # (0-0.7) k/uL Basophils # (0-0.2) k/uL Anisocytosis Sodium (137-145) mmol/L Potassium (3.5-5.1) mmol/L Chloride (98-107) mmol/L Carbon Dioxide (22-30) mmol/L Anion Gap mmol/L BUN (7-17) mg/dL Creatinine (0.52-1.04) mg/dL Est GFR (CKD-EPI)AfAm (>60 ml/min/1.73 sqM) Est GFR (CKD-EPI)NonAf (>60 ml/min/1.73 sqM) Glucose (74-99) mg/dL Lactic Ac Sepsis Rflx Y Plasma Lactic Acid Chema 1.4 (0.7-2.0) mmol/L Calcium (8.4-10.2) mg/dL Total Bilirubin (0.2-1.3) mg/dL AST (14-36) U/L ALT (4-34) U/L Alkaline Phosphatase (38-126) U/L Total Protein (6.3-8.2) g/dL Albumin (3.5-5.0) g/dL Amylase (30-110) U/L Lipase (23-300) U/L Disposition Clinical Impression: Abdominal pain, Nausea and vomiting Disposition: ADMITTED IP TO THIS [facility] Condition: Stable Referrals: Alexys Adams MD [Primary Care Provider] - 1-2 days Decision to Admit Reason: Admit from [facility] Decision Date: 08/20/24
[2024-08-20 11:59] LABS: Anisocytosis Slight; Basophils % (A) 0 %; Eosinophils # (A) 0.1 k/uL (0-0.7); Eosinophils % (A) 1 %; HCT 41.1 % (34.0-46.0); HGB 13.3 gm/dL (11.4-16.0); Lymphocytes # (A) 1.2 k/uL (1.0-4.8); Lymphocytes % (A) 11 %; MCH 30.4 pg (25.0-35.0); MCHC 32.4 g/dL (31.0-37.0); MCV 93.8 fL (80.0-100.0); Mean Platelet Volume 8.8; Monocytes # (A) 0.2 k/uL (0-1.0); Monocytes % (A) 2 %; Neutrophils # (A) 8.6 k/uL (1.3-7.7); Neutrophils % (A) 84 %; Platelet Count 263 k/uL (150-450); RBC 4.38 m/uL (3.80-5.40); RDW 19.4 % (11.5-15.5); WBC 10.2 k/uL (3.8-10.6)
[2024-08-20 12:13] LABS: ALT 13 U/L (4-34); AST 19 U/L (14-36); African American GFR (CKD) >90 (>60 ml/min/1.73 sqM); Albumin 3.9 g/dL (3.5-5.0); Alkaline Phosphatase 109 U/L (38-126); Amylase 36 U/L (30-110); Anion Gap 9 mmol/L; Blood Urea Nitrogen 9 mg/dL (7-17); Carbon Dioxide 22 mmol/L (22-30); Chloride 108 mmol/L (98-107); Glucose 123 mg/dL (74-99); Lipase 64 U/L (23-300); Non-African American GFR(CKD) >90 (>60 ml/min/1.73 sqM); Potassium 3.6 mmol/L (3.5-5.1); Sodium 139 mmol/L (137-145); Total Bilirubin 0.4 mg/dL (0.2-1.3)
--- NOTE | 2024-08-20 12:37 | CT ---
EXAMINATION TYPE: CT abdomen pelvis w con DATE OF EXAM: 08/20/2024 COMPARISON: 07/06/2024 CLINICAL INDICATION: Female, 44 years old with history of abdominal pain; PHH, LLQ pain, nausea and v omiting TECHNIQUE: Performed without Oral Contrast and with IV Contrast, patient injected with 100 mL of Isovue 370. CT DLP: 506.[address] CTDI: mGy Automated exposure control for dose reduction was used. FINDINGS: The lung bases are clear. There is surgical absence of the gallbladder.. There is no biliary ductal dilatation. Postsurgical ch anges involving the stomach consistent with bariatric surgery. There is no focal mass or organomegaly involving the liver, pancreas, spleen or adrenal glands. There is no solid renal mass or hydronephrosis and there is homogeneous contrast enhancement of the r enal parenchyma. The caliber the abdominal aorta is normal is no retroperitoneal adenopathy or hemorr ever. The bowel loops are normal in caliber and there is no evidence of dilatation or obstruction. No infla mmatory changes are identified in the bowel wall or mesentery. There is stable small amount of fluid within the cul-de-sac of the pelvis. There is no definite pelvic mass or adenopathy. Evaluation of the pelvis is limited due to paucity of fat.. The osseous structures and soft tissues are intact. IMPRESSION: No acute changes within the abdomen or pelvis. Postsurgical changes involving the stomach and small b owel. Somewhat limited evaluation of the pelvis due to a paucity of fat within the pelvis. Small amou nt of fluid within the cul-de-sac as seen previously. [facility], , 08/20/2024 12:34 PM
[2024-08-20] MEDS: ONDANSETRON 4 MG/2 ML VIAL IVP STA ×2 (12:45→18:01)
[2024-08-20] MEDS: HYDROmorphone 0.5 MG/0.5 ML SYRINGE IVP STA (12:46)
[2024-08-20] MEDS: SODIUM CHLORIDE 0.9% 1,000 ML IV STA (13:57)
[2024-08-20] MEDS: ACETAMINOPHEN IV (For NPO) 1,000 MG in EMPTY BAG 1 BAG IVPB STA (13:58)
[2024-08-20] MEDS ORDERED: NALOXONE 0.4 MG/ML 1 ML VIAL IV PRN (14:50)
[2024-08-20] MEDS ORDERED: ACETAMINOPHEN TAB 325 MG TAB PO PRN (14:50)
[2024-08-20] MEDS: PROCHLORPERAZINE INJ 10 MG/2 ML VIAL IVP STA (14:54)
[2024-08-20] MEDS: SODIUM CHLORIDE 0.9% 1,000 ML IV SCH (14:54)
[2024-08-20] MEDS ORDERED: traMADol 50 MG TAB PO PRN (17:57)
[2024-08-20] MEDS: ONDANSETRON 4 MG/2 ML VIAL IVP PRN (18:08)
[2024-08-20] MEDS: traMADol 50 MG TAB PO PRN (18:08)
[2024-08-20] MEDS: IBUPROFEN 400 MG TAB PO PRN (18:42)
[2024-08-21] MEDS ORDERED: polyethylene glycoL 3350 17 GM POWD.PACK PO PRN (08:30)
[2024-08-21] MEDS ORDERED: DICYCLOMINE 10 MG CAP PO PRN (08:30)
--- NOTE | 2024-08-21 08:34 | P.HPIM ---
History of Present Illness H&P Date: 08/21/24 Chief Complaint: Chronic abdominal pain The patient is a 44-year-old white female with known history of previous gastric bypass. The patient has struggled with postop abdominal pain. She states she went to [facility] and they could not come to the conclusion of her treatment. She is readmitted for intolerable abdominal pain. She seems to be tolerating clear liquid diet however Dr. Garcia and has asked her to try to increase her protein usage and/intake. She has difficulty doing this. No fever Review of Systems All systems: negative Gastrointestinal: Reports as per HPI, Reports abdominal pain Past Medical History Past Medical History: Blood Disorder, GERD/Reflux Additional Past Medical History / Comment(s): Anemia History of Any Multi-Drug Resistant Organisms: None Reported Past Surgical History: Bariatric Surgery, Cholecystectomy, Hernia Repair Additional Past Surgical History / Comment(s): gastric bypass 2013. ulcer repair 09/2023. EGD 06/10 Past Anesthesia/Blood Transfusion Reactions: No Reported Reaction Past Psychological History: Anxiety, Depression Smoking Status: Former smoker, Vaper Past Alcohol Use History: None Reported Past Drug Use History: Marijuana - Past Family History Mother Family Medical History: Unable to Obtain Medications and Allergies Home Medications Medication Instructions Recorded Confirmed Type busPIRone HCL 15 mg PO DAILY 12/31/21 08/20/24 History Escitalopram [Lexapro] 30 mg PO HS 09/06/23 08/20/24 History Ondansetron Odt [Zofran ODT] 4 mg PO TID PRN 12/22/23 08/20/24 History busPIRone HCL 30 mg PO HS 06/08/24 08/20/24 History Ergocalciferol [Vitamin D2 (1250 1,250 mcg PO TU 06/29/24 08/20/24 History Mcg = 30195 Iu)] Hyoscyamine Sulfate [Levsin] 0.125 mg PO QAM 08/19/24 08/20/24 History Prochlorperazine [Compazine] 5 mg PO Q4H PRN 08/19/24 08/20/24 History Dextrose Chew [Glucose Chew Tab] 4 - 16 gm PO DIRECTED PRN 08/20/24 08/20/24 History Dicyclomine [Bentyl] 10 mg PO BID 08/20/24 08/20/24 History Dicyclomine [Bentyl] 10 mg PO DAILY PRN 08/20/24 08/20/24 History Docusate [Colace] 100 mg PO DAILY 08/20/24 08/20/24 History Omeprazole Magnesium [PriLOSEC OTC] 20 mg PO DAILY 08/20/24 08/20/24 History diphenhydrAMINE HCL [Benadryl] 25 mg PO HS 08/20/24 08/20/24 History polyethylene glycoL 3350 [Miralax] 17 gm PO DAILY PRN 08/20/24 08/20/24 History Allergies Allergy/AdvReac Type Severity Reaction Status Date / Time amoxicillin Allergy Anaphylaxis Verified 08/20/24 14:57 Physical Exam Vitals: Vital Signs Temp Pulse Resp BP Pulse Ox 08/21/24 06:37 98.2 F 61 19 101/64 97 08/21/24 06:11 98.2 F 08/21/24 05:33 58 L 17 123/75 98 08/21/24 04:05 98.1 F 63 20 139/75 100 08/21/24 01:38 98.1 F 82 18 134/81 100 08/21/24 00:15 99.0 F 73 18 134/63 100 08/20/24 22:29 98.5 F 08/20/24 21:58 99.4 F 66 22 129/74 100 08/20/24 21:33 97.9 F 81 18 108/66 100 08/20/24 18:37 79 18 125/60 100 08/20/24 16:43 82 16 112/66 100 08/20/24 13:57 80 18 121/76 100 08/20/24 10:05 98.2 F 68 12 133/76 100 - Constitutional General appearance: thin - EENT Eyes: no abnormal pupil - Neck Neck: no lymphadenopathy - Respiratory Respiratory: bilateral: diminished - Cardiovascular Rhythm: regular Heart sounds: normal: S1, S2 Abnormal Heart Sounds: no S3 Gallop - Gastrointestinal General gastrointestinal: soft, tenderness Localized gastrointestinal: tender: epigastric periumbilical - Integumentary Integumentary: no cyanotic - Psychiatric Psychiatric: A&O x's 3, appropriate affect Results CBC & Chem 7: 08/20/24 11:50 08/20/24 11:50 Labs: Abnormal Lab Results - Last 24 Hours (Table) 08/20/24 08/20/24 08/20/24 Range/Units 11:50 11:50 11:50 RDW 19.4 H (11.5-15.5) % Neutrophils # 8.6 H (1.3-7.7) k/uL Chloride 108 H (98-107) mmol/L Creatinine 0.46 L (0.52-1.04) mg/dL Glucose 123 H (74-99) mg/dL Plasma Lactic Acid Chema 3.1 H* (0.7-2.0) mmol/L Assessment and Plan (1) Depression Current Visit: Yes Status: Acute Code(s): F32.A - DEPRESSION, UNSPECIFIED SNOMED Code(s): 15595691 (2) Anxiety Current Visit: Yes Status: Acute Code(s): F41.9 - ANXIETY DISORDER, UNSPECIFIED SNOMED Code(s): 98503040 (3) Abdominal pain Current Visit: Yes Status: Acute Code(s): R10.9 - UNSPECIFIED ABDOMINAL PAIN SNOMED Code(s): 78091422 (4) Nausea and vomiting Current Visit: Yes Status: Acute Code(s): R11.2 - NAUSEA WITH VOMITING, UNSPECIFIED SNOMED Code(s): 98812929 (5) GERD (gastroesophageal reflux disease) Current Visit: No Status: Acute Code(s): K21.9 - GASTRO-ESOPHAGEAL REFLUX DISEASE WITHOUT ESOPHAGITIS SNOMED Code(s): 145788087 (6) Gastric bypass status for obesity Current Visit: No Status: Acute Code(s): Z98.84 - BARIATRIC SURGERY STATUS SNOMED Code(s): 749477525 Plan: Advance diet per surgery. Check CBC and CMP in AM. Consult medications for constipation and depression. I have discussed with her to follow-up at a tertiary care center such as [facility] as well for appropriate opinion. Time with Patient: Greater than 30
[2024-08-21 08:53] LABS: ALT 8 U/L (8-44); AST 16 U/L (13-35); Albumin 3.2 g/dL (3.8-4.9); Albumin/Globulin Ratio 1.39 Ratio (1.60-3.17); Alkaline Phosphatase 90 U/L (41-126); Blood Urea Nitrogen 6.8 mg/dL (9.0-27.0); Calcium 8.6 mg/dL (8.7-10.3); Carbon Dioxide 24.1 mmol/L (21.6-31.8); Chloride 105 mmol/L (96-109); Globulin 2.3 g/dL (1.6-3.3); Glucose 96 mg/dL (70-110); Potassium 3.6 mmol/L (3.5-5.5); Sodium 139 mmol/L (135-145); Total Bilirubin <0.2 mg/dL (0.3-1.2); Total Protein 5.5 g/dL (6.2-8.2)
[2024-08-21 09:03] LABS: Basophils # (A) 0.04 X 10*3/uL (0.00-0.10); Basophils % (A) 0.3 %; Eosinophils # (A) 0.02 X 10*3/uL (0.04-0.35); Eosinophils % (A) 0.1 %; HCT 35.5 % (37.2-46.3); HGB 11.8 g/dL (12.0-15.0); Lymphocytes # (A) 2.01 X 10*3/uL (0.90-5.00); Lymphocytes % (A) 14.1 %; MCH 29.8 pg (27.0-32.0); MCHC 33.2 g/dL (32.0-37.0); MCV 89.6 FL (80.0-97.0); Mean Platelet Volume 10.8 FL (9.5-12.2); Monocytes # (A) 0.96 X 10*3/uL (0.20-1.00); Monocytes % (A) 6.7 %; NRBC Per 100 WBC 0 X 10*3/uL (0.00-0.01); Platelet Count 249 X 10*3/uL (140-440); RBC 3.96 X 10*6/uL (4.10-5.20); RDW 21.3 % (11.5-14.5); WBC 14.24 X 10*3/uL (4.50-10.00)
[2024-08-21] MEDS: PANTOPRAZOLE 40 MG TABLET PO SCH (09:10)
[2024-08-21] MEDS: DOCUSATE 100 MG CAP PO SCH (09:10)
[2024-08-21] MEDS: busPIRone HCl 5 MG TAB PO SCH (09:10)
[2024-08-21] MEDS: HYDROmorphone 0.5 MG/0.5 ML SYRINGE IVP PRN (09:38)
[2024-08-21] MEDS: DICYCLOMINE 10 MG CAP PO SCH (10:21)
--- NOTE | 2024-08-21 12:29 | P.GSCN ---
History of Present Illness Consult date: 08/21/24 History of present illness: Patient seen evaluated seen and evaluated. She has pre-existing history of intractable abdominal pain. Patient had evaluated and found to have severe constipation. Do recommend barium enema. No acute surgical invention at this time. Will put on bowel regimen. Patient still has nicotine exposure. Will need negative urine nicotine test for elective surgery. All options reviewed with the patient. Patient wished to proceed with imaging study. Risk of sigmoid volvulus described. This Past Medical History Past Medical History: Blood Disorder, GERD/Reflux Additional Past Medical History / Comment(s): Anemia History of Any Multi-Drug Resistant Organisms: None Reported Past Surgical History: Bariatric Surgery, Cholecystectomy, Hernia Repair Additional Past Surgical History / Comment(s): gastric bypass 2013. ulcer repair 09/2023. EGD 06/10 Past Anesthesia/Blood Transfusion Reactions: No Reported Reaction Past Psychological History: Anxiety, Depression Smoking Status: Former smoker Past Alcohol Use History: None Reported Past Drug Use History: Marijuana Additional Drug Use History / Comment(s): Pt states that she has not had cigarettes in 3 weeks using patch and vaping at times. - Past Family History Mother Family Medical History: Unable to Obtain Medications and Allergies Home Medications Medication Instructions Recorded Confirmed Type busPIRone HCL 15 mg PO DAILY 12/31/21 08/20/24 History Escitalopram [Lexapro] 30 mg PO HS 09/06/23 08/20/24 History Ondansetron Odt [Zofran ODT] 4 mg PO TID PRN 12/22/23 08/20/24 History busPIRone HCL 30 mg PO HS 06/08/24 08/20/24 History Ergocalciferol [Vitamin D2 (1250 1,250 mcg PO TU 06/29/24 08/20/24 History Mcg = 47714 Iu)] Hyoscyamine Sulfate [Levsin] 0.125 mg PO QAM 08/19/24 08/20/24 History Prochlorperazine [Compazine] 5 mg PO Q4H PRN 08/19/24 08/20/24 History Dextrose Chew [Glucose Chew Tab] 4 - 16 gm PO DIRECTED PRN 08/20/24 08/20/24 History Dicyclomine [Bentyl] 10 mg PO BID 08/20/24 08/20/24 History Dicyclomine [Bentyl] 10 mg PO DAILY PRN 08/20/24 08/20/24 History Docusate [Colace] 100 mg PO DAILY 08/20/24 08/20/24 History Omeprazole Magnesium [PriLOSEC OTC] 20 mg PO DAILY 08/20/24 08/20/24 History diphenhydrAMINE HCL [Benadryl] 25 mg PO HS 08/20/24 08/20/24 History polyethylene glycoL 3350 [Miralax] 17 gm PO DAILY PRN 08/20/24 08/20/24 History Allergies Allergy/AdvReac Type Severity Reaction Status Date / Time amoxicillin Allergy Anaphylaxis Verified 08/20/24 14:57 Surgical - Exam Vital Signs Temp Pulse Resp BP Pulse Ox 98.2 F 68 12 133/76 100 08/20/24 10:05 08/20/24 10:05 08/20/24 10:05 08/20/24 10:05 08/20/24 10:05 Results - Labs 08/21/24 05:57 08/21/24 05:57 Abnormal Lab Results - Last 24 Hours (Table) 08/20/24 08/21/24 08/21/24 Range/Units 11:50 05:57 05:57 WBC 14.24 H (4.50-10.00) X 10*3/uL RBC 3.96 L (4.10-5.20) X 10*6/uL Hgb 11.8 L (12.0-15.0) g/dL Hct 35.5 L (37.2-46.3) % RDW 21.3 H (11.5-14.5) % Immature Gran # 0.11 H (0.00-0.04) X 10*3/uL Neutrophils # 11.10 H (1.80-7.70) X 10*3/uL Eosinophils # 0.02 L (0.04-0.35) X 10*3/uL BUN 6.8 L (9.0-27.0) mg/dL Creatinine 0.4 L (0.6-1.5) mg/dL Plasma Lactic Acid Chema 3.1 H* (0.7-2.0) mmol/L Calcium 8.6 L (8.7-10.3) mg/dL Total Bilirubin <0.2 L (0.3-1.2) mg/dL Total Protein 5.5 L (6.2-8.2) g/dL Albumin 3.2 L (3.8-4.9) g/dL Albumin/Globulin Ratio 1.39 L (1.60-3.17) Ratio Diabetes panel 08/21/24 Range/Units 05:57 Sodium 139 (135-145) mmol/L Potassium 3.6 (3.5-5.5) mmol/L Chloride 105 (96-109) mmol/L Carbon Dioxide 24.1 (21.6-31.8) mmol/L BUN 6.8 L (9.0-27.0) mg/dL Creatinine 0.4 L (0.6-1.5) mg/dL Glucose 96 (70-110) mg/dL Calcium 8.6 L (8.7-10.3) mg/dL AST 16 (13-35) U/L ALT 8 (8-44) U/L Alkaline Phosphatase 90 (41-126) U/L Total Protein 5.5 L (6.2-8.2) g/dL Albumin 3.2 L (3.8-4.9) g/dL Calcium panel 08/21/24 Range/Units 05:57 Calcium 8.6 L (8.7-10.3) mg/dL Albumin 3.2 L (3.8-4.9) g/dL Pituitary panel 08/21/24 Range/Units 05:57 Sodium 139 (135-145) mmol/L Potassium 3.6 (3.5-5.5) mmol/L Chloride 105 (96-109) mmol/L Carbon Dioxide 24.1 (21.6-31.8) mmol/L BUN 6.8 L (9.0-27.0) mg/dL Creatinine 0.4 L (0.6-1.5) mg/dL Glucose 96 (70-110) mg/dL Calcium 8.6 L (8.7-10.3) mg/dL Adrenal panel 08/21/24 Range/Units 05:57 Sodium 139 (135-145) mmol/L Potassium 3.6 (3.5-5.5) mmol/L Chloride 105 (96-109) mmol/L Carbon Dioxide 24.1 (21.6-31.8) mmol/L BUN 6.8 L (9.0-27.0) mg/dL Creatinine 0.4 L (0.6-1.5) mg/dL Glucose 96 (70-110) mg/dL Calcium 8.6 L (8.7-10.3) mg/dL Total Bilirubin <0.2 L (0.3-1.2) mg/dL AST 16 (13-35) U/L ALT 8 (8-44) U/L Alkaline Phosphatase 90 (41-126) U/L Total Protein 5.5 L (6.2-8.2) g/dL Albumin 3.2 L (3.8-4.9) g/dL
--- NOTE | 2024-08-21 15:03 | FL ---
EXAMINATION TYPE: FL barium enema with air. DATE OF EXAM: 08/21/2024 2:09 PM CLINICAL INDICATION:Female, 44 years old with history of Sigmoid volvulus and abdominal pain; COMPARISON: Multiple CTs. TECHNIQUE: The procedure was explained and patient history elicited. All patient questions were answ ered prior to beginning. Multiple spot fluoroscopic images of the colon were obtained after the recta l administration of liquid barium as the contrast agent. Multiple postprocedural overhead images, w ere obtained and reviewed. Fluoroscopic time:5.50 min Fluoroscopic images:0 Radiographs taken: 78 DAP: not reported [id number] FINDINGS: The motor vehicle inspector abdominal radiograph demonstrates a normal bowel gas pattern without dilated loo ps of small or large bowel. There is no evidence for organomegaly or pneumoperitoneum. No abnormal calcifications. The visualized osseous structures are intact. Surgical clips project in the right up per quadrant and throughout the abdomen compatible with known Emelyn-en-Y surgery. The colon demonstrates redundant course and normal contour without evidence of focal stricture, inter nal filling defects, or abnormal outpouching. Views of the cecum with manual compression are unremar kable. There is significant tortuosity within the hepatic flexure and pelvis with large bowel does ov erlap each other limiting evaluation. Postevacuation images are unremarkable. IMPRESSION: Significant redundancy within the colon over the pelvis and in the hepatic flexure. No evidence for v olvulus. [facility], , 08/21/2024 3:01 PM
[2024-08-21] MEDS: SODIUM CHLORIDE 0.9% 2,000 ML IV ONE (18:27)
--- NOTE | 2024-08-21 18:39 | P.PN ---
Subjective Progress Note Date: 08/21/24 CHIEF COMPLAINT: Abdominal pain HISTORY OF PRESENT ILLNESS: The patient is a 44-year-old female admitted for intractable left lower quadrant abdominal pain. Patient reports recent history of severe constipation requiring 4 days of cleansing at [facility] outside facility. Patient reports having some blood in stools. She has been managed by the lifestyle director for irritable bowel syndrome with constipation however patient reports that regimen for over 4 to 6 weeks has been unsuccessful and causing more pain. Patient at bedside was given clear liquid tray with high sugary beverages which is contraindicated for gastric bypass. As result, patient had nausea as this propagates dumping syndrome. ROS: No fevers or chills. No new chest pain. No productive sputum PHYSICAL EXAM: VITAL SIGNS: Reviewed CONSTITUTIONAL: Well developed and in no acute distress. EYES: Conjuctivae without sclera icterus. Extraocular movements grossly intact. HEAD, EARS, NOSE, THROAT: Moist buccal mucosa. Head is atraumatic, normocephalic. Hears conversational speech. No nasal drainage. RESPIRATORY: Non-labored respirations and equal bilateral excursions. CARDIOVASCULAR: Palpable 2+ radial pulses. ABDOMEN: Scaphoid. Tender left lower quadrant. No diffuse peritonitis. MUSCULOSKELETAL: No gross deformity of the lower extremities noted. No clubbing. No cyanosis. SKIN: Good skin turgor. Well perfused. NEUROLOGIC: Cranial nerves II through XII grossly intact. No focal or latera lizing signs. PSYCH: Appropriate affect. Alert and oriented to person, place and time. CLINICAL LABS: Reviewed. Initial labs on admission lactate over 3.1 now normal. STUDIES: Barium enema independently reviewed demonstrate moderate redundancy of sigmoid colon including hepatic flexure and splenic flexure. No acute volvulus identified. This is my independent interpretation. ASSESSMENT: 1. Intractable abdominal pain, left lower quadrant 2. Chronic constipation 3. History of irritable bowel syndrome with constipation 4. Gastric bypass 5. Tobacco abuse disorder PLAN: 1. Medical reconciliation was performed with adjustment of her laxatives. Use of lactulose with Dulcolax was prescribed and sent to local pharmacy. 2. Images of her barium enema results demonstrates moderate redundancy of the sigmoid colon which contributes to her left lower quadrant plain and risk of intermittent volvulus. Elective colectomy as outpatient was described. 3. For nausea and vomiting, scopolamine patch was ordered. Patient advised to avoid high sugary beverages at propagates dumping syndrome which is an actual effect with a gastric bypass. 4. Dietary surveillance and counseling performed where increased protein diet of 60 g daily and is advised for optimal recovery 5. May be discharged once medically stable on full liquid diet. 6. Follow-up as outpatient the bariatric center described 7. Nicotine abstinence described in preparation for elective surgery Objective - Vital Signs Vital signs: Vital Signs Temp 98.4 F 08/21/24 14:30 Pulse 64 08/21/24 14:30 Resp 16 08/21/24 14:30 BP 112/71 08/21/24 14:30 Pulse Ox 99 08/21/24 14:30 FiO2 Intake & Output 08/20/24 08/21/24 08/21/24 18:59 06:59 18:59 Intake Total 600 Balance 600 Weight 52.163 kg 52.163 kg Intake: IV 600 Sodium Chloride 0.9% 1, 600 000 ml @ 75 mls/hr IV . [id number] JONATHAN Rx#:[id number] Other: # Voids 1 - Labs CBC & Chem 7: 08/21/24 05:57 08/21/24 05:57 Labs: Abnormal Lab Results - Last 24 Hours (Table) 08/21/24 08/21/24 Range/Units 05:57 05:57 WBC 14.24 H (4.50-10.00) X 10*3/uL RBC 3.96 L (4.10-5.20) X 10*6/uL Hgb 11.8 L (12.0-15.0) g/dL Hct 35.5 L (37.2-46.3) % RDW 21.3 H (11.5-14.5) % Immature Gran # 0.11 H (0.00-0.04) X 10*3/uL Neutrophils # 11.10 H (1.80-7.70) X 10*3/uL Eosinophils # 0.02 L (0.04-0.35) X 10*3/uL BUN 6.8 L (9.0-27.0) mg/dL Creatinine 0.4 L (0.6-1.5) mg/dL Calcium 8.6 L (8.7-10.3) mg/dL Total Bilirubin <0.2 L (0.3-1.2) mg/dL Total Protein 5.5 L (6.2-8.2) g/dL Albumin 3.2 L (3.8-4.9) g/dL Albumin/Globulin Ratio 1.39 L (1.60-3.17) Ratio
[2024-08-21] MEDS: SCOPOLAMINE 1 MG/72 HR PATCH TRANSDERM SCH (18:58)
[2024-08-21] MEDS: busPIRone HCl 10 MG TAB PO SCH (20:31)
[2024-08-21] MEDS: ESCITALOPRAM 10 MG TAB PO SCH (20:31)
[2024-08-21] MEDS: diphenhydrAMINE 25 MG CAP PO SCH (22:14)
[2024-08-22 06:21] LABS: HCG,Qualitative Serum Not Detected
--- NOTE | 2024-08-22 09:31 | P.PN ---
Subjective Progress Note Date: 08/22/24 Principal diagnosis: Abdominal pain Patient says she feels somewhat better today. Seems to be tolerating her liquid diet. No vomiting today. White blood cell count yesterday elevated at 14. Labs from today are pending. She is afebrile. Very minimal yesterday showed significant colonic redundancy. Objective - Vital Signs Vital signs: Vital Signs Temp 97.7 F 08/22/24 07:00 Pulse 54 L 08/22/24 07:00 Resp 16 08/22/24 07:00 BP 109/68 08/22/24 07:00 Pulse Ox 99 08/22/24 07:00 FiO2 Intake & Output 08/21/24 08/22/24 08/22/24 18:59 06:59 18:59 Intake Total 958 Balance 958 Weight 52.163 kg Intake: IV 600 Sodium Chloride 0.9% 1, 600 000 ml @ 75 mls/hr IV . [id number] JONATHAN Rx#:[id number] Oral 358 Other: Voiding Method Toilet # Voids 1 2 - Exam Abdomen: Soft, nondistended, minimal tenderness diffusely - Labs CBC & Chem 7: 08/21/24 05:57 08/21/24 05:57 Assessment and Plan (1) Abdominal pain Narrative/Plan: Patient still having some abdominal discomfort. Seems improved. Continue full liquids. Recheck labs today. Possible discharge if white blood cell count improved and feeling well. Current Visit: Yes Status: Acute Code(s): R10.9 - UNSPECIFIED ABDOMINAL PAIN SNOMED Code(s): 34472835
[2024-08-22 11:43] LABS: ALT 13 U/L (8-44); AST 26 U/L (13-35); Albumin 2.9 g/dL (3.8-4.9); Albumin/Globulin Ratio 1.53 Ratio (1.60-3.17); Alkaline Phosphatase 83 U/L (41-126); BUN/Creat Ratio <7.00 Ratio (12.00-20.00); Blood Urea Nitrogen <3.5 mg/dL (9.0-27.0); Calcium 8.2 mg/dL (8.7-10.3); Carbon Dioxide 24.1 mmol/L (21.6-31.8); Chloride 108 mmol/L (96-109); Globulin 1.9 g/dL (1.6-3.3); Glucose 86 mg/dL (70-110); Potassium 3.7 mmol/L (3.5-5.5); Sodium 141 mmol/L (135-145); Total Bilirubin <0.2 mg/dL (0.3-1.2); Total Protein 4.8 g/dL (6.2-8.2)
[2024-08-22 11:45] LABS: HCT 32.7 % (37.2-46.3); HGB 10.3 g/dL (12.0-15.0); MCHC 31.5 g/dL (32.0-37.0); MCV 95.3 FL (80.0-97.0); Mean Platelet Volume 11.4 FL (9.5-12.2); NRBC Per 100 WBC 0 X 10*3/uL (0.00-0.01); Platelet Count 216 X 10*3/uL (140-440); RBC 3.43 X 10*6/uL (4.10-5.20); RDW 21.5 % (11.5-14.5); WBC 6.92 X 10*3/uL (4.50-10.00)
[2024-08-22 15:41] VITALS: BMI 19.7
--- NOTE | 2024-08-22 19:51 | P.PN ---
Subjective The patient is a 44-year-old white female with known history of previous gastric bypass. The patient has struggled with postop abdominal pain. She states she went to [facility] and they could not come to the conclusion of her treatment. She is readmitted for intolerable abdominal pain. She seems to be tolerating clear liquid diet however Dr. Garcia and has asked her to try to increase her protein usage and/intake. She has difficulty doing this. No fever 08/22 Patient lying in bed looks awake and relaxed, no distress Still complaining from left lower quadrant abdominal pain and tenderness She says she has no bowel movement No other new complaints Leukocytosis improved down to 6.[address] of the abdomen pelvis is negative for acute process HCG is negative in the serum She tolerates diet Objective - Vital Signs Vital signs: Vital Signs Temp 97.7 F 08/22/24 07:00 Pulse 54 L 08/22/24 07:00 Resp 16 08/22/24 07:00 BP 109/68 08/22/24 07:00 Pulse Ox 99 08/22/24 07:00 FiO2 Intake & Output 08/21/24 08/22/24 08/22/24 18:59 06:59 18:59 Intake Total 958 Balance 958 Weight 52.163 kg Intake: IV 600 Sodium Chloride 0.9% 1, 600 000 ml @ 75 mls/hr IV . [id number] [facility] Rx#:[id number] Oral 358 Other: Voiding Method Toilet # Voids 1 2 - Exam GENERAL: The patient is alert and oriented x3, not in any acute distress. Well developed, well nourished. HEENT: Pupils are round and equally reacting to light. EOMI. No scleral icterus. No conjunctival pallor. Normocephalic, atraumatic. No pharyngeal erythema. No thyromegaly. CARDIOVASCULAR: S1 and S2 present. No murmurs, rubs, or gallops. PULMONARY: Chest is clear to auscultation, no wheezing , no crackles. -ABDOMEN: Soft, LLQ tenderness, mild with no rebound tenderness or guarding, nondistended, normoactive bowel sounds. No palpable organomegaly. MUSCULOSKELETAL: No joint swelling or deformity. EXTREMITIES: No cyanosis, clubbing, or pedal edema. NEUROLOGICAL: Gross neurological examination did not reveal any focal deficits. SKIN: No rashes. no petechiae. - Labs CBC & Chem 7: 08/22/24 05:34 08/22/24 05:34 Labs: Abnormal Lab Results - Last 24 Hours (Table) 08/22/24 08/22/24 Range/Units 05:34 05:34 RBC 3.43 L (4.10-5.20) X 10*6/uL Hgb 10.3 L (12.0-15.0) g/dL Hct 32.7 L (37.2-46.3) % MCHC 31.5 L (32.0-37.0) g/dL RDW 21.5 H (11.5-14.5) % BUN <3.5 L (9.0-27.0) mg/dL Creatinine 0.5 L (0.6-1.5) mg/dL BUN/Creatinine Ratio <7.00 L (12.00-20.00) Ratio Calcium 8.2 L (8.7-10.3) mg/dL Total Bilirubin <0.2 L (0.3-1.2) mg/dL Total Protein 4.8 L (6.2-8.2) g/dL Albumin 2.9 L (3.8-4.9) g/dL Albumin/Globulin Ratio 1.53 L (1.60-3.17) Ratio Assessment and Plan Assessment: Abdominal pain in the left lower quadrant could be related to constipation Constipation status status post laxative Irritable bowel syndrome History of gastric bypass surgery Depression, not an active issue Marked elevated lactic acid came back to reference range Plan: Continue current hydration, currently on normal saline Continue with bowel regiment Surgery team consult GI prophylaxis: Protonix DVT prophylaxis: Pepcid Further recommendation based on the clinical course Overall patient is improving slowly and gradually, she may be considered for discharge in 24 to 48 hours if continue to improve
[2024-08-22] MEDS: HEPARIN SODIUM,PORCINE 5,000 UNIT/ML 1 ML VIAL SQ SCH (20:48)
[2024-08-23 08:12] LABS: Anisocytosis Slight; Basophils % (A) 0 %; Eosinophils # (A) 0.2 k/uL (0-0.7); Eosinophils % (A) 4 %; HCT 35.9 % (34.0-46.0); HGB 11.7 gm/dL (11.4-16.0); Hypochromasia Slight; Lymphocytes % (A) 30 %; MCH 31.4 pg (25.0-35.0); MCHC 32.5 g/dL (31.0-37.0); MCV 96.4 fL (80.0-100.0); Macrocytosis Slight; Mean Platelet Volume 8.7; Monocytes # (A) 0.5 k/uL (0-1.0); Monocytes % (A) 7 %; Neutrophils # (A) 3.8 k/uL (1.3-7.7); Neutrophils % (A) 56 %; Platelet Count 222 k/uL (150-450); RBC 3.72 m/uL (3.80-5.40); RDW 18.9 % (11.5-15.5); WBC 6.8 k/uL (3.8-10.6)
--- NOTE | 2024-08-23 10:01 | P.PN ---
Subjective Progress Note Date: 08/23/24 Principal diagnosis: Abdominal pain Patient states her pain is worse today. She was requesting IV narcotics now. She is tolerating full liquids. Interestingly she is requesting more to eat. She feels somewhat constipated. No bowel movement since prior to enema. Objective - Vital Signs Vital signs: Vital Signs Temp 98.0 F 08/23/24 07:00 Pulse 73 08/23/24 07:00 Resp 16 08/23/24 07:00 BP 90/52 08/23/24 07:00 Pulse Ox 100 08/23/24 07:00 FiO2 Intake & Output 08/22/24 08/23/24 08/23/24 18:59 06:59 18:59 Intake Total 118 Balance 118 Weight 52.163 kg Intake: Oral 118 Other: # Voids 2 2 - Exam Abdomen: Soft, mild diffuse tenderness - Labs CBC & Chem 7: 08/23/24 07:47 08/22/24 05:34 Labs: Abnormal Lab Results - Last 24 Hours (Table) 08/22/24 08/22/24 08/23/24 Range/Units 05:34 05:34 07:47 RBC 3.43 L 3.72 L (4.10-5.20) X 10*6/uL Hgb 10.3 L (12.0-15.0) g/dL Hct 32.7 L (37.2-46.3) % MCHC 31.5 L (32.0-37.0) g/dL RDW 21.5 H 18.9 H (11.5-14.5) % BUN <3.5 L (9.0-27.0) mg/dL Creatinine 0.5 L (0.6-1.5) mg/dL BUN/Creatinine Ratio <7.00 L (12.00-20.00) Ratio Calcium 8.2 L (8.7-10.3) mg/dL Total Bilirubin <0.2 L (0.3-1.2) mg/dL Total Protein 4.8 L (6.2-8.2) g/dL Albumin 2.9 L (3.8-4.9) g/dL Albumin/Globulin Ratio 1.53 L (1.60-3.17) Ratio Assessment and Plan (1) Abdominal pain Narrative/Plan: Patient with ongoing pain. Will check abdominal x-ray today. Keep on full liquids for now. Current Visit: Yes Status: Acute Code(s): R10.9 - UNSPECIFIED ABDOMINAL PAIN SNOMED Code(s): 72476083
--- NOTE | 2024-08-23 10:43 | XR ---
Two-view abdomen HISTORY: Abdominal pain COMPARISON: None. TECHNIQUE: Supine and upright views the abdomen were obtained. FINDINGS: The lung bases are clear. There is no free intraperitoneal air. There are clips in the GE junction and upper quadrant consistent with cholecystectomy and stomach maura khalida. There is barium throughout the colon from a previous barium enema performed on 08/21/2024. There is n o bowel obstruction. . IMPRESSION: No significant abnormality seen. Postsurgical changes as described above. [facility], Workstation: [facility] 08/23/2024 10:41 AM
--- NOTE | 2024-08-23 12:07 | P.PN ---
Subjective The patient is a 44-year-old white female with known history of previous gastric bypass. The patient has struggled with postop abdominal pain. She states she went to [facility] and they could not come to the conclusion of her treatment. She is readmitted for intolerable abdominal pain. She seems to be tolerating clear liquid diet however Dr. Garcia and has asked her to try to increase her protein usage and/intake. She has difficulty doing this. No fever 08/22 Patient lying in bed looks awake and relaxed, no distress Still complaining from left lower quadrant abdominal pain and tenderness She says she has no bowel movement No other new complaints Leukocytosis improved down to 6.[address] of the abdomen pelvis is negative for acute process HCG is negative in the serum She tolerates diet 08/23 Patient still complaining from left lower quadrant abdominal pain and tenderness, she still complain from constipation. She is able to eat Abdominal x-ray showed nonspecific gas pattern today We discontinue scopolamine patch as it is anticholinergic. Also lower dose of Dilaudid. Increase Colace daily to twice daily and start senna Surgery team on the case Possible discharge in 24 to 48 hours Objective - Vital Signs Vital signs: Vital Signs Temp 98.0 F 08/23/24 07:00 Pulse 73 08/23/24 07:00 Resp 16 08/23/24 07:00 BP 90/52 08/23/24 07:00 Pulse Ox 100 08/23/24 07:00 FiO2 Intake & Output 08/22/24 08/23/24 08/23/24 18:59 06:59 18:59 Intake Total 118 Balance 118 Weight 52.163 kg Intake: Oral 118 Other: # Voids 2 2 - Exam GENERAL: The patient is alert and oriented x3, not in any acute distress. Well developed, well nourished. HEENT: Pupils are round and equally reacting to light. EOMI. No scleral icterus. No conjunctival pallor. Normocephalic, atraumatic. No pharyngeal erythema. No thyromegaly. CARDIOVASCULAR: S1 and S2 present. No murmurs, rubs, or gallops. PULMONARY: Chest is clear to auscultation, no wheezing , no crackles. -ABDOMEN: Soft, LLQ tenderness, mild with no rebound tenderness or guarding, nondistended, normoactive bowel sounds. No palpable organomegaly. MUSCULOSKELETAL: No joint swelling or deformity. EXTREMITIES: No cyanosis, clubbing, or pedal edema. NEUROLOGICAL: Gross neurological examination did not reveal any focal deficits. SKIN: No rashes. no petechiae. - Labs CBC & Chem 7: 08/23/24 07:47 08/22/24 05:34 Labs: Abnormal Lab Results - Last 24 Hours (Table) 08/23/24 Range/Units 07:47 RBC 3.72 L (3.80-5.40) m/uL RDW 18.9 H (11.5-15.5) % Assessment and Plan Assessment: Abdominal pain in the left lower quadrant could be related to constipation Constipation status status post laxative Irritable bowel syndrome History of gastric bypass surgery Depression, not an active issue Marked elevated lactic acid came back to reference range Plan: Continue current hydration, currently on normal saline Continue with Colace, add senna. Discontinue scopolamine patch Lower dose of Benadryl Continue with bowel regiment Surgery team consult GI prophylaxis: Protonix DVT prophylaxis: Pepcid Further recommendation based on the clinical course she may be considered for discharge in 24 to 48 hours if continue to improve
[2024-08-23] MEDS: DOCUSATE 100 MG CAP PO SCH (13:11)
[2024-08-23] MEDS: SENNOSIDES 8.6 MG TAB PO SCH (13:11)
[2024-08-23] MEDS: BENZOCAINE/MENTHOL LOZENG 1 EACH LOZENGE MUCOUS MEM PRN (13:41)
[2024-08-23] MEDS: HYDROmorphone 0.5 MG/0.5 ML SYRINGE IVP PRN (19:49)
--- NOTE | 2024-08-24 08:41 | P.PN ---
Subjective Progress Note Date: 08/24/24 This is a 44-year-old female with a known history of gastric bypass who presented to the emergency department with complaints of severe abdominal pain. Patient recently had an admission at the [facility] and they focused on her constipation and discharged her on max doses of laxatives and MiraLAX. CT of the abdomen and pelvis was negative for any acute process. She did have a barium enema on Saturday. Patient is still complaining of significant left lower quadrant abdominal pain. She reports she is passing gas. She is tolerating a full liquid diet. She reports she has not had a bowel movement since Saturday. Objective - Vital Signs Vital signs: Vital Signs Temp 98.3 F 08/24/24 07:20 Pulse 54 L 08/24/24 07:20 Resp 15 08/24/24 07:20 BP 113/68 08/24/24 07:20 Pulse Ox 99 08/24/24 07:20 FiO2 Intake & Output 08/23/24 08/24/24 08/24/24 18:59 06:59 18:59 Intake Total 560 Balance 560 Intake: Oral 560 Other: Voiding Method Toilet # Voids 4 3 - Constitutional General appearance: Present: cooperative, no acute distress - EENT Eyes: Present: PERRLA - Neck Neck: Present: normal ROM. Absent: lymphadenopathy, rigidity - Respiratory Respiratory: bilateral: CTA - Cardiovascular Rhythm: regular Heart sounds: normal: S1, S2 - Gastrointestinal General gastrointestinal: Present: soft, tenderness - Integumentary Integumentary: Present: normal - Psychiatric Psychiatric: Present: A&O x's 3 - Labs CBC & Chem 7: 08/23/24 07:47 08/22/24 05:34 Assessment and Plan (1) Intractable abdominal pain Current Visit: No Status: Acute Code(s): R10.9 - UNSPECIFIED ABDOMINAL PAIN SNOMED Code(s): 42506967 (2) Anxiety Current Visit: Yes Status: Acute Code(s): F41.9 - ANXIETY DISORDER, UNSPECIFIED SNOMED Code(s): 45216106 (3) Depression Current Visit: Yes Status: Acute Code(s): F32.A - DEPRESSION, UNSPECIFIED SNOMED Code(s): 34679929 (4) GERD (gastroesophageal reflux disease) Current Visit: No Status: Acute Code(s): K21.9 - GASTRO-ESOPHAGEAL REFLUX DISEASE WITHOUT ESOPHAGITIS SNOMED Code(s): 238569642 (5) History of gastric bypass Current Visit: No Status: Acute Code(s): Z98.84 - BARIATRIC SURGERY STATUS SNOMED Code(s): 349454126 Plan: Check CBC and CMP in the morning. Appreciate input from surgeon. Patient seen and evaluated by nurse practitioner, physician in agreement with plan.
--- NOTE | 2024-08-24 11:55 | P.PN ---
Subjective Progress Note Date: 08/24/24 SURGICAL PROGRESS NOTE CHIEF COMPLAINT: Abdominal pain HISTORY OF PRESENT ILLNESS: Patient continues to have abdominal pain. Patient reports her pain feels a little worse today. She does complain of severe heartburn. However, she was able to eat most of the oatmeal and yogurt on the full liquid tray. Her barium enema study had reported redundant colon. Abdominal x-ray from yesterday reported no significant abnormality. Patient has had no bowel movement prior to the barium enema. PHYSICAL EXAM: VITAL SIGNS: Reviewed. GENERAL: Well-developed in no acute distress. HEENT: No sclera icterus. Extraocular movements grossly intact. Moist buccal mucosa. Head is atraumatic, normocephalic. ABDOMEN: Soft. Nondistended. Nontender. NEUROLOGIC: Alert and oriented. Cranial nerves II through XII grossly intact. ASSESSMENT: 1. Abdominal pain 2. Redundancy of sigmoid colon 3. Chronic constipation 4. History of gastric bypass 5. History of tobacco use disorder. PLAN: -Continue full liquid diet -Continue supportive care -Change Protonix to IV and increase to twice a day for heartburn -Encourage patient to increase activity level Physician Wood Bucker note has been reviewed by physician. Signing provider agrees with the documented findings, assessment, and plan of care. I have personally seen and examined the patient, reviewed the OFFICE CLERK ROUTINE /PAs history, exam and MDM and agree with the assessment and plan as written. Based on total visit time, I have performed more than 50% of the visit. As above: Patient says she is having worsening heartburn and left-sided pain. Some vomiting this morning. She did have a bowel movement. Remains afebrile. Continue liquid diet. Objective - Vital Signs Vital signs: Vital Signs Temp 98.3 F 08/24/24 07:20 Pulse 54 L 08/24/24 07:20 Resp 15 08/24/24 07:20 BP 113/68 08/24/24 07:20 Pulse Ox 99 08/24/24 07:20 FiO2 Intake & Output 08/23/24 08/24/24 08/24/24 18:59 06:59 18:59 Intake Total 560 236 Balance 560 236 Intake: Oral 560 236 Other: Voiding Method Toilet # Voids 4 3 - Labs CBC & Chem 7: 08/23/24 07:47 08/22/24 05:34
[2024-08-24] MEDS: PANTOPRAZOLE 40 MG/10 ML VIAL IVP SCH (20:27)
[2024-08-25 07:45] VITALS: BP 108/71; PULSE 52; RESP 14; TEMP 97.6
[2024-08-25] MEDS: ERGOCALCIFEROL 1,250 MCG (50,000 IU) CAPSULE PO SCH (08:02)
--- NOTE | 2024-08-25 08:44 | P.DS ---
Providers Date of admission: 08/20/24 20:17 Attending physician: Alexys Adams Consults: 08/20/24 14:50 Consult Physician Routine Consulting Provider: Renuka Lopez Consult Reason/Comments: abdominal pain Do you want consulting provider notified?: Already Contacted Primary care physician: Alexys Adams - Discharge Diagnosis(es) (1) Intractable abdominal pain Current Visit: No Status: Acute (2) Anxiety Current Visit: Yes Status: Acute (3) Depression Current Visit: Yes Status: Acute (4) GERD (gastroesophageal reflux disease) Current Visit: No Status: Acute (5) History of gastric bypass Current Visit: No Status: Acute Hospital Course: This is a 44-year-old female with a known history of gastric bypass who presented to the emergency department with complaints of severe abdominal pain. Patient recently had an admission at the [facility] and they focused on her constipation and discharged her on max doses of laxatives and MiraLAX. CT of the abdomen and pelvis was negative for any acute process. She did have a barium enema on Saturday. Patient has been tolerating diet. She did have a bowel movement yesterday. She is still complaining of intermittent left lower abdominal pain. Will start her on gabapentin 100 mg twice daily and have her follow-up in our office in a week. Patient may be discharged today if cleared by general surgery, and would like their recommendations for discharge medications regarding constipation. Patient seen and evaluated by nurse practitioner, physician in agreement with plan. Patient Condition at Discharge: Stable Plan - Discharge Summary Discharge Rx Participant: Yes New Discharge Prescriptions: New Lactulose [Cephulac] 30 ml PO BID PRN #500 ml PRN Reason: Constipation bisacodyL [Dulcolax] 10 mg PO DAILY PRN #60 tab PRN Reason: Constipation Pantoprazole [Protonix] 40 mg PO DAILY #30 tab Dicyclomine [Bentyl] 10 mg PO BID cap traMADol HCl [Ultram] 50 mg PO Q6H PRN tab PRN Reason: Pain Gabapentin [Neurontin] 100 mg PO BID 30 Days #60 cap Continue busPIRone HCL 15 mg PO DAILY Escitalopram [Lexapro] 30 mg PO HS Ondansetron Odt [Zofran ODT] 4 mg PO TID PRN PRN Reason: Nausea busPIRone HCL 30 mg PO HS Ergocalciferol [Vitamin D2 (1250 Mcg = 42380 Iu)] 1,250 mcg PO TU Dextrose Chew [Glucose Chew Tab] 4 - 16 gm PO DIRECTED PRN PRN Reason: Blood Sugar - Low diphenhydrAMINE HCL [Benadryl] 25 mg PO HS Discontinued Omeprazole Magnesium [PriLOSEC OTC] 20 mg PO DAILY Docusate [Colace] 100 mg PO DAILY polyethylene glycoL 3350 [Miralax] 17 gm PO DAILY PRN PRN Reason: Constipation Prochlorperazine [Compazine] 5 mg PO Q4H PRN PRN Reason: Nausea Hyoscyamine Sulfate [Levsin] 0.125 mg PO QAM Dicyclomine [Bentyl] 10 mg PO DAILY PRN PRN Reason: IBS Dicyclomine [Bentyl] 10 mg PO BID Discharge Medication List busPIRone HCL 15 mg PO DAILY 12/31/21 [History] Escitalopram [Lexapro] 30 mg PO HS 09/06/23 [History] Ondansetron Odt [Zofran ODT] 4 mg PO TID PRN 12/22/23 [History] busPIRone HCL 30 mg PO HS 06/08/24 [History] Ergocalciferol [Vitamin D2 (1250 Mcg = 13508 Iu)] 1,250 mcg PO TU 06/29/24 [History] Dextrose Chew [Glucose Chew Tab] 4 - 16 gm PO DIRECTED PRN 08/20/24 [History] diphenhydrAMINE HCL [Benadryl] 25 mg PO HS 08/20/24 [History] Lactulose [Cephulac] 30 ml PO BID PRN #500 ml 08/21/24 [Rx] Pantoprazole [Protonix] 40 mg PO DAILY #30 tab 08/21/24 [Rx] bisacodyL [Dulcolax] 10 mg PO DAILY PRN #60 tab 08/21/24 [Rx] Dicyclomine [Bentyl] 10 mg PO BID cap 08/25/24 [Rx] Gabapentin [Neurontin] 100 mg PO BID 30 Days #60 cap 08/25/24 [Rx] traMADol HCl [Ultram] 50 mg PO Q6H PRN tab 08/25/24 [Rx] Follow up Appointment(s)/Referral(s): Alexys Adams MD [Primary Care Provider] [facility] [place] [place] - 08/26/24 3:00 pm Patient Instructions/Handouts: How to Stop Smoking (DC), Constipation (DC) Activity/Diet/Wound Care/Special Instructions: Daily protein intake over 60 g using fish, chicken, turkey, protein shakes as needed. Use lactulose and Dulcolax as needed for constipation. Goal is daily bowel movements. Follow-up with the bariatric center Notify bariatric center for urine nicotine test. Must be nicotine abstinent for 3 to 4 weeks for negative testing. Discharge Disposition: HOME SELF-CARE
[2024-08-25 08:47] LABS: HCT 37.1 % (37.2-46.3); HGB 11.6 g/dL (12.0-15.0); MCH 29.9 pg (27.0-32.0); MCHC 31.3 g/dL (32.0-37.0); MCV 95.6 FL (80.0-97.0); Mean Platelet Volume 10.8 FL (9.5-12.2); NRBC Per 100 WBC 0 X 10*3/uL (0.00-0.01); Platelet Count 243 X 10*3/uL (140-440); RBC 3.88 X 10*6/uL (4.10-5.20); RDW 19.9 % (11.5-14.5); WBC 8.61 X 10*3/uL (4.50-10.00)
[2024-08-25] MEDS: GABAPENTIN 100 MG CAP PO SCH (08:54)
[2024-08-25 09:49] LABS: ALT 8 U/L (8-44); AST 9 U/L (13-35); Albumin 3.3 g/dL (3.8-4.9); Albumin/Globulin Ratio 1.38 Ratio (1.60-3.17); Alkaline Phosphatase 85 U/L (41-126); BUN/Creat Ratio 7.83 Ratio (12.00-20.00); Blood Urea Nitrogen 4.7 mg/dL (9.0-27.0); Calcium 8.6 mg/dL (8.7-10.3); Carbon Dioxide 29.8 mmol/L (21.6-31.8); Chloride 103 mmol/L (96-109); Globulin 2.4 g/dL (1.6-3.3); Glucose 99 mg/dL (70-110); Sodium 140 mmol/L (135-145); Total Bilirubin <0.2 mg/dL (0.3-1.2); Total Protein 5.7 g/dL (6.2-8.2)
--- NOTE | 2024-08-25 15:30 | P.PN ---
Subjective Progress Note Date: 08/25/24 SURGICAL PROGRESS NOTE CHIEF COMPLAINT: Abdominal pain HISTORY OF PRESENT ILLNESS: Patient continues to have left lower quadrant abdominal pain. She reports episode of a small amount of diarrhea yesterday. She is having flatus. She did have a couple episodes of vomiting yesterday. She was a little nauseous. She is able to eat the full liquid diet. Medicine service has placed a discharge order for patient. Patient feels that she is ready for discharge and can manage her diet until seen by surgeon in the outpatient setting. PHYSICAL EXAM: VITAL SIGNS: Reviewed. GENERAL: Well-developed in no acute distress. HEENT: No sclera icterus. Extraocular movements grossly intact. Moist buccal mucosa. Head is atraumatic, normocephalic. ABDOMEN: Soft. Nondistended. Mild tenderness left lower quadrant NEUROLOGIC: Alert and oriented. Cranial nerves II through XII grossly intact. ASSESSMENT: 1. Abdominal pain 2. Redundancy of sigmoid colon 3. Chronic constipation 4. History of gastric bypass 5. History of tobacco use disorder. PLAN: -Patient can be discharge from surgical standpoint with outpatient follow-up -Continue a full liquid diet and advance as tolerated at home -Recommend high protein diet of 6 g daily -Recommend nicotine abstinence -Planning elective colectomy outpatient with Dr. Lopez Physician Drum Stenciler note has been reviewed by physician. Signing provider agrees with the documented findings, assessment, and plan of care. Objective - Vital Signs Vital signs: Vital Signs Temp 97.6 F 08/25/24 07:00 Pulse 52 L 08/25/24 07:00 Resp 14 08/25/24 07:00 BP 108/71 08/25/24 07:00 Pulse Ox 99 08/25/24 07:00 FiO2 Intake & Output 08/24/24 08/25/24 08/25/24 18:59 06:59 18:59 Intake Total 236 118 Balance 236 118 Intake: Oral 236 118 Other: Voiding Method Toilet # Voids 10 2 # Bowel Movements 1 - Labs CBC & Chem 7: 08/25/24 05:09 08/25/24 05:09 Labs: Abnormal Lab Results - Last 24 Hours (Table) 08/25/24 08/25/24 Range/Units 05:09 05:09 RBC 3.88 L (4.10-5.20) X 10*6/uL Hgb 11.6 L (12.0-15.0) g/dL Hct 37.1 L (37.2-46.3) % MCHC 31.3 L (32.0-37.0) g/dL RDW 19.9 H (11.5-14.5) % BUN 4.7 L (9.0-27.0) mg/dL BUN/Creatinine Ratio 7.83 L (12.00-20.00) Ratio Calcium 8.6 L (8.7-10.3) mg/dL Total Bilirubin <0.2 L (0.3-1.2) mg/dL AST 9 L (13-35) U/L Total Protein 5.7 L (6.2-8.2) g/dL Albumin 3.3 L (3.8-4.9) g/dL Albumin/Globulin Ratio 1.38 L (1.60-3.17) Ratio
== END 2024-08-25 10:57 | disposition home or self-care (01) ==
LOC: EC 09:43 → 6NMEDSUR 20:17
PROVIDERS: ADMIT Family Medicine; ATTEND Family Medicine
DX: R10.32 Left lower quadrant pain (principal); K59.09 Other constipation; D72.829 Elevated white blood cell count, unspecified; E87.20 Acidosis, unspecified; F32.A Depression, unspecified; F41.9 Anxiety disorder, unspecified; G89.29 Other chronic pain; K58.1 Irritable bowel syndrome with constipation; K21.01 Gastro-esophageal reflux disease with esophagitis, with bleeding; K91.1 Postgastric surgery syndromes; Q43.8 Other specified congenital malformations of intestine; Z79.899 Other long term (current) drug therapy; Z98.84 Bariatric surgery status; Z88.1 Allergy status to other antibiotic agents; Z87.891 Personal history of nicotine dependence
CPT/HCPCS: 96376 ×6; 96361 ×6; 96372 ×4; 96375 ×2; 96365; 99285; 36415; 80053 ×4; 82150; 83605; 83690; 85025 ×3; 85027 ×2; 84703; 74270; 74019; 74177; G0378 ×6; J0780; J1644 ×4; J2405 ×4; J0131; J1171 ×6; Q9967; J2470 ×2

== ENCOUNTER → 2024-09-02 | Outpatient (CLI) | payer BC ==
[2024-09-02 15:06] VITALS: BP 103/64; PULSE 100; RESP 16; TEMP 98.3; BMI 18.8
--- NOTE | 2024-09-02 15:56 | P.BASOAP ---
Subjective Progress Note Date: 09/02/24 She has diverticulosis and volvulus. Needs colectomy. Sep 17 and Objective - Vital Signs Vital signs: Vital Signs Temp 98.3 F 09/02/24 14:59 Pulse 100 09/02/24 14:59 Resp 16 09/02/24 14:59 BP 103/64 09/02/24 14:59 Pulse Ox FiO2 Intake & Output 09/01/24 09/02/24 09/02/24 18:59 06:59 18:59 Weight 51.256 kg Assessment/Plan Plan: Date: 09/02/24 Initial Weight: Initial BMI: Current Weight: 51.256 kg Current BMI: 18.8 Type of Surgery: Total Volume in Band: Previous Volume: Volume Removed: Volume Added: Band Size:
[2024-09-02 17:40] LABS: INR 0.9 (<1.2); Partial Thromboplastin Time 24.5 sec (22.0-30.0)
[2024-09-03 03:52] LABS: HCT 42.8 % (37.2-46.3); HGB 13.6 g/dL (12.0-15.0); MCH 31.1 pg (27.0-32.0); MCHC 31.8 g/dL (32.0-37.0); MCV 97.7 FL (80.0-97.0); Mean Platelet Volume 11.3 FL (9.5-12.2); NRBC Per 100 WBC 0 X 10*3/uL (0.00-0.01); Platelet Count 311 X 10*3/uL (140-440); RBC 4.38 X 10*6/uL (4.10-5.20); RDW 20.1 % (11.5-14.5); WBC 7.48 X 10*3/uL (4.50-10.00)
[2024-09-03 04:20] LABS: Prealbumin 25.7 mg/dL (18.0-42.0)
[2024-09-03 04:47] LABS: % Iron Saturation 59.38 (12.00-45.00); ALT 9 U/L (8-44); AST 18 U/L (13-35); Albumin/Globulin Ratio 1.38 Ratio (1.60-3.17); Alkaline Phosphatase 101 U/L (41-126); Blood Urea Nitrogen 6.3 mg/dL (9.0-27.0); Calcium 9.4 mg/dL (8.7-10.3); Carbon Dioxide 28.5 mmol/L (21.6-31.8); Chloride 100 mmol/L (96-109); Chol/HDL Ratio 5.03 Ratio; Globulin 2.9 g/dL (1.6-3.3); Glucose 83 mg/dL (70-110); Iron 193 UG/DL (50-170); LDL Cholesterol,Calculated 196.7 mg/dL (0.0-131.0); Magnesium 1.9 mg/dL (1.5-2.4); Phosphorus 4.3 mg/dL (2.4-5.1); Potassium 4.7 mmol/L (3.5-5.5); Sodium 139 mmol/L (135-145); Total Bilirubin <0.2 mg/dL (0.3-1.2); Total Iron Binding Capacity 325 UG/DL (228-460); Total Protein 6.9 g/dL (6.2-8.2)
[2024-09-03 12:19] LABS: Zinc, Serum 88 ug/dL (60-130)
[2024-09-04 05:58] LABS: Vitamin A 61 ug/dL (38-106)
[2024-09-04 06:25] LABS: Vit B1(Thiamine) 58 ug/L (38-122)
== END ==
LOC: BARWHC3 14:27
PROVIDERS: ATTEND Surgery Plastic and Reconstructive Surgery
DX: E66.01 Morbid (severe) obesity due to excess calories (principal); E89.1 Postprocedural hypoinsulinemia; D50.8 Other iron deficiency anemias; K90.89 Other intestinal malabsorption; E55.9 Vitamin D deficiency, unspecified; K74.1 Hepatic sclerosis; N19 Unspecified kidney failure; K50.90 Crohn's disease, unspecified, without complications; T56.894A Toxic effect of other metals, undetermined, initial encounter; K57.90 Diverticulosis of intestine, part unspecified, without perforation or abscess without bleeding; K56.2 Volvulus; Z88.0 Allergy status to penicillin; Z68.1 Body mass index [BMI] 19.9 or less, adult
CPT/HCPCS: 80053; 80061; 80323; 82306; 82525; 82607; 82728; 82746; 83036; 83540; 83550; 83735; 83970; 84100; 84134; 84255; 84425; 84443; 84590; 84630; 85027; 85610; 85730; 87086; 99211

== ENCOUNTER 2024-09-10 17:22 | Observation (INO) | payer BC ==
--- NOTE | 2024-09-10 18:32 | ED ---
Nausea/Vomiting/Diarrhea HPI - General Source: patient, RN notes reviewed Mode of arrival: ambulatory Limitations: no limitations <Jennifer Bustamante - Last Filed: 09/10/24 18:31> - General Source: patient, RN notes reviewed, old records reviewed <Bernard Lux - Last Filed: 09/10/24 23:04> - General Chief complaint: Nausea/Vomiting/Diarrhea Stated complaint: NV, pain Time Seen by Provider: 09/10/24 18:31 - History of Present Illness Initial comments: Quick [id number] female presenting with abdominal pain x 1 day with associated nausea, vomiting, and diarrhea. States the pain is located in the left upper quadrant of the abdomen. States she is scheduled for colectomy with Dr. Lopez next Saturday for colon issues. States she has had multiple flareups similar to this. (Jennifer Bustamante) Patient is a 44-year-old female presents emergency department complaining of chronic abdominal pain with nausea and vomiting. Symptoms again started yesterday. Is due to have a colon resection with Dr. Lopez, but states that she is having worsening symptoms. Started last night. Is having numerous episodes of nonbilious nonbloody emesis. Denies chest pain or shortness of breath. Describes generalized abdominal discomfort mostly periumbilically which is chronic for the patient when the symptoms flareup. Denies urinary complaints. Has no other acute complaints at this time. Presents for further evaluation at this time. Does endorse some diarrhea with it as well. No blood in the diarrhea or emesis. (Bernard Lux) - Related Data Home Medications Medication Instructions Recorded Confirmed busPIRone HCL 15 mg PO DAILY 12/31/21 09/02/24 Escitalopram [Lexapro] 30 mg PO HS 09/06/23 09/02/24 Ondansetron Odt [Zofran ODT] 4 mg PO TID PRN 12/22/23 09/02/24 busPIRone HCL 30 mg PO HS 06/08/24 09/02/24 Ergocalciferol [Vitamin D2 (1250 1,250 mcg PO TU 06/29/24 09/02/24 Mcg = 55584 Iu)] Dextrose Chew [Glucose Chew Tab] 4 - 16 gm PO DIRECTED PRN 08/20/24 09/02/24 diphenhydrAMINE HCL [Benadryl] 25 mg PO HS 08/20/24 09/02/24 Docusate [Colace] 1 cap PO DAILY 09/02/24 09/02/24 Previous Rx's Medication Instructions Recorded Lactulose [Cephulac] 30 ml PO BID PRN #500 ml 08/21/24 Pantoprazole [Protonix] 40 mg PO DAILY #30 tab 08/21/24 Dicyclomine [Bentyl] 10 mg PO BID cap 08/25/24 Gabapentin [Neurontin] 100 mg PO BID 30 Days #60 cap 08/25/24 traMADol HCl [Ultram] 50 mg PO Q6H PRN tab 08/25/24 Allergies Allergy/AdvReac Type Severity Reaction Status Date / Time amoxicillin Allergy Anaphylaxis Verified 09/02/24 14:59 Review of Systems ROS Other: All systems not noted in ROS Statement are negative. <Jennifer Bustamante - Last Filed: 09/10/24 18:31> ROS Other: All systems not noted in ROS Statement are negative. <Bernard Lux - Last Filed: 09/10/24 23:04> ROS Statement: Those systems with pertinent positive or pertinent negative responses have been documented in the HPI. Review of Systems: CONST: Denies fever EYES: Denies blurry vision ENT: Denies nasal congestion C/V: Denies Chest pain RESP: Denies shortness of breath GI: Endorses abdominal pain : Denies dysuria SKIN: Denies rash. MSK: Denies joint pain. NEURO: Denies headache (Bernard Lux) Past Medical History Past Medical History: Blood Disorder, GERD/Reflux Additional Past Medical History / Comment(s): Anemia History of Any Multi-Drug Resistant Organisms: None Reported Past Surgical History: Bariatric Surgery, Cholecystectomy, Hernia Repair Additional Past Surgical History / Comment(s): gastric bypass 2013. ulcer repair 09/2023. EGD 06/10 Past Anesthesia/Blood Transfusion Reactions: No Reported Reaction Past Psychological History: Anxiety, Depression Smoking Status: Former smoker Past Alcohol Use History: None Reported Past Drug Use History: Marijuana - Past Family History Mother Family Medical History: Unable to Obtain <Jennifer Bustamante - Last Filed: 09/10/24 18:31> General Exam Limitations: no limitations <Jennifer Bustamante - Last Filed: 09/10/24 18:31> <Bernard Lux - Last Filed: 09/10/24 23:04> - General Exam Comments Initial Comments: Visual Physical Exam Vital signs reviewed General: Well-appearing, nontoxic, no acute distress. Head: Normocephalic, atraumatic Eyes: PERRLA, EOMI ENT: Airway patent Chest: Nonlabored breathing Skin: No visual rash, normal skin tone Neuro: Alert and oriented 3 Musculoskeletal: No gross abnormalities (Jennifer Bustamante) General: Appears in mild distress. HEAD: Normal with no signs of head trauma. EYES: PERRLA, EOMI, conjunctiva normal, no discharge. ENT: Hearing grossly intact, normal oropharynx. Dry mucous membranes. RESPIRATORY: Clear breath sounds bilaterally. No wheezes, rales, or rhonchi. C/V: Regular rate and rhythm. S1 and S2 auscultated, no edema, peripheral pulses 2+ and intact throughout ABD: Abdomen is soft, nondistended. Tender to palpation periumbilically. No guarding or rebound tenderness. No peritoneal signs. EXT: No obvious deformity. SKIN: No rashes or lesions observed on exposed skin. NEURO: Alert and oriented x 4. (Bernard Lux) Course Vital Signs 09/10/24 09/10/24 17:40 21:04 Temperature 97.9 F Pulse Rate 78 94 Respiratory 18 22 Rate Blood Pressure 123/57 125/86 O2 Sat by Pulse 100 100 Oximetry Medical Decision Making <Jennifer Bustamante - Last Filed: 09/10/24 18:31> - Lab Data Result diagrams: 09/10/24 19:49 09/10/24 19:49 <Bernard Lux - Last Filed: 09/10/24 23:04> - Medical Decision Making I completed the quick note portion of this chart signed to Jennifer Bustamante PA-C (Jennifer Bustamante) Was pt. sent in by a medical professional or institution ([facility], [employer], urgent care, hospital, or [facility]...) When possible be specific @ -No Did you speak to anyone other than the patient for history (EMS, parent, family, police, friend...)? What history was obtained from this source @ -No Did you review nursing and triage notes (agree or disagree)? Why? @ -I reviewed and agree with nursing and triage notes Were old charts reviewed (outside hosp., previous admission, EMS record, old EKG, old radiological studies, urgent care reports/EKG's, [facility] records)? Report findings @ -No old charts were reviewed Differential Diagnosis (chest pain, altered mental status, abdominal pain women, abdominal pain men, vaginal bleeding, weakness, fever, dyspnea, syncope, headache, dizziness, GI bleed, back pain, seizure, CVA, palpatations, mental health, musculoskeletal)? @ -Differential Abdominal Pain Women: Appendicitis, Cholecystitis, diverticulosis, ischemic bowel, pancreatitis, hepatitis, UTI, gastroenteritis, AAA, incarcerated hernia, bowel obstruction, constipation, inflammatory bowel, hepatitis, peptic ulcer disease, splenic infarction, perforated viscus, vulvitis, ovarian torsion, PID, kidney stone, placenta abruption, this is not meant to be an all-inclusive list EKG interpreted by me (3pts min.). @ -None done X-rays interpreted by me (1pt min.). @ -None done CT interpreted by me (1pt min.). @ -CT abdomen pelvis reveals mild colonic wall thickening in the sigmoid colon and rectum. U/S interpreted by me (1pt. min.). @ -None done What testing was considered but not performed or refused? (CT, X-rays, U/S, labs)? Why? @ -None What meds were considered but not given or refused? Why? @ -None Did you discuss the management of the patient with other professionals (professionals i.e. , PA, [employer], lab, RT, psych nurse, oncology social work, floor inspector, teacher, animal park code enforcement officer, case liner)? Give summary @ -Discussed with Dr. Sandhu who is covering for Dr. Fletcher who was in agreement with plan for observation admission under Dr. Fletcher. Was smoking cessation discussed for >3mins.? @ -No Was critical care preformed (if so, how long)? @ -No Were there social determinants of health that impacted care today? How? (Homelessness, low income, unemployed, alcoholism, drug addiction, transportation, low edu. Level, literacy, decrease access to med. care, prison, rehab)? @ -No Was there de-escalation of care discussed even if they declined (Discuss DNR or withdrawal of care, Hospice)? DNR status @ -No What co-morbidities impacted this encounter? (DM, HTN, Smoking, COPD, CAD, Cancer, CVA, ARF, Chemo, Hep., AIDS, mental health diagnosis, sleep apnea, morbid obesity)? @ -None Was patient admitted / discharged? Hospital course, mention meds given and route, prescriptions, significant lab abnormalities, going to OR and other pertinent info. @ -Patient presents emergency department with acute on chronic abdominal pain with intractable nausea and vomiting. Obtain abdominal labs as well as abdominal workup. Symptomatically treat multiple bolus as well as antiemetics and analgesia medications. She was in agreement this plan. Laboratory studies remarkable for dehydration with elevated lactic acid of 2.8 as well as a reactive leukocytosis of 13.4. Remainder the workup unremarkable. CT reveals colonic wall thickening. No other obvious acute process. Patient required a second dose of antiemetic medications. Discussed results with her. She will be admitted to observation for further monitoring. Patient was in agreement this plan. Spoke with Dr. Sandhu who accepted the admission and requested patient be admitted under her surgeon Dr. Fletcher. Undiagnosed new problem with uncertain prognosis? @ -No Drug Therapy requiring intensive monitoring for toxicity (Heparin, Nitro, Insulin, Cardizem)? @ -No Were any procedures done? @ -No Diagnosis/symptom? @ -Abdominal pain, nausea and vomiting, dehydration Acute, or Chronic, or Acute on Chronic? @ -Acute on chronic Uncomplicated (without systemic symptoms) or Complicated (systemic symptoms)? @ -Complicated Side effects of treatment? @ -No Exacerbation, Progression, or Severe Exacerbation? @ -No Poses a threat to life or bodily function? How? (Chest pain, [place], [place], pneumonia, PE, COPD, DKA, ARF, appy, cholecystitis, CVA, Diverticulitis, Homicidal, Suicidal, threat to staff... and all critical care pts) @ -Potentially, yes (Bernard Lux) - Lab Data Lab Results 09/10/24 09/10/24 09/10/24 Range/Units 19:49 19:49 19:49 WBC 13.4 H (3.8-10.6) k/uL RBC 4.16 (3.80-5.40) m/uL Hgb 12.7 (11.4-16.0) gm/dL Hct 39.9 (34.0-46.0) % MCV 95.9 (80.0-100.0) fL MCH 30.6 (25.0-35.0) pg MCHC 31.9 (31.0-37.0) g/dL RDW 18.3 H (11.5-15.5) % Plt Count 320 (150-450) k/uL MPV 8.3 Neutrophils % 86 % Lymphocytes % 10 % Monocytes % 3 % Eosinophils % 1 % Basophils % 0 % Neutrophils # 11.5 H (1.3-7.7) k/uL Lymphocytes # 1.3 (1.0-4.8) k/uL Monocytes # 0.4 (0-1.0) k/uL Eosinophils # 0.1 (0-0.7) k/uL Basophils # 0.0 (0-0.2) k/uL Anisocytosis Slight Sodium 136 L (137-145) mmol/L Potassium 3.5 (3.5-5.1) mmol/L Chloride 104 (98-107) mmol/L Carbon Dioxide 23 (22-30) mmol/L Anion Gap 9 mmol/L BUN 5 L (7-17) mg/dL Creatinine 0.47 L (0.52-1.04) mg/dL Est GFR (CKD-EPI)AfAm >90 (>60 ml/min/1.73 sqM) Est GFR (CKD-EPI)NonAf >90 (>60 ml/min/1.73 sqM) Glucose 121 H (74-99) mg/dL Lactic Ac Sepsis Rflx Plasma Lactic Acid Chema 2.8 H* (0.7-2.0) mmol/L Calcium 9.5 (8.4-10.2) mg/dL Total Bilirubin 0.3 (0.2-1.3) mg/dL AST 24 (14-36) U/L ALT 14 (4-34) U/L Alkaline Phosphatase 106 (38-126) U/L Total Protein 7.0 (6.3-8.2) g/dL Albumin 4.1 (3.5-5.0) g/dL Lipase 70 (23-300) U/L Urine Color Urine Appearance (Clear) Urine pH (5.0-8.0) Ur Specific [place] (1.001-1.035) Urine Protein (Negative) Urine Glucose (UA) (Negative) Urine Ketones (Negative) Urine Blood (Negative) Urine Nitrite (Negative) Urine Bilirubin (Negative) Urine Urobilinogen (<2.0) mg/dL Ur Leukocyte Esterase (Negative) Urine RBC (0-5) /hpf Urine WBC (0-5) /hpf Ur Squamous Epith Cells (0-4) /hpf Amorphous Sediment (None) /hpf Urine Mucus (None) /hpf 09/10/24 09/10/24 Range/Units 20:22 22:02 WBC (3.8-10.6) k/uL RBC (3.80-5.40) m/uL Hgb (11.4-16.0) gm/dL Hct (34.0-46.0) % MCV (80.0-100.0) fL MCH (25.0-35.0) pg MCHC (31.0-37.0) g/dL RDW (11.5-15.5) % Plt Count (150-450) k/uL MPV Neutrophils % % Lymphocytes % % Monocytes % % Eosinophils % % Basophils % % Neutrophils # (1.3-7.7) k/uL Lymphocytes # (1.0-4.8) k/uL Monocytes # (0-1.0) k/uL Eosinophils # (0-0.7) k/uL Basophils # (0-0.2) k/uL Anisocytosis Sodium (137-145) mmol/L Potassium (3.5-5.1) mmol/L Chloride (98-107) mmol/L Carbon Dioxide (22-30) mmol/L Anion Gap mmol/L BUN (7-17) mg/dL Creatinine (0.52-1.04) mg/dL Est GFR (CKD-EPI)AfAm (>60 ml/min/1.73 sqM) Est GFR (CKD-EPI)NonAf (>60 ml/min/1.73 sqM) Glucose (74-99) mg/dL Lactic Ac Sepsis Rflx Y Plasma Lactic Acid Chema (0.7-2.0) mmol/L Calcium (8.4-10.2) mg/dL Total Bilirubin (0.2-1.3) mg/dL AST (14-36) U/L ALT (4-34) U/L Alkaline Phosphatase (38-126) U/L Total Protein (6.3-8.2) g/dL Albumin (3.5-5.0) g/dL Lipase (23-300) U/L Urine Color Yellow Urine Appearance Clear (Clear) Urine pH 7.5 (5.0-8.0) Ur Specific [place] >1.050 H (1.001-1.035) Urine Protein Negative (Negative) Urine Glucose (UA) Negative (Negative) Urine Ketones Trace H (Negative) Urine Blood Trace H (Negative) Urine Nitrite Negative (Negative) Urine Bilirubin Negative (Negative) Urine Urobilinogen <2.0 (<2.0) mg/dL Ur Leukocyte Esterase Negative (Negative) Urine RBC 3 (0-5) /hpf Urine WBC 1 (0-5) /hpf Ur Squamous Epith Cells 6 H (0-4) /hpf Amorphous Sediment Rare H (None) /hpf Urine Mucus Occasional H (None) /hpf Disposition <Jennifer Bustamante - Last Filed: 09/10/24 18:31> Time of Disposition: 23:00 <Bernard Lux - Last Filed: 09/10/24 23:04> Clinical Impression: Dehydration, Nausea and vomiting, Intractable abdominal pain Disposition: ADMITTED IP TO THIS HOSP Condition: Stable Referrals: Alexys Adams MD [Primary Care Provider] - 1-2 days
[2024-09-10 19:59] LABS: Anisocytosis Slight; Basophils % (A) 0 %; Eosinophils # (A) 0.1 k/uL (0-0.7); Eosinophils % (A) 1 %; HCT 39.9 % (34.0-46.0); HGB 12.7 gm/dL (11.4-16.0); Lymphocytes # (A) 1.3 k/uL (1.0-4.8); Lymphocytes % (A) 10 %; MCH 30.6 pg (25.0-35.0); MCHC 31.9 g/dL (31.0-37.0); MCV 95.9 fL (80.0-100.0); Mean Platelet Volume 8.3; Monocytes # (A) 0.4 k/uL (0-1.0); Monocytes % (A) 3 %; Neutrophils # (A) 11.5 k/uL (1.3-7.7); Neutrophils % (A) 86 %; Platelet Count 320 k/uL (150-450); RBC 4.16 m/uL (3.80-5.40); RDW 18.3 % (11.5-15.5); WBC 13.4 k/uL (3.8-10.6)
[2024-09-10 20:16] LABS: ALT 14 U/L (4-34); AST 24 U/L (14-36); African American GFR (CKD) >90 (>60 ml/min/1.73 sqM); Albumin 4.1 g/dL (3.5-5.0); Alkaline Phosphatase 106 U/L (38-126); Anion Gap 9 mmol/L; Blood Urea Nitrogen 5 mg/dL (7-17); Calcium 9.5 mg/dL (8.4-10.2); Carbon Dioxide 23 mmol/L (22-30); Chloride 104 mmol/L (98-107); Glucose 121 mg/dL (74-99); Lipase 70 U/L (23-300); Non-African American GFR(CKD) >90 (>60 ml/min/1.73 sqM); Potassium 3.5 mmol/L (3.5-5.1); Sodium 136 mmol/L (137-145); Total Bilirubin 0.3 mg/dL (0.2-1.3)
[2024-09-10] MEDS: SODIUM CHLORIDE 0.9% 2,000 ML IV STA (21:32)
[2024-09-10] MEDS: MORPHINE SULFATE 4 MG/ML SYRINGE IVP STA (21:33)
[2024-09-10] MEDS: ONDANSETRON 4 MG/2 ML VIAL IVP STA (21:33)
--- NOTE | 2024-09-10 22:05 | CT ---
EXAMINATION TYPE: CT abdomen pelvis w con CT DLP: 525.9 mGycm, Automated exposure control for dose reduction was used. DATE OF EXAM: 09/10/2024 9:58 PM COMPARISON: 10,020 10/19/2023 CLINICAL INDICATION:Female, 44 years old with history of n/v/abd pain; Pt to abd pain, nausea/vomitin g/diarrhea since last night. Pt states that she is scheduled for a coloectomy next week hx of gastric bypass TECHNIQUE: Axial CT of the abdomen and pelvis. Sagittal and coronal reformats were created on a [employer] workstation. Contrast used:100ml mL of Isovue 300 with IV Contrast, (none if empty) Oral contrast used: without Oral Contrast (none if empty) FINDINGS: LOWER CHEST: Unremarkable ABDOMEN LIVER: Unremarkable GALLBLADDER AND BILE DUCTS: Gallbladder surgically absent. PANCREAS: Unremarkable. SPLEEN: Unremarkable. ADRENAL GLANDS: Unremarkable. KIDNEYS AND URETERS: No evidence of hydronephrosis or renal calculus. The ureters are unremarkable. PELVIS BLADDER: Incompletely distended but grossly unremarkable. REPRODUCTIVE: Unremarkable. ABDOMEN & PELVIS STOMACH AND BOWEL: Postsurgical changes of the stomach and small bowel gas identified.There is mild c olonic wall thickening of the sigmoid colon and rectum. No evidence of bowel obstruction. PERITONEUM/RETROPERITONEUM: Trace fluid is seen within the pelvis, no evidence of pneumoperitoneum. VASCULATURE: No evidence of aortic aneurysm. MUSCULOSKELETAL: No acute osseous abnormalities LYMPH NODES: No gross evidence for lymphadenopathy. SOFT TISSUE/ABDOMINAL WALL: Unremarkable IMPRESSION: Mild colonic wall thickening of the sigmoid colon and rectum, nonspecific but may relate to underlyin g infectious/inflammatory colitis. [facility], , 09/10/2024 10:02 PM
[2024-09-10 22:26] LABS: Amorphous Sediment,Urine Rare /hpf; Appearance,Urine Clear (Clear); Bilirubin,Urine Negative (Negative); Blood,Urine Trace (Negative); Color,Urine Yellow; Glucose,Urine (UA) Negative (Negative); Ketones,Urine Trace (Negative); Leukocyte Esterase,Urine Negative (Negative); Mucus,Urine Occasional /hpf; Nitrite,Urine Negative (Negative); PH, Urine 7.5 (5.0-8.0); Protein,Urine Negative (Negative); RBC,Urine 3 /hpf (0-5); Specific Gravity,Urine >1.050 (1.001-1.035); Squamous Epithelial Cell,Urine 6 /hpf (0-4); Urobilinogen,Urine <2.0 mg/dL (<2.0); WBC,Urine 1 /hpf (0-5)
[2024-09-10] MEDS: METOCLOPRAMIDE 5 MG/ML 2 ML VIAL IVP STA (22:58)
[2024-09-10] MEDS: diphenhydrAMINE 50 MG/ML 1 ML VIAL IVP STA (23:00)
[2024-09-10] MEDS: SODIUM CHLORIDE 0.9% 1,000 ML IV STA (23:01)
[2024-09-10] MEDS ORDERED: NALOXONE 0.4 MG/ML 1 ML VIAL IV PRN (23:04)
[2024-09-11] MEDS: MORPHINE SULFATE 4 MG/ML SYRINGE IV PRN (01:30)
[2024-09-11] MEDS: ONDANSETRON 4 MG/2 ML VIAL IVP PRN (03:35)
[2024-09-11 05:59] LABS: Anisocytosis Slight; Basophils % (A) 0 %; Eosinophils % (A) 0 %; HCT 36.5 % (34.0-46.0); HGB 11.7 gm/dL (11.4-16.0); Lymphocytes # (A) 1.7 k/uL (1.0-4.8); Lymphocytes % (A) 13 %; MCHC 32.1 g/dL (31.0-37.0); MCV 96.3 fL (80.0-100.0); Mean Platelet Volume 8.1; Monocytes # (A) 0.7 k/uL (0-1.0); Monocytes % (A) 5 %; Neutrophils # (A) 10.6 k/uL (1.3-7.7); Neutrophils % (A) 80 %; Platelet Count 291 k/uL (150-450); RBC 3.78 m/uL (3.80-5.40); RDW 18.4 % (11.5-15.5); WBC 13.2 k/uL (3.8-10.6)
[2024-09-11 06:13] LABS: ALT 11 U/L (4-34); AST 21 U/L (14-36); African American GFR (CKD) >90 (>60 ml/min/1.73 sqM); Albumin 3.5 g/dL (3.5-5.0); Alkaline Phosphatase 85 U/L (38-126); Anion Gap 2 mmol/L; Blood Urea Nitrogen 4 mg/dL (7-17); Calcium 9.2 mg/dL (8.4-10.2); Carbon Dioxide 26 mmol/L (22-30); Chloride 107 mmol/L (98-107); Glucose 120 mg/dL (74-99); Non-African American GFR(CKD) >90 (>60 ml/min/1.73 sqM); Potassium 3.8 mmol/L (3.5-5.1); Sodium 135 mmol/L (137-145); Total Bilirubin 0.3 mg/dL (0.2-1.3); Total Protein 6.2 g/dL (6.3-8.2)
[2024-09-11] MEDS: PROCHLORPERAZINE INJ 10 MG/2 ML VIAL IVP STA (06:58)
--- NOTE | 2024-09-11 08:28 | P.CONS ---
History of Present Illness - Reason for Consult Consult date: 09/11/24 - Chief Complaint Recurrent abdominal pain - History of Present Illness This is a 44-year-old white female with remote history of gastric weight loss surgery who has had chronic pain intermittently ever since moving to my practice. She states her normal medicine and pain control was not working. Significant nausea and she was not eating appropriately. She also states that she is scheduled next week for possible colectomy related to the chronic pain. Review of Systems Constitutional: Denies chills, Denies fever Eyes: denies blurred vision, denies pain Ears, nose, mouth and throat: Denies headache, Denies sore throat Cardiovascular: Denies chest pain, Denies shortness of breath Respiratory: Denies cough Gastrointestinal: Reports as per HPI, Reports abdominal pain, Reports nausea, Reports vomiting Genitourinary: Denies dysuria, Denies hematuria Musculoskeletal: Denies myalgias Past Medical History Past Medical History: Blood Disorder, GERD/Reflux Additional Past Medical History / Comment(s): Anemia History of Any Multi-Drug Resistant Organisms: None Reported Past Surgical History: Bariatric Surgery, Cholecystectomy, Hernia Repair Additional Past Surgical History / Comment(s): gastric bypass 2013. ulcer repair 09/2023. EGD 06/10 Past Anesthesia/Blood Transfusion Reactions: No Reported Reaction Past Psychological History: Anxiety, Depression Smoking Status: Former smoker Past Alcohol Use History: None Reported Past Drug Use History: Marijuana - Past Family History Mother Family Medical History: Unable to Obtain Medications and Allergies Home Medications Medication Instructions Recorded Confirmed Type busPIRone HCL 15 mg PO DAILY 12/31/21 09/11/24 History Escitalopram [Lexapro] 30 mg PO HS 09/06/23 09/11/24 History Ondansetron Odt [Zofran ODT] 4 mg PO TID PRN 12/22/23 09/11/24 History busPIRone HCL 30 mg PO HS 06/08/24 09/11/24 History Ergocalciferol [Vitamin D2 (1250 1,250 mcg PO TU 06/29/24 09/11/24 History Mcg = 03763 Iu)] Dextrose Chew [Glucose Chew Tab] 4 - 16 gm PO DIRECTED PRN 08/20/24 09/11/24 History diphenhydrAMINE HCL [Benadryl] 25 mg PO HS 08/20/24 09/11/24 History Lactulose [Cephulac] 30 ml PO BID PRN #500 ml 08/21/24 09/11/24 Rx Pantoprazole [Protonix] 40 mg PO DAILY #30 tab 08/21/24 09/11/24 Rx Dicyclomine [Bentyl] 10 mg PO BID cap 08/25/24 09/11/24 Rx Gabapentin [Neurontin] 100 mg PO BID 30 Days #60 cap 08/25/24 09/11/24 Rx traMADol HCl [Ultram] 50 mg PO Q6H PRN tab 08/25/24 09/11/24 Rx Docusate [Colace] 1 cap PO DAILY 09/02/24 09/11/24 History Allergies Allergy/AdvReac Type Severity Reaction Status Date / Time amoxicillin Allergy Anaphylaxis Verified 09/11/24 07:49 Physical Exam Vitals: Vital Signs Temp Pulse Resp BP Pulse Ox 09/11/24 06:04 78 19 111/51 98 09/11/24 00:01 89 18 125/62 100 09/10/24 21:04 94 22 125/86 100 09/10/24 17:40 97.9 F 78 18 123/57 100 Intake and Output 09/10/24 09/11/24 09/11/24 22:59 06:59 14:59 Other: Weight 49.895 kg - Constitutional General appearance: thin - EENT Eyes: no abnormal pupil - Neck Neck: lymphadenopathy - Respiratory Respiratory: bilateral: diminished - Cardiovascular Rhythm: regular Heart sounds: normal: S1, S2 Abnormal Heart Sounds: no S3 Gallop - Gastrointestinal General gastrointestinal: tenderness Localized gastrointestinal: tender: diffuse - Psychiatric Psychiatric: A&O x's 3 Results CBC & Chem 7: 09/11/24 05:20 09/11/24 05:20 Labs: Abnormal Lab Results - Last 24 Hours (Table) 09/10/24 09/10/24 09/10/24 Range/Units 19:49 19:49 19:49 WBC 13.4 H (3.8-10.6) k/uL RBC (3.80-5.40) m/uL RDW 18.3 H (11.5-15.5) % Neutrophils # 11.5 H (1.3-7.7) k/uL Sodium 136 L (137-145) mmol/L BUN 5 L (7-17) mg/dL Creatinine 0.47 L (0.52-1.04) mg/dL Glucose 121 H (74-99) mg/dL Plasma Lactic Acid Chema 2.8 H* (0.7-2.0) mmol/L Total Protein (6.3-8.2) g/dL Ur Specific [place] (1.001-1.035) Urine Ketones (Negative) Urine Blood (Negative) Ur Squamous Epith Cells (0-4) /hpf Amorphous Sediment (None) /hpf Urine Mucus (None) /hpf 09/10/24 09/11/24 09/11/24 Range/Units 22:02 05:20 05:20 WBC 13.2 H (3.8-10.6) k/uL RBC 3.78 L (3.80-5.40) m/uL RDW 18.4 H (11.5-15.5) % Neutrophils # 10.6 H (1.3-7.7) k/uL Sodium 135 L (137-145) mmol/L BUN 4 L (7-17) mg/dL Creatinine 0.44 L (0.52-1.04) mg/dL Glucose 120 H (74-99) mg/dL Plasma Lactic Acid Chema (0.7-2.0) mmol/L Total Protein 6.2 L (6.3-8.2) g/dL Ur Specific [place] >1.050 H (1.001-1.035) Urine Ketones Trace H (Negative) Urine Blood Trace H (Negative) Ur Squamous Epith Cells 6 H (0-4) /hpf Amorphous Sediment Rare H (None) /hpf Urine Mucus Occasional H (None) /hpf Assessment and Plan (1) Dehydration Current Visit: Yes Status: Acute Code(s): E86.0 - DEHYDRATION SNOMED Co de(s): 62564522 (2) Intractable abdominal pain Current Visit: Yes Status: Acute Code(s): R10.9 - UNSPECIFIED ABDOMINAL PAIN SNOMED Code(s): 22415090 (3) Nausea and vomiting Current Visit: Yes Status: Acute Code(s): R11.2 - NAUSEA WITH VOMITING, UNSPECIFIED SNOMED Code(s): 60489408 (4) Depression Current Visit: No Status: Acute Code(s): F32.A - DEPRESSION, UNSPECIFIED SNOMED Code(s): 44366621 (5) Gastric bypass status for obesity Current Visit: No Status: Acute Code(s): Z98.84 - BARIATRIC SURGERY STATUS SNOMED Code(s): 271218509 Plan: Admitted to surgical service. Results have been reviewed. Check CBC and CMP in AM. Pain control at this time. We will continue to follow. [facility] is covering for the weekend. Time with Patient: Greater than 30
--- NOTE | 2024-09-11 11:10 | P.GSHP ---
History of Present Illness H&P Date: 09/11/24 CHIEF COMPLAINT: Abdominal pain HISTORY OF PRESENT ILLNESS: This is a 44-year-old female who presented with left-sided abdominal pain that started yesterday. She did have episode of diarrhea yesterday. She is complained of abdominal bloating with multiple episodes of nausea and vomiting. Patient reports that this feels similar to her prior symptoms. 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 And was scheduled for outpatient sigmoid colectomy next Saturday. Patient also history was gastric bypass. She had a CT scan abdomen and pelvis that reported mild colonic wall thickening of the sigmoid colon and rectum, nonspecific but may relate to underlying infectious/inflammatory colitis. Patient denies any fever chills or sweats. Patient's last colonoscopy was June 2024 with results reporting diverticulosis and highly redundant colon. PAST MEDICAL HISTORY: See list. PAST SURGICAL HISTORY: Gastric bypass in 2013, ulcer repair 10/19/2023, cholecystectomy and hernia repair MEDICATIONS: See list. ALLERGIES: See list. SOCIAL HISTORY: No illicit drug use. REVIEW OF SYSTEMS: CONSTITUTIONAL: Denies fever or chills. HEENT: Denies blurred vision, vision changes, or eye pain. Denies hemoptysis ENDOCRINE: Denies heat or cold intolerance. CARDIOVASCULAR: Denies chest pain or pressure. RESPIRATORY: No shortness of breath. GASTROINTESTINAL: Denies abdominal pain. Denies nausea or vomiting. NEURO: Denies history of seizures. PSYCH: No depression or suicidal ideation HEMATOLOGIC: Denies bleeding disorders. LYMPHATIC: The patient denies any lumps and bumps around the neck. GENITOURINARY: Denies any blood in urine or increased urinary frequency. MUSCULOSKELETAL: Denies myalgias. Denies joint swelling. Denies decreased range of motion beyond patients baseline. SKIN: Denies pruitis. Denies rash. PHYSICAL EXAM: VITAL SIGNS: Reviewed GENERAL: Well-developed in no acute distress. HEENT: No sclera icterus. Extraocular movements grossly intact. Moist buccal mucosa. Head is atraumatic, normocephalic. Hears conversational speech. No nasal drainage. NECK: Supple without lymphadenopathy. CHEST: Non-labored respirations and equal bilateral excursions. CARDIOVASCULAR: Palpable 2+ radial pulses. ABDOMEN: Soft. Nondistended. Mild tenderness with palpation in the left side of the abdomen. No guarding or rebound tenderness. MUSCULOSKELETAL: No clubbing or cyanosis. NEUROLOGIC: No focal or lateralizing signs. Cranial nerves II through XII grossly intact. PSYCH: Appropriate affect. Alert and oriented to person, place and time. SKIN: Well perfused. Good skin turgor. LABORATORY DATA: WBCs 13.2 Hgb 11.7 platelets 291 Sodium 135 potassium 3.8 creatinine 0.44 Lactic acid 2.8 down to 1.7 IMAGING: CT scan abdomen pelvis reports mild colonic wall thickening of the sigmoid colon and rectum, nonspecific but may relate to underlying infectious/inflammatory colitis ASSESSMENT: 1. Possible infectious colitis. Left-sided abdominal pain. CT scan reporting mild colonic wall thickening of the sigmoid colon and rectum may relate to underlying infectious/inflammatory colitis 2. Known history of redundancy of the sigmoid colon 3. Nicotine dependence 4. Dehydration 5. History of gastric bypass PLAN: -Check stool for C. difficile and check stool cultures due to patient having diarrhea and possible colitis -Add Levaquin and Flagyl for possible infectious colitis -Continue clear liquid diet -Check urine for nicotine -Continue IV fluids -Continue supportive care -Continue to monitor WBC Physician Administrative Underwriter note has been reviewed by physician. Signing provider agrees with the documented findings, assessment, and plan of care. As above. Please see additional documentation below. CHIEF COMPLAINT: Intractable abdominal pain HISTORY OF PRESENT ILLNESS: The patient is a 44-year-old female with pre-exi sting history of gastric bypass who reports developing moderate to severe left lower quadrant abdominal pain similar to her prior attacks within the past 24+ hours. Patient has been undergoing preparation for colectomy in 1 week. She reports diarrhea. She also had intractable nausea and vomiting. Due to her symptoms, patient is being admitted. PAST MEDICAL HISTORY: See list and reviewed PAST SURGICAL HISTORY: See list and reviewed MEDICATIONS: See list and reviewed ALLERGIES: See list and reviewed SOCIAL HISTORY: See list and reviewed FAMILY HISTORY: See list and reviewed REVIEW OF ORGAN SYSTEMS: CONSTITUTIONAL: No fevers or chills. Maintain weight loss following gastric by pass, BMI 18.9 EYES: Denies any trouble with vision. No glasses. HEENT: No difficulties with hearing. No nosebleeds. No difficulty swallowing. RESPIRATORY: Denies pneumonia. Denies any troubles with breathing or dyspnea on exertion. CARDIOVASCULAR: Denies any chest pain, palpitations, or recent heart attacks. GASTROINTESTINAL: History of gastric bypass including sigmoid volvulus GENITOURINARY: Denies any blood in urine or increased urinary frequency. NEUROLOGICAL: Denies any numbness or tingling along the distal extremities. No seizure disorders or headaches. MUSCULOSKELETAL: Has back pain, stiffness or joint arthritis. SKIN: No current skin cancer. No rash. PSYCHIATRIC: Denies current depression or suicidal thoughts. ENDOCRINE: Denies current thyroid disorders. Denies any blood sugar glucose intolerance. HEME/LYMPHATIC: Denies any lumps and bumps around the neck. No recent deep venous thrombosis. ALLERGY/IMMUNOLOGY: No immunoglobulin therapy. No immune deficiencies. BREAST: Denies current breast lumps, pain or nipple discharge. PHYSICAL EXAM: VITALS: Reviewed CONSTITUTIONAL: Well developed and in no acute distress. EYES: Conjuctivae without sclera icterus. Extraocular movements grossly intact. HEAD, EARS, NOSE, THROAT: Moist buccal mucosa. Head is atraumatic, normocephalic. Hears conversational speech. No nasal drainage. NECK: Supple. No JV distention. No thyroidomegaly. RESPIRATORY: Non-labored respirations and equal bilateral excursions. No gross wheezes. CARDIOVASCULAR: Palpable 2+ radial pulses. ABDOMEN: Tender left lower quadrant. Scaphoid abdomen. Nondistended. LYMPH: No neck lymphadenopathy. MUSCULOSKELETAL: No clubbing cyanosis or edema SKIN: Warm and well perfused with good skin turgor. NEUROLOGIC: Cranial nerves II through XII grossly intact. No focal or lateralizing signs. PSYCH: Appropriate affect. Alert and oriented to person, place and time. Displays appropriate insight. CLINCAL LABS: Reviewed. WBC elevated over 13,000. Creatinine less than 0.5. IMAGING: Independently reviewed. Demonstrated limited findings on CT abdomen pelvis which is without oral contrast limiting view of intra-abdominal pathology. RADIOLOGY: Report reviewed. CT scan reviewed demonstrating questionable colitis. RECORDS: previous old records reviewed. Multiple prior CT scans without necessary oral contrast to reduce intra-abdominal pathology ASSESSMENT: 1. Abdominal pain left lower quadrant, left upper quadrant, intractable abdominal pain 2. Intractable nausea and vomiting 3. History of gastric bypass 4. Colitis per CT scan PLAN: 1. IV fluid hydration. 2. May need additional imaging after IV fluid hydration 3. Liquid diet in the interim ADVANCE DIRECTIVE: CODE STATUS in chart. Thank you for this kind consultation. Past Medical History Past Medical History: Blood Disorder, GERD/Reflux Additional Past Medical History / Comment(s): Anemia History of Any Multi-Drug Resistant Organisms: None Reported Past Surgical History: Bariatric Surgery, Cholecystectomy, Hernia Repair Additional Past Surgical History / Comment(s): gastric bypass 2013. ulcer repair 09/2023. EGD 06/10 Past Anesthesia/Blood Transfusion Reactions: No Reported Reaction Past Psychological History: Anxiety, Depression Smoking Status: Former smoker Past Alcohol Use History: None Reported Past Drug Use History: Marijuana - Past Family History Mother Family Medical History: Unable to Obtain Medications and Allergies Home Medications Medication Instructions Recorded Confirmed Type busPIRone HCL 15 mg PO DAILY 12/31/21 09/11/24 History Escitalopram [Lexapro] 30 mg PO HS 09/06/23 09/11/24 History Ondansetron Odt [Zofran ODT] 4 mg PO TID PRN 12/22/23 09/11/24 History busPIRone HCL 30 mg PO HS 06/08/24 09/11/24 History Ergocalciferol [Vitamin D2 (1250 1,250 mcg PO TU 06/29/24 09/11/24 History Mcg = 64348 Iu)] Dextrose Chew [Glucose Chew Tab] 4 - 16 gm PO DIRECTED PRN 08/20/24 09/11/24 History diphenhydrAMINE HCL [Benadryl] 25 mg PO HS 08/20/24 09/11/24 History Lactulose [Cephulac] 30 ml PO BID PRN #500 ml 08/21/24 09/11/24 Rx Pantoprazole [Protonix] 40 mg PO DAILY #30 tab 08/21/24 09/11/24 Rx Dicyclomine [Bentyl] 10 mg PO BID cap 08/25/24 09/11/24 Rx Gabapentin [Neurontin] 100 mg PO BID 30 Days #60 cap 08/25/24 09/11/24 Rx traMADol HCl [Ultram] 50 mg PO Q6H PRN tab 08/25/24 09/11/24 Rx Docusate [Colace] 1 cap PO DAILY 09/02/24 09/11/24 History Allergies Allergy/AdvReac Type Severity Reaction Status Date / Time amoxicillin Allergy Anaphylaxis Verified 09/11/24 07:49 Surgical - Exam Vital Signs Temp Pulse Resp BP Pulse Ox 97.9 F 78 18 123/57 100 09/10/24 17:40 09/10/24 17:40 09/10/24 17:40 09/10/24 17:40 09/10/24 17:40 Results - Labs 09/12/24 02:48 09/12/24 02:48 Abnormal Lab Results - Last 24 Hours (Table) 09/10/24 09/10/24 09/10/24 Range/Units 19:49 19:49 19:49 WBC 13.4 H (3.8-10.6) k/uL RBC (3.80-5.40) m/uL RDW 18.3 H (11.5-15.5) % Neutrophils # 11.5 H (1.3-7.7) k/uL Sodium 136 L (137-145) mmol/L BUN 5 L (7-17) mg/dL Creatinine 0.47 L (0.52-1.04) mg/dL Glucose 121 H (74-99) mg/dL Plasma Lactic Acid [place] 2.8 H* (0.7-2.0) mmol/L Total Protein (6.3-8.2) g/dL Ur Specific [place] (1.001-1.035) Urine Ketones (Negative) Urine Blood (Negative) Ur Squamous Epith Cells (0-4) /hpf Amorphous Sediment (None) /hpf Urine Mucus (None) /hpf 09/10/24 09/11/24 09/11/24 Range/Units 22:02 05:20 05:20 WBC 13.2 H (3.8-10.6) k/uL RBC 3.78 L (3.80-5.40) m/uL RDW 18.4 H (11.5-15.5) % Neutrophils # 10.6 H (1.3-7.7) k/uL Sodium 135 L (137-145) mmol/L BUN 4 L (7-17) mg/dL Creatinine 0.44 L (0.52-1.04) mg/dL Glucose 120 H (74-99) mg/dL Plasma Lactic Acid [place] (0.7-2.0) mmol/L Total Protein 6.2 L (6.3-8.2) g/dL Ur Specific [place] >1.050 H (1.001-1.035) Urine Ketones Trace H (Negative) Urine Blood Trace H (Negative) Ur Squamous Epith Cells 6 H (0-4) /hpf Amorphous Sediment Rare H (None) /hpf Urine Mucus Occasional H (None) /hpf Diabetes panel 09/10/24 09/11/24 Range/Units 19:49 05:20 Sodium 136 L 135 L (137-145) mmol/L Potassium 3.5 3.8 (3.5-5.1) mmol/L Chloride 104 107 (98-107) mmol/L Carbon Dioxide 23 26 (22-30) mmol/L BUN 5 L 4 L (7-17) mg/dL Creatinine 0.47 L 0.44 L (0.52-1.04) mg/dL Glucose 121 H 120 H (74-99) mg/dL Calcium 9.5 9.2 (8.4-10.2) mg/dL AST 24 21 (14-36) U/L ALT 14 11 (4-34) U/L Alkaline Phosphatase 106 85 (38-126) U/L Total Protein 7.0 6.2 L (6.3-8.2) g/dL Albumin 4.1 3.5 (3.5-5.0) g/dL Calcium panel 09/10/24 09/11/24 Range/Units 19:49 05:20 Calcium 9.5 9.2 (8.4-10.2) mg/dL Albumin 4.1 3.5 (3.5-5.0) g/dL Pituitary panel 09/10/24 09/11/24 Range/Units 19:49 05:20 Sodium 136 L 135 L (137-145) mmol/L Potassium 3.5 3.8 (3.5-5.1) mmol/L Chloride 104 107 (98-107) mmol/L Carbon Dioxide 23 26 (22-30) mmol/L BUN 5 L 4 L (7-17) mg/dL Creatinine 0.47 L 0.44 L (0.52-1.04) mg/dL Glucose 121 H 120 H (74-99) mg/dL Calcium 9.5 9.2 (8.4-10.2) mg/dL Adrenal panel 09/10/24 09/11/24 Range/Units 19:49 05:20 Sodium 136 L 135 L (137-145) mmol/L Potassium 3.5 3.8 (3.5-5.1) mmol/L Chloride 104 107 (98-107) mmol/L Carbon Dioxide 23 26 (22-30) mmol/L BUN 5 L 4 L (7-17) mg/dL Creatinine 0.47 L 0.44 L (0.52-1.04) mg/dL Glucose 121 H 120 H (74-99) mg/dL Calcium 9.5 9.2 (8.4-10.2) mg/dL Total Bilirubin 0.3 0.3 (0.2-1.3) mg/dL AST 24 21 (14-36) U/L ALT 14 11 (4-34) U/L Alkaline Phosphatase 106 85 (38-126) U/L Total Protein 7.0 6.2 L (6.3-8.2) g/dL Albumin 4.1 3.5 (3.5-5.0) g/dL
[2024-09-11] MEDS: SODIUM CHLORIDE 0.9% 1,000 ML IV SCH (12:31)
[2024-09-11] MEDS: LEVOFLOXACIN 500MG-D5W PMX 500 MG in DEXTROSE/WATER 1 100ML.BAG IVPB SCH (12:32)
[2024-09-11] MEDS: metroNIDAZOLE-NS PMX 500 MG in SALINE 1 100ML.BAG IVPB SCH (14:12)
[2024-09-11] MEDS ORDERED: IOPAMIDOL CONTRAST (ORAL USE) VIAL PO PRN (14:20)
--- NOTE | 2024-09-11 16:28 | P.PN ---
Subjective Progress Note Date: 09/11/24 CHIEF COMPLAINT: Left lower quadrant abdominal pain HISTORY OF PRESENT ILLNESS: The patient is a 44-year-old female presents with moderate to severe intractable left mid to left lower quadrant abdominal pain. She has a history of gastric bypass. She is able to tolerate liquids. Patient is scheduled to undergo a colectomy in 1 week however she reports pain was uncontrollable. ROS: No fevers or chills. No new chest pain. No productive sputum PHYSICAL EXAM: VITAL SIGNS: Reviewed CONSTITUTIONAL: Well developed and in no acute distress. EYES: Conjuctivae without sclera icterus. Extraocular movements grossly intact. HEAD, EARS, NOSE, THROAT: Moist buccal mucosa. Head is atraumatic, norm ocephalic. Hears conversational speech. No nasal drainage. RESPIRATORY: Non-labored respirations and equal bilateral excursions. CARDIOVASCULAR: Palpable 2+ radial pulses. ABDOMEN: Tender left lower quadrant. No peritonitis. MUSCULOSKELETAL: No gross deformity of the lower extremities noted. No clubbing. No cyanosis. SKIN: Good skin turgor. Well perfused. NEUROLOGIC: Cranial nerves II through XII grossly intact. No focal or lateralizing signs. PSYCH: Appropriate affect. Alert and oriented to person, place and time. CLINICAL LABS: Reviewed. WBC 13,000 on repeat over 13,000. Creatinine less than 0.[address] scan. Urine nicotine negative. STUDIES: CT of the abdomen pelvis without oral contrast limited due to patient's thin body habitus. Presence of gastric bypass. Difficult to assess enteritis. REPORTS: CT report reviewed with questionable colitis. Study also limited due to lack of oral contrast and patient's body habitus ASSESSMENT: 1. Intractable left lower quadrant abdominal pain 2. Abnormal CT for colitis PLAN: 1. Patient has pre-existing history of intractable abdominal pain for the past [address] scans done at current institution are all without oral contrast which limits the utility of finding intra-abdominal pathology. I per sonally discussed case with the radiologist where oral IV including rectal contrast will best identify presence of colitis versus decompressed colon as well as changes related to her gastric bypass. Shared decision making was also made with the patient for consent for triple contrast. 2. As patient's white count on repeat is still elevated over 13,000, IV antibiotics has been initiated for presumptive colitis 3. Inpatient hospitalization due to colitis. Objective - Vital Signs Vital signs: Vital Signs Temp 98.1 F 09/11/24 16:02 Pulse 83 09/11/24 16:02 Resp 17 09/11/24 16:02 BP 114/66 09/11/24 16:02 Pulse Ox 95 09/11/24 16:02 FiO2 Intake & Output 09/10/24 09/11/24 09/11/24 18:59 06:59 18:59 Weight 49.895 kg - Labs CBC & Chem 7: 09/11/24 05:20 09/11/24 05:20 Labs: Abnormal Lab Results - Last 24 Hours (Table) 09/10/24 09/10/24 09/10/24 Range/Units 19:49 19:49 19:49 WBC 13.4 H (3.8-10.6) k/uL RBC (3.80-5.40) m/uL RDW 18.3 H (11.5-15.5) % Neutrophils # 11.5 H (1.3-7.7) k/uL Sodium 136 L (137-145) mmol/L BUN 5 L (7-17) mg/dL Creatinine 0.47 L (0.52-1.04) mg/dL Glucose 121 H (74-99) mg/dL Plasma Lactic Acid Chema 2.8 H* (0.7-2.0) mmol/L Total Protein (6.3-8.2) g/dL Ur Specific [place] (1.001-1.035) Urine Ketones (Negative) Urine Blood (Negative) Ur Squamous Epith Cells (0-4) /hpf Amorphous Sediment (None) /hpf Urine Mucus (None) /hpf 09/10/24 09/11/24 09/11/24 Range/Units 22:02 05:20 05:20 WBC 13.2 H (3.8-10.6) k/uL RBC 3.78 L (3.80-5.40) m/uL RDW 18.4 H (11.5-15.5) % Neutrophils # 10.6 H (1.3-7.7) k/uL Sodium 135 L (137-145) mmol/L BUN 4 L (7-17) mg/dL Creatinine 0.44 L (0.52-1.04) mg/dL Glucose 120 H (74-99) mg/dL Plasma Lactic Acid [place] (0.7-2.0) mmol/L Total Protein 6.2 L (6.3-8.2) g/dL Ur Specific [place] >1.050 H (1.001-1.035) Urine Ketones Trace H (Negative) Urine Blood Trace H (Negative) Ur Squamous Epith Cells 6 H (0-4) /hpf Amorphous Sediment Rare H (None) /hpf Urine Mucus Occasional H (None) /hpf
--- NOTE | 2024-09-11 18:58 | CT ---
EXAMINATION TYPE: CT abdomen pelvis w con DATE OF EXAM: 09/11/2024 6:09 PM COMPARISON: CT abdomen pelvis most recent one day prior CLINICAL INDICATION: Female, 44 years old with history of Left side abdominal pain; Left side abdomin al pain with n/v TECHNIQUE: Axial CT abdomen pelvis w con;Sagittal and coronal reformats were created on a separate w orkstation. Contrast used:100 mL of Isovue 300 with IV Contrast, (none if empty) Oral contrast used: with Oral Contrast (none if empty) CT DLP: 534 mGycm, Automated exposure control for dose reduction was used. Rectal contrast also utilized. FINDINGS: LOWER CHEST: Unremarkable ABDOMEN LIVER: Unremarkable GALLBLADDER AND BILE DUCTS: The gallbladder is surgically absent. PANCREAS: Unremarkable. SPLEEN: Unremarkable. ADRENAL GLANDS: Unremarkable. KIDNEYS AND URETERS: No evidence of hydronephrosis or renal calculus. The ureters are unremarkable. PELVIS BLADDER: No evidence for wall thickening or mass given limitations of exam. REPRODUCTIVE: Unremarkable. ABDOMEN & PELVIS STOMACH AND BOWEL: No evidence of bowel obstruction. Post surgical changes upper abdomen including th e stomach and gastric esophageal junction.. The stomach no longer has positive contrast in lumen. Rec viviane contrast is identified throughout the colon with oral contrast extends to the small bowel into th e cecum. On consciousness is higher density than rectal contrast. PERITONEUM/RETROPERITONEUM: No evidence of pneumoperitoneum or free fluid. VASCULATURE: No evidence of aortic aneurysm. MUSCULOSKELETAL: No acute osseous abnormalities LYMPH NODES: No gross evidence for lymphadenopathy. SOFT TISSUE/ABDOMINAL WALL: Unremarkable IMPRESSION: 1. No definitive acute abdominal process. 2. The colon is now more distended. There is no evidence for wall thickening to suggest colitis. 3. No evidence for large bowel obstruction or volvulus. 4. Postsurgical changes of the stomach. No evidence for small bowel obstruction. Mouth oral contrast extends to the cecum. [facility], , 09/11/2024 6:56 PM
[2024-09-12] MEDS: SODIUM CHLORIDE 0.9% 1,000 ML IV ONE (02:21)
[2024-09-12 09:08] VITALS: BP 122/69; PULSE 67; RESP 18; TEMP 98.4
[2024-09-12 09:40] LABS: Basophils # (A) 0.04 X 10*3/uL (0.00-0.10); Basophils % (A) 0.6 %; Eosinophils # (A) 0.14 X 10*3/uL (0.04-0.35); Eosinophils % (A) 2.2 %; HCT 31.2 % (37.2-46.3); HGB 9.8 g/dL (12.0-15.0); Lymphocytes # (A) 2.92 X 10*3/uL (0.90-5.00); Lymphocytes % (A) 46.7 %; MCH 30.4 pg (27.0-32.0); MCHC 31.4 g/dL (32.0-37.0); MCV 96.9 FL (80.0-97.0); Monocytes # (A) 0.61 X 10*3/uL (0.20-1.00); Monocytes % (A) 9.8 %; NRBC Per 100 WBC 0 X 10*3/uL (0.00-0.01); Neutrophils # (A) 2.53 X 10*3/uL (1.80-7.70); Neutrophils % (A) 40.5 %; Platelet Count 250 X 10*3/uL (140-440); RBC 3.22 X 10*6/uL (4.10-5.20); RDW 18.9 % (11.5-14.5); WBC 6.25 X 10*3/uL (4.50-10.00)
[2024-09-12 09:41] LABS: BUN/Creat Ratio <8.75 Ratio (12.00-20.00); Blood Urea Nitrogen <3.5 mg/dL (9.0-27.0); Calcium 8.1 mg/dL (8.7-10.3); Carbon Dioxide 24.9 mmol/L (21.6-31.8); Chloride 107 mmol/L (96-109); Glucose 86 mg/dL (70-110); Potassium 3.4 mmol/L (3.5-5.5); Sodium 140 mmol/L (135-145)
--- NOTE | 2024-09-12 12:34 | P.DS ---
Providers Date of admission: 09/10/24 23:05 Expected date of discharge: 09/12/24 Attending physician: Renuka Lopez Primary care physician: Alexys Adams Hospital Course: DISCHARGE DIAGNOSES: 1. Intractable abdominal pain 2. Colitis per abnormal CT scan 3. Dehydration 4. Lactic acidosis CHIEF COMPLAINT: Left lower quadrant abdominal pain HISTORY OF PRESENT ILLNESS: The patient is a 44-year-old female admitted for intractable abdominal pain including nausea and vomiting. After aggressive IV fluid hydration over 3 L, including repeat CT scan for additional intra- abdominal pathology due to her limited intra-abdominal fat and body habitus, no acute intra-abdominal issues were further identified. Patient was tolerating diet. Advancement to full liquid diet was offered however patient opted for discharge home. Patient labs were redone demonstrating normal white blood cell count. Discharged with follow-up for elective colonoscopy and colectomy were reviewed in detail. ROS: No fevers or chills. No new chest pain. No productive sputum PHYSICAL EXAM: VITAL SIGNS: Reviewed CONSTITUTIONAL: Well developed and in no acute distress. EYES: Conjuctivae without sclera icterus. Extraocular movements grossly intact. HEAD, EARS, NOSE, THROAT: Moist buccal mucosa. Head is atraumatic, normocephalic. Hears conversational speech. No nasal drainage. RESPIRATORY: Non-labored respirations and equal bilateral excursions. CARDIOVASCULAR: Palpable 2+ radial pulses. ABDOMEN: Resolved abdominal pain MUSCULOSKELETAL: No gross deformity of the lower extremities noted. No clubbing. No cyanosis. SKIN: Good skin turgor. Well perfused. NEUROLOGIC: Cranial nerves II through XII grossly intact. No focal or lateralizing signs. PSYCH: Appropriate affect. Alert and oriented to person, place and time. CLINICAL LABS: Reviewed. WBC 13,000 on admission now normal. STUDIES: CT of the abdomen pelvis with oral and IV contrast including rectal contrast demonstrates no acute colitis. Questionable mesenteric swirl along the mesentery along the retroperitoneum. Otherwise, no free air, no acute bowel obstruction. This is my independent interpretation. REPORTS: Repeat CT scan demonstrates no acute intra-abdominal pathology. PLAN: 1. Patient may be discharged on diet as tolerated. Patient Condition at Discharge: Stable Plan - Discharge Summary Discharge Rx Participant: No New Discharge Prescriptions: Continue busPIRone HCL 15 mg PO DAILY Escitalopram [Lexapro] 30 mg PO HS Ondansetron Odt [Zofran ODT] 4 mg PO TID PRN PRN Reason: Nausea Lactulose [Cephulac] 30 ml PO BID PRN #500 ml PRN Reason: Constipation Pantoprazole [Protonix] 40 mg PO DAILY #30 tab Docusate [Colace] 1 cap PO DAILY busPIRone HCL 30 mg PO HS Ergocalciferol [Vitamin D2 (1250 Mcg = 50299 Iu)] 1,250 mcg PO TU Dextrose Chew [Glucose Chew Tab] 4 - 16 gm PO DIRECTED PRN PRN Reason: Blood Sugar - Low diphenhydrAMINE HCL [Benadryl] 25 mg PO HS Dicyclomine [Bentyl] 10 mg PO BID cap traMADol HCl [Ultram] 50 mg PO Q6H PRN tab PRN Reason: Pain Gabapentin [Neurontin] 100 mg PO BID 30 Days #60 cap Discharge Medication List busPIRone HCL 15 mg PO DAILY 12/31/21 [History] Escitalopram [Lexapro] 30 mg PO HS 09/06/23 [History] Ondansetron Odt [Zofran ODT] 4 mg PO TID PRN 12/22/23 [History] busPIRone HCL 30 mg PO HS 06/08/24 [History] Ergocalciferol [Vitamin D2 (1250 Mcg = 40515 Iu)] 1,250 mcg PO TU 06/29/24 [History] Dextrose Chew [Glucose Chew Tab] 4 - 16 gm PO DIRECTED PRN 08/20/24 [History] diphenhydrAMINE HCL [Benadryl] 25 mg PO HS 08/20/24 [History] Lactulose [Cephulac] 30 ml PO BID PRN #500 ml 08/21/24 [Rx] Pantoprazole [Protonix] 40 mg PO DAILY #30 tab 08/21/24 [Rx] Dicyclomine [Bentyl] 10 mg PO BID cap 08/25/24 [Rx] Gabapentin [Neurontin] 100 mg PO BID 30 Days #60 cap 08/25/24 [Rx] traMADol HCl [Ultram] 50 mg PO Q6H PRN tab 08/25/24 [Rx] Docusate [Colace] 1 cap PO DAILY 09/02/24 [History] Follow up Appointment(s)/Referral(s): Alexys Adams MD [Primary Care Provider] [facility] [place] [place] [facility] - 09/21/24 Patient Instructions/Handouts: Colitis (ED) Activity/Diet/Wound Care/Special Instructions: Resume protein shakes. Stay well-hydrated. Return to the hospital 09/17/2024 for surgery 09/18/2024 Discharge Disposition: HOME SELF-CARE
--- NOTE | 2024-09-12 13:27 | P.PN ---
Subjective Progress Note Date: 09/12/24 The patient is a 44-year-old female presents with moderate to severe intractable left mid to left lower quadrant abdominal pain. She has a history of gastric bypass. She is able to tolerate liquids. Patient is scheduled to undergo a colectomy in 1 week however she reports pain was uncontrollable. REVIEW OF SYSTEMS: CONSTITUTIONAL: No fever, no malaise,. CARDIOVASCULAR: No chest pain, no palpitations, no syncope. PULMONARY: No shortness of breath, no cough, GASTROINTESTINAL: No diarrhea, no nausea, no vomiting, no abdominal pain. NEUROLOGICAL: No headaches, no weakness, PHYSICAL EXAMINATION: GENERAL: The patient is alert and oriented x3, not in any acute distress. Well developed, well nourished. HEENT: Pupils are round and equally reacting to light. EOMI. No scleral icterus. No conjunctival pallor. Normocephalic, atraumatic. No pharyngeal erythema. No thyromegaly. CARDIOVASCULAR: S1 and S2 present. No murmurs, rubs, or gallops. PULMONARY: Chest is clear to auscultation, no wheezing or crackles. ABDOMEN: Soft, nontender, nondistended, normoactive bowel sounds. No palpable o rganomegaly. MUSCULOSKELETAL: No joint swelling or deformity. EXTREMITIES: No cyanosis, clubbing, or pedal edema. NEUROLOGICAL: Gross neurological examination did not reveal any focal deficits. SKIN: No rashes. Assessment and plan 1. Intractable left lower quadrant abdominal pain 2. Abnormal CT for colitis Monitor vital signs Monitor CBC Monitor CMP Continue IV Levaquin and Flagyl Continue pain management Continue IV fluids CT abdomen pelvis done showed no definite acute abdominal process, colon is more distended with no evidence for wall thickening/colitis Surgery following Labs and medication were reviewed.. Continue same treatment. Continue with symptomatic treatment. Resume home medication. Monitor labs and vitals. DVT and GI prophylaxis. Further recommendations as per clinical course of the patient Dictation was produced using Deenty dictation software. please excuse any grammatical, word or spelling errors. Objective - Vital Signs Vital signs: Vital Signs Temp 98.4 F 09/12/24 07:35 Pulse 67 09/12/24 07:35 Resp 18 09/12/24 07:35 BP 122/69 09/12/24 07:35 Pulse Ox 99 09/12/24 07:35 FiO2 Intake & Output 09/11/24 09/12/24 09/12/24 18:59 06:59 18:59 Intake Total 717 Balance 717 Weight 49.895 kg Intake: Oral 717 Other: # Voids 2 # Bowel Movements 3 - Labs CBC & Chem 7: 09/12/24 02:48 09/12/24 02:48 Labs: Abnormal Lab Results - Last 24 Hours (Table) 09/12/24 09/12/24 Range/Units 02:48 02:48 RBC 3.22 L (4.10-5.20) X 10*6/uL Hgb 9.8 L (12.0-15.0) g/dL Hct 31.2 L (37.2-46.3) % MCHC 31.4 L (32.0-37.0) g/dL RDW 18.9 H (11.5-14.5) % Potassium 3.4 L (3.5-5.5) mmol/L BUN <3.5 L (9.0-27.0) mg/dL Creatinine 0.4 L (0.6-1.5) mg/dL BUN/Creatinine Ratio <8.75 L (12.00-20.00) Ratio Calcium 8.1 L (8.7-10.3) mg/dL
== END 2024-09-12 13:10 | disposition home or self-care (01) ==
LOC: EC 17:22 → 4SSUR 23:05
PROVIDERS: ADMIT Surgery Plastic and Reconstructive Surgery; ATTEND Surgery Plastic and Reconstructive Surgery
DX: K52.9 Noninfective gastroenteritis and colitis, unspecified (principal); E86.0 Dehydration; E87.20 Acidosis, unspecified; K56.2 Volvulus; G89.29 Other chronic pain; K21.9 Gastro-esophageal reflux disease without esophagitis; F32.A Depression, unspecified; F41.9 Anxiety disorder, unspecified; Z98.84 Bariatric surgery status; Z88.0 Allergy status to penicillin; Z79.899 Other long term (current) drug therapy; Z87.891 Personal history of nicotine dependence
CPT/HCPCS: 96376 ×3; 96361 ×3; 96366 ×3; 96368; 96365; 96367; 96375 ×2; 99285; 36415; 80053 ×2; 80048; 83605; 83690; 85025 ×3; 81001; 87324; 80307; 87045; 87046; 74177 ×2; G0378 ×3; J2270 ×3; J1200; J0780; J2765; J2405 ×3; J1956 ×2; Q9967 ×2; J1836 ×2

== ENCOUNTER 2024-09-17 09:09 | Inpatient (IN) | payer BC ==
[2024-09-16 09:55] VITALS: BMI 19.7
--- NOTE | 2024-09-17 07:03 | P.GSHP ---
History of Present Illness H&P Date: 09/17/24 CHIEF COMPLAINT: Diverticulitis and sigmoid HISTORY OF PRESENT ILLNESS: The patient is a 44-year-old female with worsening abdominal pain, left lower quadrant from intermittent volvulus including diverticulosis for over 4 months. She presents for colon decompression via endoscopy. Now she presents for sigmoid colon resection. PAST MEDICAL HISTORY: Please see list. PAST SURGICAL HISTORY: Please see list. MEDICATIONS: Please see list. ALLERGIES: Please see list. SOCIAL HISTORY: No illicit drug use FAMILY HISTORY: No reports of Crohn disease or ulcerative colitis. REVIEW OF ORGAN SYSTEMS: CONSTITUTIONAL: Denies any fever or chills. HEENT: Denies any trouble with vision or nosebleeds. No difficulty swallowing. LYMPHATIC: The patient denies any lumps and bumps around the neck. ENDOCRINE: Denies any thyroid disorders. RESPIRATORY: Denies pneumonia. Denies any troubles with breathing or dyspnea on exertion. CARDIOVASCULAR: Denies any chest pain, palpitations, or recent heart attacks GASTROINTESTINAL: Has gastroesophageal reflux disease and severe abdominal pain. GENITOURINARY: No blood in urine. MUSCULOSKELETAL: Has back pain, stiffness, joint arthritis. NEUROLOGIC: Denies any numbness or tingling along the distal extremities. No seizure disorders or headaches. PSYCHIATRIC: Denies depression or suidical ideation. HEMATOLOGIC: Denies any abnormal bleeding or bruising. PHYSICAL EXAM: VITAL SIGNS: Stable GENERAL: Well-developed pleasant in no acute distress. HEENT: No scleral icterus. Extraocular movements grossly intact. Moist buccal mucosa. NECK: Supple without lymphadenopathy. CHEST: Unlabored respirations. Equal bilateral excursions. CARDIOVASCULAR: Regular rate and rhythm. Distal 2+ pulses. ABDOMEN: Soft, tender, nondistended. MUSCULOSKELETAL: No clubbing, cyanosis, or edema. NERUO: Cranial nerves II through XII grossly intact PSYCH: Alert and oriented to person place and time. ASSESSMENT: 1. Sigmoid volvulus 2. Diverticulosis 3. Left lower quadrant abdominal pain PLAN: 1. Benefits and risks of surgical intervention sigmoid colectomy reviewed in detail. Robotic-assisted approach was also described. 2. Enhanced colon recovery program. 3. DVT prophylaxis. 4. Antibiotic prophylaxis. 5. Recommend colon decompression via endoscopy. Past Medical History Past Medical History: Blood Disorder, GERD/Reflux Additional Past Medical History / Comment(s): Anemia, recent admission for abd pain and vomiting History of Any Multi-Drug Resistant Organisms: None Reported Past Surgical History: Bariatric Surgery, Cholecystectomy, Hernia Repair, Orthopedic Surgery, Tonsillectomy Additional Past Surgical History / Comment(s): gastric bypass 2013. ulcer repair 09/2023. EGD 06/10. panniculectomy. RT KNEE SCOPE Past Anesthesia/Blood Transfusion Reactions: No Reported Reaction Smoking Status: Former smoker - Past Family History Mother Family Medical History: Unable to Obtain Additional Family Medical History / Comment(s): ADOPTED BIOLOGIC FAMILY HX UNKNOWN Medications and Allergies Home Medications Medication Instructions Recorded Confirmed Type busPIRone HCL 15 mg PO DAILY 12/31/21 09/16/24 History Escitalopram [Lexapro] 30 mg PO HS 09/06/23 09/16/24 History Ondansetron Odt [Zofran ODT] 4 mg PO TID PRN 12/22/23 09/16/24 History busPIRone HCL 30 mg PO HS 06/08/24 09/16/24 History Ergocalciferol [Vitamin D2 (1250 1,250 mcg PO TU 06/29/24 09/16/24 History Mcg = [id number] Iu)] Dextrose Chew [Glucose Chew Tab] 4 - 16 gm PO DIRECTED PRN 08/20/24 09/16/24 History diphenhydrAMINE HCL [Benadryl] 25 mg PO HS 08/20/24 09/16/24 History Lactulose [Cephulac] 30 ml PO BID PRN #500 ml 08/21/24 09/16/24 Rx Pantoprazole [Protonix] 40 mg PO DAILY #30 tab 08/21/24 09/16/24 Rx Dicyclomine [Bentyl] 10 mg PO BID cap 08/25/24 09/16/24 Rx Gabapentin [Neurontin] 100 mg PO BID 30 Days #60 cap 08/25/24 09/16/24 Rx traMADol HCl [Ultram] 50 mg PO Q6H PRN tab 08/25/24 09/16/24 Rx Docusate [Colace] 100 mg PO DAILY 09/02/24 09/16/24 History Allergies Allergy/AdvReac Type Severity Reaction Status Date / Time amoxicillin Allergy Anaphylaxis Verified 09/16/24 09:44
[2024-09-17] MEDS ORDERED: LIDOCAINE 1% (10MG/ML) FOR IV START INTRADERMA PRN (09:21)
[2024-09-17] MEDS: IV FLUID CONTINUATION 1,000 ML IV ONE (09:35)
[2024-09-17] MEDS: LACTATED RINGERS 1,000 ML IV SCH (09:50)
[2024-09-17] MEDS ORDERED: PROPOFOL 10 MG/ML 20 ML VIAL IV ONE (10:24)
[2024-09-17] MEDS ORDERED: LIDOCAINE 1% INJ 10MG/ML (20 ML MDV) ONE (10:24)
[2024-09-17] MEDS ORDERED: Antibiotics per Pharmacy 1 EACH MISC MISCELLANE PRN (11:35)
--- NOTE | 2024-09-17 12:02 | P.PCN ---
Date of Procedure: 09/17/24 Description of Procedure: PREOPERATIVE DIAGNOSIS: Diverticulosis Volvulus, sigmoid colon GI bleed Chronic left lower abdominal pain POSTOPERATIVE DIAGNOSIS: Tubular adenoma rectum Sigmoid diverticulosis with pandiverticulosis Sigmoid volvulus OPERATION: Colonoscopy to the ileocecal valve and appendiceal orifice, cecum Colonoscopy with hot snare polypectomy SURGEON: Renuka Lopez MD. ANESTHESIA: MAC. INDICATIONS: The patient is an 44-year-old female who presents with increasing left lower q uadrant abdominal pain, intermittent volvulus, diverticulosis and rectal bleeding. Benefits and risks were described and informed consent was obtained. DESCRIPTION OF PROCEDURE: The patient had undergone Sutab prep. The patient had been brought into the operating room and laid in the left lateral decubitus position. After adequate intravenous sedation, the rectum was examined with 2% lidocaine jelly. No external hemorrhoids were encountered. The rectal tone was within normal limits. No lesions were palpated in the rectal vault. An Olympus colonoscope was advanced until the cecum, ileocecal valve and appendiceal orifice were clearly viewed. The prep was fair. Sigmoid diverticulosis was encountered. Colonic polyps were found and removed. No acute focal colitis was found. Retroflexion of the scope demonstrated grade 2 internal hemorrhoids without active bleeding or inflammation. The colon was desufflated. The patient had tolerated the procedure well. Withdrawal time was over 6 minutes. FINDINGS: Aronchick preparation quality scale 1 (1-5) Internal hemorrhoids, grade 1 No external hemorrhoids No arteriovenous malformations. Sigmoid diverticulosis with scattered pandiverticulosis Removal of 1 polyps: - Snare polypectomy 10 cm from the anal verge, 15 mm tubulovillous adenoma No acute colitis. RECOMMENDATIONS: Repeat colonoscopy in 3 years, 2026
[2024-09-17] MEDS: metroNIDAZOLE 500 MG TAB PO SCH (12:44)
[2024-09-17] MEDS: ONDANSETRON 4 MG/2 ML VIAL IVP SCH (12:44)
[2024-09-17] MEDS: SODIUM CHLORIDE 0.9% 1,000 ML IV ONE (12:44)
[2024-09-17 13:24] LABS: Anisocytosis Slight; Basophils # (A) 0.1 k/uL (0-0.2); Basophils % (A) 1 %; Eosinophils # (A) 0.3 k/uL (0-0.7); Eosinophils % (A) 4 %; HCT 39.2 % (34.0-46.0); HGB 12.1 gm/dL (11.4-16.0); Hypochromasia Moderate; Lymphocytes # (A) 2.6 k/uL (1.0-4.8); Lymphocytes % (A) 35 %; MCH 31.1 pg (25.0-35.0); MCV 100.4 fL (80.0-100.0); Macrocytosis Slight; Mean Platelet Volume 7.7; Monocytes # (A) 0.4 k/uL (0-1.0); Monocytes % (A) 5 %; Neutrophils # (A) 3.8 k/uL (1.3-7.7); Neutrophils % (A) 52 %; Platelet Count 275 k/uL (150-450); RDW 17.8 % (11.5-15.5); WBC 7.4 k/uL (3.8-10.6)
[2024-09-17 13:41] LABS: ALT 9 U/L (4-34); AST 14 U/L (14-36); African American GFR (CKD) >90 (>60 ml/min/1.73 sqM); Albumin/Globulin Ratio 1.2; Alkaline Phosphatase 71 U/L (38-126); Anion Gap -1 mmol/L; Blood Urea Nitrogen 5 mg/dL (7-17); Calcium 8.4 mg/dL (8.4-10.2); Carbon Dioxide 33 mmol/L (22-30); Chloride 104 mmol/L (98-107); Globulin 2.5 g/dL; Glucose 148 mg/dL (74-99); Non-African American GFR(CKD) >90 (>60 ml/min/1.73 sqM); Potassium 4.1 mmol/L (3.5-5.1); Sodium 136 mmol/L (137-145); Total Bilirubin 0.1 mg/dL (0.2-1.3); Total Protein 5.5 g/dL (6.3-8.2)
[2024-09-17] MEDS: HYDROmorphone 1 MG/ML 1 ML SYRINGE IVP PRN (14:03)
[2024-09-17] MEDS: NEOMYCIN 500 MG TAB PO SCH (14:03)
[2024-09-17] MEDS: busPIRone HCl 10 MG TAB PO SCH (22:04)
[2024-09-17] MEDS: ESCITALOPRAM 10 MG TAB PO SCH (22:04)
[2024-09-17] MEDS: GABAPENTIN 100 MG CAP PO SCH (22:04)
[2024-09-18 03:57] LABS: Anisocytosis Slight; Basophils % (A) 0 %; Eosinophils # (A) 0.3 k/uL (0-0.7); Eosinophils % (A) 3 %; HCT 36.5 % (34.0-46.0); HGB 11.6 gm/dL (11.4-16.0); Lymphocytes # (A) 2.4 k/uL (1.0-4.8); Lymphocytes % (A) 26 %; MCH 31.5 pg (25.0-35.0); MCHC 31.9 g/dL (31.0-37.0); MCV 98.6 fL (80.0-100.0); Macrocytosis Slight; Monocytes # (A) 0.6 k/uL (0-1.0); Monocytes % (A) 6 %; Neutrophils # (A) 5.8 k/uL (1.3-7.7); Neutrophils % (A) 62 %; Platelet Count 253 k/uL (150-450); RDW 17.6 % (11.5-15.5); WBC 9.3 k/uL (3.8-10.6)
[2024-09-18 04:06] LABS: African American GFR (CKD) >90 (>60 ml/min/1.73 sqM); Anion Gap 0 mmol/L; Blood Urea Nitrogen 4 mg/dL (7-17); Calcium 8.6 mg/dL (8.4-10.2); Carbon Dioxide 30 mmol/L (22-30); Chloride 104 mmol/L (98-107); Glucose 75 mg/dL (74-99); Non-African American GFR(CKD) >90 (>60 ml/min/1.73 sqM); Potassium 4.3 mmol/L (3.5-5.1); Sodium 134 mmol/L (137-145)
--- NOTE | 2024-09-18 07:47 | P.PN ---
Subjective Progress Note Date: 09/18/24 CHIEF COMPLAINT: Sigmoid volvulus HISTORY OF PRESENT ILLNESS: The patient is a 44-year-old female who presents with sigmoid volvulus including symptomatic diverticulosis. Patient had colonoscopy yesterday with decompression for sigmoid volvulus. She reports some moderate abdominal pain which had been present prior to her intervention but mildly improved after her colonoscopy. Patient also had polypectomy. ROS:No fevers or chills. No new chest pain. No productive sputum PHYSICAL EXAM: VITAL SIGNS: Reviewed CONSTITUTIONAL: Well developed and in no acute distress. EYES: Conjuctivae without sclera icterus. Extraocular movements grossly intact. HEAD, EARS, NOSE, THROAT: Moist buccal mucosa. Head is atraumatic, normocephalic. Hears conversational speech. No nasal drainage. RESPIRATORY: Non-labored respirations and equal bilateral excursions. CARDIOVASCULAR: Palpable 2+ radial pulses. ABDOMEN: Tender left lower quadrant. No diffuse tenderness. MUSCULOSKELETAL: No gross deformity of the lower extremities noted. No clubbing. No cyanosis. SKIN: Good skin turgor. Well perfused. NEUROLOGIC: Cranial nerves II through XII grossly intact. No focal or lateralizing signs. PSYCH: Appropriate affect. Alert and oriented to person, place and time. CLINICAL LABS: Reviewed. WBC within normal limits. Hemoglobin trending downward 12.1-11.6. Total protein levels less than 4.0. ASSESSMENT: 1. Sigmoid volvulus 2. Sigmoid diverticulosis 3. Rectal adenoma PLAN: 1. Recommend robotic sigmoid colectomy on this admission due to recurrent sigmoid volvulus including symptomatic diverticulosis. 2. Patient's elevated risk for complications with hypoalbuminemia despite ivan ent Augmentin nutrition however limited due to abdominal pain. Objective - Vital Signs Vital signs: Vital Signs Temp 98.0 F 09/18/24 01:19 Pulse 57 L 09/18/24 01:19 Resp 14 09/18/24 01:19 BP 104/63 09/18/24 01:19 Pulse Ox 99 09/18/24 01:19 FiO2 Intake & Output 09/17/24 09/18/24 09/18/24 18:59 06:59 18:59 Intake Total 1540 Output Total 3 Balance 1537 Weight 53.2 kg Intake: IV 1000 Oral 540 Output: Urine 3 Other: Voiding Method Toilet # Voids 3 - Labs CBC & Chem 7: 09/18/24 03:20 09/18/24 03:20 Labs: Abnormal Lab Results - Last 24 Hours (Table) 09/17/24 09/17/24 09/18/24 Range/Units 13:11 13:11 03:20 RBC 3.70 L (3.80-5.40) m/uL MCV 100.4 H (80.0-100.0) fL RDW 17.8 H 17.6 H (11.5-15.5) % Sodium 136 L (137-145) mmol/L Carbon Dioxide 33 H (22-30) mmol/L BUN 5 L (7-17) mg/dL Creatinine 0.48 L (0.52-1.04) mg/dL Glucose 148 H (74-99) mg/dL Total Bilirubin 0.1 L (0.2-1.3) mg/dL Total Protein 5.5 L (6.3-8.2) g/dL Albumin 3.0 L (3.5-5.0) g/dL 09/18/24 Range/Units 03:20 RBC (3.80-5.40) m/uL MCV (80.0-100.0) fL RDW (11.5-15.5) % Sodium 134 L (137-145) mmol/L Carbon Dioxide (22-30) mmol/L BUN 4 L (7-17) mg/dL Creatinine (0.52-1.04) mg/dL Glucose (74-99) mg/dL Total Bilirubin (0.2-1.3) mg/dL Total Protein (6.3-8.2) g/dL Albumin (3.5-5.0) g/dL
[2024-09-18] MEDS: busPIRone HCl 5 MG TAB PO SCH (09:40)
[2024-09-18] MEDS: IV FLUID CONTINUATION 700 ML IV ONE (11:45)
[2024-09-18] MEDS: ACETAMINOPHEN TAB 500 MG TAB PO PRN (11:49)
[2024-09-18] MEDS: ALVIMOPAN 12 MG CAPSULE PO PRN (11:49)
[2024-09-18] MEDS: ONDANSETRON 4 MG/2 ML VIAL IVP PRN (11:53)
[2024-09-18] MEDS: DEXAMETHASONE SOD PHOSPHATE 4 MG/ML 1 ML VIAL IVP STA (11:54)
[2024-09-18] MEDS: fentaNYL (PF) 50 MCG/ML 2 ML AMP IVP ONE (12:00)
[2024-09-18] MEDS: MIDAZOLAM 2 MG/2 ML VIAL IV ONE (12:00)
[2024-09-18] MEDS: HEPARIN SODIUM,PORCINE 5,000 UNIT/ML 1 ML VIAL SQ PRN (12:08)
--- NOTE | 2024-09-18 12:13 | P.ANPRN ---
Procedure Note - Anesthesia - Nerve Block Performed Bilateral Erector Spinae Single Time Out Performed: Yes Date of Procedure: 09/18/24 Procedure Start Time: 11:59 Procedure Stop Time: 12:08 Location of Patient: PreOp Indication: Acute Post-Operative Pain, Requested by Surgeon Sedation Type: Sedate with meaningful contact maintained Preparation: Sterile Prep Position: Prone Needle Types: Pajunk Needle Gauge: 21 Ultrasound used to visualize needle placement: Yes Ultrasound used to observe medication spread: Yes Injectate: 0.5% Ropivacaine (see comment for volume) (20 mL +10 mL of normal saline +4 mg of dexamethasone per side) Blood Aspirated: No Pain Paresthesia on Injection Noted: No Resistance on Injection: Normal Image Stored and Saved: Yes Events: Uneventful and Well Tolerated
[2024-09-18] MEDS ORDERED: SODIUM CHLORIDE 0.9% (PF) 10 ML VIAL ONE (12:27)
[2024-09-18] MEDS ORDERED: HYDROmorphone (PF) 1 MG/ML ONE (12:27)
[2024-09-18] MEDS ORDERED: LIDOCAINE 1% INJ 10MG/ML (20 ML MDV) ONE (12:27)
[2024-09-18] MEDS ORDERED: ROPIVACAINE 5 MG/ML 30 ML VIAL ONE (12:27)
[2024-09-18] MEDS ORDERED: SUCCINYLCHOLINE CHLORIDE 200 MG/10 ML VIAL IV ONE (12:27)
[2024-09-18] MEDS ORDERED: GLYCOPYRROLATE 0.2 MG/ML 2 ML VIAL ONE (12:27)
[2024-09-18] MEDS ORDERED: PROPOFOL 10 MG/ML 20 ML VIAL IV ONE (12:27)
[2024-09-18] MEDS ORDERED: MIDAZOLAM 2 MG/2 ML VIAL ONE (12:27)
[2024-09-18] MEDS ORDERED: ROCURONIUM 10 MG/ML (5 ML VIAL) IV ONE (12:27)
[2024-09-18] MEDS ORDERED: DEXAMETHASONE SOD PHOSPHATE 4 MG/ML 1 ML VIAL ONE (12:27)
[2024-09-18] MEDS ORDERED: fentaNYL (PF) 50 MCG/ML 2 ML AMP ONE (12:27)
[2024-09-18] MEDS: metroNIDAZOLE-NS PMX 500 MG in SALINE 1 100ML.BAG IVPB PRN (12:39)
[2024-09-18] MEDS: LIDOCAINE 1%-EPI 1:100,000 20 ML VIAL SQ ONE ×2 (13:07→13:13)
[2024-09-18] MEDS: HYDROmorphone 0.5 MG/0.5 ML SYRINGE IVP PRN (15:45)
[2024-09-18] MEDS ORDERED: NALOXONE 0.4 MG/ML 1 ML VIAL IV PRN (16:48)
--- NOTE | 2024-09-18 16:57 | P.OP ---
Date of Procedure: 09/18/24 Description of Procedure: SURGEON: FLOR CORTEZ MD [facility] PR[employer] OPERATOR: GRIFFIN PREOPERATIVE DIAGNOSES: 1. Sigmoid volvulus 2. Sigmoid diverticulosis 3. Recurrent intermittent bowel obstruction 4. Left lower quadrant abdominal pain, recurrent 5. History of gastric bypass status post massive weight loss 6. Tobacco abuse disorder in remission 7. Depressive disorder 8. Generalized anxiety disorder 9. Gastroesophageal reflux disease 10. Gastric ulcers POSTOPERATIVE DIAGNOSES: 1. Sigmoid volvulus 2. Sigmoid diverticulosis 3. Recurrent intermittent bowel obstruction 4. Left lower quadrant abdominal pain, recurrent 5. History of gastric bypass status post massive weight loss 6. Tobacco abuse disorder in remission 7. Depressive disorder 8. Generalized anxiety disorder 9. Gastroesophageal reflux disease 10. Gastric ulcers 11. Small bowel volvulus OPERATION: 1. Robotic-assisted daVinci Xi sigmoid colectomy with low anterior resection using 29 mm Ethicon powered stapler 2. Robotic-assisted daVinci Xi reduction of small bowel volvulus, jejunum/ileum 3. Intraoperative colonoscopy used for sigmoidoscopy Anesthesia: GETA, local, regional Estimated Blood Loss (ml): 5 Pathology: 1. Sigmoid colon 2. EEA donuts Condition: stable Disposition: floor COMPLICATIONS: None. Operative Findings: 1. Redundant sigmoid colon and active sigmoid volvulus without bowel ischemia 2. Anastomosis with EEA stapler 29 mm 3. No tension or torsion along the anastomosis 4. Doughnuts thick and both sides and viable 5. Moderately redundant sigmoid colon without tension at anastomosis 6. Negative leak test with viable anastomosis. 7. Small bowel volvulus involving the jejunum/ileum mesentery INDICATIONS: The patient is a 44-year-old female who presents with change in bowel habits, sigmoid diverticulosis with tortuous colon and sigmoid volvulus. She has chronic intermittent left lower quadrant abdominal pain colonic decompression performed with polypectomy. Benefits and risks of surgical intervention was described in detail including infection, injury to the ureter, colostomy creation, possibility for additional surgery was discussed at length. Informed consent was obtained. All questions of the patient and family were answered. DESCRIPTION: Earlier the patient had undergone a bowel prep using the enhanced colon recovery program. The patient was transferred to the operating room and placed supine. After general induction, the abdomen was prepped and draped in standard sterile fashion. Ioban was placed along the abdomen to minimize any contamination of skin floor. A Mueller catheter was placed. After a timeout protocol was performed, attention was then brought to the left upper quadrant whereby a 0 degree 5 mm laparoscopic trocar entry was performed. The abdominal cavity was entered and insufflated to 15 mmHg pressure, which was tolerated well. Diagnostic laparoscopy confirmed colonic extension involving the splenic flexure. Next a robotic 12-mm trocar was placed along the right lateral abdominal wall 20 cm superior from the pelvis. Two 8 mm ports were placed along the upper abdomen. Ports were placed 10 cm apart from each other including 20 cm away from the target anatomy of the left pelvis. The 12-mm port was placed at the left upper quadrant. The robot was docked along the left lateral abdomen. The patient was positioned in steep Trendelenburg position at 21-degrees. Using atraumatic graspers and vessel sealer, the robotic system was docked and primed as described. Instruments were interchanged by the photography assistant including hook cautery, needle road train driver, robotic stapler and vessel sealer. The robot stapler was prepared along the right lateral abdominal wall. The stapler 12-mm port was arranged along the right lateral abdominal wall. Initial attention was brought to her small bowel which was investigated from the cecum proximally to the jejunojejunostomy for gastric bypass. Active small bowel volvulus involving the jejunum and ileum was found with rotation over 270 degrees. The small bowel was viable. The small bowel volvulus along the mesentery was detorsed and reduced. No internal hernia was identified. Adhesion at the right pelvis was lysed for the small bowel as well. Next, attention was brought to identify the sigmoid colon. A stay suture using 3- 0 silk was placed along the anterior serosa of the redundant sigmoid colon. The sigmoid mesentery was mobilized using a vessel sealer whereby the descending colon was marked and tagged. Using robot stapler 60 mm green load, the proximal sigmoid colon was divided. The mesentery of the sigmoid colon was mobilized towards the pelvic brim and sacral promontory using a vessel sealer. The sigmoid volvulus was reduced with viable colon. Next, the sigmoid colon was divided using the robotic stapler 60 mm green staple loads. The rest of the sigmoid colon mesentery was mobilized using vessel sealer. Additionally, the sigmoid colon was mobilized onto the colon to minimize injury to the ureters. I went to the foot of the bed to confirm sizers and placement of 29-mm Ethicon powered stapler. I re-scrubbed into the case. The robotic arms were temporarily undocked. A 29-mm anvil was placed with a 3-0 silk sutured at the tip of the anvil insurance investigator. Then the anvil was placed via the left upper quadrant 12 mm port. All robotic arms were re-docked. I went back to the console. The staple line was opened using cautery. The anvil was entered into the proximal descending colon. The colotomy was closed using 60 mm green load. Next, the sharp tip of the anvil insurance investigator was brought through the staple line. The anvil insurance investigator was removed from the abdomen using empty clip appliers. I went to the foot of the bed to place the powered Ethicon 29 mm stapler via the rectum. The anvil and stapler were mated for 1 minute. The doughnuts were intact on both sides and thick. An intraoperative leak test was performed as I inserted the colonoscope to the anastomosis. Endoscopic images were obtained. Irrigation was placed in the pelvis and no air leaks were identified. Irrigation fluid was aspirated from the pelvis until dry. I went back to the console. All sponges and needles were removed from the abdominal cavity. The robot was undocked. I re-scrubbed into the case. Via the left upper quadrant port, the sigmoid colon was removed using 15 mm Endo Catch bag. All sponges were removed from the abdominal cavity. The left upper quadrant incision was widened to 3-cm. No contamination had occurred throughout the case. The fascial defect was oversewn using 0 Vicryl and a Manuel San. Next all pneumoperitoneum was evacuated from the abdominal cavity. The 8-mm trocar sites were reapproximated using 4-0 Monocryl in an interrupted subcuticular fashion. Local anesthetic was infiltrated to all wounds for postop analgesia. All incisions were also cleansed with diluted hydrogen peroxide. An Optifoam surgical dressing was placed over the colon extraction site. Liquid glue was applied to the rest of the skin incisions. Abdominal binder was placed. The patient had tolerated the procedure well. The patient was extubated successfully. The patient was transferred to the postanesthesia care unit in stable condition. Intraoperative findings were described in detail to the patient's family.
[2024-09-18] MEDS: IV FLUID CONTINUATION 1,000 ML IV ONE ×2 (17:15→17:27)
[2024-09-18] MEDS: KETOROLAC 15 MG/ML 1 ML VIAL IVP SCH (17:18)
[2024-09-18] MEDS: fentaNYL PCA 500 MCG/50 ML BAG IV SCH (18:43)
[2024-09-18] MEDS: ACETAMINOPHEN IV (For NPO) 1,000 MG in EMPTY BAG 1 BAG IVPB SCH (18:47)
[2024-09-18] MEDS: SIMETHICONE 40 MG/0.6 ML DROPS 2,000 MG/30 ML BOTTLE PO SCH (18:48)
[2024-09-18] MEDS: SCOPOLAMINE 1 MG/72 HR PATCH TRANSDERM STA (18:48)
[2024-09-18] MEDS: PANTOPRAZOLE 40 MG/10 ML VIAL IVP SCH (21:43)
[2024-09-19] MEDS: diphenhydrAMINE 50 MG/ML 1 ML VIAL IVP PRN (01:20)
[2024-09-19] MEDS: PROMETHAZINE 25 MG TAB PO STA (04:07)
--- NOTE | 2024-09-19 10:35 | P.PN ---
Subjective Progress Note Date: 09/19/24 NAEON. No N/V. No F/C. No SOB or CP. Ambulatory and voiding. Objective - Vital Signs Vital signs: Vital Signs Temp 98.8 F 09/19/24 07:11 Pulse 70 09/19/24 07:11 Resp 16 09/19/24 07:11 BP 133/81 09/19/24 07:11 Pulse Ox 100 09/19/24 07:11 FiO2 Intake & Output 09/18/24 09/19/24 09/19/24 18:59 06:59 18:59 Intake Total 1250 Output Total 805 Balance 445 Intake: IV 1250 Output: Urine 800 Estimated Blood Loss 5 Other: Voiding Method Toilet # Voids 3 - Exam Gen: AxO, NAD Pulm; non-labored respirations Abd: soft, minimally tender around incisions, mildly distended. No guarding/rebound/rigidity Extrem: no edema seen - Labs CBC & Chem 7: 09/18/24 03:20 09/18/24 03:20 Assessment and Plan Assessment: Patient is a 44 year old female who is s/p robotic assisted LAR for sigmoid volvulus Plan: -Diet as tolerated -IVF hydration -PRN pain and nausea control -Encourage ambulation -DVT/GI PPx -Potential DC today pending clinical course Niall De Leon M.D. General Surgery
[2024-09-19] MEDS: ALVIMOPAN 12 MG CAPSULE PO SCH (11:46)
[2024-09-19] MEDS: ENOXAPARIN 30 MG/0.3 ML SYRINGE SQ SCH (13:20)
[2024-09-19] MEDS: metroNIDAZOLE-NS PMX 500 MG in SALINE 1 100ML.BAG IVPB SCH (21:10)
[2024-09-20] MEDS: HEPARIN SODIUM,PORCINE 5,000 UNIT/ML 1 ML VIAL SQ SCH (08:56)
[2024-09-20 09:27] LABS: Basophils # (A) 0.05 X 10*3/uL (0.00-0.10); Basophils % (A) 0.5 %; Eosinophils % (A) 4.5 %; HGB 6.6 g/dL (12.0-15.0); Lymphocytes # (A) 3.06 X 10*3/uL (0.90-5.00); Lymphocytes % (A) 27.6 %; MCH 30.7 pg (27.0-32.0); MCHC 31.4 g/dL (32.0-37.0); MCV 97.7 FL (80.0-97.0); Mean Platelet Volume 11.3 FL (9.5-12.2); Monocytes # (A) 1.05 X 10*3/uL (0.20-1.00); Monocytes % (A) 9.5 %; NRBC Per 100 WBC 0 X 10*3/uL (0.00-0.01); Neutrophils # (A) 6.39 X 10*3/uL (1.80-7.70); Neutrophils % (A) 57.4 %; Platelet Count 240 X 10*3/uL (140-440); RBC 2.15 X 10*6/uL (4.10-5.20); RDW 17.9 % (11.5-14.5)
[2024-09-20 10:32] LABS: ALT 6 U/L (8-44); AST 12 U/L (13-35); Albumin 2.9 g/dL (3.8-4.9); Albumin/Globulin Ratio 1.53 Ratio (1.60-3.17); Alkaline Phosphatase 62 U/L (41-126); Carbon Dioxide 30.1 mmol/L (21.6-31.8); Chloride 101 mmol/L (96-109); Globulin 1.9 g/dL (1.6-3.3); Glucose 106 mg/dL (70-110); Magnesium 1.8 mg/dL (1.5-2.4); Potassium 3.9 mmol/L (3.5-5.5); Sodium 136 mmol/L (135-145); Total Bilirubin <0.2 mg/dL (0.3-1.2); Total Protein 4.8 g/dL (6.2-8.2)
[2024-09-20] MEDS: SODIUM FERRIC GLUCONAT-SUCROSE 125 MG in SODIUM CHLORIDE 0.9% 100 ML IVPB SCH (11:01)
[2024-09-20] MEDS: metroNIDAZOLE-NS PMX 500 MG in SALINE 1 100ML.BAG IVPB SCH (13:09)
[2024-09-20 13:21] LABS: Anisocytosis Slight; Basophils % (A) 0 %; Eosinophils # (A) 0.6 k/uL (0-0.7); Eosinophils % (A) 5 %; Lymphocytes # (A) 2.8 k/uL (1.0-4.8); Lymphocytes % (A) 25 %; MCH 32.4 pg (25.0-35.0); MCHC 32.8 g/dL (31.0-37.0); MCV 98.7 fL (80.0-100.0); Macrocytosis Slight; Mean Platelet Volume 8.4; Monocytes # (A) 0.6 k/uL (0-1.0); Monocytes % (A) 5 %; Neutrophils # (A) 7.5 k/uL (1.3-7.7); Neutrophils % (A) 64 %; Platelet Count 219 k/uL (150-450); RDW 17.4 % (11.5-15.5); WBC 11.6 k/uL (3.8-10.6)
--- NOTE | 2024-09-20 13:55 | P.PN ---
Subjective Progress Note Date: 09/20/24 CHIEF COMPLAINT: Sigmoid volvulus HISTORY OF PRESENT ILLNESS: The patient is a 44-year-old female status post sigmoid resection for sigmoid diverticulosis including diverticulosis. Patient was seen yesterday morning by me at 10:30 AM with complaints of rectal bleeding. This is now completely resolved. Her hemoglobin did decline to 6.6 mg/dL today. All blood thinners are now discontinued. Her mother is at bedside. She reports for the first time in several weeks to months, she has an appetite and denies nausea or vomiting. Abdominal pain is resolved. She is smiling and feels quite happy today. ROS:No fevers or chills. No new chest pain. No productive sputum PHYSICAL EXAM: VITAL SIGNS: Reviewed CONSTITUTIONAL: Well developed and in no acute distress. EYES: Conjuctivae without sclera icterus. Extraocular movements grossly intact. HEAD, EARS, NOSE, THROAT: Moist buccal mucosa. Head is atraumatic, normocephalic. Hears conversational speech. No nasal drainage. RESPIRATORY: Non-labored respirations and equal bilateral excursions. CARDIOVASCULAR: Palpable 2+ radial pulses. ABDOMEN: Incisions clean dry intact. MUSCULOSKELETAL: No gross deformity of the lower extremities noted. No clubbing. No cyanosis. SKIN: Good skin turgor. Well perfused. NEUROLOGIC: Cranial nerves II through XII grossly intact. No focal or lateralizing signs. PSYCH: Appropriate affect. Alert and oriented to person, place and time. CLINICAL LABS: Reviewed. Hemoglobin declined 11.6 preoperatively to 6.6 this morning. Repeat hemoglobin is pending at this time. WBC elevated. ASSESSMENT: 1. Sigmoid volvulus 2. Sigmoid diverticulosis 3. Rectal adenoma 4. Rectal bleeding status post sigmoid colectomy expected finding. 5. Iron deficiency anemia PLAN: 1. All heparin including Lovenox has been discontinued. Patient confirms no further bleeding. 2. Adjusted diet to high-protein shakes 3 times daily with meal which she is tolerating. 3. Low fiber diet including avoiding seeds and broccoli discussed with patient and her family at bedside. 4. Patient has pre-existing history of iron deficiency anemia. Will start iron infusions today. 5. Periprocedural prophylaxis with Ancef and Flagyl due to recent GI bleed initiated 6. Overall, patient denies signs of symptomatic anemia. Will treat with IV iron, discontinuing blood thinners, and conservative management. 7. Disposition in 24 hours. Objective - Vital Signs Vital signs: Vital Signs Temp 98.1 F 09/20/24 07:10 Pulse 72 09/20/24 08:55 Resp 16 09/20/24 08:55 BP 94/49 09/20/24 07:10 Pulse Ox 97 09/20/24 08:06 FiO2 Intake & Output 09/19/24 09/20/24 09/20/24 18:59 06:59 18:59 Other: Voiding Method Toilet Toilet # Voids 2 # Bowel Movements 1 - Labs CBC & Chem 7: 09/20/24 06:01 09/20/24 06:01 Labs: Abnormal Lab Results - Last 24 Hours (Table) 09/20/24 09/20/24 Range/Units 06:01 06:01 WBC 11.10 H (4.50-10.00) X 10*3/uL RBC 2.15 L (4.10-5.20) X 10*6/uL Hgb 6.6 A* (12.0-15.0) g/dL Hct 21.0 L (37.2-46.3) % MCV 97.7 H (80.0-97.0) FL MCHC 31.4 L (32.0-37.0) g/dL RDW 17.9 H (11.5-14.5) % Immature Gran # 0.05 H (0.00-0.04) X 10*3/uL Monocytes # 1.05 H (0.20-1.00) X 10*3/uL Eosinophils # 0.50 H (0.04-0.35) X 10*3/uL BUN 6.0 L (9.0-27.0) mg/dL Creatinine 0.5 L (0.6-1.5) mg/dL Calcium 8.0 L (8.7-10.3) mg/dL Total Bilirubin <0.2 L (0.3-1.2) mg/dL AST 12 L (13-35) U/L ALT 6 L (8-44) U/L Total Protein 4.8 L (6.2-8.2) g/dL Albumin 2.9 L (3.8-4.9) g/dL Albumin/Globulin Ratio 1.53 L (1.60-3.17) Ratio
[2024-09-20 13:56] LABS: HCT 19.8 % (34.0-46.0); HGB 6.5 gm/dL (11.4-16.0)
[2024-09-20] MEDS: ACETAMINOPHEN IV (For NPO) 1,000 MG in EMPTY BAG 1 BAG IVPB SCH (15:03)
[2024-09-21 09:40] LABS: MCH 31.3 pg (27.0-32.0); MCHC 31.6 g/dL (32.0-37.0); Mean Platelet Volume 11.3 FL (9.5-12.2); NRBC Per 100 WBC 0 X 10*3/uL (0.00-0.01); Platelet Count 221 X 10*3/uL (140-440); RBC 1.98 X 10*6/uL (4.10-5.20); RDW 17.4 % (11.5-14.5); WBC 10.15 X 10*3/uL (4.50-10.00)
[2024-09-21 10:02] LABS: Basophils # (A) 0.06 X 10*3/uL (0.00-0.10); Basophils % (A) 0.6 %; Eosinophils # (A) 0.76 X 10*3/uL (0.04-0.35); Eosinophils % (A) 7.5 %; HCT 19.6 % (37.2-46.3); HGB 6.2 g/dL (12.0-15.0); Lymphocytes # (A) 3.55 X 10*3/uL (0.90-5.00); Monocytes # (A) 1.04 X 10*3/uL (0.20-1.00); Monocytes % (A) 10.2 %; Neutrophils # (A) 4.68 X 10*3/uL (1.80-7.70); Neutrophils % (A) 46.1 %
--- NOTE | 2024-09-21 15:40 | P.PN ---
Subjective Progress Note Date: 09/21/24 CHIEF COMPLAINT: Sigmoid volvulus HISTORY OF PRESENT ILLNESS: The patient is a 44-year-old female status post sigmoid resection for sigmoid diverticulosis including diverticulosis. Patient has been on IV iron. Hemoglobin dropped further to 6.2. Patient does report to having fatigue. She reports her pain is controlled. She has had bowel movement. No blood reported in the stool. Her blood thinners were discontinued. She is having flatus. Denies any difficulty urinating. She did have some nausea last night but that has improved. Afebrile. Vital stable. WBC 10.15 Hgb 6.2 platelets 221 PHYSICAL EXAM: VITAL SIGNS: Reviewed GENERAL: Well-developed in no acute distress. HEENT: No sclera icterus. Extraocular movements grossly intact. Moist buccal mucosa. Head is atraumatic, normocephalic. Hears conversational speech. No nasal drainage. NECK: Supple without lymphadenopathy. CHEST: Non-labored respirations and equal bilateral excursions. CARDIOVASCULAR: Palpable 2+ radial pulses. ABDOMEN: Soft. Nondistended. Incision sites clean dry and intact MUSCULOSKELETAL: No clubbing or cyanosis. NEUROLOGIC: No focal or lateralizing signs. Cranial nerves II through XII grossly intact. PSYCH: Appropriate affect. Alert and oriented to person, place and time. SKIN: Well perfused. Good skin turgor. ASSESSMENT: 1. Sigmoid volvulus 2. Sigmoid diverticulosis 3. Rectal adenoma 4. Rectal bleeding status post sigmoid colectomy expected finding. 5. Symptomatic anemia due to adverse reaction from Lovenox and medications. Hemoglobin stable after 24 hours after discontinuing blood thinners 6. Iron deficiency anemia PLAN: -1 unit of blood ordered for hemoglobin of 6.2 -Continue IV iron -Continue to hold off on any blood thinners. -Continue high-protein shakes with meals -continue low fiber diet -Possible discharge later today after blood transfusion Physician Finger Lift Operator note has been reviewed by physician. Signing provider agrees with the documented findings, assessment, and plan of care. Please see additional documentation below CHIEF COMPLAINT: Sigmoid volvulus HISTORY OF PRESENT ILLNESS: The patient is a 44-year-old female status post colectomy for sigmoid volvulus and diverticulosis. She reports feeling well. No further bleeding from the rectum since discontinuing Lovenox. Patient is ambulating. She has symptomatic anemia with fatigue. ROS: No fevers or chills. No new chest pain. No productive sputum PHYSICAL EXAM: VITAL SIGNS: Reviewed CONSTITUTIONAL: Well developed and in no acute distress. EYES: Conjuctivae without sclera icterus. Extraocular movements grossly intact. HEAD, EARS, NOSE, THROAT: Moist buccal mucosa. Head is atraumatic, normocephalic. Hears conversational speech. No nasal drainage. RESPIRATORY: Non-labored respirations and equal bilateral excursions. CARDIOVASCULAR: Palpable 2+ radial pulses. ABDOMEN: Incision intact. MUSCULOSKELETAL: No gross deformity of the lower extremities noted. No clubbi ng. No cyanosis. SKIN: Good skin turgor. Well perfused. NEUROLOGIC: Cranial nerves II through XII grossly intact. No focal or lateralizing signs. PSYCH: Appropriate affect. Alert and oriented to person, place and time. CLINICAL LABS: Reviewed. Hemoglobin stabilizing 6.5-6.2. ASSESSMENT: 1. Sigmoid volvulus with sigmoid diverticulosis 2. Acute blood loss anemia due to adverse reaction Lovenox with symptomatic anemia 3. Pre-existing left lower quadrant abdominal pain resolved PLAN: 1. Agree with blood transfusion as she has now symptomatic anemia 2. All chemical DVT prophylaxis and blood thinners has been discontinued Objective - Vital Signs Vital signs: Vital Signs Temp 98.1 F 09/21/24 13:08 Pulse 69 09/21/24 13:08 Resp 16 09/21/24 13:08 BP 101/55 09/21/24 13:08 Pulse Ox 100 09/21/24 13:08 FiO2 Intake & Output 09/20/24 09/21/24 09/21/24 18:59 06:59 18:59 Other: Voiding Method Toilet Toilet # Voids 2 2 - Labs CBC & Chem 7: 09/22/24 03:37 09/20/24 06:01 Labs: Abnormal Lab Results - Last 24 Hours (Table) 09/21/24 09/21/24 Range/Units 02:47 10:28 WBC 10.15 H (4.50-10.00) X 10*3/uL RBC 1.98 L (4.10-5.20) X 10*6/uL Hgb 6.2 A* (12.0-15.0) g/dL Hct 19.6 A* (37.2-46.3) % MCV 99.0 H (80.0-97.0) FL MCHC 31.6 L (32.0-37.0) g/dL RDW 17.4 H (11.5-14.5) % Immature Gran # 0.06 H (0.00-0.04) X 10*3/uL Monocytes # 1.04 H (0.20-1.00) X 10*3/uL Eosinophils # 0.76 H (0.04-0.35) X 10*3/uL Crossmatch See Detail
[2024-09-21] MEDS ORDERED: DEXTROSE 50% SYRINGE 50 ML IVP PRN ×2 (18:40)
[2024-09-21] MEDS ORDERED: INSULIN ASPART (NovoLOG) 100 UNIT/ML VIAL SQ SCH (21:00)
[2024-09-22 02:43] VITALS: PULSE 74
[2024-09-22 04:23] LABS: Anisocytosis Slight; Basophils % (A) 0 %; Eosinophils # (A) 0.7 k/uL (0-0.7); Eosinophils % (A) 8 %; HCT 22.2 % (34.0-46.0); HGB 7.2 gm/dL (11.4-16.0); Lymphocytes % (A) 38 %; MCHC 32.4 g/dL (31.0-37.0); MCV 95.7 fL (80.0-100.0); Mean Platelet Volume 7.9; Monocytes # (A) 0.6 k/uL (0-1.0); Monocytes % (A) 7 %; Neutrophils # (A) 3.4 k/uL (1.3-7.7); Neutrophils % (A) 43 %; Platelet Count 213 k/uL (150-450); RBC 2.32 m/uL (3.80-5.40); RDW 18.3 % (11.5-15.5); WBC 7.9 k/uL (3.8-10.6)
[2024-09-22 08:41] VITALS: BP 109/69; RESP 16; TEMP 98.1
--- NOTE | 2024-09-22 08:48 | P.PN ---
Progress Note - Text Progress Note Date: 09/21/24 Patient reassessed this evening. She reports no further pre-existing abdominal pain of left lower quadrant prior to surgery. Patient reports appropriate mild incisional pain but tolerable. No further rectal bleeding. Repeat hemoglobin demonstrated stability. Patient just receiving 1 unit of blood. Anticipated discharge in 24 hours with repeat of CBC prior to discharge.
--- NOTE | 2024-09-22 09:10 | P.PN ---
Subjective Progress Note Date: 09/22/24 CHIEF COMPLAINT: Sigmoid volvulus HISTORY OF PRESENT ILLNESS: The patient is a 44-year-old female status post sigmoid resection for sigmoid diverticulosis including diverticulosis. She received 1 unit of blood. Hemoglobin is up from 6.2-7.2. She reports feeling very well. No nausea. Pain tolerable. Patient is eager to go home. No signs of bleeding. Her pre-existing left lower quadrant abdominal pain present prior to surgery is now completely resolved. Patient overall is happy with level of care. ROS:No fevers or chills. No new chest pain. No productive sputum PHYSICAL EXAM: VITAL SIGNS: Reviewed CONSTITUTIONAL: Well developed and in no acute distress. EYES: Conjuctivae without sclera icterus. Extraocular movements grossly intact. HEAD, EARS, NOSE, THROAT: Moist buccal mucosa. Head is atraumatic, normocephalic. Hears conversational speech. No nasal drainage. RESPIRATORY: Non-labored respirations and equal bilateral excursions. CARDIOVASCULAR: Palpable 2+ radial pulses. ABDOMEN: Dressing. No peritonitis. MUSCULOSKELETAL: No gross deformity of the lower extremities noted. No clubbing. No cyanosis. SKIN: Good skin turgor. Well perfused. NEUROLOGIC: Cranial nerves II through XII grossly intact. No focal or lateralizing signs. PSYCH: Appropriate affect. Alert and oriented to person, place and time. CLINICAL LABS: Reviewed. WBC normal. Hemoglobin 7.2. ASSESSMENT: 1. Sigmoid volvulus 2. Sigmoid diverticulosis 3. Rectal adenoma 4. Rectal bleeding status post sigmoid colectomy expected finding. 5. Iron deficiency anemia 6. Acute blood loss anemia due to adverse reaction Lovenox with symptomatic anemia PLAN: 1. Medical reconciliation was performed discontinuing all cathartics as patient is now having normal bowel movements. 2. Medications for irritable bowel syndrome also discontinued as symptoms were consistent with intermittent sigmoid volvulus and diverticulosis. 3. Close follow-up as outpatient at bariatric center with dietary instruction reviewed in detail Objective - Vital Signs Vital signs: Vital Signs Temp 98.1 F 09/22/24 07:25 Pulse 74 09/22/24 07:25 Resp 16 09/22/24 07:25 BP 109/69 09/22/24 07:25 Pulse Ox 100 09/22/24 07:25 FiO2 Intake & Output 09/21/24 09/22/24 09/22/24 18:59 06:59 18:59 Intake Total 2059 Balance 2059 Intake: Intake, IV Titration 1150 Amount IV Fluid Continuation 1, 900 000 ml @ 0 mls/hr IV .[facility] Rx#:[id number] Sodium Ferric Gluconat- 100 Sucrose 125 mg In Sodium Chloride 0.9% 100 ml @ 100 mls/hr IVPB DAILY [facility] Rx#:[id number] ceFAZolin 2 gm In Sodium 50 Chloride 0.9% 50 ml @ 100 mls/hr IVPB Q8H [facility] Rx#: [id number] metroNIDAZOLE-NS PMX 500 100 mg In Saline 1 100ml.bag @ 100 mls/hr IVPB Q8H [facility] Rx#:[id number] Oral 600 Blood Product 310 Rc As-1 Unit 310 [id number] Other: # Voids 3 2 # Bowel Movements 1 - Labs CBC & Chem 7: 09/22/24 03:37 09/20/24 06:01 Labs: Abnormal Lab Results - Last 24 Hours (Table) 09/21/24 09/21/24 09/22/24 Range/Units 02:47 10:28 03:37 WBC 10.15 H (4.50-10.00) X 10*3/uL RBC 1.98 L 2.32 L (4.10-5.20) X 10*6/uL Hgb 6.2 A* 7.2 L (12.0-15.0) g/dL Hct 19.6 A* 22.2 L (37.2-46.3) % MCV 99.0 H (80.0-97.0) FL MCHC 31.6 L (32.0-37.0) g/dL RDW 17.4 H 18.3 H (11.5-14.5) % Immature Gran # 0.06 H (0.00-0.04) X 10*3/uL Monocytes # 1.04 H (0.20-1.00) X 10*3/uL Eosinophils # 0.76 H (0.04-0.35) X 10*3/uL Crossmatch See Detail
--- NOTE | 2024-09-22 09:13 | P.DS ---
Providers Date of admission: 09/17/24 09:10 Expected date of discharge: 09/22/24 Attending physician: Renuka Lopez Consults: 09/17/24 11:35 Consult Physician Routine Consulting Provider: [facility] Consult Reason/Comments: [facility] Do you want consulting provider notified?: Yes Primary care physician: Alexys Adams Hospital Course: POSTOPERATIVE DIAGNOSES: 1. Sigmoid volvulus 2. Sigmoid diverticulosis 3. Recurrent intermittent bowel obstruction 4. Left lower quadrant abdominal pain, recurrent 5. History of gastric bypass status post massive weight loss 6. Tobacco abuse disorder in remission 7. Depressive disorder 8. Generalized anxiety disorder 9. Gastroesophageal reflux disease 10. Gastric ulcers 11. Small bowel volvulus 12. Acute blood loss anemia due to adverse reaction from Lovenox with symptomatic anemia 13. Persisting iron deficiency COURSE: The patient is a 44-year-old female who presents with chronic left lower quadrant abdominal pain due to sigmoid volvulus including diverticulitis. Patient had a colonoscopy prior to her surgery with removal of a large polyp. Patient had colectomy of the sigmoid colon. Patient was placed on low-dose Lovenox and had developed rectal bleeding with acute drop in hemoglobin from 11.6-6.2. Patient pre-existing left lower quadrant abdominal pain had resolved after surgery. Chemical prophylaxis discontinued. Patient was treated with iron infusions including 1 unit of blood transfusion. Prior to discharge, patient was tolerating diet. Her pre-existing left lower abdominal pain had resolved. Patient clinically had done well. Medical reconciliation was performed. Patient was hemodynamic stable for discharge. Procedures: 09/17/24 Colonoscopy with polypectomy 09/18/24 OPERATION: 1. Robotic-assisted daVinci Xi sigmoid colectomy with low anterior resection using 29 mm Ethicon powered stapler 2. Robotic-assisted daVinci Xi reduction of small bowel volvulus, jejunum/ileum 3. Intraoperative colonoscopy used for sigmoidoscopy Anesthesia: GETA, local, regional Estimated Blood Loss (ml): 5 Pathology: 1. Sigmoid colon 2. EEA donuts Condition: stable Disposition: floor COMPLICATIONS: None. Operative Findings: 1. Redundant sigmoid colon and active sigmoid volvulus without bowel ischemia 2. Anastomosis with EEA stapler 29 mm 3. No tension or torsion along the anastomosis 4. Doughnuts thick and both sides and viable 5. Moderately redundant sigmoid colon without tension at anastomosis 6. Negative leak test with viable anastomosis. 7. Small bowel volvulus involving the jejunum/ileum mesentery Patient Condition at Discharge: Good Plan - Discharge Summary Discharge Rx Participant: Yes New Discharge Prescriptions: New Simethicone [Gas-X] 125 mg PO AC-TID PRN #20 capsule PRN Reason: Pain Cyclobenzaprine [Flexeril] 10 mg PO TID #30 tab Continue busPIRone HCL 15 mg PO DAILY Escitalopram [Lexapro] 30 mg PO HS Pantoprazole [Protonix] 40 mg PO DAILY #30 tab busPIRone HCL 30 mg PO HS Ergocalciferol [Vitamin D2 (1250 Mcg = 37961 Iu)] 1,250 mcg PO TU traMADol HCl [Ultram] 50 mg PO Q6H PRN tab PRN Reason: Pain Gabapentin [Neurontin] 100 mg PO BID 30 Days #60 cap Discontinued Ondansetron Odt [Zofran ODT] 4 mg PO TID PRN PRN Reason: Nausea Lactulose [Cephulac] 30 ml PO BID PRN #500 ml PRN Reason: Constipation Docusate [Colace] 100 mg PO DAILY Dextrose Chew [Glucose Chew Tab] 4 - 16 gm PO DIRECTED PRN PRN Reason: Blood Sugar - Low diphenhydrAMINE HCL [Benadryl] 25 mg PO HS Dicyclomine [Bentyl] 10 mg PO BID cap Discharge Medication List busPIRone HCL 15 mg PO DAILY 12/31/21 [History] Escitalopram [Lexapro] 30 mg PO HS 09/06/23 [History] busPIRone HCL 30 mg PO HS 06/08/24 [History] Ergocalciferol [Vitamin D2 (1250 Mcg = 70366 Iu)] 1,250 mcg PO TU 06/29/24 [History] Pantoprazole [Protonix] 40 mg PO DAILY #30 tab 08/21/24 [Rx] Gabapentin [Neurontin] 100 mg PO BID 30 Days #60 cap 08/25/24 [Rx] traMADol HCl [Ultram] 50 mg PO Q6H PRN tab 08/25/24 [Rx] Cyclobenzaprine [Flexeril] 10 mg PO TID #30 tab 09/22/24 [Rx] Simethicone [Gas-X] 125 mg PO AC-TID PRN #20 capsule 09/22/24 [Rx] [facility]Ref[facility] [place] [facility] 9:00 am Patient Instructions/Handouts: Colectomy Diet (ED), Laparoscopic Bowel Resection (DC) Activity/Diet/Wound Care/Special Instructions: EXPECT BOWEL MOVEMENT WITH BLOOD FOR 1 WEEK, September 25 TAKE LAXATIVE FOR CONSTIPATION AFTER 4 DAYS, September 22 NO LONG DRIVES OR AIRPLANE RIDES OVER 60 MINUTES FOR THE NEXT 2 WEEKS, October 02, DUE TO HIGH RISK OF PULMONARY EMBOLISM/DVTs May drive on September 21 Wear abdominal binder for comfort. No lifting over 4 pounds in 4 weeks October 19January shower. No bath tub soaks for two weeks until October 02 Avoid steak, tough meats and seeds such as raspberry seeds. See diverticulitis, low fiber, colectomy diet, through October 19 Use Tylenol and ibuprofen scheduled for the next 24-48 hours for best pain relief. Use ice along incisions for today to prevent swelling. Discharge Disposition: HOME SELF-CARE
== END 2024-09-22 12:00 | disposition home or self-care (01) | DRG 329 ==
LOC: ORWHC2ENDO 09:09 → 4SSUR 09:10
PROVIDERS: ADMIT Surgery Plastic and Reconstructive Surgery; ATTEND Surgery Plastic and Reconstructive Surgery
PROC: 0DBE8ZX Excision of Large Intestine, Via Natural or Artificial Opening Endoscopic, Diagnostic (ICD-10-PCS; 2024-09-17)
PROC: 0DBQ8ZX Excision of Anus, Via Natural or Artificial Opening Endoscopic, Diagnostic (ICD-10-PCS; 2024-09-17)
PROC: 0DS84ZZ Reposition Small Intestine, Percutaneous Endoscopic Approach (ICD-10-PCS; 2024-09-18)
PROC: 3E0T3BZ Introduction of Anesthetic Agent into Peripheral Nerves and Plexi, Percutaneous Approach (ICD-10-PCS; 2024-09-18)
PROC: 3E0T33Z Introduction of Anti-inflammatory into Peripheral Nerves and Plexi, Percutaneous Approach (ICD-10-PCS; 2024-09-18)
PROC: 8E0W4CZ Robotic Assisted Procedure of Trunk Region, Percutaneous Endoscopic Approach (ICD-10-PCS; 2024-09-18)
PROC: 0DTN4ZZ Resection of Sigmoid Colon, Percutaneous Endoscopic Approach (ICD-10-PCS; principal; 2024-09-18 12:00)
PROC: 30233N1 Transfusion of Nonautologous Red Blood Cells into Peripheral Vein, Percutaneous Approach (ICD-10-PCS; 2024-09-21)
DX: K57.30 Diverticulosis of large intestine without perforation or abscess without bleeding (principal); K56.2 Volvulus; D62 Acute posthemorrhagic anemia; D68.32 Hemorrhagic disorder due to extrinsic circulating anticoagulants; F17.201 Nicotine dependence, unspecified, in remission; F32.A Depression, unspecified; F41.1 Generalized anxiety disorder; K21.9 Gastro-esophageal reflux disease without esophagitis; T45.515A Adverse effect of anticoagulants, initial encounter; K63.5 Polyp of colon; K64.0 First degree hemorrhoids; K25.7 Chronic gastric ulcer without hemorrhage or perforation; D36.7 Benign neoplasm of other specified sites; Z88.0 Allergy status to penicillin; Z98.84 Bariatric surgery status
CPT/HCPCS: 45385; 64999; 80048; 80053; 81025; 83735; 85025; 86850; 86870; 86880; 86900; 86901; 86920; 88304; 88305; 88307; 94760

== ENCOUNTER → 2024-09-25 | Outpatient (CLI) | payer BC ==
[2024-09-25 10:10] VITALS: BP 122/69; PULSE 82; RESP 16; TEMP 97.8; BMI 19.2
== END ==
LOC: BARWHC3 09:30
PROVIDERS: ATTEND Surgery Plastic and Reconstructive Surgery
DX: E66.01 Morbid (severe) obesity due to excess calories (principal); Z53.9 Procedure and treatment not carried out, unspecified reason
CPT/HCPCS: 99211